=== PATIENT | female | born 1965 | race African-American/Black ===

== ENCOUNTER 2017-08-30 20:12 | Inpatient (IN) | payer MEDICARE, MEDICAID ==
[2017-08-30 20:55] LABS: #Basophils 0.1 thou/uL (0.0-0.2); #Eosinphils 0.2 thou/uL (0.0-0.7); #Lymphocytes 1.9 thou/uL (1.20-3.40); #Monocytes 0.3 thou/uL (0.11-0.59); #Neutrophils 5.5 thou/uL (1.40-6.50); %Basophils 0.8 % (0.0-1.0); %Eosinophils 2.2 % (0.0-10.0); %Lymphocytes 24.3 % (21.0-51.0); %Monocytes 4.1 % (0.0-10.0); Mean Platelet Volume 7.9 fL (7.4-10.4); Red Blood Cell (RBC) Count 3.48 mill/uL (4.20-5.40)
[2017-08-30 21:14] LABS: ALT (SGPT) 9 U/L (8-55); AST (SGOT) 12 U/L (5-34); Alkaline Phosphatase 109 U/L (40-150); Anion Gap 13 mmol/L (10-20); BUN (Urea Nitrogen) 15 mg/dL (9.8-20.1); Bilirubin, Total 0.4 mg/dL (0.2-1.2); CK (CPK) 90 U/L (29-168); Calc. Creatinine Clearance 0 mL/min (70-130); Calcium 8.7 mg/dL (7.8-10.44); Carbon Dioxide 25 mmol/L (22-29); Chloride 105 mmol/L (98-107); Estimated GFR-MDRD 43; Globulin 4.2 g/dL (2.4-3.5); Protein, Total 7.5 g/dL (6.0-8.3)
[2017-08-30 21:18] LABS: Troponin I 0.021 ng/mL (< 0.028)
--- NOTE | 2017-08-30 21:25 | RAD ---
EXAM: ONE VIEW CHEST 08/30/17 COMPARISON: 07/15/16, 12/03/16. HISTORY: Dyspnea. FINDINGS: Portable upright chest demonstrates normal cardiac silhouette. Pulmonary vessels and hilum are alivia l. There are patchy interstitial opacities in the lung bases. No pneumothorax or osseous abnormaliti es. IMPRESSION: Patchy interstitial opacities in the lung bases, worrisome for infiltrate. Continued surveillance is recommended. POS: [facility]
[2017-08-30] MEDS ORDERED: Azithromycin 500 MG VIAL ONE (21:32)
[2017-08-30] MEDS ORDERED: cefTRIAXone\\ROCEPHIN 2 GM VIAL ONE (21:32)
[2017-08-30] MEDS ORDERED: Sodium Chloride 0.9% 100 ML ONE (21:32)
[2017-08-30] MEDS ORDERED: Ondansetron HCl/PF 4 MG/2 ML Vial ONE (22:26)
[2017-08-30] MEDS ORDERED: Lorazepam 2 MG/ML VIAL ONE (22:30)
--- NOTE | 2017-08-30 22:57 | PDOC.EVN ---
Event Note - Event Note Event Note: [id number] H&P Dictated 1. Pneumonia 2. Dyspnea 3. HTN 4. H/O DM type 2 5. dvt &Gi prophylaxis plan: see orders
[2017-08-30] MEDS ORDERED: Nitroglycerin 2% Ointment 1 INCH/1 GM Packet ONE (22:58)
[2017-08-30] MEDS ORDERED: Furosemide 40 MG/4 ML VIAL ONE (22:58)
[2017-08-30] MEDS ORDERED: Acetaminophen 325 MG TAB PO PRN (22:59)
[2017-08-30] MEDS ORDERED: Dextrose 50% Abboject 50 ML SYRINGE SLOW IVP PRN (22:59)
[2017-08-30] MEDS ORDERED: Dextrose 5% in Water 1,000 ML IV PRN (22:59)
[2017-08-30] MEDS ORDERED: HumaLOG 300 UNITS/3 ML VIAL SC PRN (22:59)
[2017-08-30] MEDS ORDERED: Famotidine 20 MG TAB PO PRN (23:00)
[2017-08-30 23:17] LABS: Oxyhemoglobin 89.8 % (94.0-97.0); Sodium 140 mmol/L (135-148)
[2017-08-30 23:20] LABS: Modified Allen's Test POSITIVE; PIP 12 cmH2O; Vent YES
[2017-08-30 23:21] LABS: Mode BIPAP S/T
[2017-08-31] MEDS ORDERED: Enoxaparin Sodium 60 MG/0.6 ML SYRINGE ONE (00:07)
[2017-08-31 01:48] LABS: Troponin I 0.023 ng/mL (< 0.028)
[2017-08-31 01:49] VITALS: BMI 25.2
[2017-08-31] MEDS: methylPREDNISolone Sod Succ/PF 125 MG/2 ML VIAL IVP SCH ×2 (02:32→05:33)
[2017-08-31] MEDS: cefTRIAXone\\ROCEPHIN 1 GM in Sodium Chloride 0.9% 100 ML IVPB SCH ×2 (02:32→23:00)
[2017-08-31] MEDS: Sodium Chloride 0.9% 1,000 ML IV SCH ×2 (02:33→12:40)
[2017-08-31 03:59] LABS: Troponin I 0.029 ng/mL (< 0.028)
[2017-08-31] MEDS: HumaLOG 300 UNITS/3 ML VIAL SC PRN ×2 (05:34→18:36)
--- NOTE | 2017-08-31 07:05 | HP ---
CHIEF COMPLAINT: Dyspnea. HISTORY OF PRESENT ILLNESS: Patient is a 52 years old female with past medical history of hypertension, hyperlipidemia, coronary artery disease, diabetes mellitus type 2, anxiety, depression, now came to the hospital complaining of dyspnea. Dyspnea started 2 weeks. Dyspnea occurs even at rest also, complains of cough with some sputum production, sputum white in color. Denies any fever. Denies any chills. Dyspnea got worse today, so she came to the ER. Complaints of dyspnea at rest also. Patient upon ER arrival, patient was hypoxic with in mid 80s. The patient was placed on oxygen. Patient denies any chest pain, denies any palpations, complains of generalized weakness. Denies any fever, denies any chills. PAST MEDICAL HISTORY: As per HPI. PAST SURGICAL HISTORY: Coronary artery stent placement, had 7 stents in the heart. SOCIAL HISTORY: Positive for smoking, denies alcohol, denies any drugs. FAMILY HISTORY: Denies any heart problems. MEDICATIONS: Reviewed. REVIEW OF SYSTEMS: Constitutional: Denies any fever, denies any chills. Positive for fatigue. Eyes: Denies any vision problems. Ears: Denies any hearing loss. Neck: Denies any neck pain. Cardiovascular system: Denies any chest pain. Denies any palpitations. Respiratory: Positive for dyspnea. Positive for cough, positive for sputum production. Gastrointestinal: Denies nausea, vomiting. Musculoskeletal: Denies any joint deformities. Integumentary: Denies any rash. Psychiatric: Mood is appropriate at this time. Cranial nerve system: Denies syncope, denies lightheadedness. Psychiatric: Denies anxiety. All other review of systems are reviewed and are negative. PHYSICAL EXAMINATION: CONSTITUTIONAL/VITAL SIGNS: At the time of H and P performed, blood pressure is 130/70, afebrile, pulse ox 97% on room air. GENERAL: The patient appears comfortable. HEENT: Pupils equal, round, and reactive. Anterior nares patent. Nose normal. Ears normal. Teeth intact. Tongue is moist. NECK: Supple, no JVD. CARDIOVASCULAR: S1, S2 present. Regular rate and rhythm. No murmurs, no rubs , no gallops. RESPIRATORY SYSTEM: No wheezing, no rhonchi. Breath sounds bilaterally. GASTROINTESTINAL: Abdomen is soft, nontender, no guarding, no organomegaly, no masses felt. NEUROLOGIC: Cranial nerve system is intact. Follows command. Strength intact , sensory intact. MUSCULOSKELETAL: No edema. INTEGUMENTARY: No rashes seen. PSYCHIATRIC: Mood is appropriate at this time. LABORATORY DATA: At the time of H and P performed, white count 8, hemoglobin 9.2, platelet count is 265. D-dimer 1.42. BMP showed sodium 139, potassium 4, chloride 105, CO2 of 25, BUN 15, creatinine 1.53. Troponin 0.021. AST 12, ALT 9, albumin 3.3. Chest x-ray: Patchy interstitial persisted in the lung bases, worrisome for the infiltrate. ASSESSMENT AND PLAN: The patient is a 52 years old female: 1. Pneumonia. Plan is to start patient on IV Rocephin and Zithromax. We will monitor the patient closely. Plan to start patient on breathing treatments also and IV Solu-Medrol. 2. Dyspnea secondary to pneumonia, but need to rule out pulmonary embolism also with elevated D-dimer. CT chest was ordered in the ER. We will wait for the report. Continue Lovenox for deep vein thrombosis prophylaxis for now. We will check cardiac enzymes and 2D echo also. We will place patient on telemetry. 3. Hypertension. Continue home blood pressure medications. 4. Diabetes mellitus type 2. Monitor blood sugars. We will do insulin sliding scale. 5. History of coronary artery disease. Continue home medications. The case was discussed in detail with the patient. Patient is FULL CODE. MTDD
--- NOTE | 2017-08-31 08:02 | PDOC.PN ---
- Subjective Encounter Start Date: 08/31/17 Encounter Start Time: 08:01 Ms. Felton says she is breathing much better today. She denies having any chest pain. She says she has been having difficulty breathing mainly at night for the past few weeks. she says it has been progressive, and usually only when she lays down. - Objective MAR Reviewed: Yes Vital Signs & Weight: Vital Signs (12 hours) Temp Pulse Resp BP Pulse Ox 08/31/17 07:43 87 26 H 99 08/31/17 07:41 87 28 H 99 08/31/17 04:34 89 178/93 H 08/31/17 04:00 97.6 F 08/31/17 03:16 81 170/93 H 08/31/17 02:23 83 22 H 100 08/31/17 02:00 97.0 F L 08/31/17 01:10 97.0 F L 87 35 H 100 Weight Admit Weight 147 lb 4.301 oz Weight 147 lb 4.301 oz Most Recent Monitor Data Heart Rate from ECG 94 NIBP 163/87 NIBP BP-Mean 106 Respiration from ECG 32 SpO2 100 I&O: 08/30/17 08/31/17 09/01/17 06:59 06:59 06:59 Intake Total 339 Output Total 1 Balance 338 Result Diagrams: 08/30/17 20:38 08/30/17 20:38 Additional Labs: Accuchecks 08/31/17 08/31/17 05:32 01:24 POC Glucose 274 H 337 H Phys Exam - Physical Examination HEENT: PERRLA Respiratory: no wheezing + rales at both bases Cardiovascular: RRR + S3, + 2/6 systolic murmur Gastrointestinal: soft, non-tender, positive bowel sounds Musculoskeletal: edema present 1+ pitting edema Dx/Plan (1) Acute on chronic combined systolic and diastolic CHF (congestive heart failure) Code(s): I50.43 - ACUTE ON CHRONIC COMBINED SYSTOLIC AND DIASTOLIC HRT FAIL Status: Acute (2) CAD (coronary artery disease) Code(s): I25.10 - ATHSCL HEART DISEASE OF [place] CORONARY ARTERY W/O ANG PCTRS Status: Chronic (3) Diabetes mellitus type 2 Code(s): E11.9 - TYPE 2 DIABETES MELLITUS WITHOUT COMPLICATIONS Status: Chronic (4) Hypertension Code(s): I10 - ESSENTIAL (PRIMARY) HYPERTENSION Status: Chronic - Plan * Acute respiratory failure- She is being treated for Pneumonia, but her symptoms seem more consist with CHF exacerbation * She had an Echo about a year ago, with an EF of 35-40%. Will add Lasix IV, and place a Pacheco Catheter * Continue IV antibiotic for now, but suspect these can be discontinued soon, if she has rapid improvement with diureses * Await Critical Care Consult * DM- continue SSI- start scheduled insulin once she is tolerating p.o. * HTN- blood pressure is borderline elevated- will monitor
[2017-08-31] MEDS ORDERED: FLU VACC QS2017-18 36 mo. & older 0.5 ML SYRINGE IM ONE (09:00)
[2017-08-31] MEDS ORDERED: Non-Formulary Item 1 EACH (Insulin Glargine,Hum.Rec.Anlog [Lantus Solostar] 24 UNIT) SC SCH (09:00)
[2017-08-31 09:22] LABS: Troponin I 0.012 ng/mL (< 0.028)
--- NOTE | 2017-08-31 10:48 | CON ---
DATE OF CONSULTATION: 08/31/2017 CONSULTING PHYSICIAN: Dr. Silva from the [facility]. REASON FOR CONSULTATION: Acute respiratory failure. HISTORY OF THE PRESENT ILLNESS: The patient is a pleasant 52-year-old -[place] female who c kamran to the hospital last night with shortness of breath which has been progressing over the 3 weeks prior to admission. She states that she has severe difficulty when lying down flat. She apparently has had congestive heart failure in the past. She is visually impaired. She says she has been inocente ing her medication at home, to the best of her knowledge. She was placed on BiPAP. She has improve d to the point where she was able to come off the BiPAP this morning. PAST MEDICAL HISTORY: 1. Coronary artery disease. 2. Diabetes mellitus. 3. Hypertension. 4. Hyperlipidemia. 5. Myocardial infarction. PAST SURGICAL HISTORY: and cholecystectomy. MEDICATIONS PRIOR TO ADMISSION: Atropine eyedrops, Lipitor 40 mg daily, aspirin 81 mg daily, alpraz olam 1 mg daily as needed, Flexeril 10 mg nightly, Plavix 75 mg daily, carvedilol 25 mg b.i.d., furo semide 40 mg every 2 days, Pepcid 20 mg daily as needed, clonidine 0.1 mg t.i.d., Zestril 40 mg b.i. d., glargine insulin 24 units b.i.d., trazodone 100 mg at bedtime, tramadol 50 mg every 12 hours as needed. SOCIAL HISTORY: She smokes a pack every 3-4 days, smoked more heavily in the past. Does not use al cohol, does not use illicit drugs. ALLERGIES: None. REVIEW OF SYSTEMS: Positive for PND, orthopnea, and cough. PHYSICAL EXAMINATION: VITAL SIGNS: Temperature 97.6, pulse 94, blood pressure 163/87. GENERAL: She is awake and alert and in no acute distress. HEENT: Pupils react. Sclerae are anicteric. Oropharynx dry. NECK: No JVD. LUNGS: Inspiratory crackles at both bases. CARDIAC: S1 and S2 regular with 2/6 systolic murmur. ABDOMEN: Soft, nontender. EXTREMITIES: No clubbing, cyanosis. She has trace edema. LABORATORY DATA AND X-RAY FINDINGS: White blood cell count 8, hematocrit 29, and platelet count 265 . D-dimer 1.42, pH 7.30, pCO2 of 46, pO2 78 on BiPAP last night. Sodium 139, potassium 4, chloride 105, CO2 25, BUN 15, creatinine 1.5, glucose 303. BNP 240. Chest x-ray shows bilateral lower lobe interstitial infiltrates. ASSESSMENT: 1. I agree with Dr. Suazo that this is more likely congestive heart failure than pneumonia. 2. Acute respiratory failure requiring mechanical ventilation. 3. Coronary artery disease. 4. Diabetes mellitus. 5. History of congestive heart failure with ejection fraction of 35%-40%. 6. Hypertension. PLAN: 1. Agree with diuresis. 2. Would consolidate or even discontinue antibiotics starting tomorrow if cultures are negative. 3. Discontinue IV fluids. 4. Decrease steroid dose, actually stop steroids as there is no indication for them that I can see at this time. 5. Insulin management per [facility]. 6. I will notify Dr. Canada of the patient's admission as he has seen her before.
[2017-08-31] MEDS: Aspirin 81 mg Enteric Coated Tablet PO SCH (11:49)
[2017-08-31] MEDS: cloNIDine HCl 0.1 MG TAB PO SCH ×3 (11:49→21:48)
[2017-08-31] MEDS: Carvedilol 25 MG TAB PO SCH ×2 (11:49→21:48)
[2017-08-31] MEDS: Furosemide 40 MG/4 ML VIAL SLOW IVP SCH (11:50)
[2017-08-31] MEDS: Clopidogrel Bisulfate 75 MG TAB PO SCH (11:50)
[2017-08-31] MEDS: Insulin Detemir 100 UNITS/ML 24 UNITS in Pre-Filled Syringe 1 EACH SC SCH ×2 (11:52→22:32)
[2017-08-31] MEDS: BRIMONIDINE R EYE SCH ×2 (12:00→21:51)
[2017-08-31] MEDS: PREDNISOLONE 1% EA EYE SCH ×2 (12:01→21:53)
[2017-08-31] MEDS: TIMOLOL 0.5% EA EYE SCH ×2 (12:02→21:53)
[2017-08-31] MEDS: LATANOPROST 0.005% EA EYE SCH (12:02)
[2017-08-31] MEDS ORDERED: Cyclobenzaprine 10 MG TAB PO PRN (14:09)
[2017-08-31] MEDS: ALPRAZolam 1 MG TAB PO PRN (15:09)
[2017-08-31] MEDS: Cyclobenzaprine 10 MG TAB PO PRN (15:09)
[2017-08-31] MEDS: Atorvastatin Calcium 40 MG TAB PO SCH (21:48)
[2017-08-31] MEDS: traZODone HCl 50 MG TAB PO SCH (21:49)
[2017-08-31] MEDS: Lisinopril 20 MG TAB PO SCH (21:49)
[2017-09-01 05:26] LABS: Anion Gap 12 mmol/L (10-20); BUN (Urea Nitrogen) 24 mg/dL (9.8-20.1); Calc. Creatinine Clearance 48 mL/min (70-130); Calcium 8.4 mg/dL (7.8-10.44); Carbon Dioxide 25 mmol/L (22-29); Chloride 106 mmol/L (98-107); Estimated GFR-MDRD 46
[2017-09-01] MEDS: Aspirin 81 mg Enteric Coated Tablet PO SCH (08:16)
[2017-09-01] MEDS: Carvedilol 25 MG TAB PO SCH ×2 (08:16→20:36)
[2017-09-01] MEDS: cloNIDine HCl 0.1 MG TAB PO SCH ×3 (08:17→20:37)
[2017-09-01] MEDS: Furosemide 40 MG/4 ML VIAL SLOW IVP SCH (08:17)
[2017-09-01] MEDS: Clopidogrel Bisulfate 75 MG TAB PO SCH (08:17)
[2017-09-01] MEDS: TIMOLOL 0.5% EA EYE SCH ×2 (08:18→20:39)
[2017-09-01] MEDS: PREDNISOLONE 1% EA EYE SCH ×2 (08:18→20:39)
[2017-09-01] MEDS: BRIMONIDINE R EYE SCH ×2 (08:18→20:39)
[2017-09-01] MEDS: LATANOPROST 0.005% EA EYE SCH (08:18)
[2017-09-01] MEDS: ALPRAZolam 1 MG TAB PO PRN (08:19)
[2017-09-01] MEDS: Insulin Detemir 100 UNITS/ML 24 UNITS in Pre-Filled Syringe 1 EACH SC SCH ×2 (08:51→20:37)
--- NOTE | 2017-09-01 09:42 | PDOC.PN ---
- Subjective Encounter Start Date: 09/01/17 Encounter Start Time: 09:41 Ms. almeida says she feels much better today. she was able to sleep through the night without difficulty. She denies any chest pain. - Objective MAR Reviewed: Yes Vital Signs & Weight: Vital Signs (12 hours) Temp Pulse Resp BP Pulse Ox 09/01/17 08:17 152/73 H 09/01/17 08:00 98.5 F 09/01/17 07:45 90 20 99 09/01/17 04:00 98.0 F 09/01/17 02:52 95 31 H 98 08/31/17 22:42 96 23 H 100 08/31/17 21:49 141/63 H 08/31/17 21:48 141/63 H Weight Admit Weight 147 lb 4.301 oz Weight 147 lb 11.355 oz Most Recent Monitor Data Heart Rate from ECG 82 NIBP 127/62 NIBP BP-Mean 75 Respiration from ECG 18 SpO2 99 I&O: 08/31/17 09/01/17 09/02/17 06:59 06:59 06:59 Intake Total 339 1154 300 Output Total 1 2430 Balance 338 -1276 300 Result Diagrams: 08/30/17 20:38 09/01/17 04:03 Additional Labs: Accuchecks 09/01/17 08/31/17 08/31/17 06:30 22:03 18:29 POC Glucose 168 H 237 H 304 H 08/31/17 11:47 POC Glucose 220 H Phys Exam - Physical Examination HEENT: PERRLA Respiratory: no wheezing + rales at the bases but diminished Cardiovascular: RRR 2/6 systolic murmur to the axilla Gastrointestinal: soft, non-tender, positive bowel sounds Musculoskeletal: no edema Dx/Plan (1) Acute on chronic combined systolic and diastolic CHF (congestive heart failure) Code(s): I50.43 - ACUTE ON CHRONIC COMBINED SYSTOLIC AND DIASTOLIC HRT FAIL Status: Acute (2) CAD (coronary artery disease) Code(s): I25.10 - ATHSCL HEART DISEASE OF [place] CORONARY ARTERY W/O ANG PCTRS Status: Chronic (3) Diabetes mellitus type 2 Code(s): E11.9 - TYPE 2 DIABETES MELLITUS WITHOUT COMPLICATIONS Status: Chronic (4) Hypertension Code(s): I10 - ESSENTIAL (PRIMARY) HYPERTENSION Status: Chronic - Plan * Acute on chronic diastolic heart failure- much improved after diureses * Echo results were notes. Her EF is much improved from her prior admission, but the MR is now severe- will consult Dr. Baker to help evaluate * DM- stable, her home medications have been re-started * HTN- blood pressure is stable * CAD- stable * Can transfer to Telemetry.
[2017-09-01] MEDS ORDERED: HYDROcodone/Acetaminophen 5/325 mg Tablet PO PRN (09:50)
[2017-09-01] MEDS: Lisinopril 20 MG TAB PO SCH ×2 (10:06→20:36)
--- NOTE | 2017-09-01 12:51 | PQF ---
DATE: 09-02-17 ATTN: DR. HOSSEIN CASTILLO Please exercise your independent, professional judgment in responding to the clarification form. Clinical indicators are provided on the bottom of this form for your review Please check appropriate box(s): [ ] Aspiration Pneumonia [ ] Empirically treating Gram Negative Pneumonia [ ] Empirically treating Anaerobic Pneumonia [ ] Pneumonia secondary to (specify organism / underlying disease) [ ] Simple Pneumonia (community acquired - nosocomial) [ ] Pneumonia of unknown etiology [ X ] Other diagnosis _Pneumonia- ruled out- finding due to CHF exacerbation ( diastolic dysfunction) [ ] Unable to determine In addition, please specify: Present on Admission (POA): [ ] Yes [ ] No [ ] Unable to determine For continuity of documentation, please document condition throughout progress notes and discharge summary. Thank You. CLINICAL INDICATORS - SIGNS / SYMPTOMS / LABS ER DIAGNOSIS: HYPOXIA, PNEUMONIA CXR 08-30-17: PATCH INTERSTITIAL OPACITIES IN THE LUNG BASES, WORRISOME FOR INFILTRATE. ER DOCUMENTATION: CEFTRIAXONE, AZITHROMYCIN, (09-01-17) LEVAQUIN H&P: PNEUMONIA PN DR. CASTILLO 08-31-17: SHE IS BEING TREATED FOR PNEUMONIA, BUT HER SYMPTOMS SEEM MORE CONSISTENT WITH CHF. CONTINUE IV ANTIBIOTICS FOR NOW, BUT SUSPECT THESE CAN BE D/C SOON, IF SHE HAS RAPID IMPROVEMENT WITH DIURESES RISK FACTORS: ER DOCUMENTATION: HX OF CHF, SMOKER TREATMENTS: * ER DOCUMENTATION: CEFTRIAXONE, AZITHROMYCIN, (09-01-17) LEVAQUIN * PN DR. CASTILLO 08-31-17: CONTINUE IV ANTIBIOTICS FOR NOW, BUT SUSPECT THESE CAN BE D/C SOON, IF SHE HAS RAPID IMPROVEMENT WITH DIURESES * PULMONARY CONSULT (This form is maintained as a part of the permanent medical record) 2015 [employer]. All Rights Reserved [email or web address] Office: [phone] WANDA
[2017-09-01] MEDS: HumaLOG 300 UNITS/3 ML VIAL SC PRN ×2 (13:02→17:29)
--- NOTE | 2017-09-01 13:03 | PQF ---
DATE: 09-02-17 ATTN: DR. HOSSEIN CASTILLO Please exercise your independent, professional judgment in responding to the clarification form. Clinical indicators are provided on the bottom of this form for your review Please check appropriate box(s): [ ] Acute Renal Failure (ARF) / Acute Kidney Injury (NITIN) (Please specify associated condition, if applicable) [ ] Other Etiology or underlying conditions related to the diagnosis of ARF/ NITIN: [ ] Acute on Chronic Renal Failure please specify Stage of CKD (see below) [ X ] CKD without ARF/NITIN please specify Stage of CKD___ CKD stage 3 [ ] Other diagnosis [ ] Unable to determine In addition, please specify: Present on Admission (POA): [ ] Yes [ ] No [ ] Unable to determine National Kidney Foundation Guidelines for CKD Staging Stage I Kidney damage with normal or increased GFR GFR > 90 Stage II Kidney damage with mildly decreased GFR GFR 60-89 Stage III Kidney damage with moderately decreased GFR GFR 30-59 Stage IV Kidney damage with severely decreased GFR GFR 16-29 Stage V Kidney failure GFR<15 ESRD End Stage Renal Disease On dialysis For continuity of documentation, please document condition throughout progress notes and discharge summary. Thank You. CLINICAL INDICATORS - SIGNS / SYMPTOMS / LABS GFR: 08-30-17: 43 09-01-17: 46 CREATININE: 08-30-17: 1.53 09-01-17: 1.45 BUN: 08-30-17: 15 09-01-17: 24 RISK FACTORS: (08-31-17) LASIX IVP DAILY TREATMENTS: (08-30-17) IVF, ( ER) IVF 500ML (This form is maintained as a part of the permanent medical record) 2014 [employer] All Rights Reserved [email or web address] Office: [phone] TONSIL HOSPITALLuzma
--- NOTE | 2017-09-01 17:18 | PRG ---
DATE OF SERVICE 09/01/2017 SERVICE: Pulmonary Medicine. INTERVAL HISTORY: The patient is doing great from a respiratory standpoint. She denies any shortne ss of breath, fevers, chills, nausea, vomiting or overnight events. Otherwise, she is returning to her usual state of health and is breathing comfortably. PHYSICAL EXAMINATION: VITAL SIGNS: Afebrile, pulse 82, blood pressure 143/67, respirations 16, saturation 98% on 1 liter nasal cannula. HEENT: Normocephalic, atraumatic. Sclerae are white, conjunctivae pink. Oral and nasal mucosa is moist without lesions. LUNGS: Decent air entry. There is no significant prolongation of the expiratory phase. Minimal cr ackles are present dependently. HEART: Normal rate, regular. ABDOMEN: Soft, nontender, nondistended. Bowel sounds positive. MUSCULOSKELETAL: No cyanosis or clubbing. There is trace pitting in the bilateral lower extremitie s. NEUROLOGIC: Grossly nonfocal. LABORATORY DATA: WBC 8.0, hemoglobin 9.2, platelets 265,000. D-dimer 1.42. Creatinine 1.45. Basi c metabolic profile is otherwise unremarkable. Influenza A and B is negative. ASSESSMENT: 1. Acute hypoxic respiratory failure, improving. 2. Acute valvular heart failure secondary to severe mitral regurgitation, improving. 3. Hypertensive emergency. PLAN: We will continue to diurese the patient to euvolemia. We will target a blood pressure less t rodriguez systolic of 160. At this point, she has no further requirement for Pulmonary Critical Care opin ion. As such, we will sign off. Please call with additional questions or concerns moving forward. Given the patient's rapid improvement, my suspicion is that this was a fluid related. I agree with discontinuation of the antibiotics.
[2017-09-01] MEDS: traZODone HCl 50 MG TAB PO SCH (20:35)
[2017-09-01] MEDS: Atorvastatin Calcium 40 MG TAB PO SCH (20:36)
[2017-09-02] MEDS: ALPRAZolam 1 MG TAB PO PRN (03:40)
[2017-09-02] MEDS ORDERED: Furosemide 40 MG/4 ML VIAL ONE (03:56)
[2017-09-02] MEDS ORDERED: Furosemide 20 MG/2 ML VIAL SLOW IVP SCH (04:00)
[2017-09-02 06:18] LABS: #Eosinphils 0.1 thou/uL (0.0-0.7); #Lymphocytes 1.5 thou/uL (1.20-3.40); #Monocytes 0.8 thou/uL (0.11-0.59); #Neutrophils 11.6 thou/uL (1.40-6.50); %Basophils 0.2 % (0.0-1.0); %Eosinophils 0.7 % (0.0-10.0); %Lymphocytes 10.8 % (21.0-51.0); %Monocytes 5.9 % (0.0-10.0); Hematocrit 31.8 % (36.0-47.0); Mean Platelet Volume 7.7 fL (7.4-10.4)
[2017-09-02 06:40] LABS: ALT (SGPT) 13 U/L (8-55); AST (SGOT) 17 U/L (5-34); Alkaline Phosphatase 94 U/L (40-150); Anion Gap 15 mmol/L (10-20); BUN (Urea Nitrogen) 22 mg/dL (9.8-20.1); Bilirubin, Total 0.5 mg/dL (0.2-1.2); Calc. Creatinine Clearance 52 mL/min (70-130); Calcium 8.7 mg/dL (7.8-10.44); Carbon Dioxide 25 mmol/L (22-29); Chloride 105 mmol/L (98-107); Estimated GFR-MDRD 52; Protein, Total 7.1 g/dL (6.0-8.3)
[2017-09-02] MEDS: Furosemide 40 MG/4 ML VIAL SLOW IVP SCH (08:28)
[2017-09-02] MEDS: Carvedilol 25 MG TAB PO SCH ×2 (08:28→20:45)
[2017-09-02] MEDS: Insulin Detemir 100 UNITS/ML 24 UNITS in Pre-Filled Syringe 1 EACH SC SCH ×2 (08:28→20:45)
[2017-09-02] MEDS: Clopidogrel Bisulfate 75 MG TAB PO SCH (08:28)
[2017-09-02] MEDS: Aspirin 81 mg Enteric Coated Tablet PO SCH (08:28)
[2017-09-02] MEDS: cloNIDine HCl 0.1 MG TAB PO SCH (08:28)
[2017-09-02] MEDS: Lisinopril 20 MG TAB PO SCH ×2 (08:29→20:46)
[2017-09-02] MEDS: BRIMONIDINE R EYE SCH ×2 (08:30→20:47)
[2017-09-02] MEDS: LATANOPROST 0.005% EA EYE SCH (08:31)
[2017-09-02] MEDS: TIMOLOL 0.5% EA EYE SCH ×2 (08:31→20:47)
[2017-09-02] MEDS: PREDNISOLONE 1% EA EYE SCH ×2 (08:31→20:47)
--- NOTE | 2017-09-02 09:31 | RAD ---
CHEST ONE VIEW: History: Dyspnea. Follow up. Comparison: 08-30-17 FINDINGS: Cardiac silhouette is magnified by projection. Pulmonary vasculature is upper limits of normal. Patc hy bilateral perihilar and bibasilar infiltrates are more pronounced than on the previous exam. Medi astinum remains midline allowing for slight rightward rotation of the patient. 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 IMPRESSION: Slight interval increase in pulmonary vascular congestion. POS: [facility]
--- NOTE | 2017-09-02 09:37 | PDOC.PN ---
- Subjective Encounter Start Date: 09/02/17 Encounter Start Time: 09:32 Ms. Felton had a rough night last night. She had another episode where got extremely short of breath, and it was noted that her blood pressure was very high. - Objective MAR Reviewed: Yes Vital Signs & Weight: Vital Signs (12 hours) Temp Pulse Resp BP Pulse Ox 09/02/17 08:17 98.8 F 93 20 170/79 H 99 09/02/17 03:29 98.8 F 110 H 30 H 221/118 H 84 L 09/02/17 03:02 92 L 09/02/17 02:59 93 26 H 92 L 09/01/17 23:03 98.2 F 82 24 H 158/75 H 94 L Weight Admit Weight 147 lb 4.301 oz Weight 143 lb 6.4 oz Most Recent Monitor Data Heart Rate from ECG 87 NIBP 144/62 NIBP BP-Mean 83 Respiration from ECG 20 SpO2 95 I&O: 09/01/17 09/02/17 09/03/17 06:59 06:59 06:59 Intake Total 1154 1060 Output Total 2430 1475 Balance -1276 -415 Result Diagrams: 09/02/17 06:02 09/02/17 06:02 Additional Labs: Accuchecks 09/02/17 09/02/17 09/02/17 06:49 06:03 05:37 POC Glucose 113 H 63 L 69 L 09/01/17 09/01/17 09/01/17 20:27 16:59 12:44 POC Glucose 182 H 240 H 178 H Phys Exam - Physical Examination HEENT: PERRLA + rales at the left base, no wheezing or rhonchi Cardiovascular: RRR, no significant murmur, no rub Gastrointestinal: soft, non-tender, positive bowel sounds Musculoskeletal: no edema Dx/Plan (1) Acute on chronic combined systolic and diastolic CHF (congestive heart failure) Code(s): I50.43 - ACUTE ON CHRONIC COMBINED SYSTOLIC AND DIASTOLIC HRT FAIL Status: Acute (2) CAD (coronary artery disease) Code(s): I25.10 - ATHSCL HEART DISEASE OF [place] CORONARY ARTERY W/O ANG PCTRS Status: Chronic (3) Diabetes mellitus type 2 Code(s): E11.9 - TYPE 2 DIABETES MELLITUS WITHOUT COMPLICATIONS Status: Chronic (4) Hypertension Code(s): I10 - ESSENTIAL (PRIMARY) HYPERTENSION Status: Chronic - Plan * Acute on chronic diastolic heart failure- continue to Diurese * She had a spike in her blood pressure. She tells me she had been on Clonidine at 0.2mg three times a day at home- will increase the dose * Again will consult Cardiology for further recommendations * DM- she had one hypoglycemic episode last night- ? poor oral intake?- will monitor * Hopefully home soon.
--- NOTE | 2017-09-02 12:39 | CON ---
DATE OF CONSULTATION: 09/02/2017 HISTORY OF PRESENT ILLNESS: This is a 52-year-old woman who presented with increasing dyspnea. The patient has a long history of coronary artery disease. She had a myocardial infarction in 1998. S he underwent PTCA and stent placement. She was found to have 100% occlusion right coronary artery. The patient subsequently has undergone PTCA and stent placement into the left anterior descending a nd the first obtuse marginal branch. The patient has been subsequently on medical therapy. She has a history of an ischemic cardiomyopathy and difficult to control hypertension. Most recently, the patient underwent a Cardiolite stress test which revealed her to have left ventricular ejection frac tion 43% with evidence of scar of the lateral wall and emma-infarct ischemia. The patient has been on medical therapy when she presented with the acute onset of dyspnea and respiratory failure. The patient also reported having a lower midsternal discomfort. This occurred at night and was relieved by food. The patient denied any other changes to any other chest discomfort. The patient states s he has been compliant with her medications and low sodium diet. Unfortunately the patient continues to smoke. PAST MEDICAL HISTORY: 1. Coronary artery disease. 2. Diabetes mellitus. 3. Hypertension. 4. GE reflux. 5. Anemia. 6. Neuropathy. 7. Retinopathy. PAST SURGICAL HISTORY: She has had eye surgery, cholecystectomy, . SOCIAL HISTORY: The patient continues to abuse tobacco. MEDICATIONS ON ADMISSION: Aspirin 81 daily, Lipitor 40 at bedtime, Coreg 25 b.i.d., Lasix 40 mg anette ry other day, clonidine 0.1 t.i.d., lisinopril 40 b.i.d., trazodone 100 at bedtime and insulin. ALLERGIES: No known drug allergies. FAMILY HISTORY: Strong family history of coronary artery disease. REVIEW OF SYSTEMS: No history of easy bruising or bleeding, bright red blood per rectum, hematuria. Ten-point system otherwise is unremarkable. PHYSICAL EXAMINATION: GENERAL: Middle-aged woman in no acute distress. VITAL SIGNS: Blood pressure 170/79. NECK: No jugular venous distention. LUNGS: Lungs have crackles in both bases. HEART: Regular rate and rhythm, normal S1, S2, no murmurs. ABDOMEN: Nondistended. EXTREMITIES: Showed trace edema. SKIN: Warm and dry. NEUROLOGIC: Nonfocal. VASCULAR: Radial pulses are 2+. LABORATORY RESULTS: Sodium 141, potassium 3.6, chloride 105, bicarbonate 25, BUN 22, creatinine 1.3 , glucose is 54. Her white blood cell count is 14.0, hemoglobin 9.9, hematocrit 31.8, platelets 246 . Her EKG revealed her to have normal sinus rhythm with left axis deviation and voltage criteria for L VH. Echocardiogram revealed normal left ventricular ejection fraction 60-65%, severe mitral regurgi tation. IMPRESSION: 1. Respiratory failure secondary to congestive heart failure. 2. Congestive heart failure, diastolic, probably second diastolic dysfunction. 3. Malignant hypertension. 4. Coronary artery disease, status post percutaneous transluminal coronary angioplasty and stent pl acement. 5. History of myocardial infarction. 6. Diabetes mellitus. 7. Dyslipidemia. 8. Severe mitral regurgitation. 9. Renal insufficiency. This patient presents with poorly controlled hypertension and congestive heart failure. She had a r ecent stress study that did not reveal significant ischemia. Her echocardiogram reveals normal left systolic function. From a cardiac standpoint, it would be recommended that the patient's blood pre ssure has been markedly elevated. She recently had her clonidine dose increased. We will add Imdur . We will follow this patient with you through her hospitalization.
[2017-09-02] MEDS: HumaLOG 300 UNITS/3 ML VIAL SC PRN (17:09)
[2017-09-02] MEDS: Atorvastatin Calcium 40 MG TAB PO SCH (20:44)
[2017-09-02] MEDS: traZODone HCl 50 MG TAB PO SCH (20:48)
[2017-09-03] MEDS: Carvedilol 25 MG TAB PO SCH ×2 (08:57→19:59)
[2017-09-03] MEDS: Clopidogrel Bisulfate 75 MG TAB PO SCH (08:57)
[2017-09-03] MEDS: Furosemide 40 MG/4 ML VIAL SLOW IVP SCH (08:57)
[2017-09-03] MEDS: Aspirin 81 mg Enteric Coated Tablet PO SCH (08:57)
[2017-09-03] MEDS: BRIMONIDINE R EYE SCH ×2 (08:58→20:11)
[2017-09-03] MEDS: Lisinopril 20 MG TAB PO SCH ×2 (08:58→19:59)
[2017-09-03] MEDS: PREDNISOLONE 1% EA EYE SCH ×2 (08:58→20:11)
[2017-09-03] MEDS: LATANOPROST 0.005% EA EYE SCH (08:58)
[2017-09-03] MEDS: TIMOLOL 0.5% EA EYE SCH ×2 (08:58→20:10)
[2017-09-03] MEDS: Insulin Detemir 100 UNITS/ML 24 UNITS in Pre-Filled Syringe 1 EACH SC SCH ×2 (09:00→20:49)
[2017-09-03] MEDS: HumaLOG 300 UNITS/3 ML VIAL SC PRN ×2 (09:00→17:55)
[2017-09-03] MEDS: ALPRAZolam 1 MG TAB PO PRN (09:09)
--- NOTE | 2017-09-03 11:56 | PDOC.CTH ---
<Kim Henning - Last Filed: 09/03/17 11:49> Cardiology Progress Note - Subjective The pt was seen and evaluated. No overnight events. No cardiac complaints. She states she can breath better today without any chest discomfort/pressure. - Objective Vital Signs Temp Pulse Resp BP Pulse Ox 09/03/17 07:47 97.2 F L 91 20 178/81 H 93 L 09/03/17 04:00 98.3 F 78 20 146/71 H 92 L 09/03/17 00:42 97 09/03/17 00:00 98.2 F 85 20 142/66 H 90 L Admit Weight 147 lb 4.301 oz Weight 142 lb 9.6 oz 09/02/17 09/03/17 09/04/17 06:59 06:59 06:59 Intake Total 1060 1080 Output Total 1475 1850 Balance -415 -770 - Physical Examination General/Neuro: alert & oriented x3 Neck: no JVD present Lungs: CTA, other: (diminished at bases) Heart: RRR Abdomen: soft, other: Extremities: other: (No edeme) - Telemetry Telemetry Rhythm: SR 80s - Labs Result Diagrams: 09/02/17 06:02 09/02/17 06:02 Troponin/CKMB CK-MB (CK-2) 2.0 ng/mL (0-6.6) 08/30/17 20:39 Troponin I 0.012 ng/mL (< 0.028) 08/31/17 08:50 - Assessment/Plan 1. Acute on chronic combined HF - EF was 60-65% with Severe MR in 08/2017, which was 35-40% with mod MR in 2015. Stable with diuretic, ISAAC inhibitor,and BBlocker 2. HTN - Restart Imdur 30mg daily; cont. monitor 3. CAD with Hx of PTCI and stent placement - stable with current medication; cont. monitor on tele 4. DM type 2 - on ACHS BS with Insulin SS 5. hyperlipidemia - on Statin medication 6. GERD - stable with Pepcid 7. CKD - stable 8. Sever MR - cont. monitor MAR reviewed Review of Systems - Review of Systems Constitutional: reports: no symptoms reported EENTM: reports: no symptoms reported Respiratory: reports: no symptoms reported Cardiac (ROS): reports: no symptoms reported ABD/GI: reports: no symptoms reported : reports: no symptoms reported Musculoskeletal: reports: no symptoms reported Skin: reports: no symptoms reported <Karolyn Baker - Last Filed: 09/03/17 22:19> Cardiology Progress Note - Objective Vital Signs Temp Pulse Pulse Pulse Resp BP BP 09/03/17 19:35 98.5 F 85 18 09/03/17 19:30 98.5 F 85 18 09/03/17 15:49 96.7 F L 82 18 09/03/17 14:50 86 83 127/60 130/61 09/03/17 12:22 98.1 F 76 18 BP Pulse Ox Pulse Ox Pulse Ox 09/03/17 19:35 140/65 95 09/03/17 19:30 95 09/03/17 15:49 152/70 H 92 L 09/03/17 14:50 97 93 L 09/03/17 12:22 159/74 H 96 Admit Weight 147 lb 4.301 oz Weight 142 lb 9.6 oz 09/02/17 09/03/17 09/04/17 06:59 06:59 06:59 Intake Total 1060 1080 980 Output Total 1475 1850 1100 Balance -415 -770 -120 - Labs Result Diagrams: 09/02/17 06:02 09/02/17 06:02 Troponin/CKMB CK-MB (CK-2) 2.0 ng/mL (0-6.6) 08/30/17 20:39 Troponin I 0.012 ng/mL (< 0.028) 08/31/17 08:50 - Assessment/Plan The pt. was seen and evaluated by me. I discussed her case with the PACKAGING SUPERVISOR. I agree with the A/P by the PACKAGING SUPERVISOR. Chest is relatively clear. RRR. No edema.
--- NOTE | 2017-09-03 12:53 | PDOC.PN ---
- Subjective Encounter Start Date: 09/03/17 Encounter Start Time: 10:45 Pt seen and examined earlier on rounds, chart reviewed in its entirety. This is my first visit with this patient. Denies CP or SOB, did get winded when getting up to the [facility]. No CP, no cough or hemoptysis, no n/V/D/C. 10 point ROS performed and neg for all systems except as above - Objective Resuscitation Status: Full MAR Reviewed: Yes Vital Signs & Weight: Vital Signs (12 hours) Temp Pulse Resp BP Pulse Ox 09/03/17 12:22 98.1 F 76 18 159/74 H 96 09/03/17 08:00 97.2 F L 91 20 93 L 09/03/17 07:47 97.2 F L 91 20 178/81 H 93 L 09/03/17 04:00 98.3 F 78 20 146/71 H 92 L Weight Admit Weight 147 lb 4.301 oz Weight 142 lb 9.6 oz Most Recent Monitor Data Heart Rate from ECG 87 NIBP 144/62 NIBP BP-Mean 83 Respiration from ECG 20 SpO2 95 I&O: 09/02/17 09/03/17 09/04/17 06:59 06:59 06:59 Intake Total 1060 1080 Output Total 1475 1850 Balance -415 -770 Result Diagrams: 09/02/17 06:02 09/02/17 06:02 Additional Labs: Accuchecks 09/03/17 09/02/17 09/02/17 06:12 20:40 16:36 POC Glucose 269 H 277 H 215 H Radiology Reviewed by me: Yes EKG Reviewed by me: Yes Phys Exam - Physical Examination Constitutional: NAD HEENT: PERRLA, moist MMs, sclera anicteric, oral pharynx no lesions Neck: no nodes, no JVD, supple, full ROM Respiratory: no wheezing, no rales, no rhonchi, clear to auscultation bilateral Cardiovascular: RRR, no significant murmur, no rub Gastrointestinal: soft, non-tender, no distention, positive bowel sounds Musculoskeletal: no edema, pulses present Neurological: non-focal, normal sensation, moves all 4 limbs Lymphatic: no nodes Psychiatric: normal affect, A&O x 3 Skin: no rash, normal turgor, cap refill <2 seconds Dx/Plan (1) Acute on chronic combined systolic and diastolic CHF (congestive heart failure) Code(s): I50.43 - ACUTE ON CHRONIC COMBINED SYSTOLIC AND DIASTOLIC HRT FAIL Status: Acute Comment: echo reviewed, cardiology following. Wants to monitor overnight. Possible discharge tomorrow. responding well to diuresis, will continue (2) CAD (coronary artery disease) Code(s): I25.10 - ATHSCL HEART DISEASE OF [place] CORONARY ARTERY W/O ANG PCTRS Status: Chronic Qualifiers: Coronary Disease-Associated Artery/Lesion type: [place] artery [place] vs. transplanted heart: [place] heart Associated angina: without angina Qualified Code(s): I25.10 - Atherosclerotic heart disease of [place] coronary artery without angina pectoris (3) CKD (chronic kidney disease), stage III Status: Chronic Comment: stable (4) Chronic anemia Code(s): D64.9 - ANEMIA, UNSPECIFIED Status: Chronic Comment: due to CKD (5) Diabetes mellitus type 2 Code(s): E11.9 - TYPE 2 DIABETES MELLITUS WITHOUT COMPLICATIONS Status: Chronic (6) Hypertension Code(s): I10 - ESSENTIAL (PRIMARY) HYPERTENSION Status: Chronic Qualifiers: Hypertension type: essential hypertension Qualified Code(s): I10 - Essential (primary) hypertension (7) Mitral valve regurgitation Code(s): I34.0 - NONRHEUMATIC MITRAL (VALVE) INSUFFICIENCY Status: Chronic Comment: CAD - Plan cont current plan of care, PT/OT, social welfare research worker, respiratory therapy, out of bed/ambulate, DVT proph w/lovenox * .
[2017-09-03] MEDS: traZODone HCl 50 MG TAB PO SCH (19:59)
[2017-09-03] MEDS: Atorvastatin Calcium 40 MG TAB PO SCH (19:59)
[2017-09-03] MEDS: Cyclobenzaprine 10 MG TAB PO PRN (20:49)
[2017-09-04 05:31] LABS: #Basophils 0.1 thou/uL (0.0-0.2); #Eosinphils 0.2 thou/uL (0.0-0.7); #Lymphocytes 2.3 thou/uL (1.20-3.40); #Monocytes 0.7 thou/uL (0.11-0.59); #Neutrophils 4.9 thou/uL (1.40-6.50); %Basophils 0.8 % (0.0-1.0); %Eosinophils 2.9 % (0.0-10.0); %Lymphocytes 28.3 % (21.0-51.0); %Monocytes 7.9 % (0.0-10.0); Hematocrit 26.8 % (36.0-47.0); Red Blood Cell (RBC) Count 3.24 mill/uL (4.20-5.40); White Blood Cell (WBC) Count 8.2 thou/uL (4.8-10.8)
[2017-09-04 05:51] LABS: Anion Gap 10 mmol/L (10-20); BUN (Urea Nitrogen) 21 mg/dL (9.8-20.1); Calc. Creatinine Clearance 55 mL/min (70-130); Calcium 8.2 mg/dL (7.8-10.44); Carbon Dioxide 26 mmol/L (22-29); Chloride 105 mmol/L (98-107); Estimated GFR-MDRD 56
[2017-09-04] MEDS: Clopidogrel Bisulfate 75 MG TAB PO SCH (09:25)
[2017-09-04] MEDS: Aspirin 81 mg Enteric Coated Tablet PO SCH (09:25)
[2017-09-04] MEDS: Carvedilol 25 MG TAB PO SCH ×2 (09:25→21:04)
[2017-09-04] MEDS: Lisinopril 20 MG TAB PO SCH ×2 (09:26→21:03)
[2017-09-04] MEDS: Furosemide 40 MG/4 ML VIAL SLOW IVP SCH (09:26)
[2017-09-04] MEDS: Insulin Detemir 100 UNITS/ML 24 UNITS in Pre-Filled Syringe 1 EACH SC SCH ×2 (09:27→21:22)
[2017-09-04] MEDS: ALPRAZolam 1 MG TAB PO PRN (09:35)
[2017-09-04] MEDS: TIMOLOL 0.5% EA EYE SCH ×2 (09:37→21:04)
[2017-09-04] MEDS: PREDNISOLONE 1% EA EYE SCH ×2 (09:38→21:04)
[2017-09-04] MEDS: LATANOPROST 0.005% EA EYE SCH (09:39)
[2017-09-04] MEDS: BRIMONIDINE R EYE SCH ×2 (09:39→21:04)
--- NOTE | 2017-09-04 13:01 | PDOC.CTH ---
Cardiology Progress Note - Subjective The pt was seen and examined. No overnight events. No cardiac complaints. She has walked at the floor without SOB or other cardiac complaints. She expressed her concern of her rent - Objective Vital Signs Temp Pulse Pulse Pulse Resp BP BP 09/04/17 11:41 98.6 F 76 16 09/04/17 10:24 95 93 151/86 H 09/04/17 09:26 166/81 H 09/04/17 07:50 98.4 F 84 16 09/04/17 04:00 98.4 F 78 18 BP BP Pulse Ox Pulse Ox Pulse Ox 09/04/17 11:41 131/68 95 09/04/17 10:24 157/70 H 97 95 09/04/17 09:26 09/04/17 07:50 166/81 H 96 09/04/17 04:00 162/79 H 95 Admit Weight 147 lb 4.301 oz Weight 139 lb 9 oz 09/03/17 09/04/17 09/05/17 06:59 06:59 06:59 Intake Total 1080 1030 Output Total 1850 1600 Balance -770 -570 - Physical Examination General/Neuro: alert & oriented x3 Neck: no JVD present Lungs: CTA Heart: RRR Abdomen: soft Extremities: other: (No edmea) - Telemetry Telemetry Rhythm: SR 70s - Labs Result Diagrams: 09/04/17 04:55 09/04/17 04:55 Troponin/CKMB CK-MB (CK-2) 2.0 ng/mL (0-6.6) 08/30/17 20:39 Troponin I 0.012 ng/mL (< 0.028) 08/31/17 08:50 - Assessment/Plan 1. Acute on chronic combined HF - EF was 60-65% with Severe MR in 08/2017, which was 35-40% with mod MR in 2016. Stable with diuretic, ISAAC inhibitor,and BBlocker 2. HTN - stable with current medication; cont. monitor 3. CAD with Hx of PTCI and stent placement - stable with current medication; cont. monitor on tele 4. DM type 2 - on ACHS BS with Insulin SS 5. hyperlipidemia - on Statin medication 6. GERD - stable with Pepcid 7. CKD - stable 8. Sever MR - cont. monitor MAR reviewed Review of Systems - Review of Systems Constitutional: reports: no symptoms reported EENTM: reports: no symptoms reported Respiratory: reports: no symptoms reported Cardiac (ROS): reports: no symptoms reported ABD/GI: reports: no symptoms reported : reports: no symptoms reported Musculoskeletal: reports: no symptoms reported Skin: reports: no symptoms reported
--- NOTE | 2017-09-04 15:16 | PDOC.PN ---
- Subjective Encounter Start Date: 09/04/17 Encounter Start Time: 08:00 Subjective: pt is feeling better - Objective Vital Signs & Weight: Vital Signs (12 hours) Temp Pulse Pulse Pulse Resp BP BP 09/04/17 11:41 98.6 F 76 16 09/04/17 10:24 95 93 151/86 H 09/04/17 09:26 166/81 H 09/04/17 07:50 98.4 F 84 16 09/04/17 04:00 98.4 F 78 18 BP BP Pulse Ox Pulse Ox Pulse Ox 09/04/17 11:41 131/68 95 09/04/17 10:24 157/70 H 97 95 09/04/17 09:26 09/04/17 07:50 166/81 H 96 09/04/17 04:00 162/79 H 95 Weight Admit Weight 147 lb 4.301 oz Weight 139 lb 9 oz Most Recent Monitor Data Heart Rate from ECG 87 NIBP 144/62 NIBP BP-Mean 83 Respiration from ECG 20 SpO2 95 I&O: 09/03/17 09/04/17 09/05/17 06:59 06:59 06:59 Intake Total 1080 1030 Output Total 1850 1600 Balance -770 -570 Result Diagrams: 09/04/17 04:55 09/04/17 04:55 Additional Labs: Accuchecks 09/04/17 09/04/17 09/03/17 11:25 05:35 20:37 POC Glucose 123 H 138 H 312 H 09/03/17 09/03/17 17:13 12:07 POC Glucose 340 H 148 H Phys Exam - Physical Examination b.l crackles Cardiovascular: RRR, no significant murmur Gastrointestinal: soft, non-tender, no distention Musculoskeletal: edema present 1+ Neurological: non-focal Lymphatic: no nodes Skin: no rash Dx/Plan (1) Acute on chronic combined systolic and diastolic CHF (congestive heart failure) Code(s): I50.43 - ACUTE ON CHRONIC COMBINED SYSTOLIC AND DIASTOLIC HRT FAIL Status: Acute Comment: echo reviewed, cardiology following. Wants to monitor overnight. Possible discharge tomorrow. responding well to diuresis, will continue (2) Anxiety and depression Code(s): F41.9 - ANXIETY DISORDER, UNSPECIFIED; F32.9 - MAJOR DEPRESSIVE DISORDER, SINGLE EPISODE, UNSPECIFIED Status: Chronic (3) CAD (coronary artery disease) Code(s): I25.10 - ATHSCL HEART DISEASE OF [place] CORONARY ARTERY W/O ANG PCTRS Status: Chronic Qualifiers: Coronary Disease-Associated Artery/Lesion type: [place] artery [place] vs. transplanted heart: [place] heart Associated angina: without angina Qualified Code(s): I25.10 - Atherosclerotic heart disease of [place] coronary artery without angina pectoris Plan: stable , will continue current care. (4) CKD (chronic kidney disease), stage III Status: Chronic Comment: stable (5) Cardiomyopathy Code(s): I42.9 - CARDIOMYOPATHY, UNSPECIFIED Status: Chronic Comment: DILATED, ISCHEMIV (6) Chronic anemia Code(s): D64.9 - ANEMIA, UNSPECIFIED Status: Chronic Plan: will monitor Comment: due to CKD (7) Chronic kidney disease stage 2 Code(s): N18.2 - CHRONIC KIDNEY DISEASE, STAGE 2 (MILD) Status: Chronic Plan: we will monitor (8) Diabetes mellitus type 2 Code(s): E11.9 - TYPE 2 DIABETES MELLITUS WITHOUT COMPLICATIONS Status: Chronic Plan: we will cont with present medication (9) Elevated d-dimer Code(s): R79.89 - OTHER SPECIFIED ABNORMAL FINDINGS OF BLOOD CHEMISTRY Status : Acute Plan: we will check V/q scan - Plan * . - Discharge Day Minutes spent coordinating discharge of patient: 25
--- NOTE | 2017-09-04 18:40 | NM ---
NUCLEAR MEDICINE VENTILATION PERFUSION EXAM: 09/04/17 CLINICAL HISTORY: Dyspnea, chest pain, elevated D-dimer. RADIOPHARMACEUTICAL: 6.7 millicuries Xenon inhaled, 6.6 millicuries technetium 99m MAA IV. FINDINGS: Evaluation with ventilation imaging reveals homogeneous distribution of radiotracer without evidence of significant retention. On the perfusion imaging portion of the exam, there are no significant mo derate or large perfusion defects. IMPRESSION: Normal VQ scan. POS: YOUSIF
--- NOTE | 2017-09-04 18:42 | RAD ---
Infiltrate at the left base and left pleural fluid partially obscure the left hemidiaphragm. Mediast inum remains midline. No evidence of pneumothorax. IMPRESSION: Left basilar infiltrate and left pleural fluid. Clinical correlation regarding other signs and sympt oms of left basilar pneumonitis is required. Please consider close radiographic followup. POS: KARMEN
[2017-09-04] MEDS: traZODone HCl 50 MG TAB PO SCH (21:03)
[2017-09-04] MEDS: Atorvastatin Calcium 40 MG TAB PO SCH (21:04)
[2017-09-04] MEDS: Cyclobenzaprine 10 MG TAB PO PRN (21:20)
[2017-09-05] MEDS: Lisinopril 20 MG TAB PO SCH (08:18)
[2017-09-05] MEDS: Clopidogrel Bisulfate 75 MG TAB PO SCH (08:19)
[2017-09-05] MEDS: Furosemide 40 MG/4 ML VIAL SLOW IVP SCH (08:19)
[2017-09-05] MEDS: Aspirin 81 mg Enteric Coated Tablet PO SCH (08:19)
[2017-09-05] MEDS: Carvedilol 25 MG TAB PO SCH (08:19)
[2017-09-05] MEDS: Insulin Detemir 100 UNITS/ML 24 UNITS in Pre-Filled Syringe 1 EACH SC SCH (08:20)
[2017-09-05] MEDS: PREDNISOLONE 1% EA EYE SCH (08:21)
[2017-09-05] MEDS: TIMOLOL 0.5% EA EYE SCH (08:21)
[2017-09-05] MEDS: BRIMONIDINE R EYE SCH (08:21)
[2017-09-05] MEDS: LATANOPROST 0.005% EA EYE SCH (08:22)
[2017-09-05] MEDS: ALPRAZolam 1 MG TAB PO PRN (08:26)
--- NOTE | 2017-09-05 09:00 | PDOC.CTH ---
<Kim Henning - Last Filed: 09/05/17 08:57> Cardiology Progress Note - Subjective The pt was seen and examined. No overnight events. No cardiac complaints. - Objective Vital Signs Temp Pulse Resp BP BP Pulse Ox 09/05/17 08:19 137/66 09/05/17 08:18 137/66 09/05/17 07:22 98.6 F 73 22 H 137/66 95 09/05/17 04:00 98.1 F 76 16 159/79 H 98 09/05/17 03:19 96 Admit Weight 147 lb 4.301 oz Weight 140 lb 7 oz 09/04/17 09/05/17 09/06/17 06:59 06:59 06:59 Intake Total 1030 1250 Output Total 1600 1570 Balance -570 -320 - Physical Examination General/Neuro: alert & oriented x3 Neck: no JVD present Lungs: CTA Heart: RRR Abdomen: soft (No edema) - Telemetry Telemetry Rhythm: SR 70s - Labs Result Diagrams: 09/04/17 04:55 09/04/17 04:55 Troponin/CKMB CK-MB (CK-2) 2.0 ng/mL (0-6.6) 08/30/17 20:39 Troponin I 0.012 ng/mL (< 0.028) 08/31/17 08:50 - Assessment/Plan 1. Acute on chronic combined HF - EF was 60-65% with Severe MR in 08/2017, which was 35-40% with mod MR in 2015. Stable with diuretic, ISAAC inhibitor,and BBlocker; Change Lasix from IV to PO 2. HTN - stable with current medication; cont. monitor 3. CAD with Hx of PTCI and stent placement - stable with current medication; cont. monitor on tele 4. DM type 2 - on ACHS BS with Insulin SS 5. hyperlipidemia - on Statin medication 6. GERD - stable with Pepcid 7. CKD - stable 8. Sever MR - cont. monitor 9. Elevated Ddimer - VQ scan yesterday was negative MAR reviewed From Cardiac standpoint, the pt is stable to d/c home; The pt will f/u with Dr Baker' office within 1 month Thank you very much for cardiology consult request Review of Systems - Review of Systems Constitutional: reports: no symptoms reported EENTM: reports: no symptoms reported Respiratory: reports: no symptoms reported Cardiac (ROS): reports: no symptoms reported ABD/GI: reports: no symptoms reported : reports: no symptoms reported Musculoskeletal: reports: no symptoms reported Skin: reports: no symptoms reported <Karolyn Baker - Last Filed: 09/05/17 10:23> Cardiology Progress Note - Objective Vital Signs Temp Pulse Resp BP BP Pulse Ox 09/05/17 08:19 137/66 09/05/17 08:18 137/66 09/05/17 08:00 98.6 F 73 22 H 95 09/05/17 07:22 98.6 F 73 22 H 137/66 95 09/05/17 04:00 98.1 F 76 16 159/79 H 98 09/05/17 03:19 96 Admit Weight 147 lb 4.301 oz Weight 140 lb 7 oz 09/04/17 09/05/17 09/06/17 06:59 06:59 06:59 Intake Total 1030 1250 Output Total 1600 1570 Balance -570 -320 - Labs Result Diagrams: 09/04/17 04:55 09/04/17 04:55 Troponin/CKMB CK-MB (CK-2) 2.0 ng/mL (0-6.6) 08/30/17 20:39 Troponin I 0.012 ng/mL (< 0.028) 08/31/17 08:50 - Assessment/Plan Pt. was seen and eval by me. I agree with the A/P by the OBSTETRICAL TECH. From a cardiac standpoint she is doing well and is ready for d/c.
[2017-09-05] MEDS: Cyclobenzaprine 10 MG TAB PO PRN (12:52)
[2017-09-05 15:45] VITALS: BP 162/70
[2017-09-05 15:48] VITALS: TEMP 97.9
--- NOTE | 2017-09-05 18:44 | PDOC.EVN ---
Event Note - Event Note Event Note: d/c summary dictated # [id number]
--- NOTE | 2017-09-05 19:57 | DIS ---
DATE OF ADMISSION: 08/30/2017 DATE OF DISCHARGE: 09/05/2017 DISCHARGE DIAGNOSES: 1. Acute on chronic combined systolic and diastolic congestive heart failure. 2. Left ventricular ejection fraction of 60-65%. 3. Coronary artery disease. 4. Chronic kidney disease stage 3. 5. Anemia of chronic disease. 6. Type 2 diabetes mellitus. 7. Elevated D-dimer, the patient had a low probability VQ scan. 8. Pneumonia. 9. Visually impaired. 10. Severe mitral regurgitation. 11. Respiratory failure on admission. CONSULTATIONS: 1. Cardiology. 2. Pulmonary. MEDICATIONS: Reviewed. Please refer to discharge MAR. HOSPITAL COURSE: The patient is a 52-year-old female with past medical history significant for hype rtension, hyperlipidemia, CAD, type 2 diabetes mellitus, anxiety and congestive heart failure. The patient presented to emergency room with shortness of breath. The patient had acute respiratory armando lure and was placed on BiPAP and initially admitted to CCU. The patient was seen by Pulmonary/[facility] Service. The patient was started on diuretics. Her clinical status improved. She was inocente en off BiPAP and transferred to medical floor with telemetry. The patient was also seen by Cardiolo gy Service and continued with diuretic recommendation. The patient had a prolonged hospital stay. She improved slowly. The patient had elevated D-dimer for which a V/Q scan was done. This was nega tive for any PE. The patient had elevated blood pressure during hospitalization for which her blood pressure medications were adjusted. The patient gradually improved. The patient had chest x-ray o n 09/04/2017 which showed left lower lobe infiltrate; however, the patient did not have any fever an d white count was stable. The patient was placed on p.o. Levaquin. The patient's symptoms resolved . The patient was cleared by Cardiology Service. No further intervention required during hospitali zation. She was discharged to home in stable condition on 09/05/2017. She has been advised to foll ow up with the PCP within 1 week and with Cardiology Service as advised.
[2017-09-06] MEDS ORDERED: Furosemide 40 MG TAB PO SCH (07:30)
--- NOTE | 2017-09-06 13:18 | EKG ---
Test Reason : Blood Pressure : / mmHG Vent. Rate : 105 BPM Atrial Rate : 105 BPM P-R Int : 144 ms QRS Dur : 116 ms QT Int : 354 ms P-R-T Axes : 076 -32 079 degrees QTc Int : 467 ms Sinus tachycardia Left axis deviation Left ventricular hypertrophy with QRS widening Abnormal ECG V2 notched QRS Confirmed by KRISTIN ROBLES D.O. ([id number]), greeting card editor GRETA GILL ([id number]) on 09/06/2017 1:18:28 PM Referred By: Confirmed By:KRISTIN ROBLES D.O.
== END 2017-09-05 17:37 | disposition home health service (06) | DRG 291 ==
LOC: ERS 20:12 → CCU 23:08 → 2NO 09-01 14:33
PROVIDERS: ADMIT Internal Medicine; ATTEND Internal Medicine
PROC: 5A09557 Assistance with Respiratory Ventilation, Greater than 96 Consecutive Hours, Continuous Positive Airway Pressure (ICD-10-PCS; principal; 2017-08-30)
DX: I13.0 Hypertensive heart and chronic kidney disease with heart failure and stage 1 through stage 4 chronic kidney disease, or unspecified chronic kidney disease (principal); J96.01 Acute respiratory failure with hypoxia; E11.22 Type 2 diabetes mellitus with diabetic chronic kidney disease; I42.9 Cardiomyopathy, unspecified; E11.9 Type 2 diabetes mellitus without complications; D63.8 Anemia in other chronic diseases classified elsewhere; I50.43 Acute on chronic combined systolic (congestive) and diastolic (congestive) heart failure; I16.1 Hypertensive emergency; F32.9 Major depressive disorder, single episode, unspecified; N18.3 Chronic kidney disease, stage 3 (moderate); I25.10 Atherosclerotic heart disease of native coronary artery without angina pectoris; K21.9 Gastro-esophageal reflux disease without esophagitis; I34.0 Nonrheumatic mitral (valve) insufficiency; E78.5 Hyperlipidemia, unspecified; H54.7 Unspecified visual loss; I25.2 Old myocardial infarction; F41.9 Anxiety disorder, unspecified; F17.210 Nicotine dependence, cigarettes, uncomplicated; Z95.5 Presence of coronary angioplasty implant and graft; Z82.49 Family history of ischemic heart disease and other diseases of the circulatory system
CPT/HCPCS: 36415; 36416; 71010; 71020; 78582; 80048; 80053; 82550; 82553; 82805; 83880; 84484; 85025; 85379; 90471; 90682; 93005; 93306; 93798; 94640; 94660; 94760; 96365; 96366; 96367; 96372; 96375; A4216; A9540; A9558; G0008; J0360; J0456; J0696; J1650; J1815; J1940; J1956; J2060; J2405; J2930; J7050; J7620; Q2036

== ENCOUNTER 2017-11-06 07:26 | Day surgery (SDC) | payer MEDICARE, OTHER ==
[2017-11-05 12:56] VITALS: BMI 22.6
[~2017-11-06 07:26] MED LIST: Cyclopentolate 1% Opth Drop 2 ML BOT FS SCH; EPINEPHrine 0.3 MG in Ophthalmic Irrigation Solution 500 ML FS SCH; Phenylephrine HCl 2.5% Ophth Soln 5 ML BOT FS SCH
[2017-11-06] MEDS ORDERED: Cyclopentolate 1% Opth Drop 2 ML BOT ONE (08:30)
[2017-11-06] MEDS ORDERED: Phenylephrine HCl 2.5% Ophth Soln 5 ML BOT ONE (08:30)
[2017-11-06] MEDS ORDERED: Fentanyl 100 MCG/2 ML VIAL ONE ×2 (11:18→12:23)
[2017-11-06] MEDS ORDERED: Midazolam HCl 2 mg/2 ml Vial ONE (11:18)
[2017-11-06] MEDS ORDERED: Lidocaine 2% PF 5 ML VIAL ONE (11:19)
[2017-11-06] MEDS ORDERED: Ondansetron HCl/PF 4 MG/2 ML Vial ONE ×2 (11:19→17:38)
[2017-11-06] MEDS ORDERED: Diprivan 20 ML ONE (11:19)
[2017-11-06 11:44] LABS: Anion Gap 11 mmol/L (10-20); BUN (Urea Nitrogen) 20 mg/dL (9.8-20.1); Calc. Creatinine Clearance 46 mL/min (70-130); Carbon Dioxide 24 mmol/L (22-29); Chloride 108 mmol/L (98-107); Estimated GFR-MDRD 49
--- NOTE | 2017-11-06 15:25 | OP ---
DATE OF SURGERY: 11/06/2017 PREOPERATIVE DIAGNOSIS: Aphakia, dislocated crystalline lens, left eye. POSTOPERATIVE DIAGNOSIS: Aphakia, dislocated crystalline lens, left eye. PROCEDURES PERFORMED: Pars plana vitrectomy, pars plana lensectomy, secondary to IOL placement, left eye. SURGEON: José Carter M.D. ANESTHESIA: General endotracheal. COMPLICATIONS: None. PROCEDURE IN DETAIL: The patient was identified in the preoperative holding area. Appropriate infor med consent for the planned surgical procedure on the left eye had been obtained. The patient was tr ansported to the operative suite where appropriate cardiopulmonary monitoring was established. Gener al endotracheal anesthesia was obtained. Local anesthesia was obtained using retrobulbar block. Tro cars were placed supratemporally, inferotemporally, and supranasally. Infusion line was placed infer otemporally. Light pipe and vitreous cutter were inserted into the eye. Core of vitrectomy was perf ormed. The lens was noted on the posterior pole, so the lens was removed using the vitreous cu tter, but the central part was too hard. Superior nasal 20-gauge sclerotomy was placed and a fragmat ome was inserted into the eye. This was used to emulsify the remainder parts of the lens and a 20-ga uge sclerotomies supratemporally and sutured closed with 7-0 Vicryl suture. Conjunctiva was closed w ith 6-0 plain gut suture. Superior nasal 3.2 mm incision was created and a Tecnis [id number] diopter intraocular lens was inserted into the eye and haptics were externalized at the 2 o'clock and 8 o'desirae ck positions and flanged using intraocular cautery. Superior 10-0 nylon suture was placed in the sup erior corneal incision. Residual anterior chamber without material was removed and the sclerotomies were sutured closed with 6-0 plain gut suture. Retrobulbar Kenalog and subconjunctival Ancef were pl aced. Atropine and antibiotic ointment were placed, and the eye was patched and shielded. The patie nt was taken to the postoperative recovery unit in good condition having suffered no immediate periop erative complications. DISCHARGE INSTRUCTIONS: The patient was instructed to keep patch and shield on, avoid lifting and be nding, and follow up in the morning with Dr. Carter.
[2017-11-06] MEDS ORDERED: Lidocaine 1% PF 5 ML VIAL ONE (17:38)
[2017-11-06] MEDS ORDERED: Propofol 200 MG/20 ML VIAL ONE (17:38)
[2017-11-06] MEDS ORDERED: Succinylcholine Chloride 20 MG/ML 10 ml SYRINGE FS ONE (17:38)
== END 2017-11-06 15:18 | disposition home or self-care (01) ==
LOC: SDC 07:26
PROVIDERS: ATTEND Ophthalmology Retina Specialist
PROC: 08943ZZ Drainage of Right Vitreous, Percutaneous Approach (ICD-10-PCS; principal; 2017-11-06)
DX: H27.02 Aphakia, left eye (principal); H59.022 Cataract (lens) fragments in eye following cataract surgery, left eye; H43.312 Vitreous membranes and strands, left eye; Z90.49 Acquired absence of other specified parts of digestive tract; Z96.1 Presence of intraocular lens; Z98.890 Other specified postprocedural states
CPT/HCPCS: 66985; 67041; 80048; 82962; C1780; 36415; 36416; J0171; J2001; J2250; J2405; J2704; J3010

== ENCOUNTER 2017-12-26 08:56 | Outpatient (CLI) | payer MEDICARE, OTHER ==
--- NOTE | 2017-12-26 10:38 | PRG ---
DATE OF SERVICE: 12/26/2017 REASON FOR VISIT: Wound to the right lateral hind foot. HISTORY OF PRESENT ILLNESS: This is a 52-year-old female, who presents today for concern over an ulc eration on the right lateral hind foot, has been present for a little bit over a month, has been gett ing every other day dressing changes and lotion on the skin. Says that the swelling in the area has gone down. She did have a secondary wound, proximal to this one, which has healed before our visit. She denies any pain associated with the wound. She is uncertain of what caused it or started. Gil es any trauma to the area. She is a diabetic for greater than 5 years with poor control of her blood sugars. Past medical history, past surgical history, medications, allergies, family history, and social histo ry were documented in the paper chart at [facility] and can be consulted there. REVIEW OF SYSTEMS: Constitutional: Denies nausea, vomiting, fevers, or chills. Neurological: Rela pedro some numbness to the feet. Integumentary: Relates wound to the right foot and leg. PHYSICAL EXAMINATION: VITAL SIGNS: Temperature 98.9, pulse 86, respirations 15, blood pressure 125/60, blood sugar was 80. CARDIOVASCULAR: Dorsalis pedis pulses palpable. Posterior tibial was nonpalpable. There was immedi ate capillary refill to the distal toes of the right leg. There is mild nonpitting edema to the righ t lower extremity. No varicosities present. NEUROLOGICAL EXAM: Light touch and protective threshold is diminished to the right foot on cursory e xam. DERMATOLOGICAL EXAM: Ulceration on the right lateral hind foot, just distal to the lateral malleolus , measuring 1 cm x 1.4 cm x 0.3 cm of depth. It has 80% granulation tissue and 20% slough. There is no periwound erythema, edema, or warmth. Wound does not probe or retract to deeper tissues, tendon, or bone. There is no drainage. No malodor. ASSESSMENT: 1. 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 2. Diabetes with peripheral neuropathy. PLAN: 1. Full-thickness debridement of the wound of the subcutaneous tissue layer down to a bleeding granu lar wound base, removing all nonviable tissue and biofilm from the wound base with dermal curette. P atient tolerated the procedure well. 2. We are going to start with collagen dressing changes on a daily basis. We will order these suppl ies through her home health company if they do the dressing changes 3 times a week and her lead technician will do it on the alternating days. 3. She will follow up with me in 1 week for routine debridements and alteration of the treatment niurka n if deemed necessary.
[2017-12-26] MEDS ORDERED: Sodium Chloride 0.9% 15 ML NEB ONE (15:43)
== END 2017-12-26 08:57 | disposition home or self-care (01) ==
LOC: WCC 08:56
PROVIDERS: ATTEND Podiatrist Foot & Ankle Surgery
DX: E11.621 Type 2 diabetes mellitus with foot ulcer (principal); L97.419 Non-pressure chronic ulcer of right heel and midfoot with unspecified severity; E11.42 Type 2 diabetes mellitus with diabetic polyneuropathy
CPT/HCPCS: A4218

== ENCOUNTER 2018-01-02 10:03 | Outpatient (CLI) | payer MEDICARE ==
--- NOTE | 2018-01-02 11:25 | PRG ---
DATE OF SERVICE: 01/02/2018 SUBJECTIVE: This is a 52-year-old female returns for right lateral hind foot wound. She has been do ing well over the last week, has been getting daily dressing changes with Promogran, gauze and Kerlix . Denies any nausea, vomiting, fevers or chills. PHYSICAL EXAMINATION: On initial examination of the wound, the wound is piled up with Promogran arou nd the borders and the wound base once removed the wound measures 1 cm x 0.5 cm x 0.2 cm of depth, 10 0% granular wound base. No periwound erythema, edema or warmth. 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 PLAN: 1. Full thickness debridement of the wound, removing all nonviable tissue, biofilm and residual brittney agen dressing from the wound down to a bleeding granular wound base. 2. Wound has decreased in size over the last week so we will continue with Promogran dressing change s, reeducate her on how to apply it, I think they are putting too much and over at the edges not keep ing the Promogran in contact with the wound surface. 3. They will continue with the daily dressing changes and follow up with me in 1 week.
[2018-01-05] MEDS ORDERED: Sodium Chloride 0.9% 15 ML NEB ONE (16:53)
== END 2018-01-02 10:04 | disposition home or self-care (01) ==
LOC: WCC 10:03
PROVIDERS: ATTEND Podiatrist Foot & Ankle Surgery
DX: S91.301D Unspecified open wound, right foot, subsequent encounter (principal)
CPT/HCPCS: 11042

== ENCOUNTER 2018-01-16 09:14 | Outpatient (CLI) | payer MEDICARE ==
--- NOTE | 2018-01-16 11:24 | PRG ---
DATE OF SERVICE: 01/16/2018 SUBJECTIVE: This is a 52-year-old female who returns today for followup right lateral hind foot ulce rations, doing well since last visit, has been doing daily Promogran dressing changes. Denies any co ncerns at this time. No nausea, vomiting, fevers, or chills. OBJECTIVE: Ulceration to the right lateral hind foot measures 0.5 cm x 0.3 cm x 0.3 cm, 100% granula r wound base. No periwound erythema, edema, or warmth. ASSESSMENT: 1. 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 2. Diabetes with peripheral neuropathy. PLAN: 1. Full thickness debridement of the subcutaneous tissue layer down to a bleeding granular wound bas e, removing all biofilm and nonviable tissue from the wound base. The patient tolerated the procedur e well. 2. Going to continue with daily Promogran, gauze, and Kerlix dressing changes. She will follow up w viry greene in 2 weeks.
== END 2018-01-16 09:15 | disposition home or self-care (01) ==
LOC: WCC 09:14
PROVIDERS: ATTEND Podiatrist Foot & Ankle Surgery
DX: E11.621 Type 2 diabetes mellitus with foot ulcer (principal); E11.42 Type 2 diabetes mellitus with diabetic polyneuropathy; L97.419 Non-pressure chronic ulcer of right heel and midfoot with unspecified severity
CPT/HCPCS: 11042

== ENCOUNTER 2018-01-30 09:41 | Outpatient (CLI) | payer MEDICARE ==
--- NOTE | 2018-01-30 11:55 | PRG ---
DATE OF SERVICE: 01/30/2018 SUBJECTIVE: A 52-year-old female returns today for right lateral hindfoot ulceration, has been doing Promogran dressing changes. Has had no problem with dressing changes other than requesting that she do the dressing changes every other day. She says it appears that the program takes about 2 days fo r it to dissolve into her wound. Denies nausea, vomiting, fevers or chills. PHYSICAL EXAMINATION: Ulcer to the right lateral hindfoot measuring 0.2 x 0.3 x 0.1 cm, 95% granulat ion tissue, 5% slough. No periwound erythema, edema or warmth. ASSESSMENT: 1. 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 2. Diabetes with peripheral neuropathy. PLAN: 1. Full thickness debridement of the wound down to subcutaneous tissue layer removing all nonviable tissue and biofilm from the wound base. 2. We are going to continue with Promogran dressing changes. She may switch to 3 times a week dress ing changes and follow up with me in 1 week. If this wound stalls out, then we may have to increase frequency of the dressing changes again.
[2018-01-30] MEDS ORDERED: Sodium Chloride 0.9% 15 ML NEB ONE (14:32)
== END 2018-01-30 09:42 | disposition home or self-care (01) ==
LOC: WCC 09:41
PROVIDERS: ATTEND Podiatrist Foot & Ankle Surgery
DX: E11.621 Type 2 diabetes mellitus with foot ulcer (principal); E11.42 Type 2 diabetes mellitus with diabetic polyneuropathy; L97.519 Non-pressure chronic ulcer of other part of right foot with unspecified severity
CPT/HCPCS: A4218

== ENCOUNTER 2018-02-06 10:08 | Outpatient (CLI) | payer MEDICARE ==
--- NOTE | 2018-02-06 11:51 | PRG ---
DATE OF SERVICE: 02/06/2018 SUBJECTIVE: This is a 52-year-old female who returns today for followup on wound right lateral hindf oot. The patient has been doing well since last week. Continues with Promogran dressing changes as she has only been doing it 3 times a week. Denies nausea, vomiting, fevers or chills. PHYSICAL EXAMINATION: Ulceration to the right lateral hindfoot. Post-debridement measurements are 0 .4 cm x 0.8 cm x 0.1 cm depth, 100% granulation tissue. Does not probe to deeper tissues or bone. N o periwound erythema, edema or warmth. 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 PLAN: 1. Full thickness debridement of the subcutaneous tissue layer with dermal curet removing all nonvia ble tissue and biofilm. This was undermined tissue down to a bleeding granular wound base. 2. Going to continue with Promogran dressing changes and urged the necessity to have this done on a daily basis. We will send these orders to her home health company, but if they are unwilling to do i t daily then her family can help with the dressing changes so that we can get this applied every day. 3. I will have the patient follow up with me in 1 week.
== END 2018-02-06 10:09 | disposition home or self-care (01) ==
LOC: WCC 10:08
PROVIDERS: ATTEND Podiatrist Foot & Ankle Surgery
DX: L97.519 Non-pressure chronic ulcer of other part of right foot with unspecified severity (principal)

== ENCOUNTER 2018-02-13 10:08 | Outpatient (CLI) | payer MEDICARE ==
--- NOTE | 2018-02-13 12:08 | PRG ---
DATE OF SERVICE: 02/13/2018 SUBJECTIVE: This is a 52-year-old female, who returns today for right lateral hindfoot wound, has do ne well over the last week. Continues with Promogran dressing changes. Denies nausea, vomiting, fev ers, or chills. PHYSICAL EXAMINATION: Ulceration, right lateral hindfoot measuring 0.5 x 0.9 cm x 0.3 cm, 100% granu lation tissue within the wound base. No periwound erythema or warmth. There is some hypertrophic sk in growth that is pink in coloration surrounding the wound. ASSESSMENT: 1. Non-pressure chronic ulceration of the right lateral hindfoot stalled improvement. 2. Diabetes with peripheral neuropathy. PLAN: 1. Full thickness debridement of the subcutaneous tissue layer removing all nonviable tissue from th e wound base and biofilm down to a bleeding granular wound base with dermal curette. 2. Because of the odd appearance of the wound and the fact that it has not responded the way that I would expect. I am going to have her into my office for a biopsy of this lesion just to rule out any sort of malignancy. She will follow up with me next week for this.
[2018-02-13] MEDS ORDERED: Sodium Chloride 0.9% 15 ML NEB ONE (19:48)
== END 2018-02-13 10:09 | disposition home or self-care (01) ==
LOC: WCC 10:08
PROVIDERS: ATTEND Podiatrist Foot & Ankle Surgery
DX: E11.621 Type 2 diabetes mellitus with foot ulcer (principal); E11.622 Type 2 diabetes mellitus with other skin ulcer; L97.419 Non-pressure chronic ulcer of right heel and midfoot with unspecified severity; E11.42 Type 2 diabetes mellitus with diabetic polyneuropathy
CPT/HCPCS: A4218

== ENCOUNTER 2018-02-20 10:38 | Outpatient (CLI) | payer MEDICARE ==
--- NOTE | 2018-02-20 11:32 | PRG ---
DATE OF SERVICE: 02/20/2018 SUBJECTIVE: This is a 52-year-old female who returns today for followup right lateral foot wound. S he had a biopsy earlier in the week. No results have been received. She has been having dressing ch fazal with Aquacel AG and an island dressing. Denies any nausea, vomiting, fevers or chills. PHYSICAL EXAMINATION: Ulceration, right lateral hindfoot measuring 0.5 cm x 0.4 cm x 0.4 cm of depth . There is some slough within the wound base, but wound was 100% granular post-debridement. No emma wound erythema, edema or warmth. ASSESSMENT: Non-pressure chronic ulceration right lateral hindfoot. PLAN: 1. Full thickness debridement of the subcutaneous tissue layer removing all nonviable tissue, biofil m down to a bleeding granular wound base. 2. Going to continue with Aquacel AG dressing changes every other day. 3. Follow up with me in 2 weeks or I will contact the patient with biopsy results if we receive them .
== END 2018-02-20 10:39 | disposition home or self-care (01) ==
LOC: WCC 10:38
PROVIDERS: ATTEND Podiatrist Foot & Ankle Surgery
DX: L97.519 Non-pressure chronic ulcer of other part of right foot with unspecified severity (principal)
CPT/HCPCS: 36416

== ENCOUNTER 2018-03-06 10:04 | Outpatient (CLI) | payer MEDICARE ==
--- NOTE | 2018-03-06 11:24 | PRG ---
DATE OF SERVICE: 03/06/2018 SUBJECTIVE: This is a 52-year-old female who returns today for followup of right lateral hindfoot wo und, doing well since last visit. Has been doing dressing changes with Aquacel AG and adhesive dress ing. The adhesive has been irritating the skin a little bit. Denies nausea, vomiting, fevers or chi lls. PHYSICAL EXAMINATION: Ulceration of the right lateral hindfoot measuring 0.6 cm x 0.5 cm x 0.4 cm of depth, 80% granulation tissue, 20% slough. No periwound erythema, edema or warmth. The biopsy resu lts have come back with no malignancy, just showing a normal wound tissue and scar tissue from the french rder of the wound. 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 PLAN: 1. Full thickness debridement of subcutaneous tissue layer removing all nonviable tissue and biofilm from the wound base down to bleeding granular wound base. 2. Promogran to the wound base, secondary dressing of Aquacel AG, then gauze and Coban wrap to avoid the adhesive on the skin, this to be performed daily. She will follow up with me in 1 week unless s he has problems before that time.
[2018-03-09] MEDS ORDERED: Sodium Chloride 0.9% 15 ML NEB ONE (18:52)
== END 2018-03-06 10:05 | disposition home or self-care (01) ==
LOC: WCC 10:04
PROVIDERS: ATTEND Podiatrist Foot & Ankle Surgery
DX: L97.519 Non-pressure chronic ulcer of other part of right foot with unspecified severity (principal)
CPT/HCPCS: 11042

== ENCOUNTER 2018-03-13 11:08 | Outpatient (CLI) | payer MEDICARE ==
--- NOTE | 2018-03-13 11:17 | PRG ---
DATE OF SERVICE: 03/13/2018 SUBJECTIVE: This is a 52-year-old female who returns for a lateral right hind foot wound. She has b een doing well since last visit, has been doing dressing changes as we ordered with Promogran and Aqu acel AG. She has had no problems since last time. Denies nausea, vomiting, fevers or chills. PHYSICAL EXAMINATION: The wound site evaluated, some slight undermining post-debridement measurement is measured 0.5 cm x 0.4 cm x 0.4 cm of depth, 100% granulation tissue. No drainage, no periwound e rythema, edema or warmth. No tenderness to the wound does not probe to bone or deeper tendons or fas oralia. ASSESSMENT: 1. 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 2. Diabetes with peripheral neuropathy. PLAN: 1. Full thickness debridement of subcutaneous tissue layer removing all nonviable tissue and biofilm from the wound base down to bleeding granular wound base. The patient tolerated the procedure well. 2. We are going to continue with daily Promogran to wound base and Aquacel AG, gauze and Coban cover ing. She will follow up with me in 1 week.
[2018-03-13] MEDS ORDERED: Sodium Chloride 0.9% 15 ML NEB ONE (14:46)
== END 2018-03-13 11:09 | disposition home or self-care (01) ==
LOC: WCC 11:08
PROVIDERS: ATTEND Podiatrist Foot & Ankle Surgery
DX: E11.621 Type 2 diabetes mellitus with foot ulcer (principal); L97.519 Non-pressure chronic ulcer of other part of right foot with unspecified severity; E11.42 Type 2 diabetes mellitus with diabetic polyneuropathy
CPT/HCPCS: 11042; A4218

== ENCOUNTER 2018-04-03 10:11 | Outpatient (CLI) | payer MEDICARE ==
--- NOTE | 2018-04-03 12:11 | PRG ---
DATE OF SERVICE: 04/03/2018 SUBJECTIVE: This is a 52-year-old female who returns today for followup of lateral right hind foot w ound. She states she is doing well, has stopped draining. Wound is healed over and she has stopped dressing it. She has left it open to the air. Denies nausea, vomiting, fevers or chills. PHYSICAL EXAMINATION: Evaluation of the previous ulceration site shows that the wound has healed ove r. There is some scar tissue in the area, but no open wound or drainage. 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 PLAN: 1. Have her start using the Mederma or vitamin E with cocoa butter, some sort of scar reducing cream with cross fiber massage. 2. She is going to follow up at my main office for her routine foot care or sooner should she have a ny concerns before then.
== END 2018-04-03 10:12 | disposition home or self-care (01) ==
LOC: WCC 10:11
PROVIDERS: ATTEND Podiatrist Foot & Ankle Surgery
DX: L97.519 Non-pressure chronic ulcer of other part of right foot with unspecified severity (principal)
CPT/HCPCS: 97602

== ENCOUNTER 2018-06-17 15:29 | Inpatient (IN) | payer MEDICARE ==
[2018-06-17 16:58] LABS: #Eosinphils 0.1 thou/uL (0.0-0.7); #Lymphocytes 1.7 thou/uL (1.20-3.40); #Monocytes 0.4 thou/uL (0.11-0.59); #Neutrophils 5.1 thou/uL (1.40-6.50); %Basophils 0.5 % (0.0-1.0); %Eosinophils 1.8 % (0.0-10.0); %Lymphocytes 22.9 % (21.0-51.0); %Monocytes 5.8 % (0.0-10.0); Hemoglobin 10.5 g/dL (12.0-16.0); Mean Corpuscular HGB CONC 33.6 g/dL (32.0-36.0); Mean Corpuscular Volume 83.5 fL (78.0-98.0); Mean Platelet Volume 9.1 fL (7.4-10.4); Platelet Count 170 thou/uL (130-400); RBC Distribution Width 16.3 % (11.5-14.5); Red Blood Cell (RBC) Count 3.74 mill/uL (4.20-5.40); White Blood Cell (WBC) Count 7.4 thou/uL (4.8-10.8)
[2018-06-17 17:19] LABS: ALT (SGPT) 10 U/L (8-55); AST (SGOT) 12 U/L (5-34); Albumin 3.5 g/dL (3.5-5.0); Alkaline Phosphatase 150 U/L (40-150); Anion Gap 17 mmol/L (10-20); BUN (Urea Nitrogen) 50 mg/dL (9.8-20.1); Bilirubin, Total 0.2 mg/dL (0.2-1.2); Calc. Creatinine Clearance 0 mL/min (70-130); Calcium 8.9 mg/dL (7.8-10.44); Carbon Dioxide 28 mmol/L (22-29); Chloride 92 mmol/L (98-107); Estimated GFR-MDRD 16; Phosphorus 3.9 mg/dL (2.3-4.7); Potassium 4.6 mmol/L (3.5-5.1); Protein, Total 7.5 g/dL (6.0-8.3); Sodium 132 mmol/L (136-145)
[2018-06-17 17:23] LABS: Glucose 605 mg/dL (70-105)
[2018-06-17 17:24] LABS: CKMB 4.3 ng/mL (0-6.6); Troponin I 0.037 ng/mL (< 0.028)
--- NOTE | 2018-06-17 17:25 | RAD ---
AP VIEW CHEST 06/17/18 HISTORY: Chest pain. AP view chest is obtained on 06/17/18. Comparison made to previous exam from 09/02/17. AP view chest demonstrates mild cardiomegaly. Mild pulmonary vascular congestion is seen. No evidence of effusions, pneumonia or pneumothorax is seen. IMPRESSION: Unremarkable AP view chest. POS: [facility]
[2018-06-17] MEDS ORDERED: Insulin Regular 300 UNITS/3 ML VIAL ONE (18:20)
[2018-06-17 19:05] LABS: Bilirubin Negative (Negative); Blood, Urine Negative (Negative); Clarity CLEAR (Clear); Glucose, Urine (Dipstick) 500 mg/dL (Negative); Leukocyte Negative (Negative); Nitrite Negative (Negative); Protein, Urine (Dipstick) Negative (Neg-Trace); Specific Gravity, Urine 1.011 (1.002-1.036)
[2018-06-17 19:49] LABS: Base Excess-Venous 1.4 mmol/L (0 (+/- 2.5)); Bicarbonate (HCO3v) 26.6 mmol/L (1.0-85.0); CO2 Tension (PvCO2) 43.7 mmHg (41.0-51.0); Calcium, Ionized 0.98 mmol/L (1.12-1.32); Hemoglobin - Calc 10.4 g/dL (12.0-18.0); O2 Tension (PvO2) 47.7 mmHg (35.0-45.0); Potassium 3.6 mmol/L (3.4-4.7); pH (Venous) 7.393 (7.35-7.45); vO2 Saturation-calc 82.7 % (94-98)
[2018-06-17 20:15] LABS: Troponin I 0.053 ng/mL (< 0.028)
[2018-06-17 22:00] VITALS: BMI 24.0
[2018-06-17] MEDS ORDERED: Ondansetron HCl/PF 4 MG/2 ML Vial IVP PRN (22:22)
[2018-06-17] MEDS ORDERED: Ondansetron ODT 4 MG TAB SL PRN (22:22)
[2018-06-17 23:25] LABS: Troponin I 0.048 ng/mL (< 0.028)
[2018-06-18] MEDS ORDERED: Cyclobenzaprine 10 MG TAB PO PRN (04:45)
[2018-06-18] MEDS ORDERED: Acetaminophen 325 MG TAB PO PRN (04:46)
[2018-06-18] MEDS ORDERED: Dextrose 5% in Water 1,000 ML IV PRN (04:46)
[2018-06-18] MEDS ORDERED: Dextrose 50% Abboject 50 ML SYRINGE SLOW IVP PRN (04:46)
[2018-06-18] MEDS: Sodium Chloride 0.9% 1,000 ML IV SCH ×4 (06:02→15:36)
[2018-06-18] MEDS: traMADol HCl 50 MG TAB PO SCH ×3 (06:03→21:24)
[2018-06-18] MEDS ORDERED: Chloraseptic Spray 180 ml Bottle PO PRN (06:57)
[2018-06-18] MEDS ORDERED: Artificial Tears 18 DROP/0.9 ML EA EYE PRN (06:57)
[2018-06-18] MEDS ORDERED: Loperamide HCl 2 MG CAP PO PRN (06:57)
[2018-06-18] MEDS ORDERED: HYDROcodone/Acetaminophen 5/325 mg Tablet PO PRN (06:57)
[2018-06-18] MEDS ORDERED: hydrALAZINE 20 MG/ML VIAL SLOW IVP PRN (06:57)
[2018-06-18] MEDS ORDERED: Milk Of Magnesia 30 ML UDCUP PO PRN (06:57)
[2018-06-18] MEDS ORDERED: Bisacodyl 10 MG SUPP PR PRN (06:57)
[2018-06-18] MEDS ORDERED: Senokot 8.6 MG TAB PO PRN (06:57)
[2018-06-18] MEDS ORDERED: Sodium Chloride 0.65% Nasal 44 ML BOT EA NARE PRN (06:57)
[2018-06-18] MEDS ORDERED: Diabetic Tussin 200 MG/10 ML UDCUP PO PRN (06:57)
[2018-06-18] MEDS ORDERED: Labetalol HCl 100 MG/20 ML VIAL SLOW IVP PRN (06:57)
[2018-06-18] MEDS ORDERED: Loratadine 10 MG TAB PO PRN (06:57)
[2018-06-18] MEDS ORDERED: Mag-Al 1200 mg/1200 mg/30 ML UDCUP PO PRN (06:57)
[2018-06-18] MEDS ORDERED: Eucerin (Mineral Oil/Petrolatum,White) 30 gm Jar TOP PRN (06:57)
[2018-06-18] MEDS ORDERED: Non-Formulary Item 1 EACH (Levemir Flexpen [Levemir Flexpen] 20 UNITS) SC SCH (09:00)
[2018-06-18] MEDS ORDERED: CARVEDILOL 20 MG PO SCH (09:00)
[2018-06-18] MEDS ORDERED: Carvedilol 25 MG TAB PO SCH (09:00)
[2018-06-18] MEDS ORDERED: Heparin 5,000 UNITS/ML VIAL SC SCH (09:00)
[2018-06-18] MEDS: HumaLOG 300 UNITS/3 ML VIAL SC PRN ×2 (09:37→14:35)
[2018-06-18] MEDS: Insulin Glargine 20 UNITS in Pre-Filled Syringe 1 EACH SC SCH ×2 (09:38→21:15)
[2018-06-18] MEDS: Atorvastatin Calcium 40 MG TAB PO SCH (09:39)
[2018-06-18] MEDS: Aspirin 81 mg Enteric Coated Tablet PO SCH (09:39)
[2018-06-18] MEDS: ALPRAZolam 0.25 MG TAB PO SCH ×2 (09:39→21:16)
[2018-06-18] MEDS: Clopidogrel Bisulfate 75 MG TAB PO SCH (09:39)
[2018-06-18] MEDS: Famotidine 20 MG TAB PO SCH (09:39)
[2018-06-18] MEDS: cloNIDine 0.2 MG TAB PO SCH ×3 (09:39→21:16)
[2018-06-18] MEDS: Pregabalin 50 MG CAP PO SCH ×2 (09:39→21:17)
[2018-06-18] MEDS: Escitalopram Oxalate 10 mg Tablet PO SCH (09:40)
[2018-06-18] MEDS: Heparin 5,000 UNITS/ML VIAL SC SCH ×2 (09:40→21:16)
[2018-06-18] MEDS: Carvedilol 25 MG TAB PO SCH ×2 (09:40→15:50)
[2018-06-18] MEDS: Timolol 0.25% Ophth Soln 5 ml Bottle EA EYE SCH ×2 (10:15→21:15)
--- NOTE | 2018-06-18 11:42 | PDOC.PN ---
- Subjective Encounter Start Date: 06/18/18 Encounter Start Time: 08:00 -: old records requested/rev pt reports that when she was on humalog and lantus he blood sugar was ok, her HBA1c reduced bu recently that was changed to levemir and novolog, per pt seems not working she denies chest pain or fever, no dyspnea, no UTI symptoms - Objective Resuscitation Status: Resuscitation Status FULL:Full Resuscitation MAR Reviewed: Yes Vital Signs & Weight: Vital Signs (12 hours) Temp Pulse Resp BP BP BP Pulse Ox 06/18/18 11:09 97.9 F 71 14 159/73 H 100 06/18/18 09:39 182/82 H 06/18/18 09:25 97.3 F L 96 16 182/82 H 95 06/18/18 05:01 98.2 F 83 18 153/75 H 94 L Weight Weight 140 lb I&O: 06/17/18 06/18/18 06/19/18 06:59 06:59 06:59 Intake Total 600 Output Total 500 Balance 100 Result Diagrams: 06/17/18 16:49 06/17/18 16:49 Additional Labs: Accuchecks 06/18/18 06/17/18 06/17/18 05:46 22:22 19:12 POC Glucose 270 H 214 H 323 H Radiology Reviewed by me: Yes (chest xray normal) EKG Reviewed by me: Yes (nsr) Phys Exam - Physical Examination Constitutional: NAD HEENT: PERRLA, moist MMs, sclera anicteric right eye with patch, crusted eyelid Neck: no nodes, no JVD, supple, full ROM Respiratory: no wheezing, no rales, no rhonchi Cardiovascular: RRR, no significant murmur, no rub Gastrointestinal: soft, non-tender, no distention, positive bowel sounds Musculoskeletal: no edema, pulses present Neurological: non-focal, normal sensation Lymphatic: no nodes Psychiatric: normal affect, A&O x 3 Skin: no rash, normal turgor Dx/Plan (1) Acute worsening of stage 3 chronic kidney disease Code(s): N18.3 - CHRONIC KIDNEY DISEASE, STAGE 3 (MODERATE) Status: Acute (2) Elevated troponin Code(s): R74.8 - ABNORMAL LEVELS OF OTHER SERUM ENZYMES Status: Acute (3) Hyperglycemia due to type 2 diabetes mellitus Code(s): E11.65 - TYPE 2 DIABETES MELLITUS WITH HYPERGLYCEMIA Status: Acute (4) Anemia, normocytic normochromic Code(s): D64.9 - ANEMIA, UNSPECIFIED Status: Chronic (5) Anxiety and depression Code(s): F41.9 - ANXIETY DISORDER, UNSPECIFIED; F32.9 - MAJOR DEPRESSIVE DISORDER, SINGLE EPISODE, UNSPECIFIED Status: Chronic (6) CAD (coronary artery disease) Code(s): I25.10 - ATHSCL HEART DISEASE OF [place] CORONARY ARTERY W/O ANG PCTRS Status: Chronic Qualifiers: Coronary Disease-Associated Artery/Lesion type: [place] artery [place] vs. transplanted heart: [place] heart Associated angina: without angina Qualified Code(s): I25.10 - Atherosclerotic heart disease of [place] coronary artery without angina pectoris (7) Diabetic gastroparesis Code(s): E11.43 - TYPE 2 DIABETES W DIABETIC AUTONOMIC (POLY)NEUROPATHY; K31.84 - GASTROPARESIS Status: Chronic (8) Diabetic nephropathy Status: Chronic (9) Diabetic neuropathy Code(s): E11.40 - TYPE 2 DIABETES MELLITUS WITH DIABETIC NEUROPATHY, UNSP Status: Chronic (10) Diabetic retinopathy Code(s): E11.319 - TYPE 2 DIABETES W UNSP DIABETIC RTNOP W/O MACULAR EDEMA Status: Chronic (11) Dyslipidemia Code(s): E78.5 - HYPERLIPIDEMIA, UNSPECIFIED Status: Chronic (12) Glaucoma Code(s): H40.9 - UNSPECIFIED GLAUCOMA Status: Chronic (13) Hypertension Code(s): I10 - ESSENTIAL (PRIMARY) HYPERTENSION Status: Chronic Qualifiers: Hypertension type: essential hypertension Qualified Code(s): I10 - Essential (primary) hypertension (14) Severe mitral regurgitation by prior echocardiogram Code(s): I34.0 - NONRHEUMATIC MITRAL (VALVE) INSUFFICIENCY Status: Chronic - Plan cont current plan of care * today will continue humalog as per sliding scale * continue IVF for elevated creatinine * monitor renal function * avoid nephrotoxin * will repeat labs tomorrow * home medication reconciled * medication reviewed as below * symptomatic treatment Review of Systems - Review of Systems Eyes: negative: Pain, Vision Change, Conjunctivae Inflammation, Eyelid Inflammation, Redness, Other ENT: negative: Ear Pain, Ear Discharge, Nose Pain, Nose Discharge, Nose Congestion, Mouth Pain, Mouth Swelling, Throat Pain, Throat Swelling, Other Respiratory: negative: Cough, Dry, Shortness of Breath, Hemoptysis, SOB with Excertion, Pleuritic Pain, Sputum, Wheezing Cardiovascular: negative: chest pain, palpitations, orthopnea, paroxysmal nocturnal dyspnea, edema, light headedness, other Gastrointestinal: negative: Nausea, Vomiting, Abdominal Pain, Diarrhea, Constipation, Melena, Hematochezia, Other Genitourinary: negative: Dysuria, Frequency, Incontinence, Hematuria, Retention , Other Musculoskeletal: negative: Neck Pain, Shoulder Pain, Arm Pain, Back Pain, Hand Pain, Leg Pain, Foot Pain, Other Skin: negative: Rash, Lesions, [place], Bruising, Other - Medications/Allergies Allergies/Adverse Reactions: Allergies Allergy/AdvReac Type Severity Reaction Status Date / Time No Known Drug Allergies Allergy Verified 08/31/17 04:49 Medications: Current Medications Acetaminophen (Tylenol) 650 mg PO Q4H PRN PRN Reason: Headache/Fever or Pain Hydrocodone Bitart/Acetaminophen ([place] 5/325) 1 tab PO Q4H PRN PRN Reason: Moderate Pain (4-6) Al Hydroxide/Mg Hydroxide (Maalox) 15 ml PO Q4H PRN PRN Reason: Heartburn or Indigestion Alprazolam (Xanax) 0.25 mg PO BID [facility] Last Admin: 06/18/18 09:39 Dose: 0.25 mg Artificial Tears (Tears Naturale) 0 drop EA EYE PRN PRN PRN Reason: Dry Eyes Aspirin (Ecotrin) 81 mg PO DAILY [facility] Last Admin: 06/18/18 09:39 Dose: 81 mg Atorvastatin Calcium (Lipitor) 40 mg PO DAILY [facility] Last Admin: 06/18/18 09:39 Dose: 40 mg Bisacodyl (Dulcolax) 10 mg NC DAILYPRN PRN PRN Reason: Constipation Carvedilol (Coreg) 25 mg PO BID-[facility] Last Admin: 06/18/18 09:40 Dose: 25 mg Clonidine (Catapres) 0.2 mg PO TID [facility] Last Admin: 06/18/18 09:39 Dose: 0.2 mg Clopidogrel Bisulfate (Plavix) 75 mg PO DAILY [facility] Last Admin: 06/18/18 09:39 Dose: 75 mg Cyclobenzaprine HCl (Flexeril) 10 mg PO HS PRN PRN Reason: muscle cramps Dextrose/Water (Dextrose 50%) 25 gm SLOW IVP PRN PRN PRN Reason: Hypoglycemia Escitalopram Oxalate (Lexapro) 10 mg PO DAILY [facility] Last Admin: 06/18/18 09:40 Dose: 10 mg Famotidine (Pepcid) 20 mg PO DAILY [facility] Last Admin: 06/18/18 09:39 Dose: 20 mg Glucagon (Glucagon) 1 mg IM PRN PRN PRN Reason: Hypoglycemia Guaifenesin (Robitussin Sf) 200 mg PO Q4H PRN PRN Reason: Cough Heparin Sodium (Porcine) (Heparin) 5,000 units SC BID [facility] Last Admin: 06/18/18 09:40 Dose: 5,000 units Hydralazine HCl (Apresoline) 10 mg SLOW IVP Q4H PRN PRN Reason: Systolic BP > 180 Dextrose/Water (D5w) 1,000 mls @ 0 mls/hr IV .Q0M PRN; As Directed PRN Reason: Hypoglycemia Sodium Chloride (Normal Saline 0.9%) 1,000 mls @ 100 mls/hr IV .Q10H [facility] Last Admin: 06/18/18 09:40 Dose: Not Given Insulin Glargine 20 units/ (Miscellaneous Medication) 0.2 mls @ 0 mls/hr SC BID [facility] Last Admin: 06/18/18 09:38 Dose: 0.2 mls Insulin Human Lispro (Humalog) 0 units SC .MODERATE SLIDING SC PRN PRN Reason: Moderate Correctional Scale Last Admin: 06/18/18 09:37 Dose: 6 unit Labetalol HCl (Normodyne) 20 mg SLOW IVP Q4H PRN PRN Reason: Systolic BP > 180 Loperamide HCl (Imodium) 2 mg PO PRN PRN PRN Reason: Diarrhea/Loose Stools Loratadine (Claritin) 10 mg PO DAILYPRN PRN PRN Reason: Sinus Symptoms Magnesium Hydroxide (Milk Of Magnesium) 30 ml PO DAILYPRN PRN PRN Reason: Constipation Mineral Oil/White Petrolatum (Eucerin Cream) 0 gm TOP BIDPRN PRN PRN Reason: Dry Skin Ondansetron HCl (Zofran) 4 mg IVP Q6H PRN PRN Reason: Nausea/Vomiting Stop: 06/21/18 06:00 Ondansetron HCl (Zofran Odt) 4 mg SL Q6H PRN PRN Reason: Nausea/Vomiting Stop: 06/23/18 06:00 Phenol (Chloraseptic [place] 180 Ml Bot) 0 ml PO PRN PRN PRN Reason: Sore Throat Pregabalin (Lyrica) 50 mg PO BID [facility] Last Admin: 06/18/18 09:39 Dose: Not Given Senna (Senokot) 2 tab PO HSPRN PRN PRN Reason: Constipation Sodium Chloride ([place] Nasal [place] 0.65%) 0 ml EA NARE QIDPRN PRN PRN Reason: Nasal Congestion Sodium Chloride (Flush - Normal Saline) 10 ml IVF Q12HR [facility] Last Admin: 06/18/18 09:37 Dose: Not Given Sodium Chloride (Flush - Normal Saline) 10 ml IVF PRN PRN PRN Reason: Saline Flush Timolol Maleate (Timoptic 0.25% Oph Soln) 1 drop EA EYE BID [facility] Last Admin: 06/18/18 10:15 Dose: 1 applic Tramadol HCl (Ultram) 50 mg PO Q8HR [facility] Last Admin: 06/18/18 06:03 Dose: Not Given Trazodone HCl (Desyrel) 100 mg PO HS [facility]
--- NOTE | 2018-06-18 12:07 | HP ---
CODE STATUS: FULL CODE. PRIMARY CARE PHYSICIAN: Dr. Aruna Grubbs. CHIEF COMPLAINT: Elevated blood sugar. HISTORY OF PRESENT ILLNESS: This is a 52-year-old female patient with past medical history of diabet es. The patient came to the hospital after having blood sugars has been in the 600 and she has been unable to get it down for the past few days; only occasionally been at 300, she went to her PCP and a fter workup was done, she was requested to come to the ER. Symptoms were mild, she reported that her primary care doctor has been changing her medications recently, she also has reported during the int erview that she has no full control on her sugars, especially when she drinks coffee during the day. The patient denies any fever or chills. REVIEW OF SYSTEMS: Constitutional: No fever or chills, generalized weakness. Respiratory: No coug h or sputum production. Endocrine: The patient has increased thirst. Cardiovascular: No chest sharif n, palpitations, shortness of breath. Gastrointestinal: No nausea, no vomiting, diarrhea or abdomin al pain. Central Nervous System: No dizziness, headache, or feeling lightheaded. Genitourinary: N o burning on urination. Extremities: No leg swelling. All other systems were reviewed and were neg ative except for the findings mentioned above. PAST MEDICAL HISTORY: Positive for diabetes type 2, coronary artery disease, CHF, hypertension. PAST SURGICAL HISTORY: Cholecystectomy, x2, cardiac stent x7 more recent one in 2013, bila teral eye surgery with right eye partial blindness. PSYCHIATRIC HISTORY: Depression and anxiety. SOCIAL HISTORY: No alcohol, no drugs. Patient smokes cigarettes. FAMILY HISTORY: Mother with kidney disease. Father with diabetes and CABG. ALLERGIES: No known drug allergies. REPORTED MEDICATIONS: Clonidine, Plavix, alprazolam, Lipitor, trazodone, Humalog, lisinopril, tramad ol, Coreg, Lasix, aspirin, Flexeril, Lantus, Lyrica, metolazone, and citalopram. PHYSICAL EXAMINATION: VITAL SIGNS: On presentation, blood pressure 94/61 with heart rate 88, respiratory rate was 18, temp erature 98.8, pain 6/10, oxygen saturation 96% on room air. GENERAL APPEARANCE: Patient is alert, oriented, in no any acute distress. HEENT: Eyes: Normal conjunctivae. Moist oral mucosa. Anicteric. NECK: No JVD. RESPIRATORY: Bilateral air entry. No rales, no wheezing. Symmetric expansion. CARDIOVASCULAR: Normal rate, regular rhythm. No murmurs, no gallop, no edema. ABDOMEN: Soft, normal bowel sounds. MUSCULOSKELETAL: Baseline range of motion and strength. No tenderness. SKIN: Warm, no pallor, no rash, no redness. NEUROLOGIC: Baseline sensorium. No evidence of any new focal weakness. Baseline speech. Cranial n erves seem to be intact. PSYCHIATRIC: The patient is in good mood. No anxiety, oriented, optimal judgment. LABORATORY DATA: Reviewed. White count 7.4, hemoglobin 10.5, MCV 83, platelet count 170,000. Blood gas ABG was done, pH 7.39. Chemistry was done. The patient had potassium 4.6, sodium 132, chloride 92, anion gap 17, carbon dioxide 28, BUN 50, creatinine 3.71, previous creatinine that we have on re cord was 1.38, GFR 16. Plasma glucose was 605, calcium 8.9. Troponin was mildly elevated 0.053 and second one 0.048. UA was done which was negative, only showing glucosuria. Beta hydroxybutyrate was negative. IMAGING: Chest x-ray was reviewed. The patient has no acute finding on the x-ray. EKG was reviewed . The patient had normal sinus rhythm with a rate of 81 with left deviation, left ventricular hypert rophy with QRS widening, QT corrected 494. ASSESSMENT AND PLAN: 1. The patient was placed in the hospital for uncontrolled diabetes, blood sugar on presentation was over 500, patient during interview was expressed that she has no control in the amount of sugar that she is eating, there has been also change in medication dosing recently. Her primary care doctor rich s been following this problem closely. The patient has been educated regarding diabetes control. 2. History of coronary artery disease, this is chronic, reconcile home medications. Adjust treatmen t as needed. 3. History of congestive heart failure as per report in past medical history, reconcile home meds, t his is chronic, stable. 4. Uncontrolled high blood pressure, patient presented with systolic blood pressure of 155, reconcil ed home medications. Adjust treatment as needed. 5. Acute kidney injury. Patient presented with creatinine 3.71, the previous value was 1.5, this is likely secondary to prerenal kidney failure, due to dehydration from diuresis from hyperglycemia. W e will hydrate, monitor kidney function, will adjust treatment as needed. 6. Hyperosmolar hyponatremia, corrected sodium is normal at 137. We will treat the uncontrolled velia betes. 7. Borderline troponin, may be NSTEMI type 2, even underlying kidney failure, monitor, if concernrin g may consult Cardiology for any further recommendations. 8. Deep venous thrombosis prophylaxis.
[2018-06-18] MEDS ORDERED: Sodium Chloride 0.9% 1,000 ML IV SCH (17:30)
--- NOTE | 2018-06-18 17:30 | CON ---
DATE OF CONSULTATION: 06/18/2018 NEPHROLOGY CONSULTATION REASON FOR CONSULTATION: Elevated creatinine. HISTORY OF PRESENT ILLNESS: This is a very pleasant 52-year-old female followed by me in the CKD Cli russ and was sent to the clinic for elevated blood sugars. The patient denied nausea, vomiting or markie st pain. The patient's baseline creatinine was 1.2-1.3, which increased to 3.7 today. It has gradua lly increased and her ISAAC inhibitor was stopped. The patient denies headache, numbness, tingling or weakness. Denies any nausea, vomiting, or chest pain. PAST MEDICAL HISTORY: Significant for diabetes mellitus, hypertension, congestive heart failure, his tory of , coronary artery disease, stent, bilateral eye surgery with partial blindness, hist ory of acute kidney injury. SOCIAL HISTORY: No alcohol or drug use. FAMILY HISTORY: Negative for ESRD. HOME MEDICATIONS: List reviewed. ALLERGIES: Reviewed. REVIEW OF SYSTEMS: A 15-point review of systems was performed and was negative except for positives noted above. GENERAL: Weakness- HEAD: Headache- NECK: No swelling or lumps. NOSE: No epistaxis or discharge. EYES: No diplopia or pain. RESPIRATORY: Dyspnea- CARDIOVASCULAR: Chest pain- GASTROINTESTINAL: Nausea- /[employer] CHAIR: Hematuria- MUSCULOSKELETAL: No joint pain. NEUROPSYCHIATIC SYSTEMS: No suicidal ideation. No ideation. SKIN: Denies any rash or ulcer. CONSTITUTIONAL: No fever or chills. PHYSICAL EXAMINATION: GENERAL: Patient is awake, alert. VITAL SIGNS: Afebrile, pulse 75, breathing 16, blood pressure 159/73. GENERAL APPEARANCE AND MENTAL STATUS: Fair. HEAD/NECK: Normocephalic. Atraumatic. EYES: EOMI. No deformity. EARS: Clear. No ulcers. NOSE: Intact. No lesions. MOUTH: Clear. No discharge. THROAT: Clear. No exudate. LUNGS: Clear. No crackles. CARDIAC: S1, S2. No rub. ABDOMEN: Benign. BS+. GENITALIA/RECTUM: P[place] absent. BACK/EXTREMITIES: Edema 0+ Ulcer- NEUROLOGICAL: Alert and motor intact. SKIN: Rash- Bruise- LYMPHATICS: Edema- Ulcer- LABORATORY DATA: Show sodium 137, creatinine is 3.7. ASSESSMENT AND RECOMMENDATIONS: 1. Acute kidney injury with chronic kidney disease, most likely decreased effective arterial blood v olume. Agree with stopping ISAAC. We will follow renal function closely. 2. Anemia, stable. 3. Medications based on GFR are appropriate. No indication for dialysis.
[2018-06-18] MEDS: traZODone HCl 50 MG TAB PO SCH (21:17)
[2018-06-19] MEDS: traMADol HCl 50 MG TAB PO SCH ×3 (05:05→21:59)
[2018-06-19 06:33] LABS: Anion Gap 13 mmol/L (10-20); BUN (Urea Nitrogen) 28 mg/dL (9.8-20.1); Calc. Creatinine Clearance 36 mL/min (70-130); Calcium 9.2 mg/dL (7.8-10.44); Carbon Dioxide 27 mmol/L (22-29); Chloride 107 mmol/L (98-107); Estimated GFR-MDRD 35; Glucose 89 mg/dL (70-105); Potassium 3.5 mmol/L (3.5-5.1); Sodium 143 mmol/L (136-145)
[2018-06-19 06:49] LABS: #Basophils 0.1 thou/uL (0.0-0.2); #Eosinphils 0.2 thou/uL (0.0-0.7); #Lymphocytes 2.2 thou/uL (1.20-3.40); #Monocytes 0.6 thou/uL (0.11-0.59); #Neutrophils 4.2 thou/uL (1.40-6.50); %Basophils 0.9 % (0.0-1.0); %Eosinophils 3.2 % (0.0-10.0); %Lymphocytes 30.1 % (21.0-51.0); %Monocytes 7.8 % (0.0-10.0); Hemoglobin 10.6 g/dL (12.0-16.0); MDiff Complete? YES; Mean Corpuscular Volume 84.3 fL (78.0-98.0); Mean Platelet Volume 9.2 fL (7.4-10.4); Ovalocytes SLIGHT = 2-5 cells (100X) (0-1/hpf); Platelet Count 178 thou/uL (130-400); RBC Distribution Width 16.4 % (11.5-14.5); Red Blood Cell (RBC) Count 3.92 mill/uL (4.20-5.40); White Blood Cell (WBC) Count 7.3 thou/uL (4.8-10.8)
[2018-06-19] MEDS: Carvedilol 25 MG TAB PO SCH ×2 (08:57→17:41)
[2018-06-19] MEDS: cloNIDine 0.2 MG TAB PO SCH ×3 (08:58→21:58)
[2018-06-19] MEDS: Clopidogrel Bisulfate 75 MG TAB PO SCH (08:58)
[2018-06-19] MEDS: Escitalopram Oxalate 10 mg Tablet PO SCH (08:58)
[2018-06-19] MEDS: Famotidine 20 MG TAB PO SCH (08:58)
[2018-06-19] MEDS: Atorvastatin Calcium 40 MG TAB PO SCH (08:58)
[2018-06-19] MEDS: Aspirin 81 mg Enteric Coated Tablet PO SCH (08:59)
[2018-06-19] MEDS: ALPRAZolam 0.25 MG TAB PO SCH ×2 (08:59→21:58)
[2018-06-19] MEDS: Timolol 0.25% Ophth Soln 5 ml Bottle EA EYE SCH ×2 (08:59→21:58)
[2018-06-19] MEDS: Heparin 5,000 UNITS/ML VIAL SC SCH ×2 (09:02→21:55)
[2018-06-19] MEDS: Pregabalin 50 MG CAP PO SCH ×2 (09:04→21:56)
[2018-06-19] MEDS: Insulin Glargine 20 UNITS in Pre-Filled Syringe 1 EACH SC SCH ×2 (10:01→21:56)
--- NOTE | 2018-06-19 10:37 | PRG ---
DATE OF SERVICE: 06/19/2018 SUBJECTIVE: A 52-year-old female being seen for acute kidney injury. The patient denies any nausea, vomiting, or chest pain. PHYSICAL EXAMINATION: GENERAL: Patient is awake, alert. VITAL SIGNS: Afebrile, pulse 75, breathing at 16, blood pressure 135/61. OBJECTIVE: See above. Awake, alert, in no acute distress. GENERAL APPEARANCE AND MENTAL STATUS: Fair. HEAD/NECK: Normocephalic. Atraumatic. EYES: EOMI. No deformity. EARS: Clear. No ulcers. NOSE: Intact. No lesions. MOUTH: Clear. No discharge. THROAT: Clear. No exudate. LUNGS: Clear. No crackles. CARDIAC: S1, S2. No rub. ABDOMEN: Benign. BS+. GENITALIA/RECTUM: Pacheco absent. BACK/EXTREMITIES: Edema 0+ Ulcer- NEUROLOGICAL: Alert and motor intact. SKIN: Rash- Bruise- LYMPHATICS: Edema- Ulcer- LABORATORY DATA: Show hemoglobin 10.6, potassium 3.5, creatinine 1.8. ASSESSMENT AND RECOMMENDATIONS: 1. Acute kidney injury, improved. 2. Hypertension, stable. 3. Anemia, stable. No indication for dialysis. Creatinine is pretty much approaching baseline.
[2018-06-19] MEDS: HumaLOG 300 UNITS/3 ML VIAL SC PRN ×2 (10:59→17:41)
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
--- NOTE | 2018-06-19 13:17 | PQF ---
CLINICAL DOCUMENTATION IMPROVEMENT CLARIFICATION FORM: ICD-10 Updated PLEASE DO AN ADDENDUM TO THE PROGRESS NOTE WITH ANY DOCUMENTATION UPDATES OR ADDITIONS AND CARRY THROUGH TO DC SUMMARY. THANK YOU. DATE: 06/19/18 ATTN: DR. GEIGER Please exercise your independent, professional judgment in responding to the clarification form. Clinical indicators are provided on the bottom of this form for your review Please check appropriate box(s): AMI TYPE: [ ] NSTEMI [ ] NSTEMI TYPE 2 [x ] DEMAND ISCHEMIA [ ] Other diagnosis [ ] Unable to determine In addition, please specify: Present on Admission (POA): [ x] Yes [ ] No [ ] Unable to determine CLINICAL INDICATORS - SIGNS / SYMPTOMS / LABS H&P: "BORDERLINE TROPONIN, MAY BE NSTEMI TYPE 2" PROGRESS NOTE 06/18: "ELEVATED TROPONIN" TROPONIN 0.053 / 0.048 RISKS: HYPERTENSION CAD TREATMENT: TELEMETRY MONITORING ASPIRIN (ER-PRESENT) (This form is maintained as a part of the permanent medical record) 2014 [employer]. All Rights Reserved [email or web address] Office: [phone] WANDA
--- NOTE | 2018-06-19 13:25 | PQF ---
CLINICAL DOCUMENTATION IMPROVEMENT CLARIFICATION FORM: ICD-10 Updated PLEASE DO AN ADDENDUM TO THE PROGRESS NOTE WITH ANY DOCUMENTATION UPDATES OR ADDITIONS AND CARRY THROUGH TO DC SUMMARY. THANK YOU. DATE: 06/19/18 ATTN: DR. GEIGER Please exercise your independent, professional judgment in responding to the clarification form. Clinical indicators are provided on the bottom of this form for your review Please check appropriate box(s): HEART FAILURE: A. TYPE: [ ] Systolic / HFrEF [ ] Diastolic / HFpEF [ ] Combined Systolic / Diastolic [ ] Other diagnosis [ x ] Unable to determine In addition, please specify: Present on Admission (POA): [ ] Yes [ x] No [ x ] Unable to determine x For continuity of documentation, please document condition throughout progress notes and discharge summary. Thank You. CLINICAL INDICATORS - SIGNS / SYMPTOMS / LABS PAST MEDICAL HISTORY: CHF RISKS: HYPERTENSION H/O CHF TREATMENT: COREG HYDRALAZINE CARDIAC MONITORING (This form is maintained as a part of the permanent medical record) 2014 [employer]. All Rights Reserved [email or web address] Office: [phone] WANDA
[2018-06-19] MEDS: traZODone HCl 50 MG TAB PO SCH (21:57)
[2018-06-20] MEDS: traMADol HCl 50 MG TAB PO SCH ×2 (07:22→13:47)
[2018-06-20] MEDS: Carvedilol 25 MG TAB PO SCH (07:45)
[2018-06-20] MEDS: Atorvastatin Calcium 40 MG TAB PO SCH (07:46)
[2018-06-20] MEDS: Aspirin 81 mg Enteric Coated Tablet PO SCH (07:46)
[2018-06-20] MEDS: ALPRAZolam 0.25 MG TAB PO SCH (07:46)
[2018-06-20] MEDS: Famotidine 20 MG TAB PO SCH (07:47)
[2018-06-20] MEDS: Clopidogrel Bisulfate 75 MG TAB PO SCH (07:47)
[2018-06-20] MEDS: cloNIDine 0.2 MG TAB PO SCH ×2 (07:47→15:28)
[2018-06-20] MEDS: Escitalopram Oxalate 10 mg Tablet PO SCH (07:47)
[2018-06-20] MEDS: Timolol 0.25% Ophth Soln 5 ml Bottle EA EYE SCH (07:48)
[2018-06-20] MEDS: Pregabalin 50 MG CAP PO SCH (07:48)
[2018-06-20] MEDS: Heparin 5,000 UNITS/ML VIAL SC SCH (07:50)
[2018-06-20] MEDS: HumaLOG 300 UNITS/3 ML VIAL SC PRN ×2 (07:50→10:46)
[2018-06-20 08:00] LABS: Anion Gap 14 mmol/L (10-20); BUN (Urea Nitrogen) 24 mg/dL (9.8-20.1); Calc. Creatinine Clearance 36 mL/min (70-130); Calcium 9.4 mg/dL (7.8-10.44); Carbon Dioxide 27 mmol/L (22-29); Chloride 105 mmol/L (98-107); Estimated GFR-MDRD 34; Glucose 139 mg/dL (70-105); Potassium 3.8 mmol/L (3.5-5.1); Sodium 142 mmol/L (136-145)
[2018-06-20] MEDS: Insulin Glargine 20 UNITS in Pre-Filled Syringe 1 EACH SC SCH (09:30)
--- NOTE | 2018-06-20 10:38 | DIS ---
DATE OF ADMISSION: 06/17/2018 DATE OF DISCHARGE: 06/20/2018 PRIMARY CARE PHYSICIAN: Aruna Grubbs M.D. DISCHARGE DISPOSITION: Home. PRIMARY DISCHARGE DIAGNOSES: Acute on chronic kidney failure, baseline chronic kidney disease stage 3, elevated troponin due to demand ischemia, hyperglycemia associated with diabetes type 2. SECONDARY DISCHARGE DIAGNOSES: Severe mitral regurgitation, hypertension, glaucoma, dyslipidemia, diabetic retinopathy, diabetic nephropathy, diabetic neuropathy, diabetic gastroparesis, coronary artery disease, anxiety and depression, normocytic normochromic anemia, chronic kidney disease stage 3, diabetes type 2. PRIMARY PROCEDURE/OPERATION: None. RADIOLOGICAL INVESTIGATION: Chest x-ray normal. SIGNIFICANT LABORATORY DATA: WBC 7.3, hemoglobin 10.6, platelet 178. Sodium 142, potassium 3.8, BUN 24, creatinine 1.87, calcium 9.4. Urinalysis normal. Serum ketones 0.09. DISCHARGE MEDICATIONS: Alprazolam 1 mg p.o. at bedtime, aspirin 81 mg p.o. daily, Lipitor 40 mg p.o. daily, brimonidine/dorzolamide ophthalmic drop each eye t.i.d., Coreg 25 mg p.o. b.i.d., clonidine 0.2 mg p.o. b.i.d., Plavix 75 mg p.o. daily, Flexeril 10 mg p.o. daily, Lexapro 10 mg p.o. daily, Lasix 40 mg p.o. daily, Lantus insulin 25 units subcu b.i.d., Humalog insulin 10 units subcu t.i.d. as per sliding scale, Imdur 30 mg p.o. daily, amlodipine 10 mg p.o. daily, Zaroxolyn 2.5 mg as directed, prednisone acetate ophthalmic drop each eye q.i.d., Lyrica 50 mg p.o. t.i.d., timolol ophthalmic drop b.i.d., tramadol 50 mg t.i.d. p.r.n., trazodone 100 mg p.o. at bedtime. CONTRAINDICATIONS: None. CODE STATUS: FULL CODE. INPATIENT LITERARY AGENT: Dr. Houser was following while in hospital. TEST RESULTS PENDING ON DISCHARGE: None. ALLERGIES: No known drug allergy. DISCHARGE PLAN: Post hospital, patient is discharged home with home health. Patient will follow up with primary care physician in 1 week. Primary care physician requested to give paperwork for patient to get Lantus and Humalog insulin. HOSPITAL COURSE: A 52-year-old female who was admitted by Dr. Orlando. The patient was having difficulty controlling her blood sugar. The patient reports that recently because of her insurance reasons, she was changed to Levemir and NovoLog, which was not working per patient. Her blood sugar was remaining high. Previously when she was on Lantus and Humalog, her blood sugar did not have any problem. At this time, she also had acute on chronic kidney failure because of osmotic diuresis. Her creatinine was elevated to 3.71. On discharge after hydration, her creatinine improved to 1.87, which is baseline. Dr. Houser was consulted for renal failure and he recommended to discontinue lisinopril therapy and because of her high blood pressure, we started amlodipine instead of lisinopril. Rest of medication was continued as per previous. While in hospital, when we started Lantus and Humalog insulin, she had better diabetes control. Unfortunately, this patient cannot have Lantus and Humalog because of insurance reasons, but this medicine is working very well for her. The patient will need some paperwork from primary care physician' s office to get Lantus and Humalog insulin, which will be done when the patient will see them on Friday. Meanwhile, the patient is instructed to continue her previous insulin. The patient's renal function improved to baseline and diabetes is also well controlled. The patient is seen and examined at bedside today. All review of system reviewed with her and negative. PHYSICAL EXAMINATION: VITAL SIGNS: Currently, temperature 98.4, pulse 70, respiratory rate 16, saturation 99% on room air, blood pressure 178/85, weight 143 pounds. GENERAL: The patient is currently alert, awake, no obvious acute distress. HEAD: Normocephalic, atraumatic. EYES: Pupils round, reactive to light. Extraocular muscle intact. ENT: Oropharynx within normal limits. LUNGS: Clear to auscultation without any rhonchi or rales. CARDIAC: S1, S2 regular. Systolic murmur noted at apex. No gallop, no rub. ABDOMEN: Soft and benign. EXTREMITIES: No edema. NEUROLOGIC: Nonfocal examination. The patient is stable for discharge today. All new medication prescription sent to her pharmacy. Total time spent on discharge day 31 minutes WANDA
--- NOTE | 2018-06-20 14:24 | PRG ---
DATE OF SERVICE: 06/20/2018 SUBJECTIVE: This is a 52-year-old female being seen for acute kidney injury. The patient denies any nausea, vomiting, or chest pain. PHYSICAL EXAMINATION: GENERAL: Patient is awake, alert. VITAL SIGNS: Afebrile, pulse 70, breathing at 16, blood pressure 170/81. GENERAL APPEARANCE AND MENTAL STATUS: Fair. HEAD/NECK: Normocephalic. Atraumatic. EYES: EOMI. No deformity. EARS: Clear. No ulcers. NOSE: Intact. No lesions. MOUTH: Clear. No discharge. THROAT: Clear. No exudate. LUNGS: Clear. No crackles. CARDIAC: S1, S2. No rub. ABDOMEN: Benign. BS+. GENITALIA/RECTUM: Pacheco absent. BACK/EXTREMITIES: Edema 0+ Ulcer- NEUROLOGICAL: Alert and motor intact. SKIN: Rash- Bruise- LYMPHATICS: Edema- Ulcer- LABORATORY DATA: Creatinine 1.8, potassium 3.6. ASSESSMENT AND RECOMMENDATIONS: 1. Acute kidney with chronic kidney disease, improved. 2. Hyperkalemia, stable. 3. Anemia, stable. 4. Medications based on glomerular filtration rate are appropriate. 5. Hypertension. I would recommend increasing the Coreg to 37.5 q.12h. I would avoid IASAC inhibitor and use Lasix on a n as needed basis if there is a 3-pound weight gain.
[2018-06-20 15:25] VITALS: TEMP 97.7
[2018-06-20 15:26] VITALS: BP 112/67
== END 2018-06-20 16:41 | disposition home health service (06) | DRG 638 ==
LOC: ERS 15:29 → 2NO 17:53
PROVIDERS: ADMIT Internal Medicine; ATTEND Internal Medicine
DX: E11.65 Type 2 diabetes mellitus with hyperglycemia (principal); N17.9 Acute kidney failure, unspecified; E87.1 Hypo-osmolality and hyponatremia; I13.0 Hypertensive heart and chronic kidney disease with heart failure and stage 1 through stage 4 chronic kidney disease, or unspecified chronic kidney disease; I24.8 Other forms of acute ischemic heart disease; I25.10 Atherosclerotic heart disease of native coronary artery without angina pectoris; E86.0 Dehydration; E11.22 Type 2 diabetes mellitus with diabetic chronic kidney disease; N18.3 Chronic kidney disease, stage 3 (moderate); E11.43 Type 2 diabetes mellitus with diabetic autonomic (poly)neuropathy; D63.1 Anemia in chronic kidney disease; K31.84 Gastroparesis; E11.319 Type 2 diabetes mellitus with unspecified diabetic retinopathy without macular edema; I50.9 Heart failure, unspecified; H40.9 Unspecified glaucoma; I34.0 Nonrheumatic mitral (valve) insufficiency; F41.8 Other specified anxiety disorders; Z95.5 Presence of coronary angioplasty implant and graft; Z79.82 Long term (current) use of aspirin; Z79.4 Long term (current) use of insulin
CPT/HCPCS: 36415; 36416; 51701; 71045; 80048; 80053; 81003; 82010; 82330; 82553; 82803; 83735; 83880; 84100; 84484; 85025; 93005; 96361; 96374; 99406; A4216; J0360; J1644; J1815

== ENCOUNTER 2020-05-14 22:26 | Inpatient (IN) | payer MEDICARE, OTHER ==
[2020-05-14] MEDS ORDERED: Cefepime 2 GM VIAL ONE (22:53)
[2020-05-14] MEDS ORDERED: Acetaminophen 500 MG TAB ONE (22:53)
[2020-05-14] MEDS ORDERED: Ondansetron PF 4 MG/2 ML Vial ONE (23:08)
[2020-05-14 23:12] LABS: #Basophils 0.1 thou/uL (0.0-0.2); #Eosinphils 0.1 thou/uL (0.0-0.7); #Lymphocytes 1.8 thou/uL (1.20-3.40); #Monocytes 0.6 thou/uL (0.11-0.59); #Neutrophils 7.9 thou/uL (1.40-6.50); %Basophils 0.5 % (0.0-1.0); %Eosinophils 1.4 % (0.0-10.0); %Monocytes 5.8 % (0.0-10.0); %Neutrophils 75.3 % (42.0-75.0); Mean Corpuscular HGB CONC 32.8 g/dL (32.0-36.0); Mean Corpuscular Hemoglobin 28.9 pg (27.0-31.0); Mean Corpuscular Volume 88.2 fL (78.0-98.0); Mean Platelet Volume 8.8 fL (7.4-10.4); Platelet Count 242 thou/uL (130-400); RBC Distribution Width 15.4 % (11.5-14.5); Red Blood Cell (RBC) Count 4.15 mill/uL (4.20-5.40); White Blood Cell (WBC) Count 10.4 thou/uL (4.8-10.8)
[2020-05-14] MEDS ORDERED: Vancomycin 1 GM/200 ML BAG ONE (23:14)
[2020-05-14] MEDS ORDERED: Promethazine HCl 25 MG/ML VIAL ONE (23:26)
[2020-05-14 23:30] LABS: ALT (SGPT) 13 U/L (8-55); AST (SGOT) 20 U/L (5-34); Albumin 4.2 g/dL (3.5-5.0); Alkaline Phosphatase 100 U/L (40-110); Anion Gap 14 mmol/L (10-20); BUN (Urea Nitrogen) 22 mg/dL (9.8-20.1); Bilirubin, Total 0.5 mg/dL (0.2-1.2); Calc. Creatinine Clearance 0 mL/min (70-130); Carbon Dioxide 24 mmol/L (22-29); Chloride 104 mmol/L (98-107); Estimated GFR-MDRD 30; Globulin 4.3 g/dL (2.4-3.5); Glucose 160 mg/dL (70-105); Potassium 4.1 mmol/L (3.5-5.1); Protein, Total 8.5 g/dL (6.0-8.3); Sodium 138 mmol/L (136-145)
--- NOTE | 2020-05-14 23:44 | RAD ---
RADIOGRAPH CHEST 1 VIEW: DATE: 05/14/2020 TIME: 10:54 PM HISTORY: 54-year-old female with dyspnea, productive cough, and hypoxemia COMPARISON: 06/17/2018 FINDINGS: New finding of a symmetrical diffusely hazy interstitial densities throughout most of the left lung, with relative sparing of the left apex, and greatest at the left lung base. The right lung remains relatively clear. No pneumothorax. Lateral costophrenic angles are sharp. IMPRESSION: Predominantly interstitial infiltrates in left lung. This is nonspecific, but one possibility is COVI D-19 viral pneumonia. Clinical correlation recommended.
[2020-05-15] MEDS ORDERED: HYDROcodone/Acetaminophen 5/325 mg Tablet PO PRN ×2 (01:37)
[2020-05-15] MEDS ORDERED: Ondansetron PF 4 MG/2 ML Vial IVP PRN (01:37)
[2020-05-15] MEDS ORDERED: Acetaminophen 650 MG Suppository PR PRN (01:37)
[2020-05-15] MEDS ORDERED: Ondansetron ODT 4 MG TAB PO PRN (01:37)
[2020-05-15] MEDS ORDERED: Guaifenesin DM 100-10/5 ML UDCUP PO PRN (01:37)
--- NOTE | 2020-05-15 01:56 | PDOC.HHP ---
Hospitalist HPI - History of Present Illness sob History of Present Illness: Case of an 54y/o female with pmhx of DM cad and chf who comes to hospital due to sob. patient refers she was on her usual state of health until 2 weeks ago when she started with a non productive cough chills and body aches. she states she was doing relatively well until today when she started with severe dyspnea for which she decided to come to hospital due to sob. at arrival patient was found to be on respiratory failure and sepsis, arrived with tachycardia in the 113s [id number] febrile and 80s in 02 sat, patient was given 02 supplementation and hospitalist was called for further evaluation and management. 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 - Exam General Appearance: NAD, ill appearing Eye: PERRL, anicteric sclera ENT: normocephalic atraumatic, no oropharyngeal lesions Neck: supple, symmetric, no JVD Heart: RRR, no murmur, no gallops Respiratory: CTAB, rhonchi, tachypneic Gastrointestinal: soft, non-tender, non-distended, normal bowel sounds Extremities: no cyanosis, no clubbing Skin: normal turgor, no lesions, no rashes Neurological: cranial nerve grossly intact, normal sensation to touch Musculoskeletal: normal tone, normal strength, no muscle wasting Hospitalist Results - Labs Result Diagrams: 05/14/20 22:36 05/14/20 22:36 Lab results: WBC 10.4 thou/uL (4.8-10.8) 05/14/20 22:36 Hgb 12.0 g/dL (12.0-16.0) 05/14/20 22:36 Hct 36.6 % (36.0-47.0) 05/14/20 22:36 MCV 88.2 fL (78.0-98.0) 05/14/20 22:36 Plt Count 242 thou/uL (130-400) 05/14/20 22:36 Neutrophils % 75.3 % (42.0-75.0) H 05/14/20 22:36 Sodium 138 mmol/L (136-145) 05/14/20 22:36 Potassium 4.1 mmol/L (3.5-5.1) 05/14/20 22:36 Chloride 104 mmol/L (98-107) 05/14/20 22:36 Carbon Dioxide 24 mmol/L (22-29) 05/14/20 22:36 BUN 22 mg/dL (9.8-20.1) H 05/14/20 22:36 Creatinine 2.09 mg/dL (0.6-1.1) H 05/14/20 22:36 Glucose 160 mg/dL (70-105) H 05/14/20 22:36 Lactic Acid 1.8 mmol/L (0.5-2.2) 05/14/20 22:36 Calcium 9.0 mg/dL (7.8-10.44) 05/14/20 22:36 Total Bilirubin 0.5 mg/dL (0.2-1.2) 05/14/20 22:36 AST 20 U/L (5-34) 05/14/20 22:36 ALT 13 U/L (8-55) 05/14/20 22:36 Alkaline Phosphatase 100 U/L (40-110) 05/14/20 22:36 Troponin I 0.027 ng/mL (< 0.028) 05/14/20 22:36 B-Natriuretic Peptide 121.0 pg/mL (0-100) H 05/14/20 22:36 Serum Total Protein 8.5 g/dL (6.0-8.3) H 05/14/20 22:36 Albumin 4.2 g/dL (3.5-5.0) 05/14/20 22:36 Hospitalist H&P A/P - Problem (1) Respiratory failure with hypoxia Code(s): J96.91 - RESPIRATORY FAILURE, UNSPECIFIED WITH HYPOXIA Status: Acute (2) COVID-19 Code(s): U07.1 - COVID-19 Status: Acute (3) Diabetes Code(s): E11.9 - TYPE 2 DIABETES MELLITUS WITHOUT COMPLICATIONS Status: Acute (4) Acute worsening of stage 3 chronic kidney disease Code(s): N18.3 - CHRONIC KIDNEY DISEASE, STAGE 3 (MODERATE) Status: Acute (5) CAD (coronary artery disease) Code(s): I25.10 - ATHSCL HEART DISEASE OF [place] CORONARY ARTERY W/O ANG PCTRS Status: Chronic Qualifiers: Coronary Disease-Associated Artery/Lesion type: [place] artery [place] vs. transplanted heart: [place] heart Associated angina: without angina Qualified Code(s): I25.10 - Atherosclerotic heart disease of [place] coronary artery without angina pectoris (6) Dyslipidemia Code(s): E78.5 - HYPERLIPIDEMIA, UNSPECIFIED Status: Chronic (7) Hypertension Code(s): I10 - ESSENTIAL (PRIMARY) HYPERTENSION Status: Chronic Qualifiers: Hypertension type: essential hypertension Qualified Code(s): I10 - Essential (primary) hypertension (8) Sepsis Code(s): A41.9 - SEPSIS, UNSPECIFIED ORGANISM Status: Acute - Plan Plan: - 02 supplementation wean as tolerated - abx with vanc and cefe - covid 19 suspected teste sent from ED - f/u blood cultures - continue home meds for chronic conditions - gentle hydration in the setting of chf -admit to [facility]
[2020-05-15 03:10] VITALS: BMI 26.1
[2020-05-15] MEDS: Sodium Chloride 0.9% 1,000 ML IV SCH (03:33)
--- NOTE | 2020-05-15 08:59 | CON ---
DATE OF CONSULTATION: CONSULTING PHYSICIAN: Hospitalist Group. REASON FOR CONSULTATION: Pulmonary infiltrates. HISTORY OF PRESENT ILLNESS: This is a 54-year-old, who presented to the hospital with a 1-day history of increasing shortness of breath, chills, and body aches. She endorses that she has not left her house in the last 3 months. She lives at home with her 2 sons. We have also not left the house in the last 3 months. She knows of no exposure to coronavirus, but is currently isolated to rule out. She has been seen in the past here in regard to pulmonary edema from congestive heart failure and has known systolic heart failure with EF of 35% to 40%. She has a productive cough, subjective fever, and chills. PAST MEDICAL HISTORY: 1. Systolic heart failure. 2. Coronary artery disease. 3. Hypertension. 4. Diabetes mellitus. PAST SURGICAL HISTORY: and cholecystectomy. FAMILY MEDICAL HISTORY: Remarkable for coronary artery disease, diabetes mellitus. SOCIAL HISTORY: Has smoked a pack every 3 to 4 days. Does not consume alcohol. Does not use illicit drugs. ALLERGIES: NONE. CURRENT MEDICATIONS: 1. Glargine insulin 25 units subcu b.i.d. 2. Latanoprost eyedrops 0.005% 7.5 mL nightly each eye. 3. Humalog sliding scale insulin t.i.d. 4. Aspirin 81 mg daily. 5. Tramadol 50 mg t.i.d. 6. Trazodone 100 mg at bedtime. 7. Lyrica 50 mg daily. 8. Metolazone 2.5 mg daily. 9. Imdur ER 30 mg daily. 10. Lasix 40 mg daily. 11. Timolol 1 drop each eye b.i.d. 12. Iron sulfate 325 mg daily. 13. Flexeril 10 mg b.i.d. 14. Plavix 75 mg daily. 15. Carvedilol 25 mg b.i.d. 16. Atorvastatin 40 mg daily. 17. Amlodipine 10 mg daily. 18. Citalopram 20 mg daily. 19. Alprazolam 1 mg nightly as needed. REVIEW OF SYSTEMS: Twelve-point review of systems is otherwise negative. PHYSICAL EXAMINATION: VITAL SIGNS: Temperature 97.8, pulse 77, blood pressure 146/69, O2 saturation 98%, respiratory rate 25. GENERAL: The patient is awake and alert, in no acute distress, but does have visible rigors. HEENT: Pupils are reactive. Sclerae anicteric. Oropharynx clear. NECK: No adenopathy or JVD. LUNGS: She has left lower lobe crackles on inspiration. Right side is fairly clear. No wheezing. CARDIOVASCULAR: S1 and S2. Regular without murmur. ABDOMEN: Soft and nontender to palpation. EXTREMITIES: No clubbing, cyanosis, or edema. NEUROLOGIC: Nonfocal. LABORATORY DATA: White blood cell count 10.4, hematocrit 36.6, and platelet count 242. Sodium 130, potassium 4.1, chloride 104, CO2 of 24, BUN 22, creatinine 2.1, glucose 160. BNP 121, albumin 4.2. IMAGING STUDIES: Chest x-ray shows left-sided infiltrate. ASSESSMENT: Pneumonia versus heart failure. Laboratory testing at this time favors left lower lobe pneumonia. Given the current epidemic COVID-19, it makes sense to go ahead and rule her out for that. RECOMMENDATION: 1. Rule out COVID-19 virus. 2. Empiric coverage for community-acquired pneumonia. 3. Very judicious use of fluids. 4. Consider echocardiogram and further heart workup if COVID test comes back negative. Also, consider transfer to floor later today, if COVID test comes negative. She is not in need of IMCU care at this time. 5. Supplemental oxygen as needed. Job ID: [id number]
[2020-05-15] MEDS ORDERED: Cefepime 2 GM in Sodium Chloride 0.9% 100 ML IVPB SCH (09:00)
[2020-05-15] MEDS ORDERED: ALPRAZolam 1 MG TAB PO PRN (10:43)
[2020-05-15] MEDS: Enoxaparin Sodium 30 MG/0.3 ML SYRINGE SC SCH (10:43)
[2020-05-15] MEDS ORDERED: Cyclobenzaprine 10 MG TAB PO PRN (10:43)
[2020-05-15] MEDS ORDERED: traMADol HCl 50 MG TAB PO PRN (10:43)
[2020-05-15] MEDS ORDERED: hydrALAZINE 20 MG/ML VIAL SLOW IVP PRN (10:48)
[2020-05-15] MEDS ORDERED: Dextrose 50% Abboject 50 ML SYRINGE IVP PRN (10:53)
[2020-05-15] MEDS ORDERED: Dextrose 5% in Water 1,000 ML IV PRN (10:53)
[2020-05-15] MEDS: ALPRAZolam 1 MG TAB PO PRN (11:06)
[2020-05-15] MEDS ORDERED: ANTIBIOTICS IVPB PRN (13:31)
[2020-05-15 14:56] LABS: SARS-CoV-2 MS2 Positive; SARS-CoV-2 N Gene Negative; SARS-CoV-2 S Gene Negative; SARS-CoV-2 orf1ab Negative
[2020-05-15] MEDS ORDERED: Non-Formulary Item 1 EACH (Insulin Glargine,Hum.Rec.Anlog [Lantus Solostar] 25 UNIT) SQ SCH (21:00)
[2020-05-15] MEDS ORDERED: Vancomycin 1 GM in Premix Bag 1 BAG IVPB SCH (22:00)
[2020-05-15 22:45] LABS: Vancomycin, Random 9.7 ug/mL (See Comment)
[2020-05-15] MEDS: Carvedilol 25 MG TAB PO SCH (23:22)
[2020-05-15] MEDS: traZODone HCl 50 MG TAB PO SCH (23:23)
[2020-05-15] MEDS: Pregabalin 50 MG CAP PO SCH (23:23)
[2020-05-15] MEDS: Latanoprost 0.005% Ophth Soln 2.5 ml Bottle EA EYE SCH (23:24)
[2020-05-15] MEDS: Timolol 0.25% Ophth Soln 5 ml Bottle EA EYE SCH (23:24)
[2020-05-15] MEDS: Acetaminophen 325 MG TAB PO PRN (23:29)
[2020-05-15] MEDS: Atorvastatin Calcium 40 MG TAB PO SCH (23:49)
[2020-05-15] MEDS: Insulin Glargine 25 UNITS in Pre-Filled Syringe 1 EACH SC SCH (23:49)
[2020-05-16] MEDS ORDERED: Vancomycin HCl 750 MG in Sodium Chloride 0.9% 250 ML 250 ML IVPB SCH ×2 (00:15→23:59)
[2020-05-16] MEDS: Sodium Chloride 0.9% 1,000 ML IV SCH ×2 (02:02→17:47)
[2020-05-16] MEDS: Acetaminophen 325 MG TAB PO PRN ×3 (06:01→19:35)
--- NOTE | 2020-05-16 08:21 | PRG ---
DATE OF SERVICE: 05/16/2020 SUBJECTIVE: The patient is doing reasonably well. She did rule out for the coronavirus. She has moved over to the step-down unit. She says she is still somewhat short of breath. OBJECTIVE: VITAL SIGNS: Her temperature is 98.6, as high as 102.6 yesterday; pulse 90; blood pressure 130/61. 24-hour intake 600, output 1575. HEENT: Unremarkable. NECK: No adenopathy or JVD. LUNGS: Few crackles heard anteriorly bilaterally. CARDIOVASCULAR: S1 and S2. Regular. ABDOMEN: Soft. EXTREMITIES: No edema. LABORATORY DATA: No new labs were recorded for today. ASSESSMENT: 1. Febrile illness, most likely consistent with community-acquired pneumonia, [id number]. 2. Acute hypoxic respiratory failure. PLAN: 1. The patient needs to have atypical coverage added. I will go ahead and add azithromycin. Continue the cefepime and vancomycin, but consolidate once culture results are known. 2. Wean oxygen. Job ID: [id number]
[2020-05-16] MEDS: Cefepime 2 GM in Sodium Chloride 0.9% 100 ML IVPB SCH (09:02)
[2020-05-16] MEDS: Azithromycin 500 MG in Sodium Chloride 0.9% 250 ML 250 ML IVPB SCH (09:02)
[2020-05-16] MEDS: Carvedilol 25 MG TAB PO SCH ×2 (09:04→20:39)
[2020-05-16] MEDS: Clopidogrel Bisulfate 75 MG TAB PO SCH (09:04)
[2020-05-16] MEDS: Amlodipine 10 MG TAB PO SCH (09:04)
[2020-05-16] MEDS: Ferrous Sulfate 325 MG TAB PO SCH (09:04)
[2020-05-16] MEDS: Citalopram 20 MG TAB PO SCH (09:05)
[2020-05-16] MEDS: Aspirin 81 mg Enteric Coated Tablet PO SCH (09:05)
[2020-05-16] MEDS: Enoxaparin Sodium 30 MG/0.3 ML SYRINGE SC SCH (09:05)
[2020-05-16] MEDS: Timolol 0.25% Ophth Soln 5 ml Bottle EA EYE SCH ×2 (09:07→20:42)
[2020-05-16] MEDS: Insulin Glargine 25 UNITS in Pre-Filled Syringe 1 EACH SC SCH ×3 (09:08→20:42)
--- NOTE | 2020-05-16 09:44 | PDOC.HOSPP ---
- Subjective Encounter Date: 05/16/20 Encounter Time: 17:00 Subjective: Patient with overall improvement in how she feels but still requiring high flow O2. - Objective Vital Signs & Weight: Vital Signs (12 hours) Temp Pulse Ox 05/16/20 08:50 97 05/16/20 08:00 100 05/16/20 07:23 98.6 F 05/16/20 03:46 100.6 F H 05/16/20 01:04 100 05/16/20 00:32 100.9 F H 05/15/20 23:41 102.6 F H Weight Weight 152 lb 1.903 oz Most Recent Monitor Data Heart Rate from ECG 83 NIBP 142/72 NIBP BP-Mean 95 Respiration from ECG 27 SpO2 100 I&O: 05/15/20 05/16/20 05/17/20 06:59 06:59 06:59 Intake Total 0 600 Output Total 500 1575 Balance -500 -223 Result Diagrams: 05/16/20 09:30 05/16/20 09:30 Additional Labs: Accuchecks 05/16/20 05/16/20 05/15/20 05:50 02:19 22:50 POC Glucose 114 H 121 H 150 H 05/15/20 16:17 POC Glucose 109 Hospitalist ROS - Review of Systems Constitutional: reports: fever. denies: chills Respiratory: reports: cough, shortness of breath Cardiovascular: denies: chest pain, palpitations Gastrointestinal: denies: nausea, vomiting, abdominal pain - Medication Medications: Active Medications Generic Name Dose Route Start Last Admin Trade Name Freq PRN Reason Stop Dose Admin Acetaminophen 650 mg 05/15/20 01:37 05/16/20 06:01 Tylenol PO 650 mg Q4H PRN Administration Headache/Fever/Mild Pain (1-3) Alprazolam 1 mg 05/15/20 10:47 05/15/20 11:06 Xanax PO 1 mg BIDPRN PRN Administration Anxiety Amlodipine Besylate 10 mg 05/16/20 09:00 05/16/20 09:04 Norvasc PO 10 mg DAILY RONALD Administration Aspirin 81 mg 05/16/20 09:00 05/16/20 09:05 Ecotrin PO 81 mg DAILY RONALD Administration Atorvastatin Calcium 40 mg 05/15/20 21:00 06/15/20 23:49 Lipitor PO Not Given HS RONALD Carvedilol 25 mg 05/15/20 21:00 05/16/20 09:04 Coreg PO 25 mg BID RONALD Administration Citalopram Hydrobromide 20 mg 05/16/20 09:00 05/16/20 09:05 Celexa PO 20 mg DAILY RONALD Administration Clopidogrel Bisulfate 75 mg 05/16/20 09:00 05/16/20 09:04 Plavix PO 75 mg DAILY RONALD Administration Enoxaparin Sodium 30 mg 05/15/20 09:00 05/16/20 09:05 Lovenox SC 30 mg 0900 RONALD Administration Ferrous Sulfate 325 mg 05/16/20 08:00 05/16/20 09:04 Feosol PO 325 mg QAM-WM RONALD Administration Guaifenesin/Dextromethorphan 15 ml 05/15/20 01:37 05/15/20 10:43 Robitussin Dm PO 15 ml Q4H PRN Administration Cough Sodium Chloride 1,000 mls @ 50 mls/hr 05/15/20 01:45 05/16/20 02:02 Normal Saline 0.9% IV 1,000 mls .Q20H RONALD Administration Insulin Glargine 25 units/ 0.25 mls @ 0 mls/hr 05/15/20 21:00 05/16/20 09:20 Miscellaneous Medication SC Not Given BID RONALD Cefepime HCl 2 gm/ Sodium 100 mls @ 200 mls/hr 05/16/20 09:00 05/16/20 09:02 Chloride IVPB 100 mls 0900 RONALD Administration Azithromycin 500 mg/ Sodium 250 mls @ 250 mls/hr 05/16/20 09:00 05/16/20 09: 02 Chloride IVPB 250 mls 0900 RONALD Administration Isosorbide Mononitrate 30 mg 05/16/20 09:00 05/16/20 09:04 Imdur Er PO 30 mg DAILY RONALD Administration Latanoprost 1 drop 05/15/20 21:00 05/15/20 23:24 Xalatan 0.005% Ophth Soln EA EYE 1 drop HS RONALD Administration Pregabalin 50 mg 05/15/20 21:00 05/15/20 23:23 Lyrica PO 50 mg QPM RONALD Administration Sodium Chloride 10 ml 05/15/20 09:00 05/16/20 09:05 Flush - Normal Saline IVF 10 ml Q12HR RONALD Administration Timolol Maleate 1 drop 05/15/20 21:00 05/16/20 09:07 Timoptic 0.25% Ophth Soln EA EYE 1 drop BID RONALD Administration Trazodone HCl 100 mg 05/15/20 21:00 05/15/20 23:23 Desyrel PO 100 mg HS RONALD Administration - Exam General Appearance: NAD, awake alert ENT: moist mucosa Heart: RRR, no murmur, no gallops, no rubs Respiratory - other findings: some crackles and ronchi, decent air movement, no increase WOB at rest Gastrointestinal: soft, non-tender, non-distended, normal bowel sounds Psychiatric: normal affect, normal behavior, A&O x 3 Hosp A/P (1) Respiratory failure with hypoxia Code(s): J96.91 - RESPIRATORY FAILURE, UNSPECIFIED WITH HYPOXIA Status: Acute (2) Sepsis Code(s): A41.9 - SEPSIS, UNSPECIFIED ORGANISM Status: Acute (3) Pneumonia Code(s): J18.9 - PNEUMONIA, UNSPECIFIED ORGANISM Status: Acute Qualifiers: Laterality: left (4) Acute worsening of stage 3 chronic kidney disease Code(s): N18.3 - CHRONIC KIDNEY DISEASE, STAGE 3 (MODERATE) Status: Acute (5) Diabetes mellitus with insulin therapy Code(s): E11.9 - TYPE 2 DIABETES MELLITUS WITHOUT COMPLICATIONS; Z79.4 - JAIL (CURRENT) USE OF INSULIN Status: Chronic (6) CAD (coronary artery disease) Code(s): I25.10 - ATHSCL HEART DISEASE OF [place] CORONARY ARTERY W/O ANG PCTRS Status: Chronic Qualifiers: Coronary Disease-Associated Artery/Lesion type: [place] artery [place] vs. transplanted heart: [place] heart Associated angina: without angina Qualified Code(s): I25.10 - Atherosclerotic heart disease of [place] coronary artery without angina pectoris (7) Dyslipidemia Code(s): E78.5 - HYPERLIPIDEMIA, UNSPECIFIED Status: Chronic (8) Hypertension Code(s): I10 - ESSENTIAL (PRIMARY) HYPERTENSION Status: Chronic Qualifiers: Hypertension type: essential hypertension Qualified Code(s): I10 - Essential (primary) hypertension (9) Diabetic gastroparesis Code(s): E11.43 - TYPE 2 DIABETES W DIABETIC AUTONOMIC (POLY)NEUROPATHY; K31.84 - GASTROPARESIS Status: Chronic (10) Diabetic nephropathy Status: Chronic (11) Diabetic neuropathy Code(s): E11.40 - TYPE 2 DIABETES MELLITUS WITH DIABETIC NEUROPATHY, UNSP Status: Chronic (12) Diabetic retinopathy Code(s): E11.319 - TYPE 2 DIABETES W UNSP DIABETIC RTNOP W/O MACULAR EDEMA Status: Chronic (13) Severe mitral regurgitation by prior echocardiogram Code(s): I34.0 - NONRHEUMATIC MITRAL (VALVE) INSUFFICIENCY Status: Chronic - Plan Covid-19 test negative. Transferred to [facility] On Cefepime and Vancomycin since 05/15/2020, Azithromycin since 05/16/2020 Home insulin, blood sugars controlled Weaning O2 as tolerated. DVT proph: Lovenox GI proph: Pepcid BID
[2020-05-16 09:52] LABS: #Basophils 0.1 thou/uL (0.0-0.2); #Eosinphils 0.2 thou/uL (0.0-0.7); #Lymphocytes 1.4 thou/uL (1.20-3.40); #Monocytes 0.7 thou/uL (0.11-0.59); #Neutrophils 9.7 thou/uL (1.40-6.50); %Basophils 0.6 % (0.0-1.0); %Eosinophils 1.4 % (0.0-10.0); %Lymphocytes 11.5 % (21.0-51.0); %Monocytes 5.6 % (0.0-10.0); %Neutrophils 80.9 % (42.0-75.0); Hemoglobin 9.6 g/dL (12.0-16.0); Mean Corpuscular HGB CONC 31.9 g/dL (32.0-36.0); Mean Corpuscular Hemoglobin 28.3 pg (27.0-31.0); Mean Corpuscular Volume 88.6 fL (78.0-98.0); Mean Platelet Volume 8.5 fL (7.4-10.4); Platelet Count 164 thou/uL (130-400); RBC Distribution Width 14.7 % (11.5-14.5); Red Blood Cell (RBC) Count 3.38 mill/uL (4.20-5.40)
[2020-05-16 10:15] LABS: Anion Gap 11 mmol/L (10-20); BUN (Urea Nitrogen) 21 mg/dL (9.8-20.1); Calc. Creatinine Clearance 38 mL/min (70-130); Calcium 7.9 mg/dL (7.8-10.44); Carbon Dioxide 21 mmol/L (22-29); Chloride 110 mmol/L (98-107); Estimated GFR-MDRD 34; Glucose 97 mg/dL (70-105); Potassium 3.6 mmol/L (3.5-5.1); Sodium 138 mmol/L (136-145)
[2020-05-16] MEDS: ALPRAZolam 1 MG TAB PO PRN (12:00)
[2020-05-16] MEDS ORDERED: Furosemide 40 MG/4 ML VIAL ONE (12:34)
[2020-05-16] MEDS: Pregabalin 50 MG CAP PO SCH (20:38)
[2020-05-16] MEDS: traZODone HCl 50 MG TAB PO SCH (20:38)
[2020-05-16] MEDS: Atorvastatin Calcium 40 MG TAB PO SCH (20:39)
[2020-05-16] MEDS: Latanoprost 0.005% Ophth Soln 2.5 ml Bottle EA EYE SCH (20:43)
[2020-05-16] MEDS ORDERED: Famotidine 20 MG TAB PO SCH (21:00)
[2020-05-16 23:38] LABS: Vancomycin, Random 14.2 ug/mL (See Comment)
[2020-05-17] MEDS ORDERED: Vancomycin 1 GM in Premix Bag 1 BAG IVPB SCH (01:00)
[2020-05-17] MEDS: Acetaminophen 325 MG TAB PO PRN ×2 (01:21→11:29)
--- NOTE | 2020-05-17 09:11 | PRG ---
DATE OF SERVICE: 05/17/2020 SUBJECTIVE: The patient is in good spirits. She remains on high-flow oxygen. OBJECTIVE: VITAL SIGNS: Her T-max 101.8 yesterday, 98.8 this morning. Pulse 86, blood pressure 133/69. HEENT: Unremarkable. NECK: No adenopathy or JVD. LUNGS: Surprisingly clear. CARDIAC: S1 and S2. Regular. ABDOMEN: Soft. EXTREMITIES: No edema. LABORATORY DATA: No chemistry or CBC today. ASSESSMENT: 1. Bilateral pneumonia, COVID negative. 2. Acute hypoxic respiratory failure, still requiring high-flow O2. PLAN: We will go ahead and add some steroids. I will recheck her labs tomorrow. She will continue the azithromycin and cefepime. I think we could stop the vancomycin if this does not appear to be Staph pneumonia. Job ID: [id number]
[2020-05-17] MEDS: Cefepime 2 GM in Sodium Chloride 0.9% 100 ML IVPB SCH (09:23)
[2020-05-17] MEDS: Azithromycin 500 MG in Sodium Chloride 0.9% 250 ML 250 ML IVPB SCH (09:23)
[2020-05-17] MEDS: Enoxaparin Sodium 30 MG/0.3 ML SYRINGE SC SCH (09:23)
[2020-05-17] MEDS: Citalopram 20 MG TAB PO SCH (09:24)
[2020-05-17] MEDS: methylPREDNISolone Sod Succ 40 MG VIAL IVP SCH ×3 (09:24→21:01)
[2020-05-17] MEDS: Aspirin 81 mg Enteric Coated Tablet PO SCH (09:24)
[2020-05-17] MEDS: Ferrous Sulfate 325 MG TAB PO SCH (09:24)
[2020-05-17] MEDS: Amlodipine 10 MG TAB PO SCH (09:24)
[2020-05-17] MEDS: Clopidogrel Bisulfate 75 MG TAB PO SCH (09:25)
[2020-05-17] MEDS: Carvedilol 25 MG TAB PO SCH ×2 (09:25→21:00)
[2020-05-17] MEDS: Timolol 0.25% Ophth Soln 5 ml Bottle EA EYE SCH ×2 (09:25→21:00)
[2020-05-17] MEDS: Insulin Glargine 25 UNITS in Pre-Filled Syringe 1 EACH SC SCH ×2 (09:25→21:36)
[2020-05-17] MEDS: ALPRAZolam 1 MG TAB PO PRN (09:39)
--- NOTE | 2020-05-17 13:10 | PDOC.HOSPP ---
- Subjective Encounter Date: 05/17/20 Encounter Time: 11:30 Subjective: Patient seen and examined. pt is hypoxic and tachypneic - Objective Vital Signs & Weight: Vital Signs (12 hours) Temp Pulse Ox 05/17/20 11:30 102.9 F H 05/17/20 08:00 90 L 05/17/20 07:55 90 L 05/17/20 07:20 98.8 F 05/17/20 06:00 99.3 F 05/17/20 03:36 98.4 F 05/17/20 01:10 100.5 F H Weight Weight 154 lb 1.6 oz Most Recent Monitor Data Heart Rate from ECG 97 NIBP 120/67 NIBP BP-Mean 84 Respiration from ECG 47 SpO2 88 I&O: 05/16/20 05/17/20 05/18/20 06:59 06:59 06:59 Intake Total 600 1725 Output Total 1575 750 Balance -975 975 Result Diagrams: 05/16/20 09:30 05/16/20 09:30 Additional Labs: Accuchecks 05/17/20 05/17/20 05/16/20 11:24 05:54 20:21 POC Glucose 219 H 126 H 130 H 05/16/20 17:05 POC Glucose 153 H Radiology Reviewed by me: Yes EKG Reviewed by me: Yes Hospitalist ROS - Review of Systems Constitutional: reports: weakness, malaise. denies: fever, chills, sweats, other Respiratory: reports: cough, shortness of breath, SOB with excertion. denies: dry, hemoptysis, pleuritic pain, sputum, wheezing, other Cardiovascular: denies: chest pain, palpitations, orthopnea, paroxysmal noc. dyspnea, edema, light headedness, other Gastrointestinal: denies: nausea, vomiting, abdominal pain, diarrhea, constipation, melena, hematochezia, other Genitourinary: denies: dysuria, frequency, incontinence, hematuria, retention, other Musculoskeletal: denies: neck pain, shoulder pain, arm pain, back pain, hand pain, leg pain, foot pain, other Skin: denies: rash, lesions, cici, bruising, other - Medication Medications: Active Medications Generic Name Dose Route Start Last Admin Trade Name Freq PRN Reason Stop Dose Admin Acetaminophen 650 mg 05/15/20 01:37 05/17/20 11:29 Tylenol PO 650 mg Q4H PRN Administration Headache/Fever/Mild Pain (1-3) Alprazolam 1 mg 05/15/20 10:47 05/17/20 09:39 Xanax PO 1 mg BIDPRN PRN Administration Anxiety Amlodipine Besylate 10 mg 05/16/20 09:00 05/17/20 09:24 Norvasc PO 10 mg DAILY RONALD Administration Aspirin 81 mg 05/16/20 09:00 05/17/20 09:24 Ecotrin PO 81 mg DAILY RONALD Administration Atorvastatin Calcium 40 mg 05/15/20 21:00 05/16/20 20:39 Lipitor PO 40 mg HS RONALD Administration Carvedilol 25 mg 05/15/20 21:00 05/17/20 09:25 Coreg PO 25 mg BID RONALD Administration Citalopram Hydrobromide 20 mg 05/16/20 09:00 05/17/20 09:24 Celexa PO 20 mg DAILY RONALD Administration Clopidogrel Bisulfate 75 mg 05/16/20 09:00 05/17/20 09:25 Plavix PO 75 mg DAILY RONALD Administration Enoxaparin Sodium 30 mg 05/15/20 09:00 05/17/20 09:23 Lovenox SC 30 mg 0900 RONALD Administration Famotidine 20 mg 05/16/20 21:00 05/16/20 20:37 Pepcid PO 20 mg 2100 RONALD Administration Ferrous Sulfate 325 mg 05/16/20 08:00 05/17/20 09:24 Feosol PO 325 mg QAM-WM RONALD Administration Guaifenesin/Dextromethorphan 15 ml 05/15/20 01:37 05/15/20 10:43 Robitussin Dm PO 15 ml Q4H PRN Administration Cough Sodium Chloride 1,000 mls @ 50 mls/hr 05/15/20 01:45 05/16/20 17:47 Normal Saline 0.9% IV Not Given .Q20H RONALD Insulin Glargine 25 units/ 0.25 mls @ 0 mls/hr 05/15/20 21:00 05/17/20 09:25 Miscellaneous Medication SC Not Given BID RONALD Cefepime HCl 2 gm/ Sodium 100 mls @ 200 mls/hr 05/16/20 09:00 05/17/20 09:23 Chloride IVPB 100 mls 0900 RONLAD Administration Azithromycin 500 mg/ Sodium 250 mls @ 250 mls/hr 05/16/20 09:00 05/17/20 09: 23 Chloride IVPB 250 mls 0900 RONALD Administration Isosorbide Mononitrate 30 mg 05/16/20 09:00 05/17/20 09:24 Imdur Er PO 30 mg DAILY RONALD Administration Latanoprost 1 drop 05/15/20 21:00 05/16/20 20:43 Xalatan 0.005% Ophth Soln EA EYE 1 drop HS RONALD Administration Methylprednisolone Sodium Succinate 20 mg 05/17/20 09:00 05/17/20 09:24 Solu-Medrol IVP 20 mg 0300,0900,1500,2100 RONALD Administration Pregabalin 50 mg 05/15/20 21:00 05/16/20 20:38 Lyrica PO 50 mg QPM RONALD Administration Sodium Chloride 10 ml 05/15/20 09:00 05/17/20 09:26 Flush - Normal Saline IVF 10 ml Q12HR RONALD Administration Sodium Chloride 10 ml 05/15/20 01:59 05/17/20 01:08 Flush - Normal Saline IVF 10 ml PRN PRN Administration Saline Flush Timolol Maleate 1 drop 05/15/20 21:00 05/17/20 09:25 Timoptic 0.25% Ophth Soln EA EYE 1 drop BID RONALD Administration Trazodone HCl 100 mg 05/15/20 21:00 05/16/20 20:38 Desyrel PO 100 mg HS RONALD Administration - Exam General Appearance: NAD, ill appearing Eye: PERRL, anicteric sclera ENT: normocephalic atraumatic, no oropharyngeal lesions Neck: supple, symmetric, no JVD, no thyromegaly Heart: RRR, no murmur, no gallops Respiratory: rales, tachypneic Gastrointestinal: soft, non-tender, non-distended Extremities: no cyanosis, no clubbing Skin: normal turgor Neurological: no focal deficits Musculoskeletal: normal tone, normal strength Psychiatric: normal affect, normal behavior Hosp A/P (1) Pneumonia Code(s): J18.9 - PNEUMONIA, UNSPECIFIED ORGANISM Status: Acute Qualifiers: Laterality: bilateral Lung location: unspecified part of lung (2) Respiratory failure with hypoxia Code(s): J96.91 - RESPIRATORY FAILURE, UNSPECIFIED WITH HYPOXIA Status: Acute Qualifiers: Chronicity: acute Qualified Code(s): J96.01 - Acute respiratory failure with hypoxia (3) Acute worsening of stage 3 chronic kidney disease Code(s): N18.3 - CHRONIC KIDNEY DISEASE, STAGE 3 (MODERATE) Status: Acute (4) Anemia, normocytic normochromic Code(s): D64.9 - ANEMIA, UNSPECIFIED Status: Chronic (5) Anxiety and depression Code(s): F41.9 - ANXIETY DISORDER, UNSPECIFIED; F32.9 - MAJOR DEPRESSIVE DISORDER, SINGLE EPISODE, UNSPECIFIED Status: Chronic (6) CAD (coronary artery disease) Code(s): I25.10 - ATHSCL HEART DISEASE OF [place] CORONARY ARTERY W/O ANG PCTRS Status: Chronic Qualifiers: Coronary Disease-Associated Artery/Lesion type: [place] artery [place] vs. transplanted heart: [place] heart Associated angina: without angina Qualified Code(s): I25.10 - Atherosclerotic heart disease of [place] coronary artery without angina pectoris (7) Diabetic gastroparesis Code(s): E11.43 - TYPE 2 DIABETES W DIABETIC AUTONOMIC (POLY)NEUROPATHY; K31.84 - GASTROPARESIS Status: Chronic (8) Diabetic nephropathy Status: Chronic (9) Diabetic neuropathy Code(s): E11.40 - TYPE 2 DIABETES MELLITUS WITH DIABETIC NEUROPATHY, UNSP Status: Chronic (10) Diabetic retinopathy Code(s): E11.319 - TYPE 2 DIABETES W UNSP DIABETIC RTNOP W/O MACULAR EDEMA Status: Chronic (11) Dyslipidemia Code(s): E78.5 - HYPERLIPIDEMIA, UNSPECIFIED Status: Chronic (12) Glaucoma Code(s): H40.9 - UNSPECIFIED GLAUCOMA Status: Chronic (13) Hypertension Code(s): I10 - ESSENTIAL (PRIMARY) HYPERTENSION Status: Chronic Qualifiers: Hypertension type: essential hypertension Qualified Code(s): I10 - Essential (primary) hypertension - Plan old records reviewed/req, continue antibiotics, respiratory therapy pt is on high flow oxygen continue vancomycin, cefepime, azithromycin medication reviewed symptomatic treatment will monitor closely in imcu pulmonary following continue iv solumedrol dc ivf repeat lab
[2020-05-17] MEDS ORDERED: Diabetic Tussin 200 MG/10 ML UDCUP PO PRN (14:15)
[2020-05-17] MEDS ORDERED: Loperamide HCl 2 MG CAP PO PRN (14:15)
[2020-05-17] MEDS ORDERED: Senokot S 8.6-50 MG TAB PO PRN (14:15)
[2020-05-17] MEDS ORDERED: Sodium Chloride 0.65% Nasal 44 ML BOT EA NARE PRN (14:15)
[2020-05-17] MEDS ORDERED: Artificial Tears 18 DROP/0.9 ML EA EYE PRN (14:15)
[2020-05-17] MEDS ORDERED: Cepastat Lozenges 1 LOZ PO PRN (14:15)
[2020-05-17] MEDS ORDERED: Loratadine 10 MG TAB PO PRN (14:15)
[2020-05-17] MEDS ORDERED: Bisacodyl 10 MG SUPP PR PRN (14:15)
[2020-05-17] MEDS ORDERED: Furosemide 40 MG/4 ML VIAL SLOW IVP SCH (14:30)
[2020-05-17] MEDS: traZODone HCl 50 MG TAB PO SCH (20:59)
[2020-05-17] MEDS: Latanoprost 0.005% Ophth Soln 2.5 ml Bottle EA EYE SCH (21:00)
[2020-05-17] MEDS: Pregabalin 50 MG CAP PO SCH (21:00)
[2020-05-17] MEDS: Atorvastatin Calcium 40 MG TAB PO SCH (21:00)
[2020-05-18 04:17] LABS: #Basophils 0.2 thou/uL (0.0-0.2); #Lymphocytes 0.2 thou/uL (1.20-3.40); #Monocytes 0.3 thou/uL (0.11-0.59); #Neutrophils 11.1 thou/uL (1.40-6.50); %Basophils 1.8 % (0.0-1.0); %Lymphocytes 1.9 % (21.0-51.0); %Monocytes 2.3 % (0.0-10.0); Hemoglobin 8.1 g/dL (12.0-16.0); Mean Corpuscular HGB CONC 31.3 g/dL (32.0-36.0); Mean Corpuscular Hemoglobin 27.7 pg (27.0-31.0); Mean Corpuscular Volume 88.4 fL (78.0-98.0); Mean Platelet Volume 8.9 fL (7.4-10.4); Platelet Count 169 thou/uL (130-400); RBC Distribution Width 14.9 % (11.5-14.5); Red Blood Cell (RBC) Count 2.93 mill/uL (4.20-5.40); White Blood Cell (WBC) Count 11.8 thou/uL (4.8-10.8)
[2020-05-18 04:39] LABS: Anion Gap 14 mmol/L (10-20); BUN (Urea Nitrogen) 38 mg/dL (9.8-20.1); Calc. Creatinine Clearance 29 mL/min (70-130); Calcium 8.4 mg/dL (7.8-10.44); Carbon Dioxide 19 mmol/L (22-29); Chloride 108 mmol/L (98-107); Estimated GFR-MDRD 25; Glucose 224 mg/dL (70-105); Potassium 4.3 mmol/L (3.5-5.1); Sodium 137 mmol/L (136-145)
[2020-05-18] MEDS: methylPREDNISolone Sod Succ 40 MG VIAL IVP SCH ×4 (05:23→20:36)
[2020-05-18] MEDS: Amlodipine 10 MG TAB PO SCH (09:09)
[2020-05-18] MEDS: Cefepime 2 GM in Sodium Chloride 0.9% 100 ML IVPB SCH (09:09)
[2020-05-18] MEDS: Clopidogrel Bisulfate 75 MG TAB PO SCH (09:09)
[2020-05-18] MEDS: Enoxaparin Sodium 30 MG/0.3 ML SYRINGE SC SCH (09:09)
[2020-05-18] MEDS: Azithromycin 500 MG in Sodium Chloride 0.9% 250 ML 250 ML IVPB SCH (09:09)
[2020-05-18] MEDS: Aspirin 81 mg Enteric Coated Tablet PO SCH (09:09)
[2020-05-18] MEDS: Citalopram 20 MG TAB PO SCH (09:10)
[2020-05-18] MEDS: Timolol 0.25% Ophth Soln 5 ml Bottle EA EYE SCH ×2 (09:10→20:39)
[2020-05-18] MEDS: Ferrous Sulfate 325 MG TAB PO SCH (09:10)
[2020-05-18] MEDS: Carvedilol 25 MG TAB PO SCH ×2 (09:10→20:39)
[2020-05-18] MEDS: Insulin Glargine 25 UNITS in Pre-Filled Syringe 1 EACH SC SCH ×2 (09:11→20:35)
--- NOTE | 2020-05-18 09:55 | PRG ---
DATE OF SERVICE: 05/18/2020 SUBJECTIVE: The patient is actually feeling much better today compared to yesterday. She says she is starting to have a cough. OBJECTIVE: VITAL SIGNS: Her temperature is 97.7 with a T-max of 102.9 midday yesterday, pulse 80, blood pressure 134/76. A 24-hour intake 1180, output 1400. HEENT: Unremarkable. NECK: No adenopathy or JVD. LUNGS: Clear anteriorly. CARDIAC: S1, S2. Regular. ABDOMEN: Soft. EXTREMITIES: No edema. LABORATORY DATA: Sodium 137, potassium 4.3, chloride 108, CO2 of 19, BUN 38, creatinine 2.4, glucose 224. White blood cell count 11.9, hematocrit 25.9, and platelet count 169. ASSESSMENT: 1. Febrile illness with pneumonia, initially COVID negative. 2. Acute hypoxic respiratory failure. PLAN: She is doing better after the steroids. She has continued with azithromycin and cefepime. We did send a second COVID-19 test just to make sure. I will have her x-ray repeated tomorrow. Otherwise, we will continue present treatment. Job ID: [id number]
--- NOTE | 2020-05-18 10:48 | PDOC.HOSPP ---
- Subjective Encounter Date: 05/18/20 Encounter Time: 10:05 Subjective: Patient seen and examined. No new complaints. No overnight events, pt is still on high flow oxygen - Objective Vital Signs & Weight: Vital Signs (12 hours) Temp 05/18/20 00:00 97.7 F Weight Weight 154 lb 1.6 oz Most Recent Monitor Data Heart Rate from ECG 80 NIBP 134/76 NIBP BP-Mean 95 Respiration from ECG 31 SpO2 96 I&O: 05/17/20 05/18/20 05/19/20 06:59 06:59 06:59 Intake Total 1725 1180 Output Total 750 1400 Balance 975 -220 Result Diagrams: 05/18/20 04:09 05/18/20 04:09 Additional Labs: Accuchecks 05/17/20 05/17/20 21:16 11:24 POC Glucose 206 H 219 H EKG Reviewed by me: Yes Hospitalist ROS - Review of Systems Constitutional: reports: weakness. denies: fever, chills, sweats, malaise, other ENT: denies: ear pain, ear discharge, nose pain, nose discharge, nose congestion , mouth pain, mouth swelling, throat pain, throat swelling, other Respiratory: reports: shortness of breath, SOB with excertion. denies: cough, dry, hemoptysis, pleuritic pain, sputum, wheezing, other Cardiovascular: denies: chest pain, palpitations, orthopnea, paroxysmal noc. dyspnea, edema, light headedness, other Gastrointestinal: denies: nausea, vomiting, abdominal pain, diarrhea, constipation, melena, hematochezia, other Genitourinary: denies: dysuria, frequency, incontinence, hematuria, retention, other Musculoskeletal: denies: neck pain, shoulder pain, arm pain, back pain, hand pain, leg pain, foot pain, other Skin: denies: rash, lesions, cici, bruising, other - Medication Medications: Active Medications Generic Name Dose Route Start Last Admin Trade Name Freq PRN Reason Stop Dose Admin Acetaminophen 650 mg 05/15/20 01:37 05/17/20 11:29 Tylenol PO 650 mg Q4H PRN Administration Headache/Fever/Mild Pain (1-3) Alprazolam 1 mg 05/15/20 10:47 05/17/20 09:39 Xanax PO 1 mg BIDPRN PRN Administration Anxiety Amlodipine Besylate 10 mg 05/16/20 09:00 05/18/20 09:09 Norvasc PO 10 mg DAILY RONALD Administration Aspirin 81 mg 05/16/20 09:00 05/18/20 09:09 Ecotrin PO 81 mg DAILY RONALD Administration Atorvastatin Calcium 40 mg 05/15/20 21:00 05/17/20 21:00 Lipitor PO 40 mg HS RONALD Administration Carvedilol 25 mg 05/15/20 21:00 05/18/20 09:10 Coreg PO 25 mg BID RONALD Administration Citalopram Hydrobromide 20 mg 05/16/20 09:00 05/18/20 09:10 Celexa PO 20 mg DAILY RONALD Administration Clopidogrel Bisulfate 75 mg 05/16/20 09:00 05/18/20 09:09 Plavix PO 75 mg DAILY RONALD Administration Enoxaparin Sodium 30 mg 05/15/20 09:00 05/18/20 09:09 Lovenox SC 30 mg 0900 [facility] Administration Ferrous Sulfate 325 mg 05/16/20 08:00 05/18/20 09:10 Feosol PO 325 mg QAM-WM RONALD Administration Guaifenesin/Dextromethorphan 15 ml 05/15/20 01:37 05/15/20 10:43 Robitussin Dm PO 15 ml Q4H PRN Administration Cough Insulin Glargine 25 units/ 0.25 mls @ 0 mls/hr 05/15/20 21:00 05/18/20 09:11 Miscellaneous Medication SC Not Given BID [facility] Cefepime HCl 2 gm/ Sodium 100 mls @ 200 mls/hr 05/16/20 09:00 05/18/20 09:09 Chloride IVPB 100 mls 0900 RONALD Administration Azithromycin 500 mg/ Sodium 250 mls @ 250 mls/hr 05/16/20 09:00 05/18/20 09: 09 Chloride IVPB 250 mls 0900 RONALD Administration Isosorbide Mononitrate 30 mg 05/16/20 09:00 05/18/20 09:09 Imdur Er PO 30 mg DAILY RONALD Administration Latanoprost 1 drop 05/15/20 21:00 05/17/20 21:00 Xalatan 0.005% Oph Soln EA EYE 1 drop HS RONALD Administration Methylprednisolone Sodium Succinate 20 mg 05/17/20 09:00 05/18/20 09:09 Solu-Medrol IVP 20 mg 0300,0900,1500,2100 RONALD Administration Pantoprazole Sodium 40 mg 05/17/20 21:00 05/17/20 21:00 Protonix PO 40 mg 2100 RONALD Administration Pregabalin 50 mg 05/15/20 21:00 05/17/20 21:00 Lyrica PO 50 mg QPM RONALD Administration Sodium Chloride 10 ml 05/15/20 09:00 05/18/20 09:11 Flush - Normal Saline IVF 10 ml Q12HR RONALD Administration Sodium Chloride 10 ml 05/15/20 01:59 05/17/20 01:08 Flush - Normal Saline IVF 10 ml PRN PRN Administration Saline Flush Timolol Maleate 1 drop 05/15/20 21:00 05/18/20 09:10 Timoptic 0.25% Ophth Soln EA EYE 1 drop BID RONALD Administration Trazodone HCl 100 mg 05/15/20 21:00 05/17/20 20:59 Desyrel PO 100 mg HS RONALD Administration - Exam General Appearance: NAD, awake alert Eye: PERRL, anicteric sclera ENT: normocephalic atraumatic, no oropharyngeal lesions Neck: supple, symmetric, no JVD Heart: RRR, no murmur, no gallops Respiratory - other findings: coarse sound bilateral Gastrointestinal: soft, non-tender, non-distended Extremities: no cyanosis, no clubbing Skin: normal turgor, no lesions Neurological: no focal deficits Musculoskeletal: normal tone, normal strength Psychiatric: normal affect, normal behavior Hosp A/P (1) Pneumonia Code(s): J18.9 - PNEUMONIA, UNSPECIFIED ORGANISM Status: Acute Qualifiers: Laterality: bilateral Lung location: unspecified part of lung (2) Respiratory failure with hypoxia Code(s): J96.91 - RESPIRATORY FAILURE, UNSPECIFIED WITH HYPOXIA Status: Acute Qualifiers: Chronicity: acute Qualified Code(s): J96.01 - Acute respiratory failure with hypoxia (3) Acute worsening of stage 3 chronic kidney disease Code(s): N18.3 - CHRONIC KIDNEY DISEASE, STAGE 3 (MODERATE) Status: Acute (4) Anemia, normocytic normochromic Code(s): D64.9 - ANEMIA, UNSPECIFIED Status: Chronic (5) Anxiety and depression Code(s): F41.9 - ANXIETY DISORDER, UNSPECIFIED; F32.9 - MAJOR DEPRESSIVE DISORDER, SINGLE EPISODE, UNSPECIFIED Status: Chronic (6) CAD (coronary artery disease) Code(s): I25.10 - ATHSCL HEART DISEASE OF [place] CORONARY ARTERY W/O ANG PCTRS Status: Chronic Qualifiers: Coronary Disease-Associated Artery/Lesion type: [place] artery [place] vs. transplanted heart: [place] heart Associated angina: without angina Qualified Code(s): I25.10 - Atherosclerotic heart disease of [place] coronary artery without angina pectoris (7) Diabetic gastroparesis Code(s): E11.43 - TYPE 2 DIABETES W DIABETIC AUTONOMIC (POLY)NEUROPATHY; K31.84 - GASTROPARESIS Status: Chronic (8) Diabetic nephropathy Status: Chronic (9) Diabetic neuropathy Code(s): E11.40 - TYPE 2 DIABETES MELLITUS WITH DIABETIC NEUROPATHY, UNSP Status: Chronic (10) Diabetic retinopathy Code(s): E11.319 - TYPE 2 DIABETES W UNSP DIABETIC RTNOP W/O MACULAR EDEMA Status: Chronic (11) Dyslipidemia Code(s): E78.5 - HYPERLIPIDEMIA, UNSPECIFIED Status: Chronic (12) Glaucoma Code(s): H40.9 - UNSPECIFIED GLAUCOMA Status: Chronic (13) Hypertension Code(s): I10 - ESSENTIAL (PRIMARY) HYPERTENSION Status: Chronic Qualifiers: Hypertension type: essential hypertension Qualified Code(s): I10 - Essential (primary) hypertension - Plan old records reviewed/req, continue antibiotics, respiratory therapy pt is on high flow oxygen continue vancomycin, cefepime, azithromycin medication reviewed symptomatic treatment will monitor closely in imcu pulmonary following continue iv solumedrol dc ivf repeat lab 05/18/20 continue empiric antibiotic, cefepime, azithromycin, vancomycin repeat covid-19 test pending echo pending continue high flow oxygen for now and wean off as tolerated
[2020-05-18 11:57] LABS: SARS-CoV-2 MS2 Positive; SARS-CoV-2 N Gene Negative; SARS-CoV-2 S Gene Negative; SARS-CoV-2 orf1ab Negative
[2020-05-18] MEDS: HumaLOG 300 UNITS/3 ML VIAL SC PRN ×2 (16:40→20:40)
[2020-05-18] MEDS: Atorvastatin Calcium 40 MG TAB PO SCH (20:37)
[2020-05-18] MEDS: traZODone HCl 50 MG TAB PO SCH (20:38)
[2020-05-18] MEDS: Pregabalin 50 MG CAP PO SCH (20:38)
[2020-05-18] MEDS: Latanoprost 0.005% Ophth Soln 2.5 ml Bottle EA EYE SCH (20:39)
[2020-05-19] MEDS: methylPREDNISolone Sod Succ 40 MG VIAL IVP SCH ×4 (03:17→20:33)
[2020-05-19] MEDS: HumaLOG 300 UNITS/3 ML VIAL SC PRN ×4 (06:12→20:34)
[2020-05-19] MEDS ORDERED: Dextrose 5% in Water 1,000 ML IV PRN (07:31)
--- NOTE | 2020-05-19 07:47 | RAD ---
XR Chest 1 View Portable History: Pneumonia Comparison: Radiograph May 14, 2020 Findings: Multifocal airspace opacities throughout the lungs have slightly worsened. [id number] e effusions. No pneumothorax. Cardiac silhouette is mildly enlarged. No acute osseous abnormality. Impression: Mild worsened lung aeration.
[2020-05-19] MEDS ORDERED: Furosemide 40 MG/4 ML VIAL SLOW IVP SCH (09:15)
[2020-05-19] MEDS: Carvedilol 25 MG TAB PO SCH ×2 (09:29→20:32)
[2020-05-19] MEDS: Ferrous Sulfate 325 MG TAB PO SCH (09:29)
[2020-05-19] MEDS: Aspirin 81 mg Enteric Coated Tablet PO SCH (09:29)
[2020-05-19] MEDS: Citalopram 20 MG TAB PO SCH (09:29)
[2020-05-19] MEDS: ALPRAZolam 1 MG TAB PO PRN (09:29)
[2020-05-19] MEDS: Clopidogrel Bisulfate 75 MG TAB PO SCH (09:29)
[2020-05-19] MEDS: Amlodipine 10 MG TAB PO SCH (09:29)
[2020-05-19] MEDS: Azithromycin 500 MG in Sodium Chloride 0.9% 250 ML 250 ML IVPB SCH (09:30)
[2020-05-19] MEDS: Cefepime 2 GM in Sodium Chloride 0.9% 100 ML IVPB SCH (09:30)
[2020-05-19] MEDS: Enoxaparin Sodium 30 MG/0.3 ML SYRINGE SC SCH (09:31)
[2020-05-19] MEDS: Timolol 0.25% Ophth Soln 5 ml Bottle EA EYE SCH ×2 (09:33→20:37)
--- NOTE | 2020-05-19 09:37 | PRG ---
DATE OF SERVICE: 05/19/2020 SUBJECTIVE: Ms. Gomez remains in good spirits. Her second COVID test also came back negative. She says she is breathing a little better, but continues to have a persistent high O2 requirement. Echocardiogram demonstrated diastolic dysfunction grade 2/3 with moderate mitral regurgitation. OBJECTIVE: VITAL SIGNS: Temperature 98.0, pulse 88, blood pressure 148/80, O2 saturation is running in the high 90s on 3 L a minute high-flow nasal cannula, FiO2 of 67%. HEENT: Unremarkable. NECK: No adenopathy or JVD. LUNGS: She has some inspiratory crackles bilaterally. CARDIAC: S1 and S2. Regular. ABDOMEN: Soft. EXTREMITIES: No edema. LABORATORY DATA: White blood cell count 11.8, hematocrit 25.9, and platelet count 169. No chemistry was done today. ASSESSMENT: 1. Bilateral pneumonia. 2. COVID-19 - x2. 3. Diastolic heart failure with pulmonary edema. PLAN: I am going to go ahead and give her another dose of diuretics. We will continue with the steroids and antibiotics and try to wean her O2. Overall, her condition seems to be slowly improving. Job ID: [id number]
[2020-05-19] MEDS: Insulin Glargine 30 UNITS in Pre-Filled Syringe 1 EACH SC SCH ×2 (09:41→20:32)
--- NOTE | 2020-05-19 11:26 | PDOC.HOSPP ---
- Subjective Encounter Date: 05/19/20 Encounter Time: 08:15 Subjective: Patient seen and examined. No new complaints. No overnight events, still on high flow o2 - Objective Vital Signs & Weight: Vital Signs (12 hours) Temp Pulse Pulse BP BP Pulse Ox Pulse Ox 05/19/20 10:21 83 80 150/64 H 151/81 H 100 05/19/20 08:38 95 05/19/20 07:00 98.0 F 05/19/20 03:39 98.0 F 05/18/20 23:29 97.1 F L Pulse Ox 05/19/20 10:21 95 05/19/20 08:38 05/19/20 07:00 05/19/20 03:39 05/18/20 23:29 Weight Weight 154 lb 1.6 oz Most Recent Monitor Data Heart Rate from ECG 73 NIBP 152/83 NIBP BP-Mean 106 Respiration from ECG 32 SpO2 93 I&O: 05/18/20 05/19/20 05/20/20 06:59 06:59 06:59 Intake Total 1180 1471 Output Total 1400 1225 Balance -220 246 Result Diagrams: 05/18/20 04:09 05/18/20 04:09 Additional Labs: Accuchecks 05/19/20 05/18/20 05/18/20 06:10 20:39 16:40 POC Glucose 346 H 414 H 450 H EKG Reviewed by me: Yes Hospitalist ROS - Review of Systems ENT: denies: ear pain, ear discharge, nose pain, nose discharge, nose congestion , mouth pain, mouth swelling, throat pain, throat swelling, other Respiratory: reports: shortness of breath, SOB with excertion. denies: cough, dry, hemoptysis, pleuritic pain, sputum, wheezing, other Cardiovascular: denies: chest pain, palpitations, orthopnea, paroxysmal noc. dyspnea, edema, light headedness, other Gastrointestinal: denies: nausea, vomiting, abdominal pain, diarrhea, constipation, melena, hematochezia, other Genitourinary: denies: dysuria, frequency, incontinence, hematuria, retention, other Musculoskeletal: denies: neck pain, shoulder pain, arm pain, back pain, hand pain, leg pain, foot pain, other - Medication Medications: Active Medications Generic Name Dose Route Start Last Admin Trade Name Freq PRN Reason Stop Dose Admin Acetaminophen 650 mg 05/15/20 01:37 05/17/20 11:29 Tylenol PO 650 mg Q4H PRN Administration Headache/Fever/Mild Pain (1-3) Alprazolam 1 mg 05/15/20 10:47 05/19/20 09:29 Xanax PO 1 mg BIDPRN PRN Administration Anxiety Amlodipine Besylate 10 mg 05/16/20 09:00 05/19/20 09:29 Norvasc PO 10 mg DAILY RONALD Administration Aspirin 81 mg 05/16/20 09:00 05/19/20 09:29 Ecotrin PO 81 mg DAILY RONALD Administration Atorvastatin Calcium 40 mg 05/15/20 21:00 05/18/20 20:37 Lipitor PO 40 mg HS RONALD Administration Carvedilol 25 mg 05/15/20 21:00 05/19/20 09:29 Coreg PO 25 mg BID RONALD Administration Citalopram Hydrobromide 20 mg 05/16/20 09:00 05/19/20 09:29 Celexa PO 20 mg DAILY RONALD Administration Clopidogrel Bisulfate 75 mg 05/16/20 09:00 05/19/20 09:29 Plavix PO 75 mg DAILY RONALD Administration Enoxaparin Sodium 30 mg 05/15/20 09:00 05/19/20 09:31 Lovenox SC 30 mg 899 RONALD Administration Ferrous Sulfate 325 mg 05/16/20 08:00 05/19/20 09:29 Feosol PO 325 mg QAM-WM RONALD Administration Furosemide 40 mg 05/19/20 09:15 05/19/20 09:33 Lasix SLOW IVP 05/19/20 14:00 40 mg NOW RONALD Administration Guaifenesin/Dextromethorphan 15 ml 05/15/20 01:37 05/15/20 10:43 Robitussin Dm PO 15 ml Q4H PRN Administration Cough Cefepime HCl 2 gm/ Sodium 100 mls @ 200 mls/hr 05/16/20 09:00 05/19/20 09:30 Chloride IVPB 100 mls 0900 RONALD Administration Azithromycin 500 mg/ Sodium 250 mls @ 250 mls/hr 05/16/20 09:00 05/19/20 09: 30 Chloride IVPB 250 mls 0900 RONALD Administration Insulin Glargine 30 units/ 0.3 mls @ 0 mls/hr 05/19/20 09:00 05/19/20 09:41 Miscellaneous Medication SC 0.3 mls QAM RONALD Administration Isosorbide Mononitrate 30 mg 05/16/20 09:00 05/19/20 09:29 Imdur Er PO 30 mg DAILY RONALD Administration Latanoprost 1 drop 05/15/20 21:00 05/18/20 20:39 Xalatan 0.005% Ophth Soln EA EYE 1 drop HS RONALD Administration Methylprednisolone Sodium Succinate 20 mg 05/17/20 09:00 05/19/20 09:32 Solu-Medrol IVP 20 mg 0300,0900,1500,2100 RONALD Administration Pantoprazole Sodium 40 mg 05/17/20 21:00 05/18/20 20:37 Protonix PO 40 mg 2100 RONALD Administration Pregabalin 50 mg 05/15/20 21:00 05/18/20 20:38 Lyrica PO 50 mg QPM RONALD Administration Sodium Chloride 10 ml 05/15/20 09:00 05/19/20 09:33 Flush - Normal Saline IVF 10 ml Q12HR RONALD Administration Sodium Chloride 10 ml 05/15/20 01:59 05/17/20 01:08 Flush - Normal Saline IVF 10 ml PRN PRN Administration Saline Flush Timolol Maleate 1 drop 05/15/20 21:00 05/19/20 09:33 Timoptic 0.25% Ophth Soln EA EYE 1 drop BID RONALD Administration Trazodone HCl 100 mg 05/15/20 21:00 05/18/20 20:38 Desyrel PO 100 mg HS RONALD Administration - Exam General Appearance: NAD, awake alert Eye: PERRL, anicteric sclera ENT: normocephalic atraumatic, no oropharyngeal lesions Neck: supple, symmetric, no JVD Heart: RRR, no murmur, no gallops Respiratory - other findings: coarse sound Gastrointestinal: soft, non-tender, non-distended Extremities: no cyanosis, no clubbing Skin: normal turgor, no lesions Neurological: no focal deficits Musculoskeletal: normal tone, normal strength Psychiatric: normal affect, normal behavior Hosp A/P (1) Pneumonia Code(s): J18.9 - PNEUMONIA, UNSPECIFIED ORGANISM Status: Acute Qualifiers: Laterality: bilateral Lung location: unspecified part of lung (2) Respiratory failure with hypoxia Code(s): J96.91 - RESPIRATORY FAILURE, UNSPECIFIED WITH HYPOXIA Status: Acute Qualifiers: Chronicity: acute Qualified Code(s): J96.01 - Acute respiratory failure with hypoxia (3) Acute worsening of stage 3 chronic kidney disease Code(s): N18.3 - CHRONIC KIDNEY DISEASE, STAGE 3 (MODERATE) Status: Acute (4) Anemia, normocytic normochromic Code(s): D64.9 - ANEMIA, UNSPECIFIED Status: Chronic (5) Anxiety and depression Code(s): F41.9 - ANXIETY DISORDER, UNSPECIFIED; F32.9 - MAJOR DEPRESSIVE DISORDER, SINGLE EPISODE, UNSPECIFIED Status: Chronic (6) CAD (coronary artery disease) Code(s): I25.10 - ATHSCL HEART DISEASE OF [place] CORONARY ARTERY W/O ANG PCTRS Status: Chronic Qualifiers: Coronary Disease-Associated Artery/Lesion type: [place] artery [place] vs. transplanted heart: [place] heart Associated angina: without angina Qualified Code(s): I25.10 - Atherosclerotic heart disease of [place] coronary artery without angina pectoris (7) Diabetic gastroparesis Code(s): E11.43 - TYPE 2 DIABETES W DIABETIC AUTONOMIC (POLY)NEUROPATHY; K31.84 - GASTROPARESIS Status: Chronic (8) Diabetic nephropathy Status: Chronic (9) Diabetic neuropathy Code(s): E11.40 - TYPE 2 DIABETES MELLITUS WITH DIABETIC NEUROPATHY, UNSP Status: Chronic (10) Diabetic retinopathy Code(s): E11.319 - TYPE 2 DIABETES W UNSP DIABETIC RTNOP W/O MACULAR EDEMA Status: Chronic (11) Dyslipidemia Code(s): E78.5 - HYPERLIPIDEMIA, UNSPECIFIED Status: Chronic (12) Glaucoma Code(s): H40.9 - UNSPECIFIED GLAUCOMA Status: Chronic (13) Hypertension Code(s): I10 - ESSENTIAL (PRIMARY) HYPERTENSION Status: Chronic Qualifiers: Hypertension type: essential hypertension Qualified Code(s): I10 - Essential (primary) hypertension - Plan old records reviewed/req, continue antibiotics, respiratory therapy pt is on high flow oxygen continue vancomycin, cefepime, azithromycin medication reviewed symptomatic treatment will monitor closely in [facility] pulmonary following continue iv solumedrol dc ivf repeat lab 05/18/20 continue empiric antibiotic, cefepime, azithromycin, vancomycin repeat covid-19 test pending echo pending continue high flow oxygen for now and wean off as tolerated 05/19/20 continue high flow oxygen continue antibiotics continue solumedrol increase lantus aggressive sliding scale
[2020-05-19] MEDS: Atorvastatin Calcium 40 MG TAB PO SCH (20:31)
[2020-05-19] MEDS: Pregabalin 50 MG CAP PO SCH (20:31)
[2020-05-19] MEDS: traZODone HCl 50 MG TAB PO SCH (20:32)
[2020-05-19] MEDS: Latanoprost 0.005% Ophth Soln 2.5 ml Bottle EA EYE SCH (20:36)
[2020-05-20] MEDS: methylPREDNISolone Sod Succ 40 MG VIAL IVP SCH ×3 (03:53→20:26)
[2020-05-20 03:58] LABS: #Basophils 0.1 thou/uL (0.0-0.2); #Lymphocytes 0.8 thou/uL (1.20-3.40); #Monocytes 0.4 thou/uL (0.11-0.59); #Neutrophils 8.8 thou/uL (1.40-6.50); %Basophils 0.8 % (0.0-1.0); %Eosinophils 0.1 % (0.0-10.0); %Lymphocytes 7.6 % (21.0-51.0); %Monocytes 4.3 % (0.0-10.0); %Neutrophils 87.3 % (42.0-75.0); Hemoglobin 8.7 g/dL (12.0-16.0); Mean Corpuscular HGB CONC 32.6 g/dL (32.0-36.0); Mean Corpuscular Hemoglobin 28.3 pg (27.0-31.0); Mean Corpuscular Volume 86.8 fL (78.0-98.0); Mean Platelet Volume 9.3 fL (7.4-10.4); Platelet Count 200 thou/uL (130-400); RBC Distribution Width 14.9 % (11.5-14.5); Red Blood Cell (RBC) Count 3.07 mill/uL (4.20-5.40)
[2020-05-20 04:21] LABS: Anion Gap 15 mmol/L (10-20); BUN (Urea Nitrogen) 54 mg/dL (9.8-20.1); Calc. Creatinine Clearance 25 mL/min (70-130); Calcium 8.7 mg/dL (7.8-10.44); Carbon Dioxide 20 mmol/L (22-29); Chloride 107 mmol/L (98-107); Estimated GFR-MDRD 21; Glucose 222 mg/dL (70-105); Potassium 3.9 mmol/L (3.5-5.1); Sodium 138 mmol/L (136-145)
[2020-05-20] MEDS: HumaLOG 300 UNITS/3 ML VIAL SC PRN ×3 (06:29→20:26)
[2020-05-20] MEDS: Enoxaparin Sodium 30 MG/0.3 ML SYRINGE SC SCH (10:14)
[2020-05-20] MEDS: Cefepime 2 GM in Sodium Chloride 0.9% 100 ML IVPB SCH (10:16)
[2020-05-20] MEDS: Insulin Glargine 30 UNITS in Pre-Filled Syringe 1 EACH SC SCH ×2 (10:17→20:26)
[2020-05-20] MEDS: Ferrous Sulfate 325 MG TAB PO SCH (10:18)
[2020-05-20] MEDS: ALPRAZolam 1 MG TAB PO PRN (10:18)
[2020-05-20] MEDS: Carvedilol 25 MG TAB PO SCH ×2 (10:18→20:29)
[2020-05-20] MEDS: Aspirin 81 mg Enteric Coated Tablet PO SCH (10:18)
[2020-05-20] MEDS: Clopidogrel Bisulfate 75 MG TAB PO SCH (10:18)
[2020-05-20] MEDS: Citalopram 20 MG TAB PO SCH (10:19)
[2020-05-20] MEDS: Azithromycin 500 MG in Sodium Chloride 0.9% 250 ML 250 ML IVPB SCH (10:19)
[2020-05-20] MEDS: Amlodipine 10 MG TAB PO SCH (10:19)
[2020-05-20] MEDS: Timolol 0.25% Ophth Soln 5 ml Bottle EA EYE SCH ×2 (10:20→20:30)
--- NOTE | 2020-05-20 10:25 | PDOC.HOSPP ---
- Subjective Encounter Date: 05/20/20 Encounter Time: 10:00 Subjective: Patient seen and examined. No new complaints. No overnight events - Objective Vital Signs & Weight: Vital Signs (12 hours) Temp 05/20/20 07:45 97.8 F 05/20/20 03:57 97.4 F L 05/19/20 23:57 97.2 F L Weight Weight 154 lb 1.6 oz Most Recent Monitor Data Heart Rate from ECG 78 NIBP 157/86 NIBP BP-Mean 109 Respiration from ECG 26 SpO2 90 I&O: 05/19/20 05/20/20 05/21/20 06:59 06:59 06:59 Intake Total 1471 1390 Output Total 1225 1360 Balance 246 30 Result Diagrams: 05/20/20 03:26 05/20/20 03:26 Additional Labs: Accuchecks 05/20/20 05/20/20 05/19/20 09:03 05:34 20:16 POC Glucose 215 H 226 H 268 H 05/19/20 05/19/20 16:47 10:56 POC Glucose 158 H 314 H EKG Reviewed by me: Yes Hospitalist ROS - Review of Systems ENT: denies: ear pain, ear discharge, nose pain, nose discharge, nose congestion , mouth pain, mouth swelling, throat pain, throat swelling, other Respiratory: denies: cough, dry, shortness of breath, hemoptysis, SOB with excertion, pleuritic pain, sputum, wheezing, other Cardiovascular: denies: chest pain, palpitations, orthopnea, paroxysmal noc. dyspnea, edema, light headedness, other Gastrointestinal: denies: nausea, vomiting, abdominal pain, diarrhea, constipation, melena, hematochezia, other Genitourinary: denies: dysuria, frequency, incontinence, hematuria, retention, other Musculoskeletal: denies: neck pain, shoulder pain, arm pain, back pain, hand pain, leg pain, foot pain, other - Medication Medications: Active Medications Generic Name Dose Route Start Last Admin Trade Name Freq PRN Reason Stop Dose Admin Acetaminophen 650 mg 05/15/20 01:37 05/17/20 11:29 Tylenol PO 650 mg Q4H PRN Administration Headache/Fever/Mild Pain (1-3) Alprazolam 1 mg 05/15/20 10:47 05/19/20 09:29 Xanax PO 1 mg BIDPRN PRN Administration Anxiety Amlodipine Besylate 10 mg 05/16/20 09:00 05/19/20 09:29 Norvasc PO 10 mg DAILY RONALD Administration Aspirin 81 mg 05/16/20 09:00 05/19/20 09:29 Ecotrin PO 81 mg DAILY RONALD Administration Atorvastatin Calcium 40 mg 05/15/20 21:00 05/19/20 20:31 Lipitor PO 40 mg HS RONALD Administration Carvedilol 25 mg 05/15/20 21:00 05/19/20 20:32 Coreg PO 25 mg BID RONALD Administration Citalopram Hydrobromide 20 mg 05/16/20 09:00 05/19/20 09:29 Celexa PO 20 mg DAILY RONALD Administration Clopidogrel Bisulfate 75 mg 05/16/20 09:00 05/19/20 09:29 Plavix PO 75 mg DAILY RONALD Administration Enoxaparin Sodium 30 mg 05/15/20 09:00 05/19/20 09:31 Lovenox SC 30 mg 0900 RONALD Administration Ferrous Sulfate 325 mg 05/16/20 08:00 05/19/20 09:29 Feosol PO 325 mg QAM-WM RONALD Administration Guaifenesin/Dextromethorphan 15 ml 05/15/20 01:37 05/15/20 10:43 Robitussin Dm PO 15 ml Q4H PRN Administration Cough Cefepime HCl 2 gm/ Sodium 100 mls @ 200 mls/hr 05/16/20 09:00 05/19/20 09:30 Chloride IVPB 100 mls 0900 RONALD Administration Azithromycin 500 mg/ Sodium 250 mls @ 250 mls/hr 05/16/20 09:00 05/19/20 09: 30 Chloride IVPB 250 mls 0900 RONALD Administration Insulin Glargine 30 units/ 0.3 mls @ 0 mls/hr 05/19/20 21:00 05/19/20 20:32 Miscellaneous Medication SC 0.3 mls HS RONALD Administration Insulin Glargine 30 units/ 0.3 mls @ 0 mls/hr 05/19/20 09:00 05/19/20 09:41 Miscellaneous Medication SC 0.3 mls QAM RONALD Administration Insulin Human Lispro 0 units 05/19/20 07:31 05/20/20 06:29 Humalog SC 6 unit .AGGRESSIVE SLIDING PRN Administration Aggressive [employer] Scale Insulin Human Lispro 0 units 05/19/20 07:31 05/19/20 20:34 Humalog SC 3 unit .BEDTIME SLIDING SC PRN Administration Bedtime Correctional Scale Isosorbide Mononitrate 30 mg 05/16/20 09:00 05/19/20 09:29 Imdur Er PO 30 mg DAILY RONALD Administration Latanoprost 1 drop 05/15/20 21:00 05/19/20 20:36 Xalatan 0.005% Ophth Soln EA EYE 1 drop HS RONALD Administration Methylprednisolone Sodium Succinate 20 mg 05/17/20 09:00 05/20/20 03:53 Solu-Medrol IVP 20 mg 0300,0900,1500,2100 RONALD Administration Pantoprazole Sodium 40 mg 05/17/20 21:00 05/19/20 20:31 Protonix PO 40 mg 2100 RONALD Administration Pregabalin 50 mg 05/15/20 21:00 05/19/20 20:31 Lyrica PO 50 mg QPM RONALD Administration Sodium Chloride 10 ml 05/15/20 09:00 05/19/20 20:37 Flush - Normal Saline IVF 10 ml Q12HR RONALD Administration Sodium Chloride 10 ml 05/15/20 01:59 05/17/20 01:08 Flush - Normal Saline IVF 10 ml PRN PRN Administration Saline Flush Timolol Maleate 1 drop 05/15/20 21:00 05/19/20 20:37 Timoptic 0.25% Ophth Soln EA EYE 1 drop BID RONALD Administration Trazodone HCl 100 mg 05/15/20 21:00 05/19/20 20:32 Desyrel PO 100 mg HS RONALD Administration - Exam General Appearance: NAD, awake alert Eye: PERRL, anicteric sclera ENT: normocephalic atraumatic, no oropharyngeal lesions Neck: supple, symmetric, no JVD Heart: RRR, no murmur, no gallops Respiratory: rales, tachypneic Gastrointestinal: soft, non-tender, non-distended, normal bowel sounds Extremities: no cyanosis, no clubbing Skin: normal turgor, no lesions Neurological: no focal deficits Musculoskeletal: normal tone, normal strength Psychiatric: normal affect, normal behavior Hosp A/P (1) Pneumonia Code(s): J18.9 - PNEUMONIA, UNSPECIFIED ORGANISM Status: Acute Qualifiers: Laterality: bilateral Lung location: unspecified part of lung (2) Respiratory failure with hypoxia Code(s): J96.91 - RESPIRATORY FAILURE, UNSPECIFIED WITH HYPOXIA Status: Acute Qualifiers: Chronicity: acute Qualified Code(s): J96.01 - Acute respiratory failure with hypoxia (3) Acute worsening of stage 3 chronic kidney disease Code(s): N18.3 - CHRONIC KIDNEY DISEASE, STAGE 3 (MODERATE) Status: Acute (4) Anemia, normocytic normochromic Code(s): D64.9 - ANEMIA, UNSPECIFIED Status: Chronic (5) Anxiety and depression Code(s): F41.9 - ANXIETY DISORDER, UNSPECIFIED; F32.9 - MAJOR DEPRESSIVE DISORDER, SINGLE EPISODE, UNSPECIFIED Status: Chronic (6) CAD (coronary artery disease) Code(s): I25.10 - ATHSCL HEART DISEASE OF [place] CORONARY ARTERY W/O ANG PCTRS Status: Chronic Qualifiers: Coronary Disease-Associated Artery/Lesion type: [place] artery [place] vs. transplanted heart: [place] heart Associated angina: without angina Qualified Code(s): I25.10 - Atherosclerotic heart disease of [place] coronary artery without angina pectoris (7) Diabetic gastroparesis Code(s): E11.43 - TYPE 2 DIABETES W DIABETIC AUTONOMIC (POLY)NEUROPATHY; K31.84 - GASTROPARESIS Status: Chronic (8) Diabetic nephropathy Status: Chronic (9) Diabetic neuropathy Code(s): E11.40 - TYPE 2 DIABETES MELLITUS WITH DIABETIC NEUROPATHY, UNSP Status: Chronic (10) Diabetic retinopathy Code(s): E11.319 - TYPE 2 DIABETES W UNSP DIABETIC RTNOP W/O MACULAR EDEMA Status: Chronic (11) Dyslipidemia Code(s): E78.5 - HYPERLIPIDEMIA, UNSPECIFIED Status: Chronic (12) Glaucoma Code(s): H40.9 - UNSPECIFIED GLAUCOMA Status: Chronic (13) Hypertension Code(s): I10 - ESSENTIAL (PRIMARY) HYPERTENSION Status: Chronic Qualifiers: Hypertension type: essential hypertension Qualified Code(s): I10 - Essential (primary) hypertension - Plan old records reviewed/req, continue antibiotics, respiratory therapy pt is on high flow oxygen continue vancomycin, cefepime, azithromycin medication reviewed symptomatic treatment will monitor closely in [facility] pulmonary following continue iv solumedrol dc ivf repeat lab 05/18/20 continue empiric antibiotic, cefepime, azithromycin, vancomycin repeat covid-19 test pending echo pending continue high flow oxygen for now and wean off as tolerated 05/19/20 continue high flow oxygen continue antibiotics continue solumedrol increase lantus aggressive sliding scale 05/20/20 continue current treatment plan still needs high flow oxygen will monitor in im[facility] medication reviewed
[2020-05-20] MEDS ORDERED: Bacteriostatic Water 30 ML VIAL FS PRN (12:52)
--- NOTE | 2020-05-20 13:30 | PRG ---
DATE OF SERVICE: 05/20/2020 SUBJECTIVE: She says she is feeling much better. We have been able to go down to about 30 L a minute on her high-flow oxygen. OBJECTIVE: VITAL SIGNS: Temperature 97.0, pulse 74, O2 saturation 96%, and blood pressure 157/86. HEENT: Unremarkable. NECK: No adenopathy or JVD. LUNGS: Inspiratory crackles bilaterally. CARDIAC: S1, S2. Regular. ABDOMEN: Soft, EXTREMITIES: No edema. LABORATORY DATA: White blood cell count 10, hematocrit 26.6, and platelet count 200. Sodium 138, potassium 3.9, chloride 107, CO2 of 20, BUN 54, creatinine 2.8, and glucose 222. ASSESSMENT: 1. Atypical pneumonia, not COVID. 2. Diastolic heart failure with pulmonary edema. PLAN: 1. She needs to be up in a chair more often. 2. Continue to wean the oxygen, hopefully cycle to down to nasal cannula. 3. Continue the antibiotics. 4. We will withhold diuretics today given the bump in her BUN and creatinine. 5. Taper steroid dose. Job ID: [id number]
--- NOTE | 2020-05-20 14:39 | EKG ---
Test Reason : Blood Pressure : / mmHG Vent. Rate : 114 BPM Atrial Rate : 114 BPM P-R Int : 144 ms QRS Dur : 112 ms QT Int : 352 ms P-R-T Axes : 059 -34 064 degrees QTc Int : 485 ms Sinus tachycardia Left axis deviation Possible Anterior infarct , age undetermined Abnormal ECG Confirmed by GUCCI WEINER ([id number]), editor in chief newspaper GRETA GILL ([id number]) on 05/20/2020 2:38:52 PM Referred By: Confirmed By:GUCCI WEINER
[2020-05-20] MEDS: Acetaminophen 325 MG TAB PO PRN (17:43)
[2020-05-20] MEDS: Pregabalin 50 MG CAP PO SCH (20:28)
[2020-05-20] MEDS: Atorvastatin Calcium 40 MG TAB PO SCH (20:29)
[2020-05-20] MEDS: traZODone HCl 50 MG TAB PO SCH (20:29)
[2020-05-20] MEDS: Latanoprost 0.005% Ophth Soln 2.5 ml Bottle EA EYE SCH (20:30)
[2020-05-21] MEDS: HumaLOG 300 UNITS/3 ML VIAL SC PRN (06:21)
[2020-05-21] MEDS: Enoxaparin Sodium 30 MG/0.3 ML SYRINGE SC SCH (10:06)
[2020-05-21] MEDS: methylPREDNISolone Sod Succ 40 MG VIAL IVP SCH (10:06)
[2020-05-21] MEDS: Azithromycin 500 MG in Sodium Chloride 0.9% 250 ML 250 ML IVPB SCH (10:07)
[2020-05-21] MEDS: Cefepime 2 GM in Sodium Chloride 0.9% 100 ML IVPB SCH (10:08)
[2020-05-21] MEDS: Insulin Glargine 30 UNITS in Pre-Filled Syringe 1 EACH SC SCH ×3 (10:09→21:32)
[2020-05-21] MEDS: ALPRAZolam 1 MG TAB PO PRN ×2 (10:09→21:15)
[2020-05-21] MEDS: Ferrous Sulfate 325 MG TAB PO SCH (10:10)
[2020-05-21] MEDS: Amlodipine 10 MG TAB PO SCH (10:10)
[2020-05-21] MEDS: Citalopram 20 MG TAB PO SCH (10:10)
[2020-05-21] MEDS: Aspirin 81 mg Enteric Coated Tablet PO SCH (10:10)
[2020-05-21] MEDS: Clopidogrel Bisulfate 75 MG TAB PO SCH (10:12)
[2020-05-21] MEDS: Carvedilol 25 MG TAB PO SCH ×2 (10:12→21:14)
[2020-05-21] MEDS: Timolol 0.25% Ophth Soln 5 ml Bottle EA EYE SCH ×2 (10:13→21:33)
--- NOTE | 2020-05-21 13:03 | PDOC.HOSPP ---
- Subjective Encounter Date: 05/21/20 Encounter Time: 13:01 Subjective: The patient reports feeling much better. Her SOB has improved, doesn't feel her chest is as rattly. She is happy that she is down to nasal cannula Patient states before coming to the hospital her legs would swell up everytime she'd sit up, but now it is much better. She states she drinks only 3 cups of water a day, was told in the past to only drink 40 ounces of water She states that she has been urinating a ton - Objective Vital Signs & Weight: Vital Signs (12 hours) Temp Pulse Pulse BP BP Pulse Ox Pulse Ox 05/21/20 11:11 97.5 F L 05/21/20 09:10 73 72 161/78 H 159/83 H 100 05/21/20 08:40 100 05/21/20 07:05 98.0 F 05/21/20 03:41 97.8 F Pulse Ox 05/21/20 11:11 05/21/20 09:10 100 05/21/20 08:40 05/21/20 07:05 05/21/20 03:41 Weight Weight 154 lb 1.6 oz Most Recent Monitor Data Heart Rate from ECG 73 NIBP 135/76 NIBP BP-Mean 95 Respiration from ECG 28 SpO2 97 I&O: 05/20/20 05/21/20 05/22/20 06:59 06:59 06:59 Intake Total 1390 1840 Output Total 1360 550 100 Balance 30 1290 -100 Result Diagrams: 05/20/20 03:26 05/20/20 03:26 Additional Labs: Accuchecks 05/21/20 05/21/20 05/20/20 10:48 05:34 19:28 POC Glucose 120 H 153 H 309 H 05/20/20 16:51 POC Glucose 312 H Hospitalist ROS - Review of Systems Constitutional: denies: fever, chills - Medication Medications: Active Medications Generic Name Dose Route Start Last Admin Trade Name Freq PRN Reason Stop Dose Admin Acetaminophen 650 mg 05/15/20 01:37 05/20/20 17:43 Tylenol PO 650 mg Q4H PRN Administration Headache/Fever/Mild Pain (1-3) Alprazolam 1 mg 05/15/20 10:47 05/21/20 10:09 Xanax PO 1 mg BIDPRN PRN Administration Anxiety Amlodipine Besylate 10 mg 05/16/20 09:00 05/21/20 10:10 Norvasc PO 10 mg DAILY RONALD Administration Aspirin 81 mg 05/16/20 09:00 05/21/20 10:10 Ecotrin PO 81 mg DAILY RONALD Administration Atorvastatin Calcium 40 mg 05/15/20 21:00 05/20/20 20:29 Lipitor PO 40 mg HS RONALD Administration Carvedilol 25 mg 05/15/20 21:00 05/21/20 10:12 Coreg PO 25 mg BID RONALD Administration Citalopram Hydrobromide 20 mg 05/16/20 09:00 05/21/20 10:10 Celexa PO 20 mg DAILY RONALD Administration Clopidogrel Bisulfate 75 mg 05/16/20 09:00 05/21/20 10:12 Plavix PO 75 mg DAILY RONALD Administration Enoxaparin Sodium 30 mg 05/15/20 09:00 05/21/20 10:06 Lovenox SC 30 mg 0900 RONALD Administration Ferrous Sulfate 325 mg 05/16/20 08:00 05/21/20 10:10 Feosol PO 325 mg QAM-WM RONALD Administration Guaifenesin/Dextromethorphan 15 ml 05/15/20 01:37 05/15/20 10:43 Robitussin Dm PO 15 ml Q4H PRN Administration Cough Cefepime HCl 2 gm/ Sodium 100 mls @ 200 mls/hr 05/16/20 09:00 05/21/20 10:08 Chloride IVPB 100 mls 0900 RONALD Administration Azithromycin 500 mg/ Sodium 250 mls @ 250 mls/hr 05/16/20 09:00 05/21/20 10: 07 Chloride IVPB 250 mls 0900 RONALD Administration Insulin Glargine 30 units/ 0.3 mls @ 0 mls/hr 05/19/20 21:00 05/20/20 20:26 Miscellaneous Medication SC 0.3 mls HS RONALD Administration Insulin Glargine 30 units/ 0.3 mls @ 0 mls/hr 05/19/20 09:00 05/21/20 11:00 Miscellaneous Medication SC Not Given QAM RONALD Insulin Human Lispro 0 units 05/19/20 07:31 05/21/20 06:21 Humalog SC 3 unit .AGGRESSIVE SLIDING PRN Administration Aggressive Correctional Scale Insulin Human Lispro 0 units 05/19/20 07:31 05/20/20 20:26 Humalog SC 4 unit .BEDTIME SLIDING SC PRN Administration Bedtime Correctional Scale Isosorbide Mononitrate 30 mg 05/16/20 09:00 05/21/20 10:12 Imdur Er PO 30 mg DAILY RONALD Administration Latanoprost 1 drop 05/15/20 21:00 05/20/20 20:30 Xalatan 0.005% Ophth Soln EA EYE 1 drop HS RONALD Administration Methylprednisolone Sodium Succinate 20 mg 05/20/20 21:00 05/21/20 10:06 Solu-Medrol IVP 20 mg BID RONALD Administration Pantoprazole Sodium 40 mg 05/17/20 21:00 05/20/20 20:29 Protonix PO 40 mg 2100 RONALD Administration Pregabalin 50 mg 05/15/20 21:00 05/20/20 20:28 Lyrica PO 50 mg QPM RONALD Administration Sodium Chloride 10 ml 05/15/20 09:00 05/21/20 10:12 Flush - Normal Saline IVF 10 ml Q12HR RONALD Administration Sodium Chloride 10 ml 05/15/20 01:59 05/17/20 01:08 Flush - Normal Saline IVF 10 ml PRN PRN Administration Saline Flush Sterile Water 1 ml 05/20/20 12:52 05/20/20 20:27 Bacteriostatic Water FS 1 ml PRN PRN Administration RECONSTITUTION Timolol Maleate 1 drop 05/15/20 21:00 05/21/20 10:13 Timoptic 0.25% Ophth Soln EA EYE 1 drop BID RONALD Administration Trazodone HCl 100 mg 05/15/20 21:00 05/20/20 20:29 Desyrel PO 100 mg HS RONALD Administration - Exam General Appearance: NAD, awake alert General - other findings: 3l nasal cannula Eye: PERRL, anicteric sclera Eye - other findings: 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 ENT: normocephalic atraumatic, no oropharyngeal lesions Neck: no JVD Heart: RRR, no murmur, no gallops, no rubs Respiratory: CTAB, no wheezes, no rales, no ronchi Gastrointestinal: soft, non-tender, non-distended, no palpable masses Extremities: no cyanosis, no clubbing, no edema Skin: normal turgor, no lesions, no rashes Neurological: cranial nerve grossly intact, normal sensation to touch, no focal deficits, no new deficit Hosp A/P - Plan Chest X ray: infiltrate left lung ECHO: inferolateral akinesis, moderate MR, EF 55-60%, diastolic dysfunction, aortic valve sclerosis, mild TR This is 54 year old female presenting with respiratory failure from pneumonia Acute hypoxic respiratory failure secondary to pneumonia - improving, down to 3L nasal cannula. COVID negative x 2 - on IV steroid 20 mg bid - continue cefepime, azithromycin NITIN - check UA, renal ultrasound. Creatinine up to 2.8, will repeat labs today - she did receive IV lasix on 05/19. She may need IV fluids, does not have edema on exam Anemia - Hb 8.7, stable Chronic diastolic heart failure - stable TYPE II Diabetes - insulin increased to 30 units BID, blood sugars 300 Dispo: transfer to [facility] DVT prophylaxis: Code status: full code
[2020-05-21 13:56] LABS: Hemoglobin 8.8 g/dL (12.0-16.0); Mean Corpuscular HGB CONC 32.4 g/dL (32.0-36.0); Mean Corpuscular Hemoglobin 28.5 pg (27.0-31.0); Mean Corpuscular Volume 87.9 fL (78.0-98.0); Mean Platelet Volume 8.9 fL (7.4-10.4); Platelet Count 244 thou/uL (130-400); RBC Distribution Width 15.2 % (11.5-14.5); Red Blood Cell (RBC) Count 3.08 mill/uL (4.20-5.40); White Blood Cell (WBC) Count 10.7 thou/uL (4.8-10.8)
[2020-05-21 14:12] LABS: Anion Gap 13 mmol/L (10-20); BUN (Urea Nitrogen) 52 mg/dL (9.8-20.1); Calc. Creatinine Clearance 29 mL/min (70-130); Calcium 8.1 mg/dL (7.8-10.44); Carbon Dioxide 20 mmol/L (22-29); Chloride 110 mmol/L (98-107); Estimated GFR-MDRD 24; Glucose 177 mg/dL (70-105); Potassium 3.9 mmol/L (3.5-5.1); Sodium 139 mmol/L (136-145)
--- NOTE | 2020-05-21 14:27 | PRG ---
DATE OF SERVICE: 05/21/2020 SUBJECTIVE: The patient is doing very well. Has no complaints. She has been weaned down to 2 L nasal cannula. OBJECTIVE: VITAL SIGNS: Temperature 97.5, pulse 73, blood pressure 135/76, O2 saturation 97%. HEENT: Unremarkable. NECK: No adenopathy or JVD. CHEST: Clear without wheezing. CARDIAC: S1 and S2. Regular. ABDOMEN: Soft. EXTREMITIES: No edema. LABORATORY DATA: No new labs were obtained today. ASSESSMENT: 1. Status post hypoxic respiratory failure, now improving. 2. Diastolic heart failure. 3. Atypical pneumonia. PLAN: 1. Transfer to the regular floor. 2. Can go home tomorrow if she is off oxygen. Job ID: [id number]
--- NOTE | 2020-05-21 15:20 | ULT ---
US Renal Bilateral STANDARD: 05/21/2020 12:47 PM CLINICAL HISTORY: Elevated creatinine. STUDY: Renal ultrasound COMPARISON: None. FINDINGS: This exam is limited secondary to the patient's body habitus. Right kidney: Echogenicity: Normal. Masses/cysts: None. Hydronephrosis: None. Calcifications: None. Length: 10.0 cm Left kidney: Echogenicity: Normal. Masses/cysts: None. Hydronephrosis: None. Calcifications: None. Length: 9.3 cm Limited visualization of the urinary bladder is unremarkable. IMPRESSION: Unremarkable renal ultrasound
[2020-05-21] MEDS: traZODone HCl 50 MG TAB PO SCH (21:14)
[2020-05-21] MEDS: Atorvastatin Calcium 40 MG TAB PO SCH (21:14)
[2020-05-21] MEDS: Pregabalin 50 MG CAP PO SCH (21:16)
[2020-05-21] MEDS: Heparin 5,000 UNITS/ML VIAL SC SCH (21:32)
[2020-05-21] MEDS: Latanoprost 0.005% Ophth Soln 2.5 ml Bottle EA EYE SCH (21:33)
[2020-05-22] MEDS: Carvedilol 25 MG TAB PO SCH ×2 (08:46→21:38)
[2020-05-22] MEDS: Aspirin 81 mg Enteric Coated Tablet PO SCH (08:46)
[2020-05-22] MEDS: Amlodipine 10 MG TAB PO SCH (08:47)
[2020-05-22] MEDS: Clopidogrel Bisulfate 75 MG TAB PO SCH (08:49)
[2020-05-22] MEDS: Citalopram 20 MG TAB PO SCH (08:50)
[2020-05-22] MEDS: Cefepime 2 GM in Sodium Chloride 0.9% 100 ML IVPB SCH (08:50)
[2020-05-22] MEDS: predniSONE 20 MG TAB PO SCH (08:51)
[2020-05-22] MEDS: Ferrous Sulfate 325 MG TAB PO SCH (08:52)
[2020-05-22] MEDS: Timolol 0.25% Ophth Soln 5 ml Bottle EA EYE SCH ×2 (08:54→21:39)
[2020-05-22] MEDS: ALPRAZolam 1 MG TAB PO PRN ×2 (08:58→21:36)
[2020-05-22] MEDS: Heparin 5,000 UNITS/ML VIAL SC SCH ×2 (09:00→21:35)
[2020-05-22] MEDS: Insulin Glargine 30 UNITS in Pre-Filled Syringe 1 EACH SC SCH (09:00)
[2020-05-22] MEDS: Azithromycin 500 MG in Sodium Chloride 0.9% 250 ML 250 ML IVPB SCH (09:44)
[2020-05-22 11:14] LABS: Hemoglobin 8.6 g/dL (12.0-16.0); Mean Corpuscular HGB CONC 32.5 g/dL (32.0-36.0); Mean Corpuscular Hemoglobin 28.5 pg (27.0-31.0); Mean Corpuscular Volume 87.9 fL (78.0-98.0); Mean Platelet Volume 8.6 fL (7.4-10.4); Platelet Count 277 thou/uL (130-400); RBC Distribution Width 15.3 % (11.5-14.5); White Blood Cell (WBC) Count 11.2 thou/uL (4.8-10.8)
[2020-05-22 11:22] LABS: Anion Gap 11 mmol/L (10-20); BUN (Urea Nitrogen) 50 mg/dL (9.8-20.1); Calc. Creatinine Clearance 30 mL/min (70-130); Calcium 7.8 mg/dL (7.8-10.44); Carbon Dioxide 21 mmol/L (22-29); Chloride 111 mmol/L (98-107); Estimated GFR-MDRD 26; Potassium 3.7 mmol/L (3.5-5.1); Sodium 139 mmol/L (136-145)
[2020-05-22 11:51] LABS: Glucose 49 mg/dL (70-105)
--- NOTE | 2020-05-22 12:53 | PRG ---
DATE OF SERVICE: 05/22/2020 SUBJECTIVE: The patient is feeling better. She is still requiring 3 L of oxygen, saturations are about 92%. OBJECTIVE: VITAL SIGNS: Otherwise, stable. LUNGS: Demonstrates no crackles. CARDIAC: Regular. ABDOMEN: Soft. EXTREMITIES: No edema. ASSESSMENT: Improving pneumonia. PLAN: She is probably stable enough to go home, but will need home oxygen for a week or two. No further recommendations at this time. She needs to complete 10 days of antibiotics total between inpatient and outpatient. Job ID: [id number]
[2020-05-22 17:05] LABS: RBC/HPF 0-3 HPF (0-3)
[2020-05-22 17:06] LABS: Bacteria/HPF 1+ HPF (None Seen)
--- NOTE | 2020-05-22 20:18 | PDOC.HOSPP ---
- Subjective Encounter Date: 05/22/20 Encounter Time: 11:30 Subjective: The patient states she is feeling much better. She desaturated to 88% on 3L earlier today. Patient noted to have improved cough, no chest pain, no SOB She did not walk far with PT per patient The patient's blood sugar was low this morning. She states she skipped breakfast today because she had no appetite - Objective Vital Signs & Weight: Vital Signs (12 hours) Temp Pulse Resp BP Pulse Ox Pulse Ox Pulse Ox 05/22/20 19:21 97.8 F 69 18 150/79 H 97 05/22/20 15:20 97.5 F L 72 18 134/70 98 05/22/20 11:20 97.8 F 73 18 133/78 92 L 05/22/20 11:16 88 L 93 L 05/22/20 08:47 71 05/22/20 08:43 93 L Pulse Ox 05/22/20 19:21 05/22/20 15:20 05/22/20 11:20 05/22/20 11:16 90 L 05/22/20 08:47 05/22/20 08:43 Weight Weight 154 lb 1.6 oz Most Recent Monitor Data Heart Rate from ECG 72 NIBP 130/61 NIBP BP-Mean 84 Respiration from ECG 21 SpO2 98 I&O: 05/21/20 05/22/20 05/23/20 06:59 06:59 06:59 Intake Total 1840 1240 1040 Output Total 550 100 550 Balance 1290 1140 490 Result Diagrams: 05/22/20 10:47 05/22/20 10:47 Additional Labs: Accuchecks 05/22/20 05/22/20 05/22/20 16:04 12:09 11:21 POC Glucose 275 H 81 60 L 05/22/20 05/22/20 03:57 00:08 POC Glucose 128 H 229 H Hospitalist ROS - Review of Systems Constitutional: denies: fever, chills - Medication Medications: Active Medications Generic Name Dose Route Start Last Admin Trade Name Freq PRN Reason Stop Dose Admin Acetaminophen 650 mg 05/15/20 01:37 05/20/20 17:43 Tylenol PO 650 mg Q4H PRN Administration Headache/Fever/Mild Pain (1-3) Alprazolam 1 mg 05/15/20 10:47 05/22/20 08:58 Xanax PO 1 mg BIDPRN PRN Administration Anxiety Amlodipine Besylate 10 mg 05/16/20 09:00 05/22/20 08:47 Norvasc PO 10 mg DAILY RONALD Administration Aspirin 81 mg 05/16/20 09:00 05/22/20 08:46 Ecotrin PO 81 mg DAILY RONALD Administration Atorvastatin Calcium 40 mg 05/15/20 21:00 05/21/20 21:14 Lipitor PO 40 mg HS RONALD Administration Carvedilol 25 mg 05/15/20 21:00 05/22/20 08:46 Coreg PO 25 mg BID RONALD Administration Citalopram Hydrobromide 20 mg 05/16/20 09:00 05/22/20 08:50 Celexa PO 20 mg DAILY RONALD Administration Clopidogrel Bisulfate 75 mg 05/16/20 09:00 05/22/20 08:49 Plavix PO 75 mg DAILY RONALD Administration Ferrous Sulfate 325 mg 05/16/20 08:00 05/22/20 08:52 Feosol PO 325 mg QAM-WM RONALD Administration Guaifenesin/Dextromethorphan 15 ml 05/15/20 01:37 05/15/20 10:43 Robitussin Dm PO 15 ml Q4H PRN Administration Cough Heparin Sodium (Porcine) 5,000 units 05/21/20 21:00 05/22/20 09:00 Heparin SC 5,000 units BID RONALD Administration Cefepime HCl 2 gm/ Sodium 100 mls @ 200 mls/hr 05/16/20 09:00 05/22/20 08:50 Chloride IVPB 100 mls 0900 RONALD Administration Azithromycin 500 mg/ Sodium 250 mls @ 250 mls/hr 05/16/20 09:00 05/22/20 09: 44 Chloride IVPB 250 mls 0900 RONALD Administration Insulin Glargine 30 units/ 0.3 mls @ 0 mls/hr 05/19/20 21:00 05/21/20 21:32 Miscellaneous Medication SC 0.3 mls HS RONALD Administration Insulin Glargine 30 units/ 0.3 mls @ 0 mls/hr 05/19/20 09:00 05/22/20 09:00 Miscellaneous Medication SC 0.3 mls QAM RONALD Administration Insulin Human Lispro 0 units 05/19/20 07:31 05/21/20 06:21 Humalog SC 3 unit .AGGRESSIVE SLIDING PRN Administration Aggressive Correctional Scale Insulin Human Lispro 0 units 05/19/20 07:31 05/20/20 20:26 Humalog SC 4 unit .BEDTIME SLIDING SC PRN Administration Bedtime Correctional Scale Isosorbide Mononitrate 30 mg 05/16/20 09:00 05/22/20 08:49 Imdur Er PO 30 mg DAILY RONALD Administration Latanoprost 1 drop 05/15/20 21:00 05/21/20 21:33 Xalatan 0.005% Ophth Soln EA EYE 1 drop HS RONALD Administration Pantoprazole Sodium 40 mg 05/17/20 21:00 05/21/20 21:14 Protonix PO 40 mg 2100 RONALD Administration Prednisone 40 mg 05/22/20 08:00 05/22/20 08:51 Prednisone PO 40 mg QAM-WM RONALD Administration Pregabalin 50 mg 05/15/20 21:00 05/21/20 21:16 Lyrica PO 50 mg QPM RONALD Administration Sodium Chloride 10 ml 05/15/20 09:00 05/22/20 08:53 Flush - Normal Saline IVF 10 ml Q12HR RONALD Administration Sodium Chloride 10 ml 05/15/20 01:59 05/17/20 01:08 Flush - Normal Saline IVF 10 ml PRN PRN Administration Saline Flush Sterile Water 1 ml 05/20/20 12:52 05/20/20 20:27 Bacteriostatic Water FS 1 ml PRN PRN Administration RECONSTITUTION Timolol Maleate 1 drop 05/15/20 21:00 05/22/20 08:54 Timoptic 0.25% Ophth Soln EA EYE 1 drop BID RONALD Administration Trazodone HCl 100 mg 05/15/20 21:00 05/21/20 21:14 Desyrel PO 100 mg HS RONALD Administration - Exam General Appearance: NAD, awake alert Eye: PERRL, anicteric sclera ENT: normocephalic atraumatic, no oropharyngeal lesions Neck: no JVD Heart: RRR, no murmur, no gallops, no rubs Respiratory - other findings: mild crackles on left side Gastrointestinal: soft, non-tender, non-distended Extremities: no cyanosis, no clubbing, no edema Hosp A/P - Plan Chest X ray: infiltrate left lung ECHO: inferolateral akinesis, moderate MR, EF 55-60%, diastolic dysfunction, aortic valve sclerosis, mild TR This is 54 year old female presenting with respiratory failure from pneumonia Acute hypoxic respiratory failure secondary to pneumonia - improving, down to 3L nasal cannula. COVID negative x 2 -on oral steroids now - continue cefepime, azithromycin - will repeat chest X ray to evaluate for improvement NITIN - UA, renal ultrasound. Creatinine down to 2.33 - she did receive IV lasix on 05/19. Anemia - Hb 8.7, stable Chronic diastolic heart failure - stable TYPE II Diabetes -decrease lantus to 10 units qhs and qam Dispo: continue to wean off oxygen and pending improvement in creatinine DVT prophylaxis: Code status: full code
[2020-05-22] MEDS ORDERED: Insulin Glargine 10 UNITS in Pre-Filled Syringe 1 EACH SC SCH (21:00)
[2020-05-22] MEDS: Pregabalin 50 MG CAP PO SCH (21:37)
[2020-05-22] MEDS: traZODone HCl 50 MG TAB PO SCH (21:37)
[2020-05-22] MEDS: Atorvastatin Calcium 40 MG TAB PO SCH (21:37)
[2020-05-22] MEDS: HumaLOG 300 UNITS/3 ML VIAL SC PRN (21:39)
[2020-05-22] MEDS: Latanoprost 0.005% Ophth Soln 2.5 ml Bottle EA EYE SCH (21:39)
[2020-05-23] MEDS: HumaLOG 300 UNITS/3 ML VIAL SC PRN (05:30)
[2020-05-23 07:10] VITALS: BP 152/80; TEMP 98
--- NOTE | 2020-05-23 07:54 | RAD ---
PORTABLE CHEST: History: Follow up pleural effusion. Comparison: 05-19-2020 FINDINGS: Heart size is enlarged. Pulmonary vessels appear engorged and patchy parenchymal lung changes are sim ilar to the prior examination. No overall change since the prior study. IMPRESSION: Stable patchy opacities in both lung alvarenga. POS: [facility]
[2020-05-23] MEDS: Ferrous Sulfate 325 MG TAB PO SCH (08:32)
[2020-05-23] MEDS: Carvedilol 25 MG TAB PO SCH (08:32)
[2020-05-23] MEDS: predniSONE 20 MG TAB PO SCH (08:32)
[2020-05-23] MEDS: Aspirin 81 mg Enteric Coated Tablet PO SCH (08:32)
[2020-05-23] MEDS: Clopidogrel Bisulfate 75 MG TAB PO SCH (08:32)
[2020-05-23] MEDS: Amlodipine 10 MG TAB PO SCH (08:32)
[2020-05-23] MEDS: Citalopram 20 MG TAB PO SCH (08:32)
[2020-05-23] MEDS: Heparin 5,000 UNITS/ML VIAL SC SCH (08:34)
[2020-05-23] MEDS: Azithromycin 500 MG in Sodium Chloride 0.9% 250 ML 250 ML IVPB SCH (08:35)
[2020-05-23] MEDS: Timolol 0.25% Ophth Soln 5 ml Bottle EA EYE SCH (08:38)
[2020-05-23] MEDS: ALPRAZolam 1 MG TAB PO PRN (08:43)
[2020-05-23] MEDS ORDERED: Furosemide 40 MG/4 ML VIAL SLOW IVP SCH (08:45)
[2020-05-23] MEDS: Cefepime 2 GM in Sodium Chloride 0.9% 100 ML IVPB SCH (08:46)
[2020-05-23 09:59] LABS: Anion Gap 10 mmol/L (10-20); BUN (Urea Nitrogen) 52 mg/dL (9.8-20.1); Calc. Creatinine Clearance 30 mL/min (70-130); Calcium 8.1 mg/dL (7.8-10.44); Carbon Dioxide 23 mmol/L (22-29); Chloride 110 mmol/L (98-107); Estimated GFR-MDRD 26; Glucose 100 mg/dL (70-105); Potassium 3.7 mmol/L (3.5-5.1); Sodium 139 mmol/L (136-145)
--- NOTE | 2020-05-24 06:28 | DIS ---
DATE OF ADMISSION: 05/15/2020 DATE OF DISCHARGE: 05/23/2020 DISCHARGE DIAGNOSES: 1. Acute hypoxic respiratory failure secondary to pneumonia. 2. Acute kidney injury. 3. Anemia. 4. Chronic diastolic heart failure. 5. Type 2 diabetes. 6. Pulmonary edema. CONSULTATIONS: Dr. Elijah Bravo with Pulmonary/Critical Care. BRIEF HISTORY OF PRESENT ILLNESS: This is a 54-year-old female with a past medical history of CKD, who presented to the emergency room due to shortness of breath, nonproductive cough, chills, and body aches. She was noted to be tachycardic in the 113s with O2 saturation in the 80s. She was started on broad-spectrum antibiotics and admitted for further workup. HOSPITAL COURSE: Acute hypoxic respiratory failure secondary to pneumonia and pulmonary edema: Chest Xray showed interstitial infiltrates in the left lung. COVID testing x2 was negative. Her blood cultures were negative. The patient was treated with cefepime and azithromycin for 8 days. She was also treated with oral and IV steroids. The patient denies any significant cough or shortness of breath. She was requiring oxygen, but has weaned off oxygen on the day of discharge. The patient did report some orthopnea on the day of discharge. She was given 1 dose of 40 mg IV Lasix with significant improvement. Her Lasix will be increased to 40 mg twice daily on discharge. She should get a repeat chest x-ray in 6 weeks. Acute kidney injury: The patient's creatinine had increased to 2.81. Her creatinine gradually improved to 2.37 on its own. She did receive IV Lasix on 05/23 for pulmonary edema. She should get a repeat BMP in a week. UA and renal ultrasound were unremarkable. unremarkable. The patient will follow up with her project economist as an outpatient. Chronic diastolic heart failure: The patient underwent an echocardiogram on : Her EF was 55% to 60%. She had moderate MR and mild TR. DISCHARGE PHYSICAL EXAMINATION: VITAL SIGNS: Temperature 98.0, pulse 86, respiratory rate 18, O2 saturation 94% on room air, and blood pressure 152/80. GENERAL: The patient is alert, awake, and oriented x3. CVS: Regular rate and rhythm with no murmurs, rubs, or gallops. LUNGS: Clear to auscultation bilaterally. ABDOMEN: Positive bowel sounds, soft, nontender, nondistended. EXTREMITIES: No edema. LABORATORY DATA: CBC on 05/22: White count 11.2, hemoglobin 8.6, hematocrit 26.4, and platelet count 277. BMP on 05/23: Unremarkable except for creatinine of 2.37. LFTs on 05/14: Were normal. LDH: 573. Ferritin: 1538.32. UA on 05/22: Shows 4 to 6 white blood cells, 7 to 10 squamous epithelial cells , 1+ bacteria, granular casts. COVID serology on 05/15 and 05/17: Negative x2. Blood cultures on 05/14: Negative. IMAGING: Echo on 05/18: EF 55% to 60%, inferior and inferolateral thinning and akinesis. Moderate MR. Mild AR. Mild TR. Chest x-ray 05/14: Interstitial infiltrates in the left lung. Chest x-ray 05/19: Mild worsening lung aeration. Renal ultrasound 05/21: Unremarkable renal ultrasound. Chest x-ray 05/22: Stable patchy opacities in both lung alvarenga. DISCHARGE CONDITION: Stable. ACTIVITY: As tolerated. DIET: Heart-healthy diet. DISCHARGE INSTRUCTIONS: The patient should follow up with PCP in a week and project economist in a week and have repeat BMP in a week. She should have a repeat chest x-ray in 6 weeks. She should decrease her insulin to 14 units twice daily due to low blood sugars while in the hospital. Increase her Lasix to 40 mg twice daily. Job ID: [id number] MTDD
[2020-05-24] MEDS ORDERED: Insulin Glargine 10 UNITS in Pre-Filled Syringe 1 EACH SC SCH (09:00)
== END 2020-05-23 17:21 | disposition home health service (06) | DRG 871 ==
LOC: ERS 22:26 → CCU 05-15 02:45 → IMCU/EMU 05-15 21:14 → T4-B 05-21 16:59
PROVIDERS: ADMIT Internal Medicine; ATTEND Internal Medicine
DX: A41.9 Sepsis, unspecified organism (principal); J18.9 Pneumonia, unspecified organism; J96.01 Acute respiratory failure with hypoxia; I50.32 Chronic diastolic (congestive) heart failure; N17.9 Acute kidney failure, unspecified; J81.1 Chronic pulmonary edema; I13.0 Hypertensive heart and chronic kidney disease with heart failure and stage 1 through stage 4 chronic kidney disease, or unspecified chronic kidney disease; E11.22 Type 2 diabetes mellitus with diabetic chronic kidney disease; D63.1 Anemia in chronic kidney disease; Z20.828 Contact with and (suspected) exposure to other viral communicable diseases; N18.3 Chronic kidney disease, stage 3 (moderate); F41.9 Anxiety disorder, unspecified; F32.9 Major depressive disorder, single episode, unspecified; I25.10 Atherosclerotic heart disease of native coronary artery without angina pectoris; E11.43 Type 2 diabetes mellitus with diabetic autonomic (poly)neuropathy; K31.84 Gastroparesis; E78.5 Hyperlipidemia, unspecified; H40.9 Unspecified glaucoma; F17.210 Nicotine dependence, cigarettes, uncomplicated; I34.0 Nonrheumatic mitral (valve) insufficiency; E11.40 Type 2 diabetes mellitus with diabetic neuropathy, unspecified; Z79.01 Long term (current) use of anticoagulants; Z79.899 Other long term (current) drug therapy; Z90.49 Acquired absence of other specified parts of digestive tract; Z79.4 Long term (current) use of insulin; Z79.82 Long term (current) use of aspirin
CPT/HCPCS: 36415; 36416; 71045; 76770; 80048; 80053; 80202; 81015; 82728; 83605; 83615; 83880; 84484; 85025; 85027; 86140; 87040; 87635; 93005; 93306; 96361; 96365; 96367; 96375; 99292; J0456; J0692; J1644; J1650; J1815; J1940; J2405; J2550; J2920; J3370; J3490; J7050; J7512; U0003

== ENCOUNTER 2020-05-27 13:54 | Inpatient (IN) | payer MEDICARE, OTHER ==
[2020-05-27] MEDS ORDERED: Succinylcholine Chloride 20 MG/ML 10 ml SYRINGE FS ONE ×2 (13:59→16:28)
[2020-05-27] MEDS ORDERED: Lidocaine 2% MPF 10 ML AMP (For Epidural Use) ONE ×2 (14:02→14:03)
[2020-05-27] MEDS ORDERED: Lidocaine 2% PF 5 ML VIAL ONE ×2 (14:02→14:03)
[2020-05-27] MEDS ORDERED: Nitroglycerin 50 MG/250 ML BOT 250 ML ONE (14:05)
[2020-05-27] MEDS ORDERED: Ondansetron PF 4 MG/2 ML Vial ONE ×3 (14:09→15:53)
--- NOTE | 2020-05-27 14:49 | RAD ---
PORTABLE CHEST: 05/27/20 HISTORY: Shortness of breath. COMPARISON: 05/22/20. There are rather diffuse bilateral hazy infiltrates. There is more confluent infiltrate and consolida tion of the left lung base obscuring the left hemidiaphragm. IMPRESSION: Bilateral infiltrates with more confluent consolidation in the left lung base. POS: [facility]
[2020-05-27] MEDS ORDERED: Vancomycin 1 GM/200 ML BAG ONE (14:51)
[2020-05-27] MEDS ORDERED: Cefepime 2 GM VIAL ONE (14:51)
[2020-05-27 14:57] LABS: #Basophils 0.1 thou/uL (0.0-0.2); #Eosinphils 0.5 thou/uL (0.0-0.7); #Monocytes 0.7 thou/uL (0.11-0.59); #Neutrophils 11.5 thou/uL (1.40-6.50); %Basophils 0.4 % (0.0-1.0); %Lymphocytes 18.9 % (21.0-51.0); %Monocytes 4.7 % (0.0-10.0); Hemoglobin 8.9 g/dL (12.0-16.0); Mean Corpuscular HGB CONC 32.2 g/dL (32.0-36.0); Mean Corpuscular Hemoglobin 28.9 pg (27.0-31.0); Mean Corpuscular Volume 89.9 fL (78.0-98.0); Mean Platelet Volume 8.8 fL (7.4-10.4); Platelet Count 370 thou/uL (130-400); RBC Distribution Width 17.1 % (11.5-14.5); Red Blood Cell (RBC) Count 3.08 mill/uL (4.20-5.40); White Blood Cell (WBC) Count 15.8 thou/uL (4.8-10.8)
[2020-05-27 15:07] LABS: ALT (SGPT) 23 U/L (8-55); AST (SGOT) 19 U/L (5-34); Albumin 3.2 g/dL (3.5-5.0); Alkaline Phosphatase 69 U/L (40-110); Anion Gap 16 mmol/L (10-20); BUN (Urea Nitrogen) 46 mg/dL (9.8-20.1); Bilirubin, Total 0.5 mg/dL (0.2-1.2); Calc. Creatinine Clearance 0 mL/min (70-130); Carbon Dioxide 22 mmol/L (22-29); Chloride 105 mmol/L (98-107); Estimated GFR-MDRD 22; Globulin 3.8 g/dL (2.4-3.5); Glucose 375 mg/dL (70-105); Potassium 4.2 mmol/L (3.5-5.1); Sodium 139 mmol/L (136-145)
[2020-05-27 15:53] LABS: Bilirubin Negative (Negative); Blood, Urine 1+ (Negative); Clarity Turbid (Clear); Glucose, Urine (Dipstick) 30 mg/dL (Negative); Ketone, Urine Negative (Negative); Leukocyte Negative Leu/uL (Negative); Nitrite Negative (Negative); Protein, Urine (Dipstick) 70 mg/dL (Neg-Trace); RBC/HPF None Seen HPF (0-3); Specific Gravity, Urine 1.016 (1.002-1.036); Squamous Epithelial 0-3 HPF (0-3); Urobilinogen Normal mg/dL (Less than 2); WBC/HPF 0-3 HPF (0-3); pH, Urine 5.5 (5.0-9.0)
[2020-05-27 16:00] LABS: Bacteria/HPF None Seen HPF (None Seen)
[2020-05-27] MEDS ORDERED: Midazolam HCl 5 mg/ml Vial ONE (16:32)
[2020-05-27] MEDS ORDERED: fentaNYL Citrate/PF 2,000 MCG in Sodium Chloride 0.9% 60 ML IV SCH (16:32)
[2020-05-27] MEDS ORDERED: Propofol 1,000 MG/100 ML VIAL IV ONE (16:58)
[2020-05-27] MEDS ORDERED: Fentanyl BOLUS 250 ML IVPB PRN (17:28)
[2020-05-27] MEDS ORDERED: Morphine 2 MG/ML SYRINGE SLOW IVP PRN (17:28)
[2020-05-27] MEDS ORDERED: Propofol BOLUS 1,000 MG/100 ML VIAL IV PRN (17:28)
[2020-05-27] MEDS ORDERED: DISCONTINUE PREVIOUS NARCOTIC PAIN MEDICATIONS AND BENZODIAZEPINES FS SCH (17:28)
--- NOTE | 2020-05-27 17:35 | RAD ---
PORTABLE CHEST: 05/27/20 HISTORY: Intubation. COMPARISON: 05/27/20. FINDINGS/IMPRESSION: ET tube has tip above adria. The chest is rotated distorting the chest. A central line has been plac ed which overlies the right atrium. Bilateral hazy ground glass infiltrates are again noted. POS: [facility]W
[2020-05-27] MEDS ORDERED: Ventilator Sedation Protocol 1 EACH FS SCH (17:44)
[2020-05-27] MEDS ORDERED: Ondansetron ODT 4 MG TAB PO PRN (17:44)
[2020-05-27] MEDS ORDERED: Electrolyte Replacement Protoc 1 EACH EACH IVPB ONE (17:44)
[2020-05-27] MEDS ORDERED: Acetaminophen 650 MG Suppository PR PRN (17:44)
[2020-05-27] MEDS ORDERED: Ondansetron PF 4 MG/2 ML Vial IVP PRN (17:44)
[2020-05-27] MEDS ORDERED: Bisacodyl 10 MG SUPP PR PRN (17:44)
[2020-05-27] MEDS ORDERED: HumaLOG 300 UNITS/3 ML VIAL SC PRN (18:01)
[2020-05-27] MEDS ORDERED: Dextrose 5% in Water 1,000 ML IV PRN (18:01)
[2020-05-27] MEDS ORDERED: Dextrose 50% Abboject 50 ML SYRINGE SLOW IVP PRN (18:01)
[2020-05-27] MEDS ORDERED: Electrolyte Replacement Protoc 1 EACH EACH FS PRN (18:01)
[2020-05-27] MEDS ORDERED: Furosemide 40 MG/4 ML VIAL SLOW IVP SCH (18:15)
[2020-05-27 18:33] LABS: Actual Bicarbonate (HCO3a) 21.1 mEq/L (22-28); Base Excess (BEa) -5.5 mEq/L (-2.0 to +3.0); CO2 Tension 46.9 mmHg (35.0-45.0); Calcium, Ionized (arterial) 1.03 mmol/L (1.12-1.30); Carboxyhemoglobin (COHb) 2.1 gm% (0.0-3.0); Hemoglobin (Hb) 8.3 g/dL (12.0-16.0); O2 Tension (PaO2), arterial 159.1 mmHg (80.0-100.0); Potassium - ABG Lab 4.28 mmol/L (3.70-5.30); pH, Arterial 7.27 (7.35-7.45)
[2020-05-27 18:35] LABS: Puncture Site LBA
[2020-05-27 18:36] LABS: ALV-art Gradient 495.275 (0-20)
--- NOTE | 2020-05-27 19:19 | HP ---
PRIMARY CARE PHYSICIAN: Bianka Forde MD CHIEF COMPLAINT: Shortness of breath. HISTORY OF PRESENT ILLNESS: This is a 54-year-old female with a history of coronary artery disease and significant CHF, who was recently in the hospital for acute respiratory failure with hypoxia, pneumonia versus CHF exacerbation. She was admitted on May 15 and then discharged four days ago, after she was gradually weaned off oxygen. The patient re-presented to the emergency room today in respiratory distress. She was initially found to be with an oxygen saturation in the low 80s by EMS. They brought her in. She was saturating down to the 70s on a non-rebreather. She was also hypertensive at the time. She was put on nitroglycerin and BiPAP with initial improvement in her vital signs. Her sats came up. She was having lot less work of breathing and lot less tachycardia and her blood pressure came down. However, then the patient did vomit, and she was unable to tolerate further use of the BiPAP mask and the ER doctor did try her on high-flow oxygen. However, her sats would not stay up on this, and she was continued to be in respiratory distress, so she had to be intubated. The patient is now on the ventilator, and they are increasing the sedation for her as she is still fighting with the ventilator some and not completely asleep. She also had a right internal jugular central line placed after the intubation. All history is taken from the emergency room physician and from speaking to the patient's sister, who did not really know much about what has been going on since the patient was discharged except that she suspected the patient had gone back to smoking after getting out of the hospital. REVIEW OF SYSTEMS: Unable to obtain secondary to the patient's mental status. PAST MEDICAL HISTORY: 1. Diastolic congestive heart failure with a recent ejection fraction of 55% to 60%. 2. Coronary artery disease. 3. Hypertension. 4. Diabetes mellitus type 2. 5. Recent pulmonary edema. 6. Chronic kidney disease. 7. Chronic anemia. PAST SURGICAL HISTORY: 1. Cholecystectomy. 2. x2. 3. Cardiac stent x7. 4. Bilateral eye surgery with right eye partial blindness. PAST PSYCHIATRIC HISTORY: Positive for depression and anxiety. SOCIAL HISTORY: The patient smokes cigarettes, uncertain how much. No alcohol or illicit drug use. She was a full code on presentation to the hospital. Her nearest relative is her sister, Scarlet Atkins, and she would be her medical decision maker. FAMILY HISTORY: Mother with kidney disease. Father with diabetes and a CABG. ALLERGIES: NO KNOWN DRUG ALLERGIES. CURRENT MEDICATIONS: 1. Plavix 75 mg daily. 2. Alprazolam 1 mg daily. 3. Aspirin 81 mg daily. 4. Amlodipine 10 mg daily. 5. Atorvastatin 40 mg daily. 6. Carvedilol 25 mg twice a day. 7. Dorzolamide/Timolol drops in eye daily. 8. Cyclobenzaprine 10 mg twice a day as needed. 9. Furosemide 40 mg daily. 10. Ferrous sulfate 325 mg daily. 11. Humalog sliding scale. 12. Isosorbide mononitrate 30 mg daily. 13. Latanoprost to eye daily. 14. Metolazone 2.5 mg as needed. 15. Pregabalin 50 mg daily. 16. Tramadol 50 mg every 8 hours as needed for pain. PHYSICAL EXAMINATION: VITAL SIGNS: Blood pressure 124/66, pulse 81, respirations 16 on the vent, temperature 99.1, and O2 saturation 100% on the ventilator. GENERAL: This is a well-developed, obese female, who is partially sedated on the vent. She is chewing on the tube little bit and moving around little bit. HEENT: Left pupil round and reactive to light. The right eye is scarred. Oropharynx with ET tube in place. NECK: Supple. She has a right IJ central venous line in place. No masses or distention. She has a midline trachea. HEART: Regular rate and rhythm. No murmurs, rubs, or gallops. LUNGS: She has coarse breath sounds bilaterally and lots of noises from her biting on the tube, difficult to get a good lung exam right now. ABDOMEN: Soft, nontender to palpation. Normoactive bowel sounds. No hepatosplenomegaly or other masses. EXTREMITIES: She has no clubbing, cyanosis, or edema. SKIN: No rashes or lesions noted. NEUROLOGIC: The patient appears to be moving all of her extremities equally. No focal neurologic findings. PSYCHIATRIC: The patient is sedated on the vent. LABORATORY DATA: CBC with a white blood cell count of 15,000 from 11.2 at her last hospitalization, hemoglobin 8.9, which is stable from her last hospitalization, hematocrit 27.7, and platelet count 370. Complete metabolic panel is notable for creatinine of 2.75, which is similar to during her last hospitalization. BUN is 46 and her albumin is 3.2. The rest of her CMP is normal. Lactic acid was negative. Troponin was indeterminate at 0.105 and CK-MB was normal at 2. Urinalysis was negative for any evidence of infection. Chest x-ray, I did review the chest x-ray done in the emergency room along with the radiologist's report, it does show persistent bilateral diffuse hazy infiltrates with some more confluent infiltrate and consolidation of the left lung base. ASSESSMENT: 1. Acute respiratory failure with hypoxia, now on the ventilator. This is possibly secondary to pulmonary edema versus pneumonia. She does have some bump in her white blood cell count. We will continue the vancomycin, cefepime, and Levaquin renally dosed that she was started in the emergency room. The patient is being admitted to the ICU. We will have Pulmonology to see her there. 2. Congestive heart failure with possible pulmonary edema from this. We will put patient on fluid restrictions, and we will try and diurese her some. We will consult Cardiology for assistance. 3. Hypertension. We will put the patient on as needed blood pressure medications. 4. Deep venous thrombosis prophylaxis, put the patient on SCDs and renally dosed Lovenox. 5. Gastrointestinal prophylaxis, put the patient on Pepcid twice a day. CODE STATUS: The patient is a full code. Her closest relative is her sister, Scarlet Atkins, who is her medical decision maker. Job ID: [id number]
[2020-05-27] MEDS: Lactated Ringer's 1,000 ML IV SCH ×2 (19:34→22:56)
[2020-05-27] MEDS: HumaLOG 300 UNITS/3 ML VIAL SC PRN ×2 (20:22→23:34)
[2020-05-27] MEDS: Famotidine/PF 20 mg/2ml Vial SLOW IVP SCH (20:22)
--- NOTE | 2020-05-27 21:51 | CON ---
DATE OF CONSULTATION: 05/27/2020 CHIEF COMPLAINT: Respiratory distress. HISTORY OF PRESENT ILLNESS: Ms. Gomez is a 54-year-old female who has multiple admissions to this facility, most recently ending just 4 days ago. At that time , she was admitted with respiratory distress and abnormal chest x-ray. She was treated with empiric antibiotics. COVID test was negative x2. The impression was that she had heart failure, although echocardiogram at that time demonstrated preserved ejection fraction, grade 2 diastolic dysfunction, and modest pulmonary hypertension approximately 40 mmHg. She has chronic renal insufficiency with a baseline creatinine of approximately 2.5. By the time she was discharged, she was feeling better and oxygen demands had been effectively weaned to p.r.n. at best. She was discharged home, but developed increasing distress. The EMS found her to have a saturation of 80 at the time of their arrival at her residence. This continued to be low despite increasing oxygen saturation. In the emergency room , she was hypertensive and was placed on BiPAP, although she was having some time accommodating to it. There was some increase in saturation and decreased work of breathing as well as decrease in her blood pressure, but she then had a vomiting episode. She was not controlled off BiPAP, and ultimately was intubated. She is receiving sedation and is now admitted to the hospital. Pulmonary Service is consulted to assist in medical management. The patient is unable to give a history due to intubated status. I have reviewed the available medical record, both from this admission and prior. SOCIAL HISTORY: The patient is a 54-year-old female. She does have a smoking history. ALLERGIES: SHE HAS NO KNOWN MEDICATION ALLERGIES. MEDICATIONS: Her home medicines include, 1. Plavix 75 mg daily. 2. Xanax 1 mg daily. 3. Aspirin 81 daily. 4. Amlodipine 10 daily. 5. Atorvastatin 40 daily. 6. Coreg 12.5 b.i.d. 7. Ophthalmic drops. 8. Flexeril 10 mg b.i.d. p.r.n. 9. Lasix 40 daily. 10. Iron daily. 11. Humalog sliding scale. 12. Ismo 30 daily. 13. Metolazone 2.5 mg p.r.n. 14. Pregabalin 50 mg daily. 15. Tramadol p.r.n. PAST MEDICAL HISTORY: Remarkable for diastolic heart failure with ejection fraction of 55% to 60%. She has known pulmonary hypertension, moderate at 40 mm Hg. The patient has a known prior coronary artery disease and reportedly has had 7 stents placed in the past. She has hypertension, diabetes, chronic renal insufficiency with baseline creatinine approximately 2.5 as well as chronic anemia. She has blindness in the right eye. FAMILY HISTORY: Unobtainable. REVIEW OF SYSTEMS: Unobtainable. PHYSICAL EXAMINATION: VITAL SIGNS: Blood pressure is currently 93/61, heart rate of 71, respiratory rate of 16, and saturation 97%. She is intubated and receiving ventilatory support with a rate of 16, tidal volume of 500, PEEP of 8, and FiO2 of 70%. GENERAL: She is a 54-year-old female, appears older than her stated age. HEENT: She has no adenopathy. She has external jugular venous distention. She has no icterus. LUNGS: Bilaterally well without wheezing. The ventilator is as noted above. HEART: Regular rate and rhythm with a systolic murmur. ABDOMEN: Soft. There is no organomegaly. EXTREMITIES: She has no edema. NEUROLOGIC: She is currently sedated, although the rate of propofol and fentanyl have both been reduced. She is not currently responsive to stimuli. LABORATORY DATA: Chest x-ray reviewed by me is markedly different in technique compared to the one several days ago. There appears to be an increase in consolidative process in the left upper lung relative to the prior film. White count on admission is 15,800, hemoglobin is 8.9, platelet count 370,000. Blood gas following intubation includes pH 7.27, CO2 of 47, PO2 of 159, and bicarbonate of 21. This was done at that time when the rate was 14 and tidal volume 500. Electrolytes include sodium 139, potassium 4.2, chloride 105, CO2 is 22, BUN 46, and creatinine 2.7, glucose is 375. Liver tests are normal. BNP is 465. Troponin is 0.1. Serum albumin is reduced to 3.2. Urinalysis fairly bland. IMPRESSION: 1. Respiratory distress, initially presenting with hypertension, anxiety, hypoxemia and tachycardia, responsive to BiPAP, but then worsened following a vomitus episode resulting in intubation and ventilatory support. Radiographically, she has increased consolidation in the left upper lung. She does not have a dramatic leukocytosis , although the possibility of continued pneumonia must be entertained. She has more diastolic function than systolic dysfunction, but does have a history of coronary artery disease. Troponin is trivially elevated. BNP is similarly mildly elevated, either which could be related to her diastolic dysfunction or even some overload related to pneumonia. From a radiographic perspective, she has not responded to recent broad course of antibiotics given for 8 days. We will again rule out COVID. She may need a bronchoscopy to exclude atypical infectious processes up to and including Pneumocystis as well as vascular processes or malignancy in light of her long smoking history (alveolar cell carcinoma). We can try to diurese her, but I think we are going to be limited by her renal insufficiency. She does not need dialysis at this point. Cardiology has been consulted, although that does not appear to be related to an acute myocardial infarction. 2. Renal insufficiency, at her near baseline. 3. Diabetes. 4. Long tobacco history. RECOMMENDATION: She is currently intubated, receiving ventilatory support. Hopefully, we can begin weaning soon of both sedation as well as the ventilator settings. Repeat COVID as planned, and if negative, she may be a candidate for bronchoscopy. Certainly, this readmission pattern does not appear to be as straightforward as it otherwise seems. She is not a candidate for CT angiogram due to her renal insufficiency and similarly would be high risk for repeat cardiac catheterization for the same reason. We would strongly encourage smoking cessation. Further intervention will be based on her clinical course. Thank you for this consultation. Job ID: [id number] WANDA
[2020-05-28] MEDS: Propofol 1,000 MG/100 ML VIAL IV PRN ×4 (02:05→16:54)
[2020-05-28] MEDS: Lactated Ringer's 1,000 ML IV SCH (02:05)
[2020-05-28] MEDS: Furosemide 40 MG/4 ML VIAL SLOW IVP SCH ×2 (05:02→13:25)
[2020-05-28 05:39] LABS: #Eosinphils 0.3 thou/uL (0.0-0.7); #Lymphocytes 1.4 thou/uL (1.20-3.40); #Monocytes 0.6 thou/uL (0.11-0.59); #Neutrophils 17.3 thou/uL (1.40-6.50); %Eosinophils 1.4 % (0.0-10.0); %Lymphocytes 7.2 % (21.0-51.0); %Monocytes 3.2 % (0.0-10.0); %Neutrophils 88.2 % (42.0-75.0); Hemoglobin 7.5 g/dL (12.0-16.0); Mean Corpuscular HGB CONC 33.1 g/dL (32.0-36.0); Mean Corpuscular Hemoglobin 29.6 pg (27.0-31.0); Mean Corpuscular Volume 89.4 fL (78.0-98.0); Mean Platelet Volume 8.3 fL (7.4-10.4); Platelet Count 246 thou/uL (130-400); RBC Distribution Width 16.8 % (11.5-14.5); Red Blood Cell (RBC) Count 2.55 mill/uL (4.20-5.40); White Blood Cell (WBC) Count 19.6 thou/uL (4.8-10.8)
[2020-05-28 06:02] LABS: Anion Gap 13 mmol/L (10-20); BUN (Urea Nitrogen) 44 mg/dL (9.8-20.1); Calc. Creatinine Clearance 29 mL/min (70-130); Calcium 7.3 mg/dL (7.8-10.44); Carbon Dioxide 23 mmol/L (22-29); Chloride 109 mmol/L (98-107); Estimated GFR-MDRD 24; Glucose 124 mg/dL (70-105); Potassium 3.5 mmol/L (3.5-5.1); Sodium 141 mmol/L (136-145)
[2020-05-28] MEDS ORDERED: Potassium Chloride 40 MEQ in Premix Bag 1 BAG IVPB SCH (06:15)
[2020-05-28 07:40] LABS: Actual Bicarbonate (HCO3a) 22.6 mEq/L (22-28); Base Excess (BEa) -1.4 mEq/L (-2.0 to +3.0); CO2 Tension 34.6 mmHg (35.0-45.0); Calcium, Ionized (arterial) 1.04 mmol/L (1.12-1.30); Carboxyhemoglobin (COHb) 0.3 gm% (0.0-3.0); Hemoglobin (Hb) 7.4 g/dL (12.0-16.0); Potassium - ABG Lab 4.13 mmol/L (3.70-5.30); pH, Arterial 7.43 (7.35-7.45)
[2020-05-28 07:50] LABS: O2 Tension (PaO2), arterial 15.5 mmHg (80.0-100.0)
[2020-05-28 07:51] LABS: Puncture Site LBA
--- NOTE | 2020-05-28 08:15 | PRG ---
DATE OF SERVICE: 05/28/2020 SUBJECTIVE: There has not been any significant progress over the night. She remains on sedation with propofol at 20. Her COVID task remains pending. PHYSICAL EXAMINATION: VITAL SIGNS: Blood pressure is 130/77, heart rate is 60, saturation is 99%, and respiratory rate is 16 (ventilator rate). She is sedated and only minimally responsive to pain. NECK: She has no JVD. LUNGS: Show bilateral crackles without wheezing. She is breathing at the ventilator rate. She is still on FiO2 of 80% with PEEP of 8. We will try to reduce that given current oxygen saturation. HEART: Regular rate and rhythm with systolic murmur. ABDOMEN: Soft. No organomegaly. She has no edema. There are no cords or tenderness. LABORATORY DATA: White count 19,600, hemoglobin 7.5, hematocrit 22.8, and platelet count 246,000. Chemistries include sodium 141, potassium 3.5, chloride 109, CO2 is 23, BUN 44, and creatinine 2.5, down from 2.7. ABG is pending. IMAGING STUDIES: There is no x-ray today. IMPRESSION: Respiratory failure with abnormal chest x-ray. She is recently admitted here for 8 days and only briefly home before she had recurrent respiratory distress and readmission. Radiographically, I think that there is increased consolidation, especially in the left upper lung and she is receiving broad-spectrum antibiotics including vancomycin and cefepime pending final cultures. Unfortunately, COVID test is still pending. At this point, she has been on fairly high FiO2 and pulse oximeter would seem to suggest we could wean her. I will try to reduce the rates from 16 to 14, the tidal volume from 500 to 450, and try to reduce the pulse oximetry, even if that requires going up on her PEEP from 8 to 10. We will have a morning chest x-ray. Peak pressures are not significantly high and I doubt that she has pneumothorax or mucous plugging in that setting. CRITICAL CARE TIME: 33 minutes. Job ID: [id number]
[2020-05-28] MEDS: Enoxaparin Sodium 30 MG/0.3 ML SYRINGE SC SCH (08:31)
--- NOTE | 2020-05-28 10:34 | EKG ---
Test Reason : Blood Pressure : / mmHG Vent. Rate : 091 BPM Atrial Rate : 091 BPM P-R Int : 138 ms QRS Dur : 118 ms QT Int : 398 ms P-R-T Axes : 054 -16 096 degrees QTc Int : 489 ms Normal sinus rhythm Cannot rule out Anterior infarct , age undetermined Abnormal ECG Confirmed by MILAGROS BRAXTON DO ([id number]), editor farm journal GRETA GILL ([id number]) on 05/28/2020 10:34:44 AM Referred By: Confirmed By:MILAGROS BRAXTON DO
[2020-05-28 10:37] LABS: Potassium 4.2 mmol/L (3.5-5.1)
[2020-05-28] MEDS: Lorazepam 2 MG/ML VIAL SLOW IVP PRN (11:25)
--- NOTE | 2020-05-28 11:50 | CON ---
DATE OF CONSULTATION: 05/28/2020 REASON FOR CONSULTATION: Elevated troponins. PRIMARY FAMILY ASSISTANT: Hailee Baker MD HISTORY OF PRESENT ILLNESS: Ms. Gomez is a 54-year-old female, who comes to the hospital for respiratory distress. She had been in the hospital recently, discharged about 4 days ago for similar findings. She was thought to be having diastolic heart failure. She had an echo that showed normal EF with grade 2 diastolic dysfunction. She had 2 negative COVID tests back then as well. She comes in for respiratory distress again. She was found to have sats in the 80s by EMS on arrival to her house and would not improve with supplemental oxygen to the point where she had to be placed on BiPAP and eventually intubated to improve oxygenation. Currently, she is sedated, intubated, unable to give any other history. She does have a significant history of coronary artery disease with stenting to the LAD several years back as well as stenting to the left circ. She has an occluded RCA, very small nondominant vessel. She has indeterminate troponin so far, so Cardiology has been consulted for this. PAST MEDICAL HISTORY: 1. Coronary artery disease, status post stenting to the LAD in 1998, this was a bare-metal stent. Left circumflex PCI in 2002. Last catheterization was in 2011 and it showed an occluded RCA, small nondominant, 90% distal LAD stenosis, which underwent stenting at that time. Has not had any re-evaluation since. 2. Pulmonary hypertension, which is moderate. 3. Hypertension. 4. Diabetes. 5. Chronic renal insufficiency with baseline creatinine 2.5. 6. Chronic anemia. 7. Blindness of the right eye. SOCIAL HISTORY: She used to smoke about a pack and a half a day for many years now. OUTPATIENT MEDICATIONS: 1. Plavix 75 mg a day. 2. Xanax. 3. Aspirin 81 a day. 4. Amlodipine 10 mg a day. 5. Atorvastatin 40 mg a day. 6. Coreg 12.5 b.i.d. 7. Ophthalmic drops. 8. Flexeril 10 mg b.i.d. 9. Lasix 40 mg a day. 10. Iron supplement. 11. Humalog sliding scale. 12. Imdur 30 mg a day. 13. Metolazone 2.5 mg p.r.n. 14. Pregabalin. 15. Tramadol p.r.n. ALLERGIES: NO KNOWN DRUG ALLERGIES. REVIEW OF SYSTEMS: Unobtainable as the patient is sedated and intubated. FAMILY HISTORY: Noncontributory. PAST SURGICAL HISTORY: 1. Heart catheterization, multiple stenting as above. 2. Cholecystectomy. 3. x2. 4. Bilateral eye surgery with right eye partial blindness. PHYSICAL EXAMINATION: VITAL SIGNS: Temperature 99.8 was the highest, currently 97.8; pulse 80; respiratory rate 16; saturating 97% on 50% FiO2; and blood pressure 131/74. GENERAL: Sedated, intubated. NECK: Supple. LUNGS: reduced breath sounds. CARDIOVASCULAR: S1, S2. ABDOMEN: Soft. EXTREMITIES: No edema. SKIN: Warm and dry. LABORATORY DATA: Laboratory work was reviewed. CBC with a white count of 19, hemoglobin of 7.5 down from 8.9, hematocrit of 22, platelet count of 246. ABG was unremarkable. Chemistries with a creatinine of 2.5, BUN 44, GFR was 24. Troponin was 0.110 on the first draw, needs to be trended still. Glucose is high in the 300s range down to 134 now, calcium was 7.3. UA with turbid urine, 70 proteins, 1+ blood, 2+ crystals, but no white cells or red cells. Blood cultures are negative to date. Drawn yesterday. Most recent echocardiogram done on the of this month just about 10 to 11 days ago showed an EF of 55% to 60%, 2/3 diastolic dysfunction, inferior and inferolateral thinning and akinesis suggestive of an old TX. RVSP was 40 mmHg at that time. ASSESSMENT/PLAN: 1. Elevated troponins, likely related to her acute issue. 2. Vwwya-ih-nzozfvo diastolic heart failure, likely some component of her respiratory distress is related to her diastolic dysfunction. 3. COVID-19 rule out. 4. Bilateral ground-glass infiltrates. 5. Most likely chronic obstructive pulmonary disease due to her tobacco use. 6. Ojjha-fg-kkqebqr respiratory insufficiency. 7. Acute kidney injury on chronic kidney disease. 8. Type-2 diabetes. PLAN: 1. Conservative therapy for now. 2. We would recommend to continue to trend troponins. 3. We will need diuresis as well. 4. Consider blood transfusions if her hemoglobin continues to drop. 5. The patient is severely ill and would not be unexpected. 6. Pending COVID-19 [address] 7[address] Dr. Baker of primary tufting machine operator will follow up in the morning. Job ID: [id number]
[2020-05-28] MEDS: fentaNYL Citrate/PF 2,000 MCG in Sodium Chloride 0.9% 60 ML IV SCH (13:24)
[2020-05-28] MEDS ORDERED: Vancomycin 1 GM in Premix Bag 1 BAG IVPB SCH ×2 (15:00→18:00)
[2020-05-28 15:05] LABS: SARS-CoV-2 MS2 Positive; SARS-CoV-2 N Gene Negative; SARS-CoV-2 S Gene Negative; SARS-CoV-2 orf1ab Negative
[2020-05-28] MEDS: Cefepime 1 GM in Sodium Chloride 0.9% 100 ML IVPB SCH (15:27)
[2020-05-28 16:05] LABS: Vancomycin, Random 13.2 ug/mL (See Comment)
[2020-05-28] MEDS: Famotidine/PF 20 mg/2ml Vial SLOW IVP SCH (20:03)
[2020-05-29] MEDS: Propofol 1,000 MG/100 ML VIAL IV PRN ×3 (01:41→16:37)
[2020-05-29] MEDS: Lorazepam 2 MG/ML VIAL SLOW IVP PRN ×4 (02:48→21:45)
[2020-05-29] MEDS: Furosemide 40 MG/4 ML VIAL SLOW IVP SCH ×2 (05:25→13:47)
[2020-05-29 07:27] LABS: Actual Bicarbonate (HCO3a) 22.6 mEq/L (22-28); Base Excess (BEa) -0.2 mEq/L (-2.0 to +3.0); CO2 Tension 28.9 mmHg (35.0-45.0); Calcium, Ionized (arterial) 0.99 mmol/L (1.12-1.30); Carboxyhemoglobin (COHb) 0.3 gm% (0.0-3.0); O2 Tension (PaO2), arterial 115.6 mmHg (80.0-100.0); Potassium - ABG Lab 3.65 mmol/L (3.70-5.30); pH, Arterial 7.51 (7.35-7.45)
[2020-05-29 07:29] LABS: ALV-art Gradient 276.075 (0-20); Puncture Site RR
[2020-05-29] MEDS: Enoxaparin Sodium 30 MG/0.3 ML SYRINGE SC SCH (07:49)
--- NOTE | 2020-05-29 08:30 | RAD ---
PORTABLE CHEST: Date: 05/29/2020 HISTORY: Follow-up pneumonia. COMPARISON: 05/27/2020. FINDINGS: Endotracheal, NG tubes, and right-sided central line are all unchanged in position. Diffuse interstit ial alveolar lung changes and increased density in the lung bases suggesting some element of effusion are all stable. IMPRESSION: Essentially stable exam. POS: TARA
[2020-05-29 09:44] LABS: #Eosinphils 0.3 thou/uL (0.0-0.7); #Lymphocytes 1.3 thou/uL (1.20-3.40); #Monocytes 0.8 thou/uL (0.11-0.59); #Neutrophils 10.9 thou/uL (1.40-6.50); %Basophils 0.3 % (0.0-1.0); %Eosinophils 2.6 % (0.0-10.0); %Lymphocytes 9.5 % (21.0-51.0); %Monocytes 6.2 % (0.0-10.0); %Neutrophils 81.5 % (42.0-75.0); Hemoglobin 7.3 g/dL (12.0-16.0); Mean Corpuscular HGB CONC 32.5 g/dL (32.0-36.0); Mean Corpuscular Hemoglobin 28.9 pg (27.0-31.0); Mean Corpuscular Volume 89.1 fL (78.0-98.0); Mean Platelet Volume 8.3 fL (7.4-10.4); Platelet Count 246 thou/uL (130-400); RBC Distribution Width 16.8 % (11.5-14.5); Red Blood Cell (RBC) Count 2.52 mill/uL (4.20-5.40); White Blood Cell (WBC) Count 13.4 thou/uL (4.8-10.8)
--- NOTE | 2020-05-29 09:53 | PRG ---
DATE OF SERVICE: 05/29/2020 SUBJECTIVE: Sarah Gomez remains intubated in the vent, sedated. X-ray still shows a large amount of bilateral pleural effusion. She is sedated when she barely opens her eyes. OBJECTIVE: VITAL SIGNS: Saturations are 100%, blood pressure 126/85, pulse 70, atrial fibrillation, I's and O's negative. CHEST: Decreased breath sounds. Bilateral rhonchi. CARDIAC: Normal S1 and S2. No gallops. ABDOMEN: No masses. LABORATORY DATA: PO2 of 115, pCO2 of 20, pH 7.51, PEEP of 7, 450, 60%. Blood culture, right arm, coagulase-negative Staph. IMPRESSION: Respiratory failure, congestive heart failure, bilateral pleural effusion, anemia, severe deconditioning, chronic renal failure. PLAN: She is not weanable at this stage. We will continue diuretics, nutrition, PT, supportive care. One-half hour of critical care time. Job ID: [id number]
--- NOTE | 2020-05-29 10:04 | PDOC.HOSPP ---
- Subjective Encounter Date: 05/29/20 Encounter Time: 10:00 Subjective: Patient remains sedated on the vent. No changes overnight. - Objective Vital Signs & Weight: Vital Signs (12 hours) Temp Pulse Resp BP 05/29/20 08:00 22 H 05/29/20 07:52 91 128/67 05/29/20 07:00 99.7 F H 05/29/20 06:00 20 05/29/20 04:00 98.7 F 18 05/29/20 02:00 17 05/29/20 00:00 98.8 F 17 Weight Weight 159 lb 9.835 oz Most Recent Monitor Data Heart Rate from ECG 70 NIBP 128/65 NIBP BP-Mean 86 Respiration from ECG 19 SpO2 100 I&O: 05/28/20 05/29/20 05/30/20 06:59 06:59 06:59 Intake Total 1542 868 Output Total 668 1925 380 Balance 877 -1057 -380 Result Diagrams: 05/29/20 09:29 05/29/20 09:29 Additional Labs: Accuchecks 05/28/20 05/28/20 05/28/20 21:51 17:00 14:00 POC Glucose 124 H 131 H 116 H Hospitalist ROS - Review of Systems ROS unobtainable: due to endotracheal tube - Medication Medications: Active Medications Generic Name Dose Route Start Last Admin Trade Name Freq PRN Reason Stop Dose Admin Enoxaparin Sodium 30 mg 05/28/20 09:00 05/29/20 07:49 Lovenox SC 30 mg 0900 RONALD Administration Famotidine 20 mg 05/27/20 21:00 05/28/20 20:03 Pepcid SLOW IVP 20 mg 2100 RONALD Administration Furosemide 40 mg 05/28/20 06:00 05/29/20 05:25 Lasix SLOW IVP 40 mg 0600,1400 RONALD Administration Fentanyl Citrate 2,000 mcg/ 100 mls @ 0 mls/hr 05/27/20 17:28 05/28/20 13:24 Sodium Chloride IV 06/26/20 17:28 100 mls INF RONALD Administration Protocol Per Protocol Cefepime HCl 1 gm/ Sodium 100 mls @ 200 mls/hr 05/28/20 16:00 05/28/20 15:27 Chloride IVPB 100 mls 1600 RONALD Administration Insulin Human Lispro 0 units 05/27/20 18:01 05/27/20 23:34 Humalog SC 2 unit .MILD SLIDING SCALE PRN Administration Mild Correctional Scale Lorazepam 2 mg 05/27/20 17:28 05/29/20 09:34 Ativan SLOW IVP 06/26/20 17:28 2 mg Q1H PRN Administration Breakthrough agitation Propofol 1,000 mg 05/27/20 17:28 05/29/20 08:14 Diprivan IV 06/26/20 17:28 1,000 mg INF PRN Administration TO ACHIEVE GOAL RASS Protocol - Exam General - other findings: sedated on vent ENT: moist mucosa Heart: RRR, no murmur, no gallops, no rubs Respiratory - other findings: coarse breath sounds bilaterally Gastrointestinal: soft, non-tender, non-distended, normal bowel sounds Extremities: no edema Psychiatric - other findings: sedated on the vent, flutters eyes to stimulation Hosp A/P (1) Acute on chronic respiratory failure with hypoxia Code(s): J96.21 - ACUTE AND CHRONIC RESPIRATORY FAILURE WITH HYPOXIA Status: Acute (2) Acute on chronic diastolic (congestive) heart failure Code(s): I50.33 - ACUTE ON CHRONIC DIASTOLIC (CONGESTIVE) HEART FAILURE Status : Acute (3) Pleural effusion Code(s): J90 - PLEURAL EFFUSION, NOT ELSEWHERE CLASSIFIED Status: Acute (4) Anemia, normocytic normochromic Code(s): D64.9 - ANEMIA, UNSPECIFIED Status: Chronic Plan: worsening (5) Acute worsening of stage 3 chronic kidney disease Code(s): N18.3 - CHRONIC KIDNEY DISEASE, STAGE 3 (MODERATE) Status: Acute (6) Diabetes mellitus with insulin therapy Code(s): E11.9 - TYPE 2 DIABETES MELLITUS WITHOUT COMPLICATIONS; 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
[2020-05-29 10:07] LABS: Anion Gap 14 mmol/L (10-20); BUN (Urea Nitrogen) 38 mg/dL (9.8-20.1); Calc. Creatinine Clearance 29 mL/min (70-130); Calcium 7.4 mg/dL (7.8-10.44); Carbon Dioxide 22 mmol/L (22-29); Chloride 108 mmol/L (98-107); Estimated GFR-MDRD 24; Glucose 83 mg/dL (70-105); Potassium 3.8 mmol/L (3.5-5.1); Sodium 140 mmol/L (136-145)
[2020-05-29] MEDS: fentaNYL Citrate/PF 2,000 MCG in Sodium Chloride 0.9% 60 ML IV SCH (11:00)
--- NOTE | 2020-05-29 15:35 | PQF ---
DATE: 05-29-20 ATTN: DR. MARY PEREZ Please exercise your independent, professional judgment in responding to the clarification form. Clinical indicators are provided on the bottom of this form for your review Please check appropriate box(s) to clarify if the following diagnosis has been ruled in or ruled out: PNEUMONIA [ X ] Ruled in diagnosis [ X ] Continue to treat [ ] Resolved [ ] Ruled out diagnosis [ ] Other diagnosis [ ] Unable to determine In addition, please specify: Present on Admission (POA): [ X ] Yes [ ] No [ ] Unable to determine For continuity of documentation, please document condition throughout progress notes and discharge summary. Thank You. CLINICAL INDICATORS - SIGNS / SYMPTOMS / LABS / RESULTS AND LOCATION IN MR: ER DX 05-27-20: HYPOXIC RESPIRATORY FAILURE, PNEUMONIA WBC: 05-27-20: 15.8, 05-28-20: 19.6 05-29-20: 13.4 TEMP: 05-27-20: 99.8, 05-29-20: 99.7 ER: 99.9 RR: ER: 26, 32, 28, 38, 36, SAT'S: ER: 78 NONREBREATHER, 72 NONREBREATHER, 93 ON BIPAP, 95 ON VENT RISK FACTORS / RESULTS AND LOCATION IN MR: H&P: 05-27-20: RECENTLY IN HOSPITAL FOR ACUTE RESPIRATORY FAILURE WITH HYPOXIA , PNEUMONIA VS CHF EXACERBATION, H&P: 05-27-20: ACUTE RESPIRATORY FAILURE WITH HYPOXIA, THIS IS POSSIBLY SECONDARY TO PULMONARY EDEMA VS PNEUMONIA. TREATMENTS / RESULTS AND LOCATION IN MR: ER NOTES 05-27-20: CEFEPIME IV, LEVOFLOXACIN IV, VANCOMYCIN IV (This form is maintained as a part of the permanent medical record) 2014 [employer]. All Rights Reserved [email or web address] [email or web address]
--- NOTE | 2020-05-29 16:18 | PDOC.CPN ---
- Subjective Date: 05/29/20 Time: 16:23 Interval history: The pt seen and examined. No overnight events. No vent with sedation - Objective Allergies/Adverse Reactions: Allergies Allergy/AdvReac Type Severity Reaction Status Date / Time No Known Drug Allergies Allergy Verified 05/15/20 03:15 Visit Medications: Current Medications Acetaminophen (Tylenol) 650 mg PO Q4H PRN PRN Reason: Headache/Fever/Mild Pain (1-3) Acetaminophen (Tylenol) 650 mg WA Q4H PRN PRN Reason: Headache/Fever/Mild Pain (1-3) Bisacodyl (Dulcolax) 10 mg [place] DAILYPRN PRN PRN Reason: Constipation Dextrose/Water (Dextrose 50%) 25 gm SLOW IVP PRN PRN PRN Reason: Hypoglycemia Enoxaparin Sodium (Lovenox) 30 mg SC 0900 [facility] Last Admin: 05/29/20 07:49 Dose: 30 mg Famotidine (Pepcid) 20 mg SLOW IVP 2100 [facility] Last Admin: 05/28/20 20:03 Dose: 20 mg Furosemide (Lasix) 40 mg SLOW IVP 0600,1400 [facility] Last Admin: 05/29/20 13:47 Dose: 40 mg Glucagon (Glucagon) 1 mg IM PRN PRN PRN Reason: Hypoglycemia Fentanyl Citrate 2,000 mcg/ (Sodium Chloride) 100 mls @ 0 mls/hr IV INF RONALD; Protocol Stop: 06/26/20 17:28 Last Admin: 05/29/20 11:00 Dose: 100 mls Fentanyl Citrate (Fentanyl Bolus) 250 mls @ 0 mls/hr IVPB PRN PRN PRN Reason: Breakthrough pain/agitation Stop: 06/26/20 17:28 Cefepime HCl 1 gm/ Sodium (Chloride) 100 mls @ 200 mls/hr IVPB 1600 [facility] Last Admin: 05/28/20 15:27 Dose: 100 mls Levofloxacin 750 mg/ Device 150 mls @ 100 mls/hr IVPB Q2D [facility] Last Admin: 05/29/20 15:10 Dose: 150 mls Vancomycin HCl 1 gm/ Device 200 mls @ 200 mls/hr IVPB .PENDING LEVEL [facility] Dextrose/Water (D5w) 1,000 mls @ 0 mls/hr IV .Q0M PRN PRN Reason: Hypoglycemia Insulin Human Lispro (Humalog) 0 units SC .MILD SLIDING SCALE PRN PRN Reason: Mild Correctional Scale Last Admin: 05/27/20 23:34 Dose: 2 unit Insulin Human Lispro (Humalog) 0 units SC .BEDTIME SLIDING SC PRN PRN Reason: Bedtime Correctional Scale Lorazepam (Ativan) 2 mg SLOW IVP Q1H PRN PRN Reason: Breakthrough agitation Stop: 06/26/20 17:28 Last Admin: 05/29/20 09:34 Dose: 2 mg Miscellaneous Medication (Electrolyte Replacement Protocol) 0 each FS PRN PRN PRN Reason: LABS Miscellaneous Medication (Pharmacy To Dose) 1 each IVPB .VANCOMYCIN PRN PRN Reason: Pharmacy to dose Morphine Sulfate (Morphine) 2 mg SLOW IVP Q1H PRN PRN Reason: BREAKTHROUGH PAIN/Agitation Stop: 06/26/20 17:28 Discontinue Previous Narcotic Pain Medications And Benzodiazepines 1 each FS .ONE RONALD Stop: 06/26/20 17:28 Ondansetron HCl (Zofran Odt) 4 mg PO Q6H PRN PRN Reason: Nausea/Vomiting Ondansetron HCl (Zofran) 4 mg IVP Q6H PRN PRN Reason: Nausea/Vomiting Propofol (Diprivan) 1,000 mg IV INF PRN; Protocol PRN Reason: TO ACHIEVE GOAL RASS Stop: 06/26/20 17:28 Last Admin: 05/29/20 08:14 Dose: 1,000 mg Propofol (Diprivan Bolus) 20 mg IV Q5MIN PRN PRN Reason: BREAKTHROUGH AGITATION Stop: 06/26/20 17:28 Sodium Chloride (Flush - Normal Saline) 10 ml IVF PRN PRN PRN Reason: Saline Flush Vital Signs & Weight: Vital Signs Temp Pulse Pulse Pulse Resp BP BP 05/29/20 14:57 72 139/71 05/29/20 14:00 14 05/29/20 12:00 99.4 F 21 H 05/29/20 11:47 72 74 142/77 H 05/29/20 11:29 72 131/66 05/29/20 10:00 25 H 05/29/20 08:00 22 H 05/29/20 07:52 91 128/67 05/29/20 07:00 99.7 F H 05/29/20 06:00 20 BP Pulse Ox Pulse Ox 05/29/20 14:57 05/29/20 14:00 05/29/20 12:00 05/29/20 11:47 140/71 100 100 05/29/20 11:29 05/29/20 10:00 05/29/20 08:00 05/29/20 07:52 05/29/20 07:00 05/29/20 06:00 Admit Weight 159 lb Weight 159 lb 9.835 oz - Physical Exam Cardiac: regular rhythm Lungs: decreased breath sounds Extremities: no edema - Labs Result Diagrams: 05/29/20 09:29 05/29/20 09:29 Troponin/CKMB CK-MB (CK-2) 2.0 ng/mL (0-6.6) 05/27/20 14:31 Troponin I 0.105 ng/mL (< 0.028) H 05/27/20 14:31 - Telemetry Sinus rhythms and dysrhythmias: sinus rhythm - Assessment/Plan Assessment/Plan: 1. type 2 NSTEMI - most likely demand ischemia from Acute issues 2. Acute on chronic Diastolic HF - stable with Lasix 40mg BID; Will start Coreg 3.125mg BID; Not on ISAAC/ARB due to hx of CKD 3. COPD exc - on Vent 4. Pleural effusion - on Lasix 40mg IV BID 5. CAD with hx of multiple stents - on Coreg and statin; not on ASA or Plavix due to anemia 6. HTN - stable 7. NITIN on CKD - unchanged 8. DM type 2 9. Anemia - unchanged MAR reviewed * Echo on 05/18/2020 with EF 55-60%, grade II dd, mild LAE, mod MR, mild AR and TR, and RVSP 40 mmHg Pt. seen and eval. by me. I agree with the A/P by the JOB ORDER CLERK. I have followed this pt. for eva years but she has not been seen in the office for several years.. At this time I would agree with the present medications. She has severe 3 vessel CAD but remarkably the EF is still good. Her diastolic dysfunction is a significant contributor of the CHF. I will continue to follow the pt. with you.
[2020-05-29] MEDS: Cefepime 1 GM in Sodium Chloride 0.9% 100 ML IVPB SCH (16:36)
[2020-05-29 18:31] LABS: Vancomycin, Random 23.4 ug/mL (See Comment)
[2020-05-29] MEDS: Famotidine/PF 20 mg/2ml Vial SLOW IVP SCH (20:00)
[2020-05-29] MEDS: Carvedilol 3.125 MG TAB PO SCH (20:00)
[2020-05-30] MEDS: Propofol 1,000 MG/100 ML VIAL IV PRN ×2 (01:19→07:46)
[2020-05-30 03:34] LABS: #Eosinphils 0.3 thou/uL (0.0-0.7); #Lymphocytes 1.1 thou/uL (1.20-3.40); #Monocytes 0.7 thou/uL (0.11-0.59); #Neutrophils 8.5 thou/uL (1.40-6.50); %Basophils 0.4 % (0.0-1.0); %Eosinophils 2.9 % (0.0-10.0); %Lymphocytes 10.5 % (21.0-51.0); %Monocytes 6.2 % (0.0-10.0); %Neutrophils 80.1 % (42.0-75.0); Hemoglobin 7.3 g/dL (12.0-16.0); Mean Corpuscular HGB CONC 33.2 g/dL (32.0-36.0); Mean Corpuscular Hemoglobin 29.6 pg (27.0-31.0); Mean Corpuscular Volume 89.2 fL (78.0-98.0); Mean Platelet Volume 8.6 fL (7.4-10.4); Platelet Count 217 thou/uL (130-400); RBC Distribution Width 16.7 % (11.5-14.5); Red Blood Cell (RBC) Count 2.47 mill/uL (4.20-5.40); White Blood Cell (WBC) Count 10.6 thou/uL (4.8-10.8)
[2020-05-30 03:44] LABS: Anion Gap 13 mmol/L (10-20); BUN (Urea Nitrogen) 35 mg/dL (9.8-20.1); Calc. Creatinine Clearance 31 mL/min (70-130); Calcium 7.2 mg/dL (7.8-10.44); Carbon Dioxide 24 mmol/L (22-29); Chloride 109 mmol/L (98-107); Estimated GFR-MDRD 26; Glucose 90 mg/dL (70-105); Potassium 3.2 mmol/L (3.5-5.1); Sodium 143 mmol/L (136-145)
[2020-05-30] MEDS: Furosemide 40 MG/4 ML VIAL SLOW IVP SCH ×2 (05:08→14:03)
[2020-05-30 07:18] LABS: Actual Bicarbonate (HCO3a) 22.1 mEq/L (22-28); Base Excess (BEa) -1.6 mEq/L (-2.0 to +3.0); CO2 Tension 32.6 mmHg (35.0-45.0); Calcium, Ionized (arterial) 1.03 mmol/L (1.12-1.30); Carboxyhemoglobin (COHb) 0.8 gm% (0.0-3.0); Hemoglobin (Hb) 6.7 g/dL (12.0-16.0); O2 Tension (PaO2), arterial 82.1 mmHg (80.0-100.0); Potassium - ABG Lab 3.26 mmol/L (3.70-5.30); pH, Arterial 7.45 (7.35-7.45)
[2020-05-30 07:19] LABS: Puncture Site RR
--- NOTE | 2020-05-30 07:51 | RAD ---
EXAM: Single view of the chest HISTORY: Ventilated patient with respiratory failure COMPARISON: 05/29/2020 FINDINGS: Single view of the chest shows an enlarged but stable cardiomediastinal silhouette. The li elias and tubes are unchanged in position. Worsening bilateral veil-like opacities likely represent moderate pleural effusions. Adjacent atelectasis may be present. The bones are unremarkable. IMPRESSION: Worsening bilateral pleural effusions.
[2020-05-30] MEDS: fentaNYL Citrate/PF 2,000 MCG in Sodium Chloride 0.9% 60 ML IV SCH (08:18)
--- NOTE | 2020-05-30 08:50 | PDOC.HOSPP ---
- Subjective Encounter Date: 05/30/20 Encounter Time: 11:00 non-verbal Subjective: Patient remains sedated on the vent. No events overnight. - Objective Vital Signs & Weight: Vital Signs (12 hours) Pulse Resp BP 05/30/20 07:32 85 96/70 05/30/20 06:00 21 H 05/30/20 04:00 22 H 05/30/20 03:24 80 124/66 05/30/20 02:00 22 H 05/30/20 01:15 70 05/30/20 00:00 20 05/29/20 22:40 72 115/66 05/29/20 22:00 21 H Weight Admit Weight 159 lb Weight 155 lb 6.814 oz Most Recent Monitor Data Heart Rate from ECG 88 NIBP 96/70 NIBP BP-Mean 78 Respiration from ECG 15 SpO2 100 I&O: 05/29/20 05/30/20 05/31/20 06:59 06:59 06:59 Intake Total 868 1268 Output Total 4820 9934 Balance -0690 -1172 Result Diagrams: 05/30/20 03:00 05/30/20 03:00 Hospitalist ROS - Review of Systems ROS unobtainable: due to endotracheal tube - Medication Medications: Active Medications Generic Name Dose Route Start Last Admin Trade Name Freq PRN Reason Stop Dose Admin Carvedilol 3.125 mg 05/29/20 21:00 05/29/20 20:00 Coreg PO 3.125 mg BID RONALD Administration Enoxaparin Sodium 30 mg 05/28/20 09:00 05/29/20 07:49 Lovenox SC 30 mg 0900 RONALD Administration Famotidine 20 mg 05/27/20 21:00 05/29/20 20:00 Pepcid SLOW IVP 20 mg 2100 RONALD Administration Furosemide 40 mg 05/28/20 06:00 05/30/20 05:08 Lasix SLOW IVP 40 mg 0600,1400 RONALD Administration Fentanyl Citrate 2,000 mcg/ 100 mls @ 0 mls/hr 05/27/20 17:28 05/30/20 08:18 Sodium Chloride IV 06/26/20 17:28 100 mls INF RONALD Administration Protocol Per Protocol Cefepime HCl 1 gm/ Sodium 100 mls @ 200 mls/hr 05/28/20 16:00 06/29/20 16:36 Chloride IVPB 100 mls 1600 RONALD Administration Levofloxacin 750 mg/ Device 150 mls @ 100 mls/hr 05/29/20 15:00 05/29/20 15: 10 IVPB 150 mls Q2D RONALD Administration Insulin Human Lispro 0 units 05/27/20 18:01 05/27/20 23:34 Humalog SC 2 unit .MILD SLIDING SCALE PRN Administration Mild Correctional Scale Lorazepam 2 mg 05/27/20 17:28 05/29/20 21:45 Ativan SLOW IVP 06/26/20 17:28 2 mg Q1H PRN Administration Breakthrough agitation Propofol 1,000 mg 05/27/20 17:28 05/30/20 07:46 Diprivan IV 06/26/20 17:28 1,000 mg INF PRN Administration TO ACHIEVE GOAL RASS Protocol - Exam General Appearance: NAD General - other findings: sedated on the vent ENT: moist mucosa Neck - other findings: right IJ CVL in place Heart: RRR, no murmur, no gallops, no rubs Respiratory: CTAB, no wheezes, no rales, no ronchi Gastrointestinal: soft, non-tender, non-distended, normal bowel sounds Psychiatric - other findings: sedated on the vent Hosp A/P (1) Acute on chronic respiratory failure with hypoxia Code(s): J96.21 - ACUTE AND CHRONIC RESPIRATORY FAILURE WITH HYPOXIA Status: Acute (2) Acute on chronic diastolic (congestive) heart failure Code(s): I50.33 - ACUTE ON CHRONIC DIASTOLIC (CONGESTIVE) HEART FAILURE Status : Acute (3) Pneumonia Code(s): J18.9 - PNEUMONIA, UNSPECIFIED ORGANISM Status: Acute Qualifiers: Laterality: bilateral Lung location: unspecified part of lung (4) Pleural effusion Code(s): J90 - PLEURAL EFFUSION, NOT ELSEWHERE CLASSIFIED Status: Acute (5) Anemia, normocytic normochromic Code(s): D64.9 - ANEMIA, UNSPECIFIED Status: Chronic (6) Acute worsening of stage 3 chronic kidney disease Code(s): N18.3 - CHRONIC KIDNEY DISEASE, STAGE 3 (MODERATE) Status: Acute (7) Diabetes mellitus with insulin therapy Code(s): E11.9 - TYPE 2 DIABETES MELLITUS WITHOUT COMPLICATIONS; Z79.4 - HAT BLOCK BENCH HAND (CURRENT) USE OF INSULIN Status: Chronic (8) Hypertension Code(s): I10 - ESSENTIAL (PRIMARY) HYPERTENSION Status: Chronic Qualifiers: Hypertension type: essential hypertension Qualified Code(s): I10 - Essential (primary) hypertension - Plan Patient remains sedated on the vent Diuresing as tolerated Cefepime, Levaquin, and Vancomycin since 05/27/2020 Cardiology giving a little blood to help cardiac function DVT proph: Lovenox renal dose GI proph: Pepcid BID
[2020-05-30] MEDS: Lorazepam 2 MG/ML VIAL SLOW IVP PRN ×2 (09:25→21:34)
[2020-05-30] MEDS: Enoxaparin Sodium 30 MG/0.3 ML SYRINGE SC SCH (09:40)
[2020-05-30] MEDS: Carvedilol 3.125 MG TAB PO SCH ×2 (09:41→21:34)
--- NOTE | 2020-05-30 11:42 | PDOC.CPN ---
- Subjective Date: 05/30/20 Time: 11:00 - Review of Systems ROS unobtainable: due to endotracheal tube - Objective Allergies/Adverse Reactions: Allergies Allergy/AdvReac Type Severity Reaction Status Date / Time No Known Drug Allergies Allergy Verified 05/15/20 03:15 Visit Medications: Current Medications Acetaminophen (Tylenol) 650 mg PO Q4H PRN PRN Reason: Headache/Fever/Mild Pain (1-3) Acetaminophen (Tylenol) 650 mg MD Q4H PRN PRN Reason: Headache/Fever/Mild Pain (1-3) Albuterol/Ipratropium (Duoneb) 3 ml NEB [id number] RONALD Bisacodyl (Dulcolax) 10 mg MD DAILYPRN PRN PRN Reason: Constipation Carvedilol (Coreg) 3.125 mg PO BID [facility] Last Admin: 05/30/20 09:41 Dose: 3.125 mg Dextrose/Water (Dextrose 50%) 25 gm SLOW IVP PRN PRN PRN Reason: Hypoglycemia Enoxaparin Sodium (Lovenox) 30 mg SC 0900 [facility] Last Admin: 05/30/20 09:40 Dose: 30 mg Famotidine (Pepcid) 20 mg SLOW IVP 2100 [facility] Last Admin: 05/29/20 20:00 Dose: 20 mg Furosemide (Lasix) 40 mg SLOW IVP 0600,1400 [facility] Last Admin: 05/30/20 05:08 Dose: 40 mg Glucagon (Glucagon) 1 mg IM PRN PRN PRN Reason: Hypoglycemia Fentanyl Citrate 2,000 mcg/ (Sodium Chloride) 100 mls @ 0 mls/hr IV INF RONALD; Protocol Stop: 06/26/20 17:28 Last Admin: 05/30/20 08:18 Dose: 100 mls Fentanyl Citrate (Fentanyl Bolus) 250 mls @ 0 mls/hr IVPB PRN PRN PRN Reason: Breakthrough pain/agitation Stop: 06/26/20 17:28 Vancomycin HCl 1 gm/ Device 200 mls @ 200 mls/hr IVPB .PENDING LEVEL [facility] Dextrose/Water (D5w) 1,000 mls @ 0 mls/hr IV .Q0M PRN PRN Reason: Hypoglycemia Piperacillin Sod/Tazobactam (Sod 2.25 gm/ Sodium Chloride) 100 mls @ 200 mls/ hr IVPB Q8HR [facility] Insulin Human Lispro (Humalog) 0 units SC .MILD SLIDING SCALE PRN PRN Reason: Mild Correctional Scale Last Admin: 05/27/20 23:34 Dose: 2 unit Insulin Human Lispro (Humalog) 0 units SC .BEDTIME SLIDING SC PRN PRN Reason: Bedtime Correctional Scale Lorazepam (Ativan) 2 mg SLOW IVP Q1H PRN PRN Reason: Breakthrough agitation Stop: 06/26/20 17:28 Last Admin: 05/30/20 09:25 Dose: 2 mg Miscellaneous Medication (Electrolyte Replacement Protocol) 0 each FS PRN PRN PRN Reason: LABS Miscellaneous Medication (Pharmacy To Dose) 1 each IVPB .VANCOMYCIN PRN PRN Reason: Pharmacy to dose Morphine Sulfate (Morphine) 2 mg SLOW IVP Q1H PRN PRN Reason: BREAKTHROUGH PAIN/Agitation Stop: 06/26/20 17:28 Discontinue Previous Narcotic Pain Medications And Benzodiazepines 1 each FS .ONE RONALD Stop: 06/26/20 17:28 Ondansetron HCl (Zofran Odt) 4 mg PO Q6H PRN PRN Reason: Nausea/Vomiting Ondansetron HCl (Zofran) 4 mg IVP Q6H PRN PRN Reason: Nausea/Vomiting Propofol (Diprivan) 1,000 mg IV INF PRN; Protocol PRN Reason: TO ACHIEVE GOAL RASS Stop: 06/26/20 17:28 Last Admin: 05/30/20 07:46 Dose: 1,000 mg Propofol (Diprivan Bolus) 20 mg IV Q5MIN PRN PRN Reason: BREAKTHROUGH AGITATION Stop: 06/26/20 17:28 Sodium Chloride (Flush - Normal Saline) 10 ml IVF PRN PRN PRN Reason: Saline Flush Vital Signs & Weight: Vital Signs Pulse Resp BP 05/30/20 10:48 78 128/66 05/30/20 10:34 79 128/66 05/30/20 10:00 23 H 05/30/20 08:00 23 H 05/30/20 07:32 85 96/70 05/30/20 06:00 21 H 05/30/20 04:00 22 H 05/30/20 03:24 80 124/66 05/30/20 02:00 22 H 05/30/20 01:15 70 05/30/20 00:00 20 Admit Weight 159 lb Weight 155 lb 6.814 oz - Quality Measures CV meds: Beta Mukesh: Yes, ISAAC/ARB: No (CKD), ASA: Yes - Physical Exam General: other (sedated on the vent) Neck: supple neck Cardiac: regular rate and rhythm, systolic murmur (apical c/w MR) Lungs: scattered rhonchi Abdomen: unremarkable Extremities: no edema - Labs Result Diagrams: 05/30/20 03:00 05/30/20 03:00 Troponin/CKMB CK-MB (CK-2) 2.0 ng/mL (0-6.6) 05/27/20 14:31 Troponin I 0.105 ng/mL (< 0.028) H 05/27/20 14:31 - EKG Interpretation EKG: sinus rhythm - Assessment/Plan Assessment/Plan: 1. type 2 NSTEMI - most likely demand ischemia from Acute issues 2. Acute on chronic Diastolic HF - stable with Lasix 40mg BID; Will start Coreg 3.125mg BID; Not on ISAAC/ARB due to hx of CKD 3. COPD/PNA - on Vent 4. Pleural effusion - on Lasix 40mg IV BID, good output. continue to follow. 5. CAD with hx of multiple stents - on Coreg and statin; not on ASA or Plavix due to anemia 6. HTN - stable 7. NITIN on CKD - unchanged 8. DM type 2 9. Anemia - unchanged. Hgb. still > 7.0. With her CHF and CAD should wpould like ;ly benefit from at least one unit of PRBC MAR reviewed * Echo on 05/18/2020 with EF 55-60%, grade II dd, mild LAE, mod MR, mild AR and TR, and RVSP 40 mmHg
[2020-05-30] MEDS: Piperacillin/Tazobactam 2.25 GM in Sodium Chloride 0.9% 100 ML IVPB SCH ×2 (14:04→21:35)
--- NOTE | 2020-05-30 16:43 | PRG ---
DATE OF SERVICE: 05/30/2020 SUBJECTIVE: This morning, she remains intubated on the vent, sedated. OBJECTIVE: VITAL SIGNS: Pulse 75, blood pressure 100/60, respiratory rate is 20, saturations are 100%. I's and O's have been consistently negative. CHEST: Bilateral rhonchi and crackles. CARDIAC: Normal S1, S2. No gallops. ABDOMEN: No masses. LABORATORY DATA: White count 10,000, H and H of 7 and 22, platelet count 217. PO2 of 82, pCO2 of 32, PH of 7.45, 40%. Creatinine is 2.38, BUN is 35. Blood cultures growing Enterococcus from the right arm, I am unclear whether this is a true pathogen. IMPRESSION: Enterococcus faecalis sepsis, sensitive to penicillin; respiratory failure; bilateral pleural effusion; congestive heart failure; acute renal failure; underlying chronic obstructive pulmonary disease. PLAN: She is not weanable. I have switched over to Zosyn, probably discontinue the vancomycin tomorrow. Neb treatment is initiated. Until the pleural effusion gets better, she is not weanable. If x-ray does not improve tomorrow may consider doing a CT of the chest. TIME SPENT: One-half hour of critical care time. Job ID: [id number]
[2020-05-30 16:48] LABS: Vancomycin, Random 17.4 ug/mL (See Comment)
[2020-05-30] MEDS ORDERED: Vancomycin HCl 500 MG in Sodium Chloride 0.9% 100 ML IVPB SCH (17:00)
[2020-05-30] MEDS: Famotidine/PF 20 mg/2ml Vial SLOW IVP SCH (21:34)
[2020-05-31] MEDS: Lorazepam 2 MG/ML VIAL SLOW IVP PRN (04:41)
[2020-05-31] MEDS: fentaNYL Citrate/PF 2,000 MCG in Sodium Chloride 0.9% 60 ML IV SCH (04:43)
[2020-05-31] MEDS: Propofol 1,000 MG/100 ML VIAL IV PRN ×3 (04:46→19:29)
[2020-05-31] MEDS: Piperacillin/Tazobactam 2.25 GM in Sodium Chloride 0.9% 100 ML IVPB SCH ×3 (05:00→21:06)
[2020-05-31] MEDS: Furosemide 40 MG/4 ML VIAL SLOW IVP SCH ×2 (05:00→14:34)
[2020-05-31 05:11] LABS: #Eosinphils 0.3 thou/uL (0.0-0.7); #Lymphocytes 1.1 thou/uL (1.20-3.40); #Monocytes 0.8 thou/uL (0.11-0.59); %Basophils 0.1 % (0.0-1.0); %Eosinophils 3.3 % (0.0-10.0); %Lymphocytes 12.3 % (21.0-51.0); %Monocytes 8.9 % (0.0-10.0); %Neutrophils 75.4 % (42.0-75.0); Hemoglobin 8.4 g/dL (12.0-16.0); Mean Corpuscular HGB CONC 33.2 g/dL (32.0-36.0); Mean Corpuscular Hemoglobin 29.4 pg (27.0-31.0); Mean Corpuscular Volume 88.5 fL (78.0-98.0); Mean Platelet Volume 8.3 fL (7.4-10.4); Platelet Count 185 thou/uL (130-400); RBC Distribution Width 15.7 % (11.5-14.5); Red Blood Cell (RBC) Count 2.85 mill/uL (4.20-5.40); White Blood Cell (WBC) Count 9.3 thou/uL (4.8-10.8)
[2020-05-31 05:29] LABS: Anion Gap 14 mmol/L (10-20); BUN (Urea Nitrogen) 34 mg/dL (9.8-20.1); Calc. Creatinine Clearance 29 mL/min (70-130); Carbon Dioxide 23 mmol/L (22-29); Chloride 111 mmol/L (98-107); Estimated GFR-MDRD 25; Glucose 97 mg/dL (70-105); Potassium 3.6 mmol/L (3.5-5.1); Sodium 144 mmol/L (136-145)
[2020-05-31 08:04] LABS: Actual Bicarbonate (HCO3a) 21.8 mEq/L (22-28); Analyzer IN Cardio ER; Base Excess (BEa) -1.9 mEq/L (-2.0 to +3.0); CO2 Tension 32.5 mmHg (35.0-45.0); Calcium, Ionized (arterial) 0.95 mmol/L (1.12-1.30); Carboxyhemoglobin (COHb) 0.1 gm% (0.0-3.0); Hemoglobin (Hb) 8.9 g/dL (12.0-16.0); O2 Tension (PaO2), arterial 79.9 mmHg (80.0-100.0); Potassium - ABG Lab 3.63 mmol/L (3.70-5.30); pH, Arterial 7.44 (7.35-7.45)
[2020-05-31 08:05] LABS: ALV-art Gradient 164.675 (0-20); Puncture Site L.R.
--- NOTE | 2020-05-31 08:51 | RAD ---
PORTABLE CHEST 1 VIEW: DATE: 05/31/2020. TIME: 3:32 AM. HISTORY: Respiratory failure. COMPARISON: 05/30/2020. FINDINGS/IMPRESSION: Line and tubes remain in place. The heart size is normal. Bilateral pleural effusions with adjacent atelectatic changes seen. No pneumothoraces are identified. POS: [facility]
[2020-05-31] MEDS: Enoxaparin Sodium 30 MG/0.3 ML SYRINGE SC SCH (08:55)
[2020-05-31] MEDS: Carvedilol 3.125 MG TAB PO SCH ×2 (08:55→21:06)
--- NOTE | 2020-05-31 09:05 | PRG ---
DATE OF SERVICE: 05/31/2020 SUBJECTIVE: Sarah Gomez is still on Diprivan this morning, remains encephalopathic. OBJECTIVE: VITAL SIGNS: Temperature 98, blood pressure 137/84, saturations 100%, respirations 20, blood pressure 137/84. I's and O's negative. CHEST: Decreased breath sounds. No wheezing. CARDIAC: Normal S1, S2. No gallops. ABDOMEN: Soft without any masses. NEUROLOGIC: The patient is encephalopathic. DIAGNOSTIC STUDIES: X-ray shows slight improvement in the bilateral pleural effusion. Respiratory failure, pleural effusion, CHF much improved encephalopathy, renal failure. LABORATORY DATA: Creatinine is 2. The BUN is 34. White count 9000, H and H 8 and 24. PO2 is 79, pCO2 30, pH 7.44, rate of 10, 40%. Cultures growing Enterococcus faecalis. Sensitive to Zosyn. IMPRESSION: Respiratory failure, bilateral pleural effusion, congestive heart failure. Continue to hold sedation. She has made some improvement in the x-ray. Continue diuretics. PT nutrition. I would discontinue the vancomycin. TIME SPENT: One-half hour of critical time. Job ID: [id number]
--- NOTE | 2020-05-31 12:57 | PDOC.CPN ---
- Subjective Date: 05/31/20 Time: 13:00 Interval history: The pt seen and examined. No overnight events. On Vent without sedation; however, due to encephalopathy, she does not follow any commands - Objective Allergies/Adverse Reactions: Allergies Allergy/AdvReac Type Severity Reaction Status Date / Time No Known Drug Allergies Allergy Verified 05/15/20 03:15 Visit Medications: Current Medications Acetaminophen (Tylenol) 650 mg PO Q4H PRN PRN Reason: Headache/Fever/Mild Pain (1-3) Acetaminophen (Tylenol) 650 mg NC Q4H PRN PRN Reason: Headache/Fever/Mild Pain (1-3) Albuterol/Ipratropium (Duoneb) 3 ml NEB [id number] REPLACED BY [facility] Last Admin: 05/31/20 12:15 Dose: 3 ml Bisacodyl (Dulcolax) 10 mg NC DAILYPRN PRN PRN Reason: Constipation Carvedilol (Coreg) 3.125 mg PO BID REPLACED BY [facility] Last Admin: 05/31/20 08:55 Dose: 3.125 mg Dextrose/Water (Dextrose 50%) 25 gm SLOW IVP PRN PRN PRN Reason: Hypoglycemia Enoxaparin Sodium (Lovenox) 30 mg SC 0900 [facility]PLACED BY [facility] Last Admin: 05/31/20 08:55 Dose: 30 mg Famotidine (Pepcid) 20 mg SLOW IVP 2100 REPLACED BY [facility] Last Admin: 05/30/20 21:34 Dose: 20 mg Furosemide (Lasix) 40 mg SLOW IVP 0600,1400 REPLACED BY [facility] Last Admin: 05/31/20 05:00 Dose: 40 mg Glucagon (Glucagon) 1 mg IM PRN PRN PRN Reason: Hypoglycemia Fentanyl Citrate 2,000 mcg/ (Sodium Chloride) 100 mls @ 0 mls/hr IV INF RONALD; Protocol Stop: 06/26/20 17:28 Last Admin: 05/31/20 04:43 Dose: 100 mls Fentanyl Citrate (Fentanyl Bolus) 250 mls @ 0 mls/hr IVPB PRN PRN PRN Reason: Breakthrough pain/agitation Stop: 06/26/20 17:28 Dextrose/Water (D5w) 1,000 mls @ 0 mls/hr IV .Q0M PRN PRN Reason: Hypoglycemia Piperacillin Sod/Tazobactam (Sod 2.25 gm/ Sodium Chloride) 100 mls @ 200 mls/ hr IVPB Q8HR [facility] Last Admin: 05/31/20 05:00 Dose: 100 mls Insulin Human Lispro (Humalog) 0 units SC .MILD SLIDING SCALE PRN PRN Reason: Mild Correctional Scale Last Admin: 05/27/20 23:34 Dose: 2 unit Insulin Human Lispro (Humalog) 0 units SC .BEDTIME SLIDING SC PRN PRN Reason: Bedtime Correctional Scale Lorazepam (Ativan) 2 mg SLOW IVP Q1H PRN PRN Reason: Breakthrough agitation Stop: 06/26/20 17:28 Last Admin: 05/31/20 04:41 Dose: 2 mg Miscellaneous Medication (Electrolyte Replacement Protocol) 0 each FS PRN PRN PRN Reason: LABS Morphine Sulfate (Morphine) 2 mg SLOW IVP Q1H PRN PRN Reason: BREAKTHROUGH PAIN/Agitation Stop: 06/26/20 17:28 Discontinue Previous Narcotic Pain Medications And Benzodiazepines 1 each FS .ONE RONALD Stop: 06/26/20 17:28 Ondansetron HCl (Zofran Odt) 4 mg PO Q6H PRN PRN Reason: Nausea/Vomiting Ondansetron HCl (Zofran) 4 mg IVP Q6H PRN PRN Reason: Nausea/Vomiting Propofol (Diprivan) 1,000 mg IV INF PRN; Protocol PRN Reason: TO ACHIEVE GOAL RASS Stop: 06/26/20 17:28 Last Admin: 05/31/20 12:35 Dose: 1,000 mg Propofol (Diprivan Bolus) 20 mg IV Q5MIN PRN PRN Reason: BREAKTHROUGH AGITATION Stop: 06/26/20 17:28 Sodium Chloride (Flush - Normal Saline) 10 ml IVF PRN PRN PRN Reason: Saline Flush Vital Signs & Weight: Vital Signs Temp Pulse Resp BP Pulse Ox 05/31/20 12:15 86 05/31/20 12:00 98.9 F 18 05/31/20 10:45 84 05/31/20 10:00 19 05/31/20 08:00 98.6 F 22 H 98 05/31/20 07:44 79 130/73 05/31/20 07:43 79 20 100 05/31/20 06:00 21 H 05/31/20 04:00 98.6 F 22 H Admit Weight 159 lb Weight 153 lb 3.54 oz - Quality Measures CV meds: Beta Mukesh: Yes, ISAAC/ARB: No (CKD), ASA: Yes - Physical Exam Cardiac: regular rate and rhythm, S1/S2 Lungs: decreased breath sounds Extremities: other: (generalized edema to upper extremities) - Labs Result Diagrams: 05/31/20 04:55 05/31/20 04:55 Troponin/CKMB CK-MB (CK-2) 2.0 ng/mL (0-6.6) 05/27/20 14:31 Troponin I 0.105 ng/mL (< 0.028) H 05/27/20 14:31 - Telemetry Sinus rhythms and dysrhythmias: sinus rhythm - Assessment/Plan Assessment/Plan: 1. Type 2 NSTEMI - most likely demand ischemia from Acute issues 2. Acute on chronic Diastolic HF - stable with Lasix 40mg BID and Coreg 3.125mg BID; Not on ISAAC/ARB due to hx of CKD 3. COPD/PNA - on Vent 4. Pleural effusion - on Lasix 40mg IV BID, good output. continue to follow. 5. CAD with hx of multiple stents - on Coreg and statin; on Lovenox 30mg qd 6. HTN - stable 7. NITIN on CKD - unchanged 8. DM type 2 9. Anemia with s/p 1 unit of PRBC on 05/30/2020 - Hgb today was 8.3 which was 7.3 yesterday; MAR reviewed * Echo on 05/18/2020 with EF 55-60%, grade II dd, mild LAE, mod MR, mild AR and TR, and RVSP 40 mmHg Pt. seen and eval. by me. I agree with the A/P by the STUDENT SERVICES ADVISOR. Chest : right sided rhonchi. RRR, no gross abnormalities noted.. no edema. Consider further cardiac eval. aftger she has recovered from the resp. failure. However, she is likely not a candidate for intervention due to her severe CAD. ana
[2020-05-31] MEDS: Famotidine/PF 20 mg/2ml Vial SLOW IVP SCH (21:06)
[2020-05-31] MEDS ORDERED: diphenhydrAMINE 25 MG CAP PO SCH (22:30)
[2020-06-01 04:22] LABS: #Eosinphils 0.4 thou/uL (0.0-0.7); #Lymphocytes 1.1 thou/uL (1.20-3.40); %Basophils 0.3 % (0.0-1.0); %Eosinophils 4.2 % (0.0-10.0); %Lymphocytes 11.1 % (21.0-51.0); %Monocytes 10.2 % (0.0-10.0); %Neutrophils 74.1 % (42.0-75.0); Hemoglobin 8.3 g/dL (12.0-16.0); Mean Corpuscular Hemoglobin 29.2 pg (27.0-31.0); Mean Corpuscular Volume 88.5 fL (78.0-98.0); Mean Platelet Volume 8.8 fL (7.4-10.4); Platelet Count 169 thou/uL (130-400); RBC Distribution Width 15.6 % (11.5-14.5); Red Blood Cell (RBC) Count 2.83 mill/uL (4.20-5.40); White Blood Cell (WBC) Count 9.4 thou/uL (4.8-10.8)
[2020-06-01 04:42] LABS: Anion Gap 14 mmol/L (10-20); BUN (Urea Nitrogen) 34 mg/dL (9.8-20.1); Calc. Creatinine Clearance 27 mL/min (70-130); Calcium 7.1 mg/dL (7.8-10.44); Carbon Dioxide 26 mmol/L (22-29); Chloride 109 mmol/L (98-107); Estimated GFR-MDRD 23; Glucose 113 mg/dL (70-105); Potassium 3.8 mmol/L (3.5-5.1); Sodium 145 mmol/L (136-145)
[2020-06-01] MEDS: Propofol 1,000 MG/100 ML VIAL IV PRN ×3 (04:49→23:31)
[2020-06-01] MEDS: Furosemide 40 MG/4 ML VIAL SLOW IVP SCH ×2 (05:05→13:52)
[2020-06-01] MEDS: Piperacillin/Tazobactam 2.25 GM in Sodium Chloride 0.9% 100 ML IVPB SCH ×3 (05:05→21:03)
[2020-06-01 07:15] LABS: Actual Bicarbonate (HCO3a) 24.1 mEq/L (22-28); Base Excess (BEa) -0.1 mEq/L (-2.0 to +3.0); CO2 Tension 37.4 mmHg (35.0-45.0); Calcium, Ionized (arterial) 0.97 mmol/L (1.12-1.30); Carboxyhemoglobin (COHb) 0.3 gm% (0.0-3.0); O2 Tension (PaO2), arterial 99.1 mmHg (80.0-100.0); Potassium - ABG Lab 3.77 mmol/L (3.70-5.30); pH, Arterial 7.43 (7.35-7.45)
[2020-06-01 07:16] LABS: Puncture Site L.R.
--- NOTE | 2020-06-01 08:02 | RAD ---
EXAM: CHEST ONE VIEW HISTORY: On ventilator. Follow-up evaluation. COMPARISON: 05/31/2020 FINDINGS: Endotracheal tube and nasogastric tube are stable in position. Right-sided vascular catheter is prese nt with tip overlying the mediastinum and difficult to further localize on this exam. This is stable in position compared to prior study. Bilateral pleural effusions are again seen larger in size on the right associated atelectasis. Superimposed pneumonia would be difficult to exclude. Cardiac silhouette is within normal limits for the portable technique of the study. Pulmonary vasculature is borderline increased. No other interval change. IMPRESSION: Overall stable chest given differences in technique and patient positioning.
[2020-06-01] MEDS: Carvedilol 3.125 MG TAB PO SCH ×2 (09:37→20:46)
[2020-06-01] MEDS: Enoxaparin Sodium 30 MG/0.3 ML SYRINGE SC SCH (09:37)
--- NOTE | 2020-06-01 09:40 | PRG ---
DATE OF SERVICE: 06/01/2020 SUBJECTIVE: Sarah Gomez remains intubated on the vent, sedated on Diprivan and fentanyl. OBJECTIVE: VITAL SIGNS: Blood pressure 118/65, pulse 72, saturations 99% on 40%, rate of 10, PEEP of 5. I's and O's have been negative. CHEST: Decreased breath sounds. Bilateral rhonchi. CARDIAC: Normal S1, S2. No gallops. ABDOMEN: Soft. EXTREMITIES: Trace edema. DATA: X-ray shows bilateral pleural effusion, right greater than left. PO2 is 99, pCO2 is 30 , rate of 10. White count 9000, H and H 8 and 25, platelet count is normal. Creatinine is 2.64. IMPRESSION: Respiratory failure, bilateral pleural effusion, congestive heart failure, renal failure. I am going to hold sedation today. I may consider weaning and extubation, may consider tapping the chest. We will follow, One half hour or critical time. Job ID: [id number]
--- NOTE | 2020-06-01 11:40 | PDOC.CPN ---
- Subjective Date: 06/01/20 Time: 08:30 Interval history: The pt seen and examined. No overnight events. On Vent with sedation at 0830 this AM. - Objective Allergies/Adverse Reactions: Allergies Allergy/AdvReac Type Severity Reaction Status Date / Time No Known Drug Allergies Allergy Verified 05/15/20 03:15 Visit Medications: Current Medications Acetaminophen (Tylenol) 650 mg PO Q4H PRN PRN Reason: Headache/Fever/Mild Pain (1-3) Acetaminophen (Tylenol) 650 mg [place] Q4H PRN PRN Reason: Headache/Fever/Mild Pain (1-3) Albuterol/Ipratropium (Duoneb) 3 ml NEB [id number] [facility] Last Admin: 06/01/20 07:03 Dose: 3 ml Bisacodyl (Dulcolax) 10 mg [place] DAILYPRN PRN PRN Reason: Constipation Carvedilol (Coreg) 3.125 mg PO BID [facility] Last Admin: 06/01/20 09:37 Dose: 3.125 mg Dextrose/Water (Dextrose 50%) 25 gm SLOW IVP PRN PRN PRN Reason: Hypoglycemia Enoxaparin Sodium (Lovenox) 30 mg SC 0900 [facility] Last Admin: 06/01/20 09:37 Dose: 30 mg Famotidine (Pepcid) 20 mg SLOW IVP 2100 [facility]ON[facility] Last Admin: 05/31/20 21:06 Dose: 20 mg Furosemide (Lasix) 40 mg SLOW IVP 0600,1400 [facility] Last Admin: 06/01/20 05:05 Dose: 40 mg Glucagon (Glucagon) 1 mg IM PRN PRN PRN Reason: Hypoglycemia Fentanyl Citrate 2,000 mcg/ (Sodium Chloride) 100 mls @ 0 mls/hr IV INF RONALD; Protocol Stop: 06/26/20 17:28 Last Admin: 05/31/20 04:43 Dose: 100 mls Fentanyl Citrate (Fentanyl Bolus) 250 mls @ 0 mls/hr IVPB PRN PRN PRN Reason: Breakthrough pain/agitation Stop: 06/26/20 17:28 Dextrose/Water (D5w) 1,000 mls @ 0 mls/hr IV .Q0M PRN PRN Reason: Hypoglycemia Piperacillin Sod/Tazobactam (Sod 2.25 gm/ Sodium Chloride) 100 mls @ 200 mls/ hr IVPB Q8HR [facility] Last Admin: 06/01/20 05:05 Dose: 100 mls Insulin Human Lispro (Humalog) 0 units SC .MILD SLIDING SCALE PRN PRN Reason: Mild Correctional Scale Last Admin: 05/27/20 23:34 Dose: 2 unit Insulin Human Lispro (Humalog) 0 units SC .BEDTIME SLIDING SC PRN PRN Reason: Bedtime Correctional Scale Lorazepam (Ativan) 2 mg SLOW IVP Q1H PRN PRN Reason: Breakthrough agitation Stop: 06/26/20 17:28 Last Admin: 05/31/20 04:41 Dose: 2 mg Morphine Sulfate (Morphine) 2 mg SLOW IVP Q1H PRN PRN Reason: BREAKTHROUGH PAIN/Agitation Stop: 06/26/20 17:28 Discontinue Previous Narcotic Pain Medications And Benzodiazepines 1 each FS .ONE [facility] Stop: 06/26/20 17:28 Ondansetron HCl (Zofran Odt) 4 mg PO Q6H PRN PRN Reason: Nausea/Vomiting Ondansetron HCl (Zofran) 4 mg IVP Q6H PRN PRN Reason: Nausea/Vomiting Propofol (Diprivan) 1,000 mg IV INF PRN; Protocol PRN Reason: TO ACHIEVE GOAL RASS Stop: 06/26/20 17:28 Last Admin: 06/01/20 04:49 Dose: 1,000 mg Propofol (Diprivan Bolus) 20 mg IV Q5MIN PRN PRN Reason: BREAKTHROUGH AGITATION Stop: 06/26/20 17:28 Sodium Chloride (Flush - Normal Saline) 10 ml IVF PRN PRN PRN Reason: Saline Flush Vital Signs & Weight: Vital Signs Temp Pulse Resp BP Pulse Ox 06/01/20 11:00 98.4 F 06/01/20 10:43 99 147/84 H 06/01/20 10:00 17 06/01/20 08:00 10 L 99 06/01/20 07:04 85 132/71 06/01/20 07:03 86 16 99 06/01/20 07:00 98.2 F 06/01/20 06:00 14 06/01/20 04:00 98.4 F 20 06/01/20 02:00 20 06/01/20 01:13 82 19 99 06/01/20 00:00 98.7 F 22 H Admit Weight 159 lb Weight 148 lb 9.465 oz - Quality Measures CV meds: Beta Mukesh: Yes, ISAAC/ARB: No (CKD), ASA: Yes - Physical Exam Cardiac: regular rhythm, S1/S2 Lungs: decreased breath sounds Extremities: no edema - Labs Result Diagrams: 06/01/20 03:45 06/01/20 03:45 Troponin/CKMB CK-MB (CK-2) 2.0 ng/mL (0-6.6) 05/27/20 14:31 Troponin I 0.105 ng/mL (< 0.028) H 05/27/20 14:31 - Telemetry Sinus rhythms and dysrhythmias: sinus rhythm - Assessment/Plan Assessment/Plan: 1. Type 2 NSTEMI - most likely demand ischemia from Acute issues; Consider further cardiac eval. aftger she has recovered from the resp. failure. However, she is likely not a candidate for intervention due to her severe CAD 2. Acute on chronic Diastolic HF - stable with Lasix 40mg BID and Coreg 3.125mg BID; Not on ISAAC/ARB due to hx of CKD 3. COPD/PNA - on Vent 4. Pleural effusion - on Lasix 40mg IV BID; may have thoracentesis by Dr Maurice. 5. CAD with hx of multiple stents - on Coreg and statin; on Lovenox 30mg qd 6. HTN - stable 7. NITIN on CKD - unchanged 8. DM type 2 9. Anemia with s/p 1 unit of PRBC on 05/30/2020 - Hgb unchanged MAR reviewed * Echo on 05/18/2020 with EF 55-60%, grade II dd, mild LAE, mod MR, mild AR and TR, and RVSP 40 mmHg Pt. seen and eval. by me. I agree with the A/P by the PEER SPECIALIST. CXR is not improved. Bilateral scattered rales,rhonchi. Still intubated,sedated.No edema. continue supportive care. AARON
[2020-06-01] MEDS: Famotidine/PF 20 mg/2ml Vial SLOW IVP SCH (20:46)
[2020-06-02 04:56] LABS: #Basophils 0.1 thou/uL (0.0-0.2); #Eosinphils 0.4 thou/uL (0.0-0.7); #Lymphocytes 1.3 thou/uL (1.20-3.40); #Monocytes 0.9 thou/uL (0.11-0.59); #Neutrophils 7.1 thou/uL (1.40-6.50); %Basophils 0.6 % (0.0-1.0); %Eosinophils 4.5 % (0.0-10.0); %Lymphocytes 13.5 % (21.0-51.0); %Monocytes 9.4 % (0.0-10.0); Hemoglobin 8.2 g/dL (12.0-16.0); Mean Corpuscular HGB CONC 33.1 g/dL (32.0-36.0); Mean Corpuscular Hemoglobin 29.4 pg (27.0-31.0); Mean Corpuscular Volume 88.8 fL (78.0-98.0); Mean Platelet Volume 8.7 fL (7.4-10.4); Platelet Count 148 thou/uL (130-400); RBC Distribution Width 15.7 % (11.5-14.5); White Blood Cell (WBC) Count 9.8 thou/uL (4.8-10.8)
[2020-06-02 05:13] LABS: Anion Gap 14 mmol/L (10-20); BUN (Urea Nitrogen) 35 mg/dL (9.8-20.1); Calc. Creatinine Clearance 25 mL/min (70-130); Calcium 7.3 mg/dL (7.8-10.44); Carbon Dioxide 27 mmol/L (22-29); Chloride 107 mmol/L (98-107); Estimated GFR-MDRD 22; Glucose 131 mg/dL (70-105); Potassium 3.7 mmol/L (3.5-5.1); Sodium 144 mmol/L (136-145)
[2020-06-02] MEDS: Furosemide 40 MG/4 ML VIAL SLOW IVP SCH ×2 (05:32→13:17)
[2020-06-02] MEDS: Piperacillin/Tazobactam 2.25 GM in Sodium Chloride 0.9% 100 ML IVPB SCH ×3 (05:32→21:26)
[2020-06-02] MEDS: Propofol 1,000 MG/100 ML VIAL IV PRN ×3 (06:03→20:16)
[2020-06-02 07:29] LABS: Actual Bicarbonate (HCO3a) 25.3 mEq/L (22-28); Base Excess (BEa) 0.2 mEq/L (-2.0 to +3.0); CO2 Tension 43.1 mmHg (35.0-45.0); Carboxyhemoglobin (COHb) 0.3 gm% (0.0-3.0); Hemoglobin (Hb) 8.4 g/dL (12.0-16.0); O2 Tension (PaO2), arterial 93.9 mmHg (80.0-100.0); Potassium - ABG Lab 3.66 mmol/L (3.70-5.30); pH, Arterial 7.39 (7.35-7.45)
[2020-06-02 07:53] LABS: ALV-art Gradient 137.425 (0-20); Puncture Site RRAD
[2020-06-02] MEDS: Enoxaparin Sodium 30 MG/0.3 ML SYRINGE SC SCH (08:14)
[2020-06-02] MEDS: Carvedilol 3.125 MG TAB PO SCH ×2 (08:14→20:32)
[2020-06-02] MEDS: HumaLOG 300 UNITS/3 ML VIAL SC PRN ×2 (09:30→15:52)
--- NOTE | 2020-06-02 11:56 | PRG ---
DATE OF SERVICE: 06/02/2020 SUBJECTIVE: Sarah Gomez is intubated on the vent and mildly sedated. She is pretty responsive when the sedation is withheld. OBJECTIVE: VITAL SIGNS: Temperature 98, pulse 97, blood pressure 144/77, saturations 100%, respiratory rate 18. I's and O's have been consistently negative. CHEST: Decreased breath sounds without any wheezing. CARDIAC: Normal S1, S2. No gallops. ABDOMEN: Soft. EXTREMITIES: Trace edema. LABORATORY DATA: White count is 9000, H and H 8 and 24, platelet count is normal, pO2 is 93, pCO2 is 43, pH of 7.39, rate of 4, 40% PEEP of 5, creatinine is 2.7. ASSESSMENT: Respiratory failure, congestive heart failure, bilateral pleural effusion. PLAN: She still remains encephalopathic. Hopefully, x-ray shows improvement of pleural effusion and she can probably wean and extubate at that time. She will continue PT, nutrition and empiric antibiotics. CRITICAL CARE TIME: One-half hour of critical time. Job ID: [id number]
--- NOTE | 2020-06-02 13:43 | PDOC.CPN ---
- Subjective Date: 06/02/20 Time: 08:30 Interval history: The pt seen and examined. No overnight events. No cardiac complaints. On vent , but no sedation at this moment - Objective Allergies/Adverse Reactions: Allergies Allergy/AdvReac Type Severity Reaction Status Date / Time No Known Drug Allergies Allergy Verified 05/15/20 03:15 Visit Medications: Current Medications Acetaminophen (Tylenol) 650 mg PO Q4H PRN PRN Reason: Headache/Fever/Mild Pain (1-3) Acetaminophen (Tylenol) 650 mg [place] Q4H PRN PRN Reason: Headache/Fever/Mild Pain (1-3) Albuterol/Ipratropium (Duoneb) 3 ml NEB [id number] [facility] Last Admin: 06/02/20 13:31 Dose: 3 ml Bisacodyl (Dulcolax) 10 mg [place] DAILYPRN PRN PRN Reason: Constipation Carvedilol (Coreg) 3.125 mg PO BID [facility] Last Admin: 06/02/20 08:14 Dose: 3.125 mg Dextrose/Water (Dextrose 50%) 25 gm SLOW IVP PRN PRN PRN Reason: Hypoglycemia Enoxaparin Sodium (Lovenox) 30 mg SC 0900 [facility] Last Admin: 06/02/20 08:14 Dose: 30 mg Famotidine (Pepcid) 20 mg SLOW IVP 2100 [facility] Last Admin: 06/01/20 20:46 Dose: 20 mg Furosemide (Lasix) 40 mg SLOW IVP 0600,1400 [facility] Last Admin: 06/02/20 13:17 Dose: 40 mg Glucagon (Glucagon) 1 mg IM PRN PRN PRN Reason: Hypoglycemia Fentanyl Citrate 2,000 mcg/ (Sodium Chloride) 100 mls @ 0 mls/hr IV INF RONALD; Protocol Stop: 06/26/20 17:28 Last Admin: 05/31/20 04:43 Dose: 100 mls Fentanyl Citrate (Fentanyl Bolus) 250 mls @ 0 mls/hr IVPB PRN PRN PRN Reason: Breakthrough pain/agitation Stop: 06/26/20 17:28 Dextrose/Water (D5w) 1,000 mls @ 0 mls/hr IV .Q0M PRN PRN Reason: Hypoglycemia Piperacillin Sod/Tazobactam (Sod 2.25 gm/ Sodium Chloride) 100 mls @ 200 mls/ hr IVPB Q8HR [facility] Last Admin: 06/02/20 13:17 Dose: 100 mls Insulin Human Lispro (Humalog) 0 units SC .MILD SLIDING SCALE PRN PRN Reason: Mild Correctional Scale Last Admin: 06/02/20 09:30 Dose: 2 unit Insulin Human Lispro (Humalog) 0 units SC .BEDTIME SLIDING SC PRN PRN Reason: Bedtime Correctional Scale Lorazepam (Ativan) 2 mg SLOW IVP Q1H PRN PRN Reason: Breakthrough agitation Stop: 06/26/20 17:28 Last Admin: 05/31/20 04:41 Dose: 2 mg Morphine Sulfate (Morphine) 2 mg SLOW IVP Q1H PRN PRN Reason: BREAKTHROUGH PAIN/Agitation Stop: 06/26/20 17:28 Discontinue Previous Narcotic Pain Medications And Benzodiazepines 1 each FS .ONE [facility] Stop: 06/26/20 17:28 Ondansetron HCl (Zofran Odt) 4 mg PO Q6H PRN PRN Reason: Nausea/Vomiting Ondansetron HCl (Zofran) 4 mg IVP Q6H PRN PRN Reason: Nausea/Vomiting Propofol (Diprivan) 1,000 mg IV INF PRN; Protocol PRN Reason: TO ACHIEVE GOAL RASS Stop: 06/26/20 17:28 Last Admin: 06/02/20 13:18 Dose: 1,000 mg Propofol (Diprivan Bolus) 20 mg IV Q5MIN PRN PRN Reason: BREAKTHROUGH AGITATION Stop: 06/26/20 17:28 Sodium Chloride (Flush - Normal Saline) 10 ml IVF PRN PRN PRN Reason: Saline Flush Vital Signs & Weight: Vital Signs Temp Pulse Pulse Pulse Resp BP BP 06/02/20 13:31 95 32 H 06/02/20 12:00 99.1 F 38 H 06/02/20 10:34 96 06/02/20 10:00 47 H 06/02/20 09:49 95 95 129/84 06/02/20 08:00 99.5 F 48 H 06/02/20 07:33 102 H 161/105 H 06/02/20 06:00 20 06/02/20 04:00 98.2 F 20 06/02/20 02:00 16 BP Pulse Ox Pulse Ox Pulse Ox 06/02/20 13:31 100 06/02/20 12:00 06/02/20 10:34 06/02/20 10:00 06/02/20 09:49 153/78 H 100 99 06/02/20 08:00 100 06/02/20 07:33 06/02/20 06:00 06/02/20 04:00 06/02/20 02:00 Admit Weight 159 lb Weight 148 lb 3.2 oz - Quality Measures CV meds: Beta Mukesh: Yes, ISAAC/ARB: No (CKD), ASA: Yes - Physical Exam General: other (intubated) Cardiac: regular rate and rhythm, S1/S2 Lungs: decreased breath sounds Neuro: cranial nerve 2-12 intact Extremities: no edema - Labs Result Diagrams: 06/02/20 04:05 06/02/20 04:05 Troponin/CKMB CK-MB (CK-2) 2.0 ng/mL (0-6.6) 05/27/20 14:31 Troponin I 0.105 ng/mL (< 0.028) H 05/27/20 14:31 - Telemetry Sinus rhythms and dysrhythmias: sinus rhythm - Assessment/Plan Assessment/Plan: 1. Type 2 NSTEMI - most likely demand ischemia from Acute issues; Consider further cardiac eval. after she has recovered from the resp. failure. However, she is likely not a candidate for intervention due to her severe CAD 2. Acute on chronic Systolic and Diastolic HF with EF 40-45% and grade I dd on 06/01/2020 - stable with Lasix 40mg BID and Coreg 3.125mg BID; Not on ISAAC/ARB due to hx of CKD 3. COPD/PNA - on Vent 4. Pleural effusion - improving with Lasix 40mg IV BID; 5. CAD with hx of multiple stents - on Coreg and statin; on Lovenox 30mg qd 6. HTN - stable 7. NITIN on CKD - unchanged 8. DM type 2 9. Anemia with s/p 1 unit of PRBC on 05/30/2020 - Hgb unchanged 10. Mod MR NEAL reviewed Pt. seen and eval. by me. I agree with the A/P by the AERIAL INSTALLER. Pt. is slowly progressing. arousable. Decreased BS RRR. no edema. Continue supportive care. ana
--- NOTE | 2020-06-02 19:57 | PDOC.HOSPP ---
- Subjective Encounter Date: 05/31/20 Encounter Time: 10:30 Subjective: pt intubated - Objective Vital Signs & Weight: Vital Signs (12 hours) Temp Pulse Pulse Pulse Resp BP BP 06/02/20 19:03 96 29 H 06/02/20 19:00 99.9 F H 06/02/20 18:00 24 H 06/02/20 16:00 99.0 F 31 H 06/02/20 14:36 102 H 06/02/20 14:00 30 H 06/02/20 13:31 95 32 H 06/02/20 12:00 99.1 F 38 H 06/02/20 10:34 96 06/02/20 10:00 47 H 06/02/20 09:49 95 95 129/84 153/78 H 06/02/20 08:00 99.5 F 48 H Pulse Ox Pulse Ox Pulse Ox 06/02/20 19:03 100 06/02/20 19:00 06/02/20 18:00 06/02/20 16:00 06/02/20 14:36 06/02/20 14:00 06/02/20 13:31 100 06/02/20 12:00 06/02/20 10:34 06/02/20 10:00 06/02/20 09:49 100 99 06/02/20 08:00 100 Weight Admit Weight 159 lb Weight 148 lb 3.2 oz Most Recent Monitor Data Heart Rate from ECG 93 NIBP 140/65 NIBP BP-Mean 90 Respiration from ECG 18 SpO2 100 I&O: 06/01/20 06/02/20 06/03/20 06:59 06:59 06:59 Intake Total 1435 1743 879 Output Total 0631 3071 [id number] [id number] [phone] Result Diagrams: 06/02/20 04:05 06/02/20 04:05 Additional Labs: Accuchecks 06/01/20 06/01/20 06/01/20 22:18 16:07 10:32 POC Glucose 130 H 131 H 121 H Hospitalist ROS - Review of Systems Other: pt intubated - Medication Medications: Active Medications Generic Name Dose Route Start Last Admin Trade Name Freq PRN Reason Stop Dose Admin Albuterol/Ipratropium 3 ml 05/30/20 13:00 06/02/20 19:03 Duoneb NEB 3 ml [id number] RONALD Administration Carvedilol 3.125 mg 05/29/20 21:00 06/02/20 08:14 Coreg PO 3.125 mg BID RONALD Administration Enoxaparin Sodium 30 mg 05/28/20 09:00 06/02/20 08:14 Lovenox SC 30 mg 0900 RONALD Administration Famotidine 20 mg 05/27/20 21:00 06/01/20 20:46 Pepcid SLOW IVP 20 mg 2100 RONALD Administration Furosemide 40 mg 05/28/20 06:00 06/02/20 13:17 Lasix SLOW IVP 40 mg 0600,1400 RONALD Administration Fentanyl Citrate 2,000 mcg/ 100 mls @ 0 mls/hr 05/27/20 17:28 05/31/20 04:43 Sodium Chloride IV 06/26/20 17:28 100 mls INF RONALD Administration Protocol Per Protocol Piperacillin Sod/Tazobactam 100 mls @ 200 mls/hr 05/30/20 14:00 06/02/20 13: 17 Sod 2.25 gm/ Sodium Chloride IVPB 100 mls Q8HR RONALD Administration Insulin Human Lispro 0 units 05/27/20 18:01 06/02/20 15:52 Humalog SC 2 unit .MILD SLIDING SCALE PRN Administration Mild Correctional Scale Lorazepam 2 mg 05/27/20 17:28 05/31/20 04:41 Ativan SLOW IVP 06/26/20 17:28 2 mg Q1H PRN Administration Breakthrough agitation Propofol 1,000 mg 05/27/20 17:28 06/02/20 13:18 Diprivan IV 06/26/20 17:28 1,000 mg INF PRN Administration TO ACHIEVE GOAL RASS Protocol - Exam Neck: negative: supple, symmetric, no JVD, no thyromegaly, no lymphadenopathy, no carotid bruit, JVD Heart: negative: RRR, no murmur, no gallops, no rubs, normal peripheral pulses, irregular, diminshed peripheral pulses, murmur present, II/IV, III/IV Respiratory: rales, rhonchi Gastrointestinal: negative: soft, non-tender, non-distended, normal bowel sounds , no palpable masses, no hepatomegaly, no splenomegaly, no bruit, no guarding, no rigidity, tender to palpation, distended, diminished bowl sounds, voluntary guarding Hosp A/P - Plan Hosp A/P (1) Acute on chronic respiratory failure with hypoxia Code(s): J96.21 - ACUTE AND CHRONIC RESPIRATORY FAILURE WITH HYPOXIA Status: Acute (2) Acute on chronic diastolic (congestive) heart failure Code(s): I50.33 - ACUTE ON CHRONIC DIASTOLIC (CONGESTIVE) HEART FAILURE Status : Acute (3) Pneumonia Code(s): J18.9 - PNEUMONIA, UNSPECIFIED ORGANISM Status: Acute Qualifiers: Laterality: bilateral Lung location: unspecified part of lung (4) Pleural effusion Code(s): J90 - PLEURAL EFFUSION, NOT ELSEWHERE CLASSIFIED Status: Acute (5) Anemia, normocytic normochromic Code(s): D64.9 - ANEMIA, UNSPECIFIED Status: Chronic (6) Acute worsening of stage 3 chronic kidney disease Code(s): N18.3 - CHRONIC KIDNEY DISEASE, STAGE 3 (MODERATE) Status: Acute (7) Diabetes mellitus with insulin therapy Code(s): E11.9 - TYPE 2 DIABETES MELLITUS WITHOUT COMPLICATIONS; Z79.4 - HALF-WAY (CURRENT) USE OF INSULIN Status: Chronic (8) Hypertension Code(s): I10 - ESSENTIAL (PRIMARY) HYPERTENSION Status: Chronic Qualifiers: Hypertension type: essential hypertension Qualified Code(s): I10 - Essential (primary) hypertension - Plan Patient remains sedated on the vent Diuresing as tolerated iv abx zosyn Cardiology giving a little blood to help cardiac function DVT proph: Lovenox renal dose GI proph: Pepcid BID
[2020-06-02] MEDS: Acetaminophen 325 MG TAB PO PRN (19:59)
--- NOTE | 2020-06-02 19:59 | PDOC.HOSPP ---
- Subjective Encounter Date: 06/01/20 Encounter Time: 12:30 Subjective: pt intubated, gets very anxious when sedation is reduced. - Objective Vital Signs & Weight: Vital Signs (12 hours) Temp Pulse Pulse Pulse Resp BP BP 06/02/20 19:03 96 29 H 06/02/20 19:00 99.9 F H 06/02/20 18:00 24 H 06/02/20 16:00 99.0 F 31 H 06/02/20 14:36 102 H 06/02/20 14:00 30 H 06/02/20 13:31 95 32 H 06/02/20 12:00 99.1 F 38 H 06/02/20 10:34 96 06/02/20 10:00 47 H 06/02/20 09:49 95 95 129/84 153/78 H 06/02/20 08:00 99.5 F 48 H Pulse Ox Pulse Ox Pulse Ox 06/02/20 19:03 100 06/02/20 19:00 06/02/20 18:00 06/02/20 16:00 06/02/20 14:36 06/02/20 14:00 06/02/20 13:31 100 06/02/20 12:00 06/02/20 10:34 06/02/20 10:00 06/02/20 09:49 100 99 06/02/20 08:00 100 Weight Admit Weight 159 lb Weight 148 lb 3.2 oz Most Recent Monitor Data Heart Rate from ECG 93 NIBP 140/65 NIBP BP-Mean 90 Respiration from ECG 18 SpO2 100 I&O: 06/01/20 06/02/20 06/03/20 06:59 06:59 06:59 Intake Total 1435 1743 879 Output Total 7025 5745 9265 Balance -1660 -777 -846 Result Diagrams: 06/02/20 04:05 06/02/20 04:05 Additional Labs: Accuchecks 06/01/20 06/01/20 06/01/20 22:18 16:07 10:32 POC Glucose 130 H 131 H 121 H Hospitalist ROS - Review of Systems Other: unable to obtain - Medication Medications: Active Medications Generic Name Dose Route Start Last Admin Trade Name Freq PRN Reason Stop Dose Admin Albuterol/Ipratropium 3 ml 05/30/20 13:00 06/02/20 19:03 Duoneb NEB 3 ml [id number] RONALD Administration Carvedilol 3.125 mg 05/29/20 21:00 06/02/20 08:14 Coreg PO 3.125 mg BID RONALD Administration Enoxaparin Sodium 30 mg 05/28/20 09:00 06/02/20 08:14 Lovenox SC 30 mg 0900 RONALD Administration Famotidine 20 mg 05/27/20 21:00 06/01/20 20:46 Pepcid SLOW IVP 20 mg 2100 RONALD Administration Furosemide 40 mg 05/28/20 06:00 06/02/20 13:17 Lasix SLOW IVP 40 mg 0600,1400 RONALD Administration Fentanyl Citrate 2,000 mcg/ 100 mls @ 0 mls/hr 05/27/20 17:28 05/31/20 04:43 Sodium Chloride IV 06/26/20 17:28 100 mls INF RONALD Administration Protocol Per Protocol Piperacillin Sod/Tazobactam 100 mls @ 200 mls/hr 05/30/20 14:00 06/02/20 13: 17 Sod 2.25 gm/ Sodium Chloride IVPB 100 mls Q8HR RONALD Administration Insulin Human Lispro 0 units 05/27/20 18:01 06/02/20 15:52 Humalog SC 2 unit .MILD SLIDING SCALE PRN Administration Mild Correctional Scale Lorazepam 2 mg 05/27/20 17:28 05/31/20 04:41 Ativan SLOW IVP 06/26/20 17:28 2 mg Q1H PRN Administration Breakthrough agitation Propofol 1,000 mg 05/27/20 17:28 06/02/20 13:18 Diprivan IV 06/26/20 17:28 1,000 mg INF PRN Administration TO ACHIEVE GOAL RASS Protocol - Exam Neck: negative: supple, symmetric, no JVD, no thyromegaly, no lymphadenopathy, no carotid bruit, JVD Heart: negative: RRR, no murmur, no gallops, no rubs, normal peripheral pulses, irregular, diminshed peripheral pulses, murmur present, II/IV, III/IV Respiratory: rales, rhonchi Gastrointestinal: negative: soft, non-tender, non-distended, normal bowel sounds , no palpable masses, no hepatomegaly, no splenomegaly, no bruit, no guarding, no rigidity, tender to palpation, distended, diminished bowl sounds, voluntary guarding Hosp A/P - Plan Hosp A/P (1) Acute on chronic respiratory failure with hypoxia Code(s): J96.21 - ACUTE AND CHRONIC RESPIRATORY FAILURE WITH HYPOXIA Status: Acute (2) Acute on chronic diastolic (congestive) heart failure Code(s): I50.33 - ACUTE ON CHRONIC DIASTOLIC (CONGESTIVE) HEART FAILURE Status : Acute (3) Pneumonia Code(s): J18.9 - PNEUMONIA, UNSPECIFIED ORGANISM Status: Acute Qualifiers: Laterality: bilateral Lung location: unspecified part of lung (4) Pleural effusion Code(s): J90 - PLEURAL EFFUSION, NOT ELSEWHERE CLASSIFIED Status: Acute (5) Anemia, normocytic normochromic Code(s): D64.9 - ANEMIA, UNSPECIFIED Status: Chronic (6) Acute worsening of stage 3 chronic kidney disease Code(s): N18.3 - CHRONIC KIDNEY DISEASE, STAGE 3 (MODERATE) Status: Acute (7) Diabetes mellitus with insulin therapy Code(s): E11.9 - TYPE 2 DIABETES MELLITUS WITHOUT COMPLICATIONS; Z79.4 - RET[employer] MERCHANDISER (CURRENT) USE OF INSULIN Status: Chronic (8) Hypertension Code(s): I10 - ESSENTIAL (PRIMARY) HYPERTENSION Status: Chronic Qualifiers: Hypertension type: essential hypertension Qualified Code(s): I10 - Essential (primary) hypertension - Plan Patient remains sedated on the vent Diuresing as tolerated iv abx zosyn Cardiology giving a little blood to help cardiac function DVT proph: Lovenox renal dose GI proph: Pepcid BID 7/2 pt gets anxious when her sedation is reduced. echo indicated inferior- lateral wall hypokinesis. per cardiology no intervention for now. HH stable. she continues to be diuresed.
[2020-06-02] MEDS ORDERED: Aspirin 81 mg Enteric Coated Tablet PO SCH (20:05)
--- NOTE | 2020-06-02 20:05 | PDOC.HOSPP ---
- Subjective Encounter Date: 06/02/20 Encounter Time: 14:00 Subjective: pt intubated - Objective Vital Signs & Weight: Vital Signs (12 hours) Temp Pulse Pulse Pulse Resp BP BP 06/02/20 19:03 96 29 H 06/02/20 19:00 100.4 F H 06/02/20 18:00 24 H 06/02/20 16:00 99.0 F 31 H 06/02/20 14:36 102 H 06/02/20 14:00 30 H 06/02/20 13:31 95 32 H 06/02/20 12:00 99.1 F 38 H 06/02/20 10:34 96 06/02/20 10:00 47 H 06/02/20 09:49 95 95 129/84 153/78 H Pulse Ox Pulse Ox Pulse Ox 06/02/20 19:03 100 06/02/20 19:00 06/02/20 18:00 06/02/20 16:00 06/02/20 14:36 06/02/20 14:00 06/02/20 13:31 100 06/02/20 12:00 06/02/20 10:34 06/02/20 10:00 06/02/20 09:49 100 99 Weight Admit Weight 159 lb Weight 148 lb 3.2 oz Most Recent Monitor Data Heart Rate from ECG 100 NIBP 149/73 NIBP BP-Mean 98 Respiration from ECG 20 SpO2 100 I&O: 06/01/20 06/02/20 06/03/20 06:59 06:59 06:59 Intake Total 1435 1743 879 Output Total 4351 0287 8080 [facility]1660 [phone] Result Diagrams: 06/02/20 04:05 06/02/20 04:05 Additional Labs: Accuchecks 06/01/20 06/01/20 06/01/20 22:18 16:07 10:32 POC Glucose 130 H 131 H 121 H Hospitalist ROS - Review of Systems Other: unable to obtain - Medication Medications: Active Medications Generic Name Dose Route Start Last Admin Trade Name Freq PRN Reason Stop Dose Admin Acetaminophen 650 mg 05/27/20 17:44 06/02/20 19:59 Tylenol PO 650 mg Q4H PRN Administration Headache/Fever/Mild Pain (1-3) Albuterol/Ipratropium 3 ml 05/30/20 13:00 06/02/20 19:03 Duoneb NEB 3 ml [id number] RONALD Administration Carvedilol 3.125 mg 05/29/20 21:00 06/02/20 08:14 Coreg PO 3.125 mg BID RONALD Administration Enoxaparin Sodium 30 mg 05/28/20 09:00 06/02/20 08:14 Lovenox SC 30 mg 0900 RONALD Administration Famotidine 20 mg 05/27/20 21:00 06/01/20 20:46 Pepcid SLOW IVP 20 mg 2100 RONALD Administration Fentanyl Citrate 2,000 mcg/ 100 mls @ 0 mls/hr 05/27/20 17:28 05/31/20 04:43 Sodium Chloride IV 06/26/20 17:28 100 mls INF RONALD Administration Protocol Per Protocol Piperacillin Sod/Tazobactam 100 mls @ 200 mls/hr 05/30/20 14:00 06/02/20 13: 17 Sod 2.25 gm/ Sodium Chloride IVPB 100 mls Q8HR RONALD Administration Insulin Human Lispro 0 units 05/27/20 18:01 06/02/20 15:52 Humalog SC 2 unit .MILD SLIDING SCALE PRN Administration Mild Correctional Scale Lorazepam 2 mg 05/27/20 17:28 05/31/20 04:41 Ativan SLOW IVP 06/26/20 17:28 2 mg Q1H PRN Administration Breakthrough agitation Propofol 1,000 mg 05/27/20 17:28 06/02/20 13:18 Diprivan IV 06/26/20 17:28 1,000 mg INF PRN Administration TO ACHIEVE GOAL RASS Protocol - Exam Eye - 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 Neck: negative: supple, symmetric, no JVD, no thyromegaly, no lymphadenopathy, no carotid bruit, JVD Heart: negative: RRR, no murmur, no gallops, no rubs, normal peripheral pulses, irregular, diminshed peripheral pulses, murmur present, II/IV, III/IV Respiratory: rales, rhonchi Gastrointestinal: negative: soft, non-tender, non-distended, normal bowel sounds , no palpable masses, no hepatomegaly, no splenomegaly, no bruit, no guarding, no rigidity, tender to palpation, distended, diminished bowl sounds, voluntary guarding Extremities: 1+ LE edema Hosp A/P - Plan Hosp A/P (1) Acute on chronic respiratory failure with hypoxia Code(s): J96.21 - ACUTE AND CHRONIC RESPIRATORY FAILURE WITH HYPOXIA Status: Acute (2) Acute on chronic diastolic (congestive) heart failure Code(s): I50.33 - ACUTE ON CHRONIC DIASTOLIC (CONGESTIVE) HEART FAILURE Status : Acute (3) Pneumonia Code(s): J18.9 - PNEUMONIA, UNSPECIFIED ORGANISM Status: Acute Qualifiers: Laterality: bilateral Lung location: unspecified part of lung (4) Pleural effusion Code(s): J90 - PLEURAL EFFUSION, NOT ELSEWHERE CLASSIFIED Status: Acute (5) Anemia, normocytic normochromic Code(s): D64.9 - ANEMIA, UNSPECIFIED Status: Chronic (6) Acute worsening of stage 3 chronic kidney disease Code(s): N18.3 - CHRONIC KIDNEY DISEASE, STAGE 3 (MODERATE) Status: Acute (7) Diabetes mellitus with insulin therapy Code(s): E11.9 - TYPE 2 DIABETES MELLITUS WITHOUT COMPLICATIONS; 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 echo indicated inferior- lateral wall hypokinesis. per cardiology no intervention for now. HH stable. she continues to be diuresed. / pt's creatinine worsening, will decrease lasix to daily. will get renal ultrasound. No nephrotoxin on. May need nephrology. pt on bb/asa/statin. Hold ISAAC. will change lovenox to heparin. Abx renal dosed. pt tolerating tube feedings.
[2020-06-02] MEDS ORDERED: Atorvastatin Calcium 40 MG TAB PO SCH (20:15)
[2020-06-02] MEDS: Famotidine/PF 20 mg/2ml Vial SLOW IVP SCH (20:32)
[2020-06-02] MEDS: Heparin 5,000 UNITS/ML VIAL SC SCH (20:33)
[2020-06-02] MEDS ORDERED: CARVEDILOL 25 MG PO SCH (21:00)
[2020-06-03] MEDS: Propofol 1,000 MG/100 ML VIAL IV PRN ×4 (00:54→17:04)
[2020-06-03 04:48] LABS: #Basophils 0.1 thou/uL (0.0-0.2); #Eosinphils 0.6 thou/uL (0.0-0.7); #Lymphocytes 0.9 thou/uL (1.20-3.40); #Neutrophils 11.7 thou/uL (1.40-6.50); %Basophils 0.4 % (0.0-1.0); %Eosinophils 4.2 % (0.0-10.0); %Lymphocytes 6.3 % (21.0-51.0); %Monocytes 6.7 % (0.0-10.0); %Neutrophils 82.4 % (42.0-75.0); Hemoglobin 7.9 g/dL (12.0-16.0); Mean Corpuscular HGB CONC 31.6 g/dL (32.0-36.0); Mean Corpuscular Hemoglobin 28.1 pg (27.0-31.0); Mean Corpuscular Volume 88.9 fL (78.0-98.0); Mean Platelet Volume 8.8 fL (7.4-10.4); Platelet Count 136 thou/uL (130-400); RBC Distribution Width 15.8 % (11.5-14.5); Red Blood Cell (RBC) Count 2.81 mill/uL (4.20-5.40); White Blood Cell (WBC) Count 14.2 thou/uL (4.8-10.8)
[2020-06-03 05:07] LABS: Anion Gap 13 mmol/L (10-20); BUN (Urea Nitrogen) 40 mg/dL (9.8-20.1); Calc. Creatinine Clearance 26 mL/min (70-130); Calcium 7.4 mg/dL (7.8-10.44); Carbon Dioxide 29 mmol/L (22-29); Chloride 104 mmol/L (98-107); Estimated GFR-MDRD 23; Glucose 175 mg/dL (70-105); Phosphorus 4.3 mg/dL (2.3-4.7); Potassium 3.5 mmol/L (3.5-5.1); Sodium 142 mmol/L (136-145)
[2020-06-03] MEDS: Latanoprost 0.005% Ophth Soln 2.5 ml Bottle R EYE SCH ×2 (06:04→21:26)
[2020-06-03] MEDS: Piperacillin/Tazobactam 2.25 GM in Sodium Chloride 0.9% 100 ML IVPB SCH ×3 (06:05→21:26)
[2020-06-03 07:08] LABS: Actual Bicarbonate (HCO3a) 26.4 mEq/L (22-28); Calcium, Ionized (arterial) 0.98 mmol/L (1.12-1.30); Hemoglobin (Hb) 8.3 g/dL (12.0-16.0); O2 Tension (PaO2), arterial 91.3 mmHg (80.0-100.0); Potassium - ABG Lab 3.51 mmol/L (3.70-5.30); pH, Arterial 7.44 (7.35-7.45)
[2020-06-03 07:25] LABS: Puncture Site RRAD
[2020-06-03] MEDS ORDERED: Ferrous Sulfate 325 MG TAB PO SCH (08:00)
[2020-06-03] MEDS: Amlodipine 10 MG TAB PO SCH (08:28)
[2020-06-03] MEDS: Atorvastatin Calcium 40 MG TAB PO SCH (08:28)
[2020-06-03] MEDS: Aspirin Chewable 81 MG TAB PO SCH (08:28)
[2020-06-03] MEDS: Heparin 5,000 UNITS/ML VIAL SC SCH ×2 (08:28→21:25)
[2020-06-03] MEDS: Carvedilol 3.125 MG TAB PO SCH ×2 (08:28→21:26)
[2020-06-03] MEDS: Furosemide 40 MG/4 ML VIAL SLOW IVP SCH (08:28)
--- NOTE | 2020-06-03 08:30 | RAD ---
PORTABLE CHEST: DATE: 06/03/2020. PROVIDED CLINICAL HISTORY: Respiratory insufficiency. FINDINGS: Comparison 06/01/2020. Presumed endotracheal tube overlies the midline of the neck, the tip of which p rojects superior to the level of the thoracic inlet. Interval improvement in right basilar lung aera tion. Additional significant interval change with respect to the prior examination is not apparent. IMPRESSION: Presumed endotracheal tube positioning as described. POS: HERNAN
--- NOTE | 2020-06-03 08:57 | ULT ---
RENAL ULTRASOUND: DATE: 06/03/2020. PROVIDED CLINICAL HISTORY: Acute kidney injury. FINDINGS: The urinary bladder is decompressed by a Pacheco catheter. The right kidney measures about 11.4 cm in length and demonstrates no evidence for hydronephrosis or mass. The left kidney measures about 10.7 cm in length and demonstrates no evidence for hydronephrosis or mass. IMPRESSION: No evidence for hydronephrosis. POS: HERNAN
[2020-06-03] MEDS ORDERED: Aspirin 81 mg Enteric Coated Tablet PO SCH (09:00)
[2020-06-03] MEDS: HumaLOG 300 UNITS/3 ML VIAL SC PRN (10:04)
[2020-06-03] MEDS: Lorazepam 2 MG/ML VIAL SLOW IVP PRN ×2 (12:57→22:26)
--- NOTE | 2020-06-03 17:25 | PDOC.HOSPP ---
- Subjective Encounter Date: 06/03/20 Encounter Time: 17:15 Subjective: f/u for CHF with resp failure on mech ventilation. Receiving Lasix but NITIN/CKD noted with renally adjusted meds. Tolerating low-volume TF's currently. - Objective Vital Signs & Weight: Vital Signs (12 hours) Temp Pulse Resp Pulse Ox 06/03/20 17:00 100.9 F H 06/03/20 16:00 24 H 06/03/20 15:00 87 06/03/20 14:00 98.9 F 36 H 06/03/20 13:24 90 13 96 06/03/20 12:00 38 H 06/03/20 11:00 99.5 F 06/03/20 10:03 85 06/03/20 10:00 28 H 06/03/20 08:28 99 06/03/20 08:00 100.9 F H 37 H 99 06/03/20 07:53 99 06/03/20 07:52 110 H 54 H 97 06/03/20 06:00 21 H Weight Admit Weight 159 lb Weight 147 lb 11.2 oz Most Recent Monitor Data Heart Rate from ECG 95 NIBP 151/76 NIBP BP-Mean 101 Respiration from ECG 10 SpO2 100 I&O: 06/02/20 06/03/20 06/04/20 06:59 06:59 06:59 Intake Total 1743 1776 1059 Output Total 2520 1005 735 Balance -625 -416 324 Result Diagrams: 06/03/20 04:09 06/03/20 04:09 Additional Labs: Accuchecks 06/02/20 06/02/20 06/02/20 22:26 15:55 09:31 POC Glucose 177 H 151 H 158 H Microbiology 05/27/20 14:43 Venous blood - Right Arm Blood Culture - Final NO GROWTH IN 5 DAYS 05/27/20 14:31 Venous blood - Right Arm Blood Culture - Final Enterococcus faecalis Coagulase Neg Staphylococcus Laboratory Tests 05/31/20 06/01/20 06/01/20 04:55 03:45 03:45 WBC 9.4 Hgb 8.3 L Creatinine 2.40 H 2.64 H Phosphorus Magnesium 06/02/20 06/02/20 06/03/20 04:05 04:05 04:09 WBC 9.8 Hgb 8.2 L Creatinine 2.75 H Phosphorus Magnesium 2.0 06/03/20 04:09 WBC Hgb Creatinine Phosphorus 4.3 Magnesium Radiology Reviewed by me: Yes (PCXR - interval improvement in RLL, ETT in place) EKG Reviewed by me: Yes (Tele - SR) Hospitalist ROS - Medication Medications: Active Medications Generic Name Dose Route Start Last Admin Trade Name Freq PRN Reason Stop Dose Admin Acetaminophen 650 mg 05/27/20 17:44 06/02/20 19:59 Tylenol PO 650 mg Q4H PRN Administration Headache/Fever/Mild Pain (1-3) Albuterol/Ipratropium 3 ml 05/30/20 13:00 06/03/20 13:24 Duoneb NEB 3 ml [id number] RONALD Administration Amlodipine Besylate 10 mg 06/03/20 09:00 06/03/20 08:28 Norvasc PO 10 mg DAILY RONALD Administration Aspirin 81 mg 06/03/20 09:00 06/03/20 08:28 Aspirin Chewable PO 81 mg DAILY RONALD Administration Atorvastatin Calcium 40 mg 06/03/20 09:00 06/03/20 08:28 Lipitor PO 40 mg DAILY RONALD Administration Carvedilol 3.125 mg 05/29/20 21:00 06/03/20 08:28 Coreg PO 3.125 mg BID RONALD Administration Famotidine 20 mg 05/27/20 21:00 06/02/20 20:32 Pepcid SLOW IVP 20 mg 2100 RONALD Administration Ferrous Sulfate 300 mg 06/03/20 08:00 06/03/20 08:28 Ferrous Sulfate PO 300 mg QAM-WM RONALD Administration Furosemide 40 mg 06/03/20 09:00 06/03/20 08:28 Lasix SLOW IVP 40 mg DAILY RONALD Administration Heparin Sodium (Porcine) 5,000 units 06/02/20 21:00 06/03/20 08:28 Heparin SC 5,000 units BID RONALD Administration Fentanyl Citrate 2,000 mcg/ 100 mls @ 0 mls/hr 05/27/20 17:28 05/31/20 04:43 Sodium Chloride IV 06/26/20 17:28 100 mls INF RONALD Administration Protocol Per Protocol Piperacillin Sod/Tazobactam 100 mls @ 200 mls/hr 05/30/20 14:00 06/03/20 13: 08 Sod 2.25 gm/ Sodium Chloride IVPB 100 mls Q8HR RONALD Administration Insulin Human Lispro 0 units 05/27/20 18:01 06/03/20 10:04 Humalog SC 3 unit .MILD SLIDING SCALE PRN Administration Mild Correctional Scale Latanoprost 1 drop 06/02/20 21:00 06/03/20 06:04 Xalatan 0.005% Ophth Soln R EYE Not Given HS RONALD Lorazepam 2 mg 05/27/20 17:28 06/03/20 12:57 Ativan SLOW IVP 06/26/20 17:28 2 mg Q1H PRN Administration Breakthrough agitation Propofol 1,000 mg 05/27/20 17:28 06/03/20 17:04 Diprivan IV 06/26/20 17:28 1,000 mg INF PRN Administration TO ACHIEVE GOAL RASS Protocol - Exam General - other findings: sedate on mech vent Eye: PERRL ENT: normocephalic atraumatic, no oropharyngeal lesions ENT - other findings: ETT in place Neck: supple, symmetric, no JVD, no thyromegaly, no lymphadenopathy Heart: RRR, no gallops, no rubs, normal peripheral pulses, murmur present, II/IV Heart - other findings: S1, S2 Respiratory - other findings: rales in bases, tachypneic/shallow resp on CPAP trial Gastrointestinal: soft, non-tender, non-distended, normal bowel sounds, no palpable masses Extremities: no cyanosis, no clubbing, 1+ LE edema Skin: normal turgor, no lesions Neurological - other findings: moves limbs with lowered sedation Psychiatric: somnolent, lethargic Hosp A/P (1) Acute on chronic respiratory failure with hypoxia Code(s): J96.21 - ACUTE AND CHRONIC RESPIRATORY FAILURE WITH HYPOXIA Status: Acute Plan: Continue SIMV and monitor clinical response, Serial ABG/PCXR (2) Pneumonia Code(s): J18.9 - PNEUMONIA, UNSPECIFIED ORGANISM Status: Acute Qualifiers: Laterality: bilateral Lung location: unspecified part of lung Plan: Suspected gm + cocci, continue Zosyn, pulmonary support, [facility] ventilation (3) Acute on chronic diastolic (congestive) heart failure Code(s): I50.33 - ACUTE ON CHRONIC DIASTOLIC (CONGESTIVE) HEART FAILURE Status : Acute Plan: Combined systolic/diast CHF with EF 40-45%, Lasix 40mg IV daily (4) Acute worsening of stage 3 chronic kidney disease Code(s): N18.3 - CHRONIC KIDNEY DISEASE, STAGE 3 (MODERATE) Status: Acute Plan: Avoid nephrotoxic meds and limit contrast, serial creatinine - Plan continue antibiotics, respiratory therapy, DVT proph w/SCDs Continue critical support Lasix 40mg IV daily continue Zosyn Wean off mech ventilation as clinically indicated AM lab: BMP, CBC, ABG PCXR in am
--- NOTE | 2020-06-03 20:32 | PRG ---
DATE OF SERVICE: 06/03/2020 SUBJECTIVE: Sarah Gomez was tried on CPAP today. Her spontaneous tidal volumes with pressure support were only about 150 cc, so she is back, mechanically ventilated. OBJECTIVE: VITAL SIGNS: Heart rate is in the 90s, respiratory rate is in the 20s, oximetry is in the high 90s, FiO2 is at 40%. INTAKE AND OUTPUT: Negative 669. LUNGS: Clear anteriorly. HEART: Regular rhythm. S1, S2 are normal. ABDOMEN: Soft and nontender. EXTREMITIES: Without edema. LABORATORY DATA AND IMAGING STUDIES: White count 14.2, hemoglobin 7.9, platelets 136. Sodium 142, potassium 3.5, chloride 104, bicarb 29, BUN 40, creatinine 2.62. Weight was recorded at 147 pounds. Chest x-ray was reviewed, showing pulmonary edema, perhaps slightly improved. IMPRESSION: 1. Respiratory failure. 2. Deconditioning and weakness. 3. Congestive heart failure, both systolic and diastolic with moderate mitral regurgitation. 4. Acute on chronic kidney disease. PLAN: Continue ventilatory support. She is currently not weanable. CRITICAL CARE TIME: 30 minutes. Job ID: [id number]
[2020-06-03] MEDS: Famotidine/PF 20 mg/2ml Vial SLOW IVP SCH (21:25)
[2020-06-04] MEDS: Propofol 1,000 MG/100 ML VIAL IV PRN ×4 (02:11→22:32)
[2020-06-04 05:06] LABS: Anion Gap 11 mmol/L (10-20); BUN (Urea Nitrogen) 42 mg/dL (9.8-20.1); Calc. Creatinine Clearance 29 mL/min (70-130); Calcium 7.5 mg/dL (7.8-10.44); Carbon Dioxide 31 mmol/L (22-29); Chloride 106 mmol/L (98-107); Estimated GFR-MDRD 26; Glucose 203 mg/dL (70-105); Potassium 3.2 mmol/L (3.5-5.1); Sodium 145 mmol/L (136-145)
[2020-06-04] MEDS: HumaLOG 300 UNITS/3 ML VIAL SC PRN ×3 (05:30→16:17)
[2020-06-04 06:10] LABS: #Basophils 0.1 thou/uL (0.0-0.2); #Eosinphils 0.7 thou/uL (0.0-0.7); #Lymphocytes 1.2 thou/uL (1.20-3.40); #Monocytes 0.7 thou/uL (0.11-0.59); #Neutrophils 9.8 thou/uL (1.40-6.50); %Basophils 0.5 % (0.0-1.0); %Eosinophils 5.9 % (0.0-10.0); %Lymphocytes 9.7 % (21.0-51.0); %Monocytes 5.5 % (0.0-10.0); %Neutrophils 78.3 % (42.0-75.0); Hemoglobin 7.7 g/dL (12.0-16.0); Mean Corpuscular HGB CONC 32.9 g/dL (32.0-36.0); Mean Corpuscular Hemoglobin 29.5 pg (27.0-31.0); Mean Corpuscular Volume 89.5 fL (78.0-98.0); Platelet Count 123 thou/uL (130-400); RBC Distribution Width 15.8 % (11.5-14.5); Red Blood Cell (RBC) Count 2.62 mill/uL (4.20-5.40); White Blood Cell (WBC) Count 12.6 thou/uL (4.8-10.8)
[2020-06-04] MEDS: Piperacillin/Tazobactam 2.25 GM in Sodium Chloride 0.9% 100 ML IVPB SCH ×3 (06:12→21:31)
[2020-06-04 07:59] LABS: Actual Bicarbonate (HCO3a) 25.7 mEq/L (22-28); Base Excess (BEa) 0.9 mEq/L (-2.0 to +3.0); CO2 Tension 42.3 mmHg (35.0-45.0); Calcium, Ionized (arterial) 1.02 mmol/L (1.12-1.30); Carboxyhemoglobin (COHb) 1.2 gm% (0.0-3.0); Hemoglobin (Hb) 7.3 g/dL (12.0-16.0); O2 Tension (PaO2), arterial 88.5 mmHg (80.0-100.0); Potassium - ABG Lab 3.19 mmol/L (3.70-5.30)
--- NOTE | 2020-06-04 08:05 | RAD ---
PORTABLE CHEST: DATE: 06/04/2020. PROVIDED CLINICAL HISTORY: Respiratory insufficiency. FINDINGS: Comparison 06/03/2020. Significant interval change with respect to the prior examination is not appare nt. IMPRESSION: As above. POS: HERNAN
[2020-06-04 08:43] LABS: ALV-art Gradient 143.825 (0-20); Puncture Site RRAD
[2020-06-04] MEDS: Furosemide 40 MG/4 ML VIAL SLOW IVP SCH ×2 (09:58→14:39)
[2020-06-04] MEDS: Aspirin Chewable 81 MG TAB PO SCH (09:58)
[2020-06-04] MEDS: Amlodipine 10 MG TAB PO SCH (09:58)
[2020-06-04] MEDS: Atorvastatin Calcium 40 MG TAB PO SCH (09:58)
[2020-06-04] MEDS: Carvedilol 3.125 MG TAB PO SCH ×2 (10:10→20:08)
[2020-06-04] MEDS: Heparin 5,000 UNITS/ML VIAL SC SCH ×2 (10:47→20:08)
--- NOTE | 2020-06-04 14:24 | PRG ---
DATE OF SERVICE: 06/04/2020 SUBJECTIVE: Sarah Gomez remains mechanically ventilated. Intake and outputs positive at 417. OBJECTIVE: VITAL SIGNS: She is afebrile. Heart rates in the 90s, respiratory rates in the low 30s to high 20s, blood pressure 156/72. LUNGS: Remarkable for coarse equal breath sounds. HEART: Regular rhythm. ABDOMEN: Soft. EXTREMITIES: Unchanged. NEURO: Nonfocal. IMAGING DATA: Chest x-ray is unchanged. LABORATORY DATA: White count 12.6, hemoglobin 7.7, and platelets 123. Sodium 145, potassium 3.2, chloride 106, bicarb 31, BUN 42, and creatinine 2.35. PH 7.4, CO2 of 42, pO2 of 88. IMPRESSION: 1. Respiratory failure, currently not weanable. 2. Congestive heart failure. 3. Acute on chronic kidney disease. 4. Deconditioning and weakness. It is probably the biggest factor in her inability to wean. She does quite well with minimal ventilatory support, but if we turned down at all, she becomes extremely tachypneic with very small tidal volumes. Job ID: [id number]
--- NOTE | 2020-06-04 14:38 | PDOC.HOSPP ---
- Subjective Encounter Date: 06/04/20 Encounter Time: 14:35 Subjective: f/u for resp failure on mech ventilation and unable to wean. Tx for CHF with IV Lasix with 15lb total weight loss since admit. - Objective Vital Signs & Weight: Vital Signs (12 hours) Temp Pulse Resp BP BP BP Pulse Ox 06/04/20 12:57 91 39 H 100 06/04/20 12:00 42 H 06/04/20 11:00 98.7 F 06/04/20 10:05 93 166/87 H 06/04/20 10:00 38 H 06/04/20 09:58 89 166/87 H 06/04/20 08:50 159/89 H 169/75 H 06/04/20 08:08 76 150/103 H 06/04/20 08:00 98.9 F 40 H 100 06/04/20 06:00 21 H 06/04/20 04:08 79 148/68 H 06/04/20 04:00 99.9 F H 17 Weight Admit Weight 159 lb Weight 144 lb 4.8 oz Most Recent Monitor Data Heart Rate from ECG 87 NIBP 146/67 NIBP BP-Mean 93 Respiration from ECG 40 SpO2 100 I&O: 06/03/20 06/04/20 06/05/20 06:59 06:59 06:59 Intake Total 1776 1817 200 Output Total 2445 1400 240 Balance -669 417 -40 Result Diagrams: 06/04/20 04:30 06/04/20 04:30 Additional Labs: Accuchecks 06/04/20 06/03/20 06/03/20 10:49 22:17 16:11 POC Glucose 157 H 131 H 123 H 06/03/20 06/03/20 10:06 03:59 POC Glucose 236 H 190 H Microbiology 05/27/20 14:43 Venous blood - Right Arm Blood Culture - Final NO GROWTH IN 5 DAYS 05/27/20 14:31 Venous blood - Right Arm Blood Culture - Final Enterococcus faecalis Coagulase Neg Staphylococcus Laboratory Tests 05/31/20 06/01/20 06/01/20 04:55 03:45 03:45 WBC 9.4 Hgb 8.3 L Creatinine 2.40 H 2.64 H Phosphorus Magnesium 06/02/20 06/02/20 06/03/20 04:05 04:05 04:09 WBC 9.8 Hgb 8.2 L Creatinine 2.75 H Phosphorus Magnesium 2.0 06/03/20 04:09 WBC Hgb Creatinine Phosphorus 4.3 Magnesium Radiology Reviewed by me: Yes (PCXR - no significant change from ) EKG Reviewed by me: Yes (Tele - SR) Hospitalist ROS - Medication Medications: Active Medications Generic Name Dose Route Start Last Admin Trade Name Freq PRN Reason Stop Dose Admin Acetaminophen 650 mg 05/27/20 17:44 06/02/20 19:59 Tylenol PO 650 mg Q4H PRN Administration Headache/Fever/Mild Pain (1-3) Albuterol/Ipratropium 3 ml 05/30/20 13:00 06/04/20 12:57 Duoneb NEB 3 ml [id number] RONALD Administration Amlodipine Besylate 10 mg 06/03/20 09:00 06/04/20 09:58 Norvasc PO 10 mg DAILY RONALD Administration Aspirin 81 mg 06/03/20 09:00 06/04/20 09:58 Aspirin Chewable PO 81 mg DAILY RONALD Administration Atorvastatin Calcium 40 mg 06/03/20 09:00 06/04/20 09:58 Lipitor PO 40 mg DAILY RONALD Administration Carvedilol 3.125 mg 05/29/20 21:00 06/04/20 10:10 Coreg PO 3.125 mg BID RONALD Administration Famotidine 20 mg 05/27/20 21:00 06/03/20 21:25 Pepcid SLOW IVP 20 mg 2100 RONALD Administration Ferrous Sulfate 300 mg 06/03/20 08:00 06/04/20 09:58 Ferrous Sulfate PO 300 mg QAM-WM RONALD Administration Heparin Sodium (Porcine) 5,000 units 06/02/20 21:00 06/04/20 10:47 Heparin SC 5,000 units BID RONALD Administration Fentanyl Citrate 2,000 mcg/ 100 mls @ 0 mls/hr 05/27/20 17:28 05/31/20 04:43 Sodium Chloride IV 06/26/20 17:28 100 mls INF RONALD Administration Protocol Per Protocol Piperacillin Sod/Tazobactam 100 mls @ 200 mls/hr 05/30/20 14:00 06/04/20 06: 12 Sod 2.25 gm/ Sodium Chloride IVPB 100 mls Q8HR RONALD Administration Insulin Human Lispro 0 units 05/27/20 18:01 06/04/20 10:50 Humalog SC 2 unit .MILD SLIDING SCALE PRN Administration Mild Correctional Scale Latanoprost 1 drop 06/02/20 21:00 06/03/20 21:26 Xalatan 0.005% Ophth Soln R EYE 1 drop HS RONALD Administration Lorazepam 2 mg 05/27/20 17:28 06/03/20 22:26 Ativan SLOW IVP 06/26/20 17:28 2 mg Q1H PRN Administration Breakthrough agitation Propofol 1,000 mg 05/27/20 17:28 06/04/20 10:50 Diprivan IV 06/26/20 17:28 1,000 mg INF PRN Administration TO ACHIEVE GOAL RASS Protocol Sodium Chloride 10 ml 05/28/20 17:09 06/04/20 10:50 Flush - Normal Saline IVF 10 ml PRN PRN Administration Saline Flush - Exam General - other findings: sedate on mech ventilation Eye: PERRL, anicteric sclera ENT: normocephalic atraumatic, no oropharyngeal lesions ENT - other findings: ETT in place Neck: supple, symmetric, no JVD, no thyromegaly, no lymphadenopathy Heart: RRR, no gallops, no rubs, normal peripheral pulses Heart - other findings: S1, S2 Respiratory: tachypneic Respiratory - other findings: coarse sounds bilat, scattered rhonchi Gastrointestinal: soft, non-tender, non-distended, normal bowel sounds, no palpable masses Extremities: no cyanosis, no clubbing Skin: normal turgor, no lesions Musculoskeletal: generalized weakness Psychiatric: somnolent, lethargic Hosp A/P (1) Acute on chronic respiratory failure with hypoxia Code(s): J96.21 - ACUTE AND CHRONIC RESPIRATORY FAILURE WITH HYPOXIA Status: Acute Plan: Continue mech ventilation, unable to wean currently (2) Pneumonia Code(s): J18.9 - PNEUMONIA, UNSPECIFIED ORGANISM Status: Acute Qualifiers: Laterality: bilateral Lung location: unspecified part of lung Plan: Continue mech ventilation, Zosyn, add Scopolamine patch (3) Acute on chronic diastolic (congestive) heart failure Code(s): I50.33 - ACUTE ON CHRONIC DIASTOLIC (CONGESTIVE) HEART FAILURE Status : Acute Plan: Continue Lasix 40mg IV BID, 15lb weight loss overall (4) Acute worsening of stage 3 chronic kidney disease Code(s): N18.3 - CHRONIC KIDNEY DISEASE, STAGE 3 (MODERATE) Status: Acute - 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
[2020-06-04] MEDS: Scopolamine 1.5 mg/72 hour Patch TD SCH (16:13)
[2020-06-04] MEDS: Lorazepam 2 MG/ML VIAL SLOW IVP PRN (19:12)
[2020-06-04] MEDS: traZODone HCl 50 MG TAB PER TUBE SCH (20:08)
[2020-06-04] MEDS: Famotidine/PF 20 mg/2ml Vial SLOW IVP SCH (20:08)
[2020-06-04] MEDS: Latanoprost 0.005% Ophth Soln 2.5 ml Bottle R EYE SCH (20:09)
[2020-06-05 04:49] LABS: #Basophils 0.1 thou/uL (0.0-0.2); #Eosinphils 0.7 thou/uL (0.0-0.7); #Lymphocytes 1.6 thou/uL (1.20-3.40); #Monocytes 0.7 thou/uL (0.11-0.59); #Neutrophils 6.1 thou/uL (1.40-6.50); %Basophils 0.7 % (0.0-1.0); %Eosinophils 8.1 % (0.0-10.0); %Lymphocytes 17.1 % (21.0-51.0); %Monocytes 7.4 % (0.0-10.0); %Neutrophils 66.7 % (42.0-75.0); Hemoglobin 7.8 g/dL (12.0-16.0); Mean Corpuscular HGB CONC 31.7 g/dL (32.0-36.0); Mean Corpuscular Hemoglobin 27.9 pg (27.0-31.0); Mean Platelet Volume 8.6 fL (7.4-10.4); Platelet Count 135 thou/uL (130-400); RBC Distribution Width 15.7 % (11.5-14.5); Red Blood Cell (RBC) Count 2.79 mill/uL (4.20-5.40); White Blood Cell (WBC) Count 9.1 thou/uL (4.8-10.8)
[2020-06-05 05:04] LABS: Anion Gap 13 mmol/L (10-20); BUN (Urea Nitrogen) 39 mg/dL (9.8-20.1); Calc. Creatinine Clearance 30 mL/min (70-130); Calcium 7.7 mg/dL (7.8-10.44); Carbon Dioxide 30 mmol/L (22-29); Chloride 106 mmol/L (98-107); Estimated GFR-MDRD 28; Glucose 209 mg/dL (70-105); Sodium 146 mmol/L (136-145)
[2020-06-05] MEDS: Furosemide 40 MG/4 ML VIAL SLOW IVP SCH ×2 (06:17→13:36)
[2020-06-05] MEDS: Piperacillin/Tazobactam 2.25 GM in Sodium Chloride 0.9% 100 ML IVPB SCH ×3 (06:17→21:22)
[2020-06-05] MEDS: Propofol 1,000 MG/100 ML VIAL IV PRN ×2 (06:19→14:43)
[2020-06-05] MEDS: HumaLOG 300 UNITS/3 ML VIAL SC PRN ×3 (06:19→22:42)
[2020-06-05] MEDS: Lorazepam 2 MG/ML VIAL SLOW IVP PRN ×2 (07:07→16:26)
[2020-06-05] MEDS ORDERED: Electrolyte Replacement Protoc 1 EACH EACH FS SCH (07:45)
[2020-06-05 08:06] LABS: Actual Bicarbonate (HCO3a) 24.9 mEq/L (22-28); Base Excess (BEa) 1.8 mEq/L (-2.0 to +3.0); CO2 Tension 33.2 mmHg (35.0-45.0); Calcium, Ionized (arterial) 1.02 mmol/L (1.12-1.30); Carboxyhemoglobin (COHb) 0.3 gm% (0.0-3.0); O2 Tension (PaO2), arterial 143.5 mmHg (80.0-100.0); Potassium - ABG Lab 3.33 mmol/L (3.70-5.30); pH, Arterial 7.49 (7.35-7.45)
[2020-06-05 08:07] LABS: Puncture Site RR
--- NOTE | 2020-06-05 08:23 | RAD ---
PORTABLE CHEST 1 VIEW: Date: 06/05/2020 Time: 0500 hours HISTORY: Respiratory failure. COMPARISON: Previous day. FINDINGS/IMPRESSION: Line and tube placements are unchanged in position. Heart size stable. There are bilateral patchy air space opacities. Small pleural effusions cannot be excluded. No pneumothoraces are seen. POS: MZA
[2020-06-05] MEDS: Heparin 5,000 UNITS/ML VIAL SC SCH ×2 (08:25→21:21)
[2020-06-05] MEDS: Aspirin Chewable 81 MG TAB PO SCH (08:26)
[2020-06-05] MEDS: Atorvastatin Calcium 40 MG TAB PO SCH (08:26)
[2020-06-05] MEDS: Carvedilol 3.125 MG TAB PO SCH (08:26)
[2020-06-05] MEDS: Amlodipine 10 MG TAB PO SCH (08:26)
--- NOTE | 2020-06-05 08:33 | PDOC.CPN ---
- Subjective Date: 06/05/20 Time: 08:37 Interval history: The pt seen and examined. No overnight events. She is still on vent with sedation - Objective Allergies/Adverse Reactions: Allergies Allergy/AdvReac Type Severity Reaction Status Date / Time No Known Drug Allergies Allergy Verified 05/15/20 03:15 Visit Medications: Current Medications Acetaminophen (Tylenol) 650 mg PO Q4H PRN PRN Reason: Headache/Fever/Mild Pain (1-3) Last Admin: 06/02/20 19:59 Dose: 650 mg Acetaminophen (Tylenol) 650 mg [place] Q4H PRN PRN Reason: Headache/Fever/Mild Pain (1-3) Albuterol/Ipratropium (Duoneb) 3 ml NEB [id number] [facility] Last Admin: 06/05/20 08:29 Dose: 3 ml Alprazolam (Xanax) 1 mg PO HSPRN PRN PRN Reason: Anxiety Amlodipine Besylate (Norvasc) 10 mg PO DAILY [facility] Last Admin: 06/05/20 08:26 Dose: 10 mg Aspirin (Aspirin Chewable) 81 mg PO DAILY [facility] Last Admin: 06/05/20 08:26 Dose: 81 mg Atorvastatin Calcium (Lipitor) 40 mg PO DAILY [facility] Last Admin: 06/05/20 08:26 Dose: 40 mg Bisacodyl (Dulcolax) 10 mg OR DAILYPRN PRN PRN Reason: Constipation Carvedilol (Coreg) 3.125 mg PO BID [facility] Last Admin: 06/05/20 08:26 Dose: 3.125 mg Dextrose/Water (Dextrose 50%) 25 gm SLOW IVP PRN PRN PRN Reason: Hypoglycemia Famotidine (Pepcid) 20 mg SLOW IVP 2100 [facility] Last Admin: 06/04/20 20:08 Dose: 20 mg Ferrous Sulfate (Ferrous Sulfate) 300 mg PO QAM-WM [facility] Last Admin: 06/05/20 07:56 Dose: 300 mg Furosemide (Lasix) 40 mg SLOW IVP 0600,1400 [facility] Last Admin: 06/05/20 06:17 Dose: 40 mg Glucagon (Glucagon) 1 mg IM PRN PRN PRN Reason: Hypoglycemia Heparin Sodium (Porcine) (Heparin) 5,000 units SC BID [facility] Last Admin: 06/05/20 08:25 Dose: 5,000 units Fentanyl Citrate (Fentanyl Bolus) 250 mls @ 0 mls/hr IVPB PRN PRN PRN Reason: Breakthrough pain/agitation Stop: 06/26/20 17:28 Dextrose/Water (D5w) 1,000 mls @ 0 mls/hr IV .Q0M PRN PRN Reason: Hypoglycemia Piperacillin Sod/Tazobactam (Sod 2.25 gm/ Sodium Chloride) 100 mls @ 200 mls/ hr IVPB Q8HR [facility] Last Admin: 06/05/20 06:17 Dose: 100 mls Dexmedetomidine HCl 200 mcg/ (Sodium Chloride) 50 mls @ 0 mls/hr IVPB INF [facility]; Protocol Potassium Chloride 40 meq/ (Device) 100 mls @ 25 mls/hr IVPB ONE [facility] Insulin Human Lispro (Humalog) 0 units SC .MILD SLIDING SCALE PRN PRN Reason: Mild Correctional Scale Last Admin: 06/05/20 06:19 Dose: 3 unit Insulin Human Lispro (Humalog) 0 units SC .BEDTIME SLIDING SC PRN PRN Reason: Bedtime Correctional Scale Latanoprost (Xalatan 0.005% [facility] Soln) 1 drop R EYE HS [facility] Last Admin: 06/04/20 20:09 Dose: 1 drop Lorazepam (Ativan) 2 mg SLOW IVP Q1H PRN PRN Reason: Breakthrough agitation Stop: 06/26/20 17:28 Last Admin: 06/05/20 07:07 Dose: 2 mg Miscellaneous Medication (Electrolyte Replacement Protocol) 1 each FS ASDIR [facility] Morphine Sulfate (Morphine) 2 mg SLOW IVP Q1H PRN PRN Reason: BREAKTHROUGH PAIN/Agitation Stop: 06/26/20 17:28 Discontinue Previous Narcotic Pain Medications And Benzodiazepines 1 each FS .ONE [facility] Stop: 06/26/20 17:28 Ondansetron HCl (Zofran Odt) 4 mg PO Q6H PRN PRN Reason: Nausea/Vomiting Ondansetron HCl (Zofran) 4 mg IVP Q6H PRN PRN Reason: Nausea/Vomiting Propofol (Diprivan) 1,000 mg IV INF PRN; Protocol PRN Reason: TO ACHIEVE GOAL RASS Stop: 06/26/20 17:28 Last Admin: 06/05/20 06:19 Dose: 1,000 mg Propofol (Diprivan Bolus) 20 mg IV Q5MIN PRN PRN Reason: BREAKTHROUGH AGITATION Stop: 06/26/20 17:28 Scopolamine (Transderm Scop) 1.5 mg TD Q3D [facility] Last Admin: 06/04/20 16:13 Dose: 1.5 mg Sodium Chloride (Flush - Normal Saline) 10 ml IVF PRN PRN PRN Reason: Saline Flush Last Admin: 06/04/20 10:50 Dose: 10 ml Trazodone HCl (Desyrel) 100 mg PER TUBE HS [facility] Last Admin: 06/04/20 20:08 Dose: 100 mg Vital Signs & Weight: Vital Signs Temp Pulse Resp BP Pulse Ox 06/05/20 08:26 83 165/73 H 06/05/20 08:00 23 H 06/05/20 07:11 100 06/05/20 07:00 98.8 F 06/05/20 06:00 24 H 06/05/20 04:00 99.2 F 25 H 06/05/20 02:00 26 H 06/05/20 00:00 98.9 F 25 H 06/04/20 23:51 90 28 H 100 06/04/20 22:00 25 H Admit Weight 159 lb Weight 146 lb 12.8 oz - Quality Measures CV meds: Beta Mukesh: Yes, ISAAC/ARB: No (CKD), ASA: Yes - Physical Exam Cardiac: regular rate and rhythm, S1/S2 Lungs: decreased breath sounds Extremities: no edema - Labs Result Diagrams: 06/05/20 04:15 06/05/20 04:15 Troponin/CKMB CK-MB (CK-2) 2.0 ng/mL (0-6.6) 05/27/20 14:31 Troponin I 0.105 ng/mL (< 0.028) H 05/27/20 14:31 - Telemetry Sinus rhythms and dysrhythmias: sinus rhythm - Assessment/Plan Assessment/Plan: 1. Type 2 NSTEMI - most likely demand ischemia from Acute issues; Consider further cardiac eval. after she has recovered from the resp. failure. However, she is likely not a candidate for intervention due to her severe CAD 2. Acute on chronic Systolic and Diastolic HF with EF 40-45% and grade I dd on 06/01/2020 - stable with Lasix 40mg IV BID and Coreg,6.25mg BID; Not on ISAAC/ARB due to hx of CKD 3. COPD/PNA - on Vent 4. Pleural effusion - improving with Lasix 40mg IV BID; 5. CAD with hx of multiple stents - on Coreg and statin; on Heparin 5000units BID; 6. HTN - will increase Coreg to 6.25mg BID from this AM 7. NITIN on CKD - unchanged 8. DM type 2 9. Anemia with s/p 1 unit of PRBC on 05/30/2020 - Hgb unchanged 10. Mod MR MAR reviewed Pt. seen and eval. by me.I agree wth the A/P by the JOB CHANGE CREW MEMBER. She remains intubated.Chest clear anteriorly. RRR. No edema. Continue aggressive support. kerim
--- NOTE | 2020-06-05 08:40 | PRG ---
DATE OF SERVICE: 06/05/2020 35 minutes of critical care time. SUBJECTIVE: This patient remains intubated on mechanical ventilation. OBJECTIVE: VITAL SIGNS: Temperature 98.8, pulse 79, blood pressure 165/73, O2 saturation 100%. 24-hour intake 1754, output 1440. NEUROLOGIC: She seems obtunded, but will not follow commands for me. She is on a propofol drip. HEENT: Unremarkable. NECK: No JVD. LUNGS: Few crackles. CARDIAC: S1 and S2. Regular. ABDOMEN: Soft. EXTREMITIES: No edema. LABORATORY DATA: White blood cell count 9.1, hematocrit 24.5, and platelet count 135. PH of 7.49, pCO2 of 33, pO2 of 143 on SIMV rate of 4, tidal volume 450, PEEP 5, pressure support 10, FiO2 of 40%. Sodium 146, potassium 3, chloride 106, CO2 of 30, BUN 39, creatinine 2.2, glucose 209. X-ray shows bilateral interstitial infiltrates. ASSESSMENT: 1. Acute respiratory failure requiring mechanical ventilation. 2. Diastolic congestive heart failure. 3. [id number] renal disease. 4. Deconditioning. PLAN: 1. We will try to convert her propofol over Precedex in hopes of waking her up and getting her extubated. Continue Lasix. 2. Potassium supplementation. Job ID: [id number]
[2020-06-05] MEDS ORDERED: Carvedilol 3.125 MG TAB PO SCH (08:45)
[2020-06-05] MEDS ORDERED: Potassium Chloride 40 MEQ in Premix Bag 1 BAG IVPB SCH ×2 (09:00→10:00)
[2020-06-05] MEDS ORDERED: Magnesium 2 GM/50 ML 2 GM in Premix Bag 1 BAG IVPB SCH (10:00)
[2020-06-05] MEDS ORDERED: Electrolyte Replacement Protocol FS PRN (10:00)
--- NOTE | 2020-06-05 14:47 | PDOC.HOSPP ---
- Subjective Encounter Date: 06/05/20 Encounter Time: 14:45 Subjective: f/u for resp failure due to CHF/PNA on current Zosyn/Lasix. Remains on [facility] ventilator and not weanable. - Objective Vital Signs & Weight: Vital Signs (12 hours) Temp Pulse Pulse Pulse Resp BP BP 06/05/20 14:39 68 141/73 H 06/05/20 14:00 21 H 06/05/20 13:23 69 166/78 H 06/05/20 12:00 98.4 F 22 H 06/05/20 10:39 101 H 94 154/75 H 06/05/20 10:00 15 06/05/20 08:26 83 165/73 H 06/05/20 08:00 23 H 06/05/20 07:11 06/05/20 07:00 98.8 F 06/05/20 06:00 24 H 06/05/20 04:00 99.2 F 25 H BP Pulse Ox Pulse Ox Pulse Ox 06/05/20 14:39 06/05/20 14:00 06/05/20 13:23 06/05/20 12:00 06/05/20 10:39 147/68 H 95 100 06/05/20 10:00 06/05/20 08:26 06/05/20 08:00 06/05/20 07:11 100 06/05/20 07:00 06/05/20 06:00 06/05/20 04:00 Weight Admit Weight 159 lb Weight 146 lb 12.8 oz Most Recent Monitor Data Heart Rate from ECG 70 NIBP 141/73 NIBP BP-Mean 95 Respiration from ECG 0 SpO2 100 I&O: 06/04/20 06/05/20 06/06/20 06:59 06:59 06:59 Intake Total 1817 1754 680 Output Total 1400 1440 1800 Balance 417 314 -1120 Result Diagrams: 06/05/20 04:15 06/05/20 04:15 Additional Labs: Accuchecks 06/04/20 16:21 POC Glucose 159 H Microbiology 05/27/20 14:43 Venous blood - Right Arm Blood Culture - Final NO GROWTH IN 5 DAYS 05/27/20 14:31 Venous blood - Right Arm Blood Culture - Final Enterococcus faecalis Coagulase Neg Staphylococcus Laboratory Tests 05/31/20 06/01/20 06/01/20 04:55 03:45 03:45 WBC 9.4 Hgb 8.3 L Creatinine 2.40 H 2.64 H Phosphorus Magnesium 06/02/20 06/02/20 06/03/20 04:05 04:05 04:09 WBC 9.8 Hgb 8.2 L Creatinine 2.75 H Phosphorus Magnesium 2.0 06/03/20 04:09 WBC Hgb Creatinine Phosphorus 4.3 Magnesium Radiology Reviewed by me: Yes (PCXR - bilat infiltrates) EKG Reviewed by me: Yes (Tele - SR) Hospitalist ROS - Medication Medications: Active Medications Generic Name Dose Route Start Last Admin Trade Name Freq PRN Reason Stop Dose Admin Acetaminophen 650 mg 05/27/20 17:44 06/02/20 19:59 Tylenol PO 650 mg Q4H PRN Administration Headache/Fever/Mild Pain (1-3) Albuterol/Ipratropium 3 ml 05/30/20 13:00 06/05/20 13:22 Duoneb NEB 3 ml [id number] [facility] Administration Amlodipine Besylate 10 mg 06/03/20 09:00 06/05/20 08:26 Norvasc PO 10 mg DAILY [facility] Administration Aspirin 81 mg 06/03/20 09:00 06/05/20 08:26 Aspirin Chewable PO 81 mg DAILY [facility] Administration Atorvastatin Calcium 40 mg 06/03/20 09:00 06/05/20 08:26 Lipitor PO 40 mg DAILY [facility] Administration Famotidine 20 mg 05/27/20 21:00 06/04/20 20:08 Pepcid SLOW IVP 20 mg 2100 [facility] Administration Ferrous Sulfate 300 mg 06/03/20 08:00 06/05/20 07:56 Ferrous Sulfate PO 300 mg QAM-WM [facility] Administration Furosemide 40 mg 06/04/20 14:00 06/05/20 13:36 Lasix SLOW IVP 40 mg 0600,1400 [facility] Administration Heparin Sodium (Porcine) 5,000 units 06/02/20 21:00 06/05/20 08:25 Heparin SC 5,000 units BID [facility] Administration Piperacillin Sod/Tazobactam 100 mls @ 200 mls/hr 05/30/20 14:00 06/05/20 13: 36 Sod 2.25 gm/ Sodium Chloride IVPB 100 mls Q8HR [facility] Administration Dexmedetomidine HCl 400 mcg/ 100 mls @ 0 mls/hr 06/05/20 09:30 06/05/20 09:45 Sodium Chloride IVPB 100 mls INF [facility] Administration Protocol Per Protocol Insulin Human Lispro 0 units 05/27/20 18:01 06/05/20 09:45 Humalog SC 3 unit .MILD SLIDING SCALE PRN Administration Mild Correctional Scale Latanoprost 1 drop 06/02/20 21:00 06/04/20 20:09 Xalatan 0.005% Ophth Soln R EYE 1 drop HS [facility] Administration Lorazepam 2 mg 05/27/20 17:28 06/05/20 07:07 Ativan SLOW IVP 06/26/20 17:28 2 mg Q1H PRN Administration Breakthrough agitation Propofol 1,000 mg 05/27/20 17:28 06/05/20 14:43 Diprivan IV 06/26/20 17:28 1,000 mg INF PRN Administration TO ACHIEVE GOAL RASS Protocol Scopolamine 1.5 mg 06/04/20 15:00 06/04/20 16:13 Transderm Scop TD 1.5 mg Q3D [facility] Administration Sodium Chloride 10 ml 05/28/20 17:09 06/04/20 10:50 Flush - Normal Saline IVF 10 ml PRN PRN Administration Saline Flush Trazodone HCl 100 mg 06/04/20 21:00 06/04/20 20:08 Desyrel PER TUBE 100 mg HS [facility] Administration - Exam General - other findings: somnolent, sedate on mech vent Eye: PERRL ENT: normocephalic atraumatic, no oropharyngeal lesions ENT - other findings: ETT in place Neck: supple, symmetric, no JVD, no thyromegaly, no lymphadenopathy Heart: RRR, no gallops, no rubs, normal peripheral pulses Heart - other findings: S1, S2 Respiratory: tachypneic Respiratory - other findings: diminished with basilar crackles Gastrointestinal: soft, non-tender, non-distended, normal bowel sounds, no palpable masses Extremities: no cyanosis, no edema Skin: normal turgor, no lesions Psychiatric: somnolent, lethargic Hosp A/P (1) Acute on chronic respiratory failure with hypoxia Code(s): J96.21 - ACUTE AND CHRONIC RESPIRATORY FAILURE WITH HYPOXIA Status: Acute Plan: continue [facility] ventilation with attempts to wean sedation, slow improvement (2) Pneumonia Code(s): J18.9 - PNEUMONIA, UNSPECIFIED ORGANISM Status: Acute Qualifiers: Laterality: bilateral Lung location: unspecified part of lung Plan: Continue Zosyn/O2/Duonebs (3) Acute on chronic diastolic (congestive) heart failure Code(s): I50.33 - ACUTE ON CHRONIC DIASTOLIC (CONGESTIVE) HEART FAILURE Status : Acute Plan: Lasix 40mg IV BID, serial I/O's, Daily weight, Coreg (4) Acute worsening of stage 3 chronic kidney disease Code(s): N18.3 - CHRONIC KIDNEY DISEASE, STAGE 3 (MODERATE) Status: Acute Plan: slow improvement, avoid nephrotoxic meds and limit contrast exposure - Plan continue antibiotics, social welfare administrator, 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
[2020-06-05] MEDS: Famotidine/PF 20 mg/2ml Vial SLOW IVP SCH (21:21)
[2020-06-05] MEDS: traZODone HCl 50 MG TAB PER TUBE SCH (21:23)
[2020-06-05] MEDS: Carvedilol 6.25 MG TAB PO SCH (21:23)
[2020-06-05] MEDS: Latanoprost 0.005% Ophth Soln 2.5 ml Bottle R EYE SCH (21:25)
[2020-06-06 03:28] LABS: #Eosinphils 0.7 thou/uL (0.0-0.7); #Lymphocytes 1.1 thou/uL (1.20-3.40); #Monocytes 0.5 thou/uL (0.11-0.59); #Neutrophils 6.1 thou/uL (1.40-6.50); %Basophils 0.5 % (0.0-1.0); %Eosinophils 8.3 % (0.0-10.0); %Monocytes 5.7 % (0.0-10.0); %Neutrophils 72.4 % (42.0-75.0); Hemoglobin 8.5 g/dL (12.0-16.0); Mean Corpuscular Hemoglobin 28.1 pg (27.0-31.0); Mean Corpuscular Volume 87.8 fL (78.0-98.0); Mean Platelet Volume 8.2 fL (7.4-10.4); Platelet Count 158 thou/uL (130-400); RBC Distribution Width 15.4 % (11.5-14.5); Red Blood Cell (RBC) Count 3.04 mill/uL (4.20-5.40); White Blood Cell (WBC) Count 8.4 thou/uL (4.8-10.8)
[2020-06-06 03:52] LABS: Anion Gap 14 mmol/L (10-20); BUN (Urea Nitrogen) 35 mg/dL (9.8-20.1); Calc. Creatinine Clearance 35 mL/min (70-130); Calcium 8.4 mg/dL (7.8-10.44); Carbon Dioxide 29 mmol/L (22-29); Chloride 107 mmol/L (98-107); Estimated GFR-MDRD 33; Glucose 173 mg/dL (70-105); Potassium 3.8 mmol/L (3.5-5.1); Sodium 146 mmol/L (136-145)
[2020-06-06] MEDS: HumaLOG 300 UNITS/3 ML VIAL SC PRN ×4 (04:37→22:42)
[2020-06-06] MEDS: Piperacillin/Tazobactam 2.25 GM in Sodium Chloride 0.9% 100 ML IVPB SCH (05:41)
[2020-06-06] MEDS: Furosemide 40 MG/4 ML VIAL SLOW IVP SCH ×2 (05:42→13:27)
[2020-06-06] MEDS: Propofol 1,000 MG/100 ML VIAL IV PRN (05:47)
[2020-06-06 07:45] LABS: Actual Bicarbonate (HCO3a) 21.7 mEq/L (22-28); Base Excess (BEa) -2.2 mEq/L (-2.0 to +3.0); CO2 Tension 33.8 mmHg (35.0-45.0); Calcium, Ionized (arterial) 1.15 mmol/L (1.12-1.30); Carboxyhemoglobin (COHb) 0.3 gm% (0.0-3.0); Hemoglobin (Hb) 9.8 g/dL (12.0-16.0); O2 Tension (PaO2), arterial 110.9 mmHg (80.0-100.0); Potassium - ABG Lab 4.36 mmol/L (3.70-5.30); pH, Arterial 7.43 (7.35-7.45)
[2020-06-06 07:46] LABS: Puncture Site RRA
--- NOTE | 2020-06-06 08:09 | PRG ---
DATE OF SERVICE: This is 35 minutes critical care time. SUBJECTIVE: The patient remains intubated on mechanical ventilation. There have been no acute changes overnight. She becomes very tachypneic off the propofol. OBJECTIVE: VITAL SIGNS: Her temperature is 98.5 with no recorded fever overnight, pulse 98, blood pressure 136/92, O2 saturation generally running 100%. Intake for 24 hours, 2293, output 2865. Weight currently at 146 pounds with admission weight recorded at 159 pounds. HEENT: Unremarkable. NECK: No JVD. CARDIAC: S1 and S2. Slightly tachycardic. LUNGS: Few crackles. ABDOMEN: Soft and nontender. EXTREMITIES: No clubbing, cyanosis, or edema. LABORATORY DATA: ABG pending. White blood cell count 8.4, hematocrit 26.7, and platelet count 158. Sodium 146, potassium 3.8, chloride 107, CO2 of 29, BUN 35, creatinine 1.9, glucose 173. Chest x-ray was not done today. ASSESSMENT: 1. Acute hypoxic respiratory failure requiring mechanical ventilation. 2. Diastolic congestive heart failure. 3. [id number] renal insufficiency. 4. Deconditioning. PLAN: Main issue here is the patient has continued tachypnea when sedation is weaned down. She is also very dyssynchronous with mechanical ventilation. I have switched her over to pressure control ventilation. I have increased her pressure support substantially. We are continuing to try to wean her off the propofol, although so far that has been unsuccessful. We will continue support with enteral tube feeds. The patient has received 7 days of antibiotics, so I will go ahead and stop the Zosyn. She is on heparin for DVT prophylaxis. Prognosis is guarded at this point. I think she may end up needing a tracheostomy. Job ID: [id number]
[2020-06-06] MEDS: Atorvastatin Calcium 40 MG TAB PO SCH (08:40)
[2020-06-06] MEDS: Amlodipine 10 MG TAB PO SCH (08:40)
[2020-06-06] MEDS: Valproate Sodium 250 mg/5 ml UD Cup PER TUBE SCH ×2 (08:40→20:55)
[2020-06-06] MEDS: Aspirin Chewable 81 MG TAB PO SCH (08:41)
[2020-06-06] MEDS: Carvedilol 6.25 MG TAB PO SCH ×2 (08:41→20:53)
[2020-06-06] MEDS: Heparin 5,000 UNITS/ML VIAL SC SCH ×2 (08:42→20:53)
[2020-06-06] MEDS: Ziprasidone 20 MG CAP PER TUBE SCH ×2 (08:42→20:53)
--- NOTE | 2020-06-06 09:26 | PDOC.CPN ---
- Subjective Date: 06/06/20 Time: 08:30 Interval history: The pt seen and examined. No overnight events. Still on Vent - Objective Allergies/Adverse Reactions: Allergies Allergy/AdvReac Type Severity Reaction Status Date / Time No Known Drug Allergies Allergy Verified 05/15/20 03:15 Visit Medications: Current Medications Acetaminophen (Tylenol) 650 mg PO Q4H PRN PRN Reason: Headache/Fever/Mild Pain (1-3) Last Admin: 06/02/20 19:59 Dose: 650 mg Acetaminophen (Tylenol) 650 mg [place] Q4H PRN PRN Reason: Headache/Fever/Mild Pain (1-3) Albuterol/Ipratropium (Duoneb) 3 ml NEB [id number] [facility] Last Admin: 06/06/20 07:36 Dose: 3 ml Alprazolam (Xanax) 1 mg PO HSPRN PRN PRN Reason: Anxiety Amlodipine Besylate (Norvasc) 10 mg PO DAILY [facility] Last Admin: 06/06/20 08:40 Dose: 10 mg Aspirin (Aspirin Chewable) 81 mg PO DAILY [facility] Last Admin: 06/06/20 08:41 Dose: 81 mg Atorvastatin Calcium (Lipitor) 40 mg PO DAILY [facility] Last Admin: 06/06/20 08:40 Dose: 40 mg Bisacodyl (Dulcolax) 10 mg [place] DAILYPRN PRN PRN Reason: Constipation Carvedilol (Coreg) 6.25 mg PO BID [facility] Last Admin: 06/06/20 08:41 Dose: 6.25 mg Dextrose/Water (Dextrose 50%) 25 gm SLOW IVP PRN PRN PRN Reason: Hypoglycemia Famotidine (Pepcid) 20 mg SLOW IVP 2100 [facility] Last Admin: 06/05/20 21:21 Dose: 20 mg Ferrous Sulfate (Ferrous Sulfate) 300 mg PO QAM-WM [facility] Last Admin: 06/06/20 08:40 Dose: 300 mg Furosemide (Lasix) 40 mg SLOW IVP 0600,1400 [facility] Last Admin: 06/06/20 05:42 Dose: 40 mg Glucagon (Glucagon) 1 mg IM PRN PRN PRN Reason: Hypoglycemia Heparin Sodium (Porcine) (Heparin) 5,000 units SC BID [facility] Last Admin: 06/06/20 08:42 Dose: 5,000 units Fentanyl Citrate (Fentanyl Bolus) 250 mls @ 0 mls/hr IVPB PRN PRN PRN Reason: Breakthrough pain/agitation Stop: 06/26/20 17:28 Dextrose/Water (D5w) 1,000 mls @ 0 mls/hr IV .Q0M PRN PRN Reason: Hypoglycemia Dexmedetomidine HCl 400 mcg/ (Sodium Chloride) 100 mls @ 0 mls/hr IVPB INF [facility] ; Protocol Last Admin: 06/05/20 20:42 Dose: 100 mls Insulin Human Lispro (Humalog) 0 units SC .MILD SLIDING SCALE PRN PRN Reason: Mild Correctional Scale Last Admin: 06/06/20 04:37 Dose: 2 unit Insulin Human Lispro (Humalog) 0 units SC .BEDTIME SLIDING SC PRN PRN Reason: Bedtime Correctional Scale Isosorbide Mononitrate (Imdur Er) 30 mg PO DAILY [facility] Latanoprost (Xalatan 0.005% Ophth Soln) 1 drop R EYE HS [facility] Last Admin: 06/05/20 21:25 Dose: 1 drop Lorazepam (Ativan) 2 mg SLOW IVP Q1H PRN PRN Reason: Breakthrough agitation Stop: 06/26/20 17:28 Last Admin: 06/05/20 16:26 Dose: 2 mg Miscellaneous Medication (Electrolyte Replacement Protocol) 0 each FS ASDIR PRN ; Protocol PRN Reason: ELECTROLYTE REPLACEMENT Morphine Sulfate (Morphine) 2 mg SLOW IVP Q1H PRN PRN Reason: BREAKTHROUGH PAIN/Agitation Stop: 06/26/20 17:28 Discontinue Previous Narcotic Pain Medications And Benzodiazepines 1 each FS .ONE [facility] Stop: 06/26/20 17:28 Ondansetron HCl (Zofran Odt) 4 mg PO Q6H PRN PRN Reason: Nausea/Vomiting Ondansetron HCl (Zofran) 4 mg IVP Q6H PRN PRN Reason: Nausea/Vomiting Propofol (Diprivan) 1,000 mg IV INF PRN; Protocol PRN Reason: TO ACHIEVE GOAL RASS Stop: 06/26/20 17:28 Last Admin: 06/06/20 05:47 Dose: 1,000 mg Propofol (Diprivan Bolus) 20 mg IV Q5MIN PRN PRN Reason: BREAKTHROUGH AGITATION Stop: 06/26/20 17:28 Scopolamine (Transderm Scop) 1.5 mg TD Q3D [facility] Last Admin: 06/04/20 16:13 Dose: 1.5 mg Sodium Chloride (Flush - Normal Saline) 10 ml IVF PRN PRN PRN Reason: Saline Flush Last Admin: 06/04/20 10:50 Dose: 10 ml Trazodone HCl (Desyrel) 100 mg PER TUBE HS [facility] Last Admin: 06/05/20 21:23 Dose: 100 mg Valproic Acid (Depakene Liquid) 500 mg PER TUBE BID [facility] Last Admin: 06/06/20 08:40 Dose: 500 mg Ziprasidone (Geodon) 20 mg PER TUBE BID [facility] Last Admin: 06/06/20 08:42 Dose: 20 mg Vital Signs & Weight: Vital Signs Temp Pulse Resp BP Pulse Ox 06/06/20 08:41 173/93 H 06/06/20 08:40 109 H 173/82 H 06/06/20 08:00 37 H 06/06/20 07:49 109 H 06/06/20 07:12 99 06/06/20 07:00 98.5 F 06/06/20 05:57 32 H 06/06/20 04:00 30 H 06/06/20 02:00 37 H 06/06/20 00:00 22 H 06/05/20 23:28 86 26 H 100 06/05/20 22:00 23 H Admit Weight 159 lb Weight 146 lb 13.246 oz - Quality Measures CV meds: Beta Mukesh: Yes, ISAAC/ARB: No (CKD), ASA: Yes - Labs Result Diagrams: 06/06/20 03:00 06/06/20 03:00 Troponin/CKMB CK-MB (CK-2) 2.0 ng/mL (0-6.6) 05/27/20 14:31 Troponin I 0.105 ng/mL (< 0.028) H 05/27/20 14:31 - Assessment/Plan Assessment/Plan: 1. Type 2 NSTEMI - most likely demand ischemia from Acute issues; Consider further cardiac eval. after she has recovered from the resp. failure. However, she is likely not a candidate for intervention due to her severe CAD 2. Acute on chronic Systolic and Diastolic HF with EF 40-45% and grade I dd on 06/01/2020 - stable with Lasix 40mg IV BID and Coreg,6.25mg BID; Not on ISAAC/ARB due to hx of CKD 3. COPD/PNA - on Vent; plan for trach placement? 4. Pleural effusion - improving with Lasix 40mg IV BID; 5. CAD with hx of multiple stents - on Coreg and statin; on Heparin 5000units BID; 6. HTN - start Imdur 30mg qd from this AM; 7. NITIN on CKD - unchanged 8. DM type 2 9. Anemia with s/p 1 unit of PRBC on 05/30/2020 - Hgb unchanged 10. Mod MR NEAL reviewed Pt. seen and eval. by me. I agree with the A/P by the ACTUARY CLERK. She remains on the vent. when the sedation is decreased the pt. becomes agitated ant he RR increases. She has 3 vessel CAD with the RCA and the circ. occluded. Despite the severe CAD the EF has been reasonable up until this admission and is now decreased. See report. correction prognosis is not good with all of her medical problems. I will continue to follow with you. ana
--- NOTE | 2020-06-06 17:13 | PDOC.HOSPP ---
- Subjective Encounter Date: 06/06/20 Encounter Time: 17:05 Subjective: f/u for resp failure on mech ventilation due to CHF, NITIN and not weanable currently. Pressure support mech vent and remains off Diprivan. - Objective Vital Signs & Weight: Vital Signs (12 hours) Temp Pulse Pulse Pulse Resp BP BP 06/06/20 16:00 98.7 F 12 06/06/20 15:06 91 134/62 06/06/20 14:00 12 06/06/20 12:57 97 06/06/20 12:00 98.5 F 12 06/06/20 11:30 102 H 100 101/62 06/06/20 10:36 105 H 06/06/20 10:00 26 H 06/06/20 08:41 173/93 H 06/06/20 08:40 109 H 173/82 H 06/06/20 08:00 37 H 06/06/20 07:49 109 H 06/06/20 07:12 06/06/20 07:00 98.5 F 06/06/20 05:57 32 H BP Pulse Ox Pulse Ox 06/06/20 16:00 06/06/20 15:06 06/06/20 14:00 06/06/20 12:57 06/06/20 12:00 06/06/20 11:30 105/63 99 06/06/20 10:36 06/06/20 10:00 06/06/20 08:41 06/06/20 08:40 06/06/20 08:00 06/06/20 07:49 06/06/20 07:12 99 06/06/20 07:00 06/06/20 05:57 Weight Admit Weight 159 lb Weight 146 lb 13.246 oz Most Recent Monitor Data Heart Rate from ECG 90 NIBP 140/65 NIBP BP-Mean 90 Respiration from ECG 12 SpO2 99 I&O: 06/05/20 06/06/20 06/07/20 06:59 06:59 06:59 Intake Total 1754 2293.5 240 Output Total 1440 2865 1490 Balance 314 571.5 -1250 Result Diagrams: 06/06/20 03:00 06/06/20 03:00 Additional Labs: Microbiology 05/27/20 14:43 Venous blood - Right Arm Blood Culture - Final NO GROWTH IN 5 DAYS 05/27/20 14:31 Venous blood - Right Arm Blood Culture - Final Enterococcus faecalis Coagulase Neg Staphylococcus Laboratory Tests 05/31/20 06/01/20 06/01/20 04:55 03:45 03:45 WBC 9.4 Hgb 8.3 L Creatinine 2.40 H 2.64 H Phosphorus Magnesium 06/02/20 06/02/20 06/03/20 04:05 04:05 04:09 WBC 9.8 Hgb 8.2 L Creatinine 2.75 H Phosphorus Magnesium 2.0 06/03/20 04:09 WBC Hgb Creatinine Phosphorus 4.3 Magnesium EKG Reviewed by me: Yes (Tele - SR) Hospitalist ROS - Medication Medications: Active Medications Generic Name Dose Route Start Last Admin Trade Name Freq PRN Reason Stop Dose Admin Acetaminophen 650 mg 05/27/20 17:44 06/02/20 19:59 Tylenol PO 650 mg Q4H PRN Administration Headache/Fever/Mild Pain (1-3) Albuterol/Ipratropium 3 ml 05/30/20 13:00 06/06/20 12:57 Duoneb NEB 3 ml [id number] RONALD Administration Amlodipine Besylate 10 mg 06/03/20 09:00 06/06/20 08:40 Norvasc PO 10 mg DAILY RONALD Administration Aspirin 81 mg 06/03/20 09:00 06/06/20 08:41 Aspirin Chewable PO 81 mg DAILY RONALD Administration Atorvastatin Calcium 40 mg 06/03/20 09:00 06/06/20 08:40 Lipitor PO 40 mg DAILY RONALD Administration Carvedilol 6.25 mg 06/05/20 21:00 06/06/20 08:41 Coreg PO 6.25 mg BID RONALD Administration Famotidine 20 mg 05/27/20 21:00 06/05/20 21:21 Pepcid SLOW IVP 20 mg 2100 RONALD Administration Ferrous Sulfate 300 mg 06/03/20 08:00 06/06/20 08:40 Ferrous Sulfate PO 300 mg QAM-WM RONALD Administration Furosemide 40 mg 06/04/20 14:00 06/06/20 13:27 Lasix SLOW IVP 40 mg 0600,1400 RONALD Administration Heparin Sodium (Porcine) 5,000 units 06/02/20 21:00 06/06/20 08:42 Heparin SC 5,000 units BID RONALD Administration Dexmedetomidine HCl 400 mcg/ 100 mls @ 0 mls/hr 06/05/20 09:30 06/06/20 10:25 Sodium Chloride IVPB 100 mls INF RONALD Administration Protocol Per Protocol Insulin Human Lispro 0 units 05/27/20 18:01 06/06/20 15:48 Humalog SC 2 unit .MILD SLIDING SCALE PRN Administration Mild Correctional Scale Latanoprost 1 drop 06/02/20 21:00 06/05/20 21:25 Xalatan 0.005% Ophth Soln R EYE 1 drop HS RONALD Administration Lorazepam 2 mg 05/27/20 17:28 06/05/20 16:26 Ativan SLOW IVP 06/26/20 17:28 2 mg Q1H PRN Administration Breakthrough agitation Propofol 1,000 mg 05/27/20 17:28 06/06/20 05:47 Diprivan IV 06/26/20 17:28 1,000 mg INF PRN Administration TO ACHIEVE GOAL RASS Protocol Scopolamine 1.5 mg 06/04/20 15:00 06/04/20 16:13 Transderm Scop TD 1.5 mg Q3D RONALD Administration Sodium Chloride 10 ml 05/28/20 17:09 06/04/20 10:50 Flush - Normal Saline IVF 10 ml PRN PRN Administration Saline Flush Trazodone HCl 100 mg 06/04/20 21:00 06/05/20 21:23 Desyrel PER TUBE 100 mg HS RONALD Administration Valproic Acid 500 mg 06/06/20 09:00 06/06/20 08:40 Depakene Liquid PER TUBE 500 mg BID RONALD Administration Ziprasidone 20 mg 06/06/20 09:00 06/06/20 08:42 Geodon PER TUBE 20 mg BID RONALD Administration - Exam General - other findings: sedate on mech vent ENT: normocephalic atraumatic, no oropharyngeal lesions ENT - other findings: ETT in place Neck: supple, symmetric, no JVD, no thyromegaly, no lymphadenopathy Heart: RRR, no gallops, no rubs, normal peripheral pulses Heart - other findings: S1, S2 Respiratory: no tachypnea Respiratory - other findings: diminished in bases Gastrointestinal: soft, non-tender, non-distended, normal bowel sounds, no palpable masses Extremities: no cyanosis, no clubbing, no edema Skin: normal turgor, no lesions Psychiatric: somnolent, lethargic Hosp A/P (1) Acute on chronic respiratory failure with hypoxia Code(s): J96.21 - ACUTE AND CHRONIC RESPIRATORY FAILURE WITH HYPOXIA Status: Acute Plan: Continue mech ventilation, slow wean, may need to consider tracheostomy/PEG (2) Pneumonia Code(s): J18.9 - PNEUMONIA, UNSPECIFIED ORGANISM Status: Acute Qualifiers: Laterality: bilateral Lung location: unspecified part of lung Plan: Continue Zosyn IV/Duonebs/mech ventilation (3) Acute on chronic diastolic (congestive) heart failure Code(s): I50.33 - ACUTE ON CHRONIC DIASTOLIC (CONGESTIVE) HEART FAILURE Status : Acute Plan: Continue Lasix IV, serial I/O's, Daily weight (4) Acute worsening of stage 3 chronic kidney disease Code(s): N18.3 - CHRONIC KIDNEY DISEASE, STAGE 3 (MODERATE) Status: Acute Plan: Improving, continue serial monitoring - Plan continue antibiotics, foster care social worker, respiratory therapy Continue critical support Lasix 40mg IV BID continue Zosyn Wean off mech ventilation as clinically indicated, not currently a candidate Trial Scopolamine patch due to secretions AM lab: BMP, CBC, ABG PCXR in am
[2020-06-06] MEDS: Famotidine/PF 20 mg/2ml Vial SLOW IVP SCH (20:53)
[2020-06-06] MEDS: traZODone HCl 50 MG TAB PER TUBE SCH (20:53)
[2020-06-06] MEDS: Latanoprost 0.005% Ophth Soln 2.5 ml Bottle R EYE SCH (20:54)
[2020-06-07 03:26] LABS: #Lymphocytes 1.3 thou/uL (1.20-3.40); #Monocytes 0.7 thou/uL (0.11-0.59); #Neutrophils 11.6 thou/uL (1.40-6.50); %Basophils 0.3 % (0.0-1.0); %Eosinophils 0.2 % (0.0-10.0); %Lymphocytes 9.4 % (21.0-51.0); %Monocytes 5.4 % (0.0-10.0); %Neutrophils 84.7 % (42.0-75.0); Hemoglobin 8.9 g/dL (12.0-16.0); Mean Corpuscular HGB CONC 32.9 g/dL (32.0-36.0); Mean Corpuscular Hemoglobin 28.7 pg (27.0-31.0); Mean Corpuscular Volume 87.2 fL (78.0-98.0); Mean Platelet Volume 8.4 fL (7.4-10.4); Platelet Count 184 thou/uL (130-400); RBC Distribution Width 15.8 % (11.5-14.5); White Blood Cell (WBC) Count 13.7 thou/uL (4.8-10.8)
[2020-06-07] MEDS: Propofol 1,000 MG/100 ML VIAL IV PRN (03:26)
[2020-06-07 03:39] LABS: Anion Gap 16 mmol/L (10-20); BUN (Urea Nitrogen) 44 mg/dL (9.8-20.1); Calc. Creatinine Clearance 27 mL/min (70-130); Calcium 8.8 mg/dL (7.8-10.44); Carbon Dioxide 27 mmol/L (22-29); Chloride 108 mmol/L (98-107); Estimated GFR-MDRD 24; Glucose 249 mg/dL (70-105); Potassium 3.6 mmol/L (3.5-5.1); Sodium 147 mmol/L (136-145)
[2020-06-07] MEDS: HumaLOG 300 UNITS/3 ML VIAL SC PRN ×4 (04:39→21:30)
[2020-06-07] MEDS: Furosemide 40 MG/4 ML VIAL SLOW IVP SCH (05:55)
[2020-06-07 07:09] LABS: Actual Bicarbonate (HCO3a) 22.3 mEq/L (22-28); Base Excess (BEa) -0.8 mEq/L (-2.0 to +3.0); CO2 Tension 30.6 mmHg (35.0-45.0); Calcium, Ionized (arterial) 1.12 mmol/L (1.12-1.30); Carboxyhemoglobin (COHb) 0.3 gm% (0.0-3.0); Hemoglobin (Hb) 8.3 g/dL (12.0-16.0); O2 Tension (PaO2), arterial 120.6 mmHg (80.0-100.0); Potassium - ABG Lab 3.05 mmol/L (3.70-5.30); pH, Arterial 7.48 (7.35-7.45)
[2020-06-07 07:10] LABS: Puncture Site RRA
--- NOTE | 2020-06-07 08:01 | PRG ---
DATE OF SERVICE: 06/07/2020 35 minutes critical care time. SUBJECTIVE: The patient remains intubated on mechanical ventilation. OBJECTIVE: VITAL SIGNS: Temperature is 100.3, pulse 99, blood pressure 100/66. 24-hour total input 1673, output 1762. Weight 142 pounds. NEUROLOGICAL: She becomes tachypneic when I speak to her. She is not following commands specifically. HEENT: Unremarkable except for the tubes in place. NECK: No JVD. LUNGS: Crackles at bases. CARDIAC: S1, S2. Slightly tachycardic. ABDOMEN: Soft and nontender. EXTREMITIES: No clubbing, cyanosis, or edema. LABORATORY DATA: White blood cell count 13.7, hematocrit 27, and platelet count 184. pH of 7.40, pCO2 of 30, pO2 of 120 on pressure control ventilation, rate 12, inspiratory pressure 23, PEEP 5, pressure support 20, and FiO2 of 40%. Sodium 147, potassium 3.6, chloride 108, CO2 of 27, BUN 44, creatinine 2.5, glucose 249. Chest x-ray shows bibasilar infiltrative changes. ASSESSMENT: 1. Acute hypoxic respiratory failure requiring mechanical ventilation. 2. 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 3. Diastolic congestive heart failure. 4. Increasing renal insufficiency, on high-dose diuretics. 5. Deconditioning. 6. Low-grade temperature. PLANS: 1. We will have to watch her temperature and x-ray closely. Antibiotics were stopped yesterday after 7 days of treatment. If she has recurrence of a fever spike, then we would need to reculture and start on vancomycin and meropenem. 2. Hold diuretics today because of increasing renal insufficiency. 3. Tracheostomy and PEG tube plan for tomorrow as I do not see any hope of her weaning in the next several days. 4. LTAC placement after trach and PEG. Job ID: [id number]
--- NOTE | 2020-06-07 08:24 | RAD ---
EXAM: CHEST ONE VIEW HISTORY: Pneumonia. Follow-up evaluation. COMPARISON: 06/05/2020 FINDINGS: Endotracheal tube, nasogastric tube, and right-sided vascular catheter remain in place and unchanged in position. Cardiac silhouette is stable in size. Coronary artery stent overlies the left cardiac border. There are bilateral interstitial opacities with greater patchy parenchymal opacity present at the lateral right lung base on today's exam. Probable mild patchy density also present at the medial left lung base in the retrocardiac region. No other interval change. IMPRESSION: Interstitial and patchy airspace opacities greater at the lung bases with interval increase in inters titial and patchy parenchymal density at the right lung base. Findings may be related to worsening bilateral infectious process. Follow-up to resolution is recommended.
[2020-06-07] MEDS: Heparin 5,000 UNITS/ML VIAL SC SCH ×2 (09:30→21:07)
[2020-06-07] MEDS: Carvedilol 6.25 MG TAB PO SCH ×2 (09:31→21:07)
[2020-06-07] MEDS: Ziprasidone 20 MG CAP PER TUBE SCH ×2 (09:31→21:07)
[2020-06-07] MEDS: Atorvastatin Calcium 40 MG TAB PO SCH (09:31)
[2020-06-07] MEDS: Amlodipine 10 MG TAB PO SCH (09:31)
[2020-06-07] MEDS: Aspirin Chewable 81 MG TAB PO SCH (09:31)
[2020-06-07] MEDS: Valproate Sodium 250 mg/5 ml UD Cup PER TUBE SCH ×2 (09:32→21:08)
[2020-06-07] MEDS: Isosorbide Mononitrate 20 MG TAB PER TUBE SCH ×2 (09:32→21:08)
[2020-06-07] MEDS: ALPRAZolam 1 MG TAB PO PRN (12:32)
--- NOTE | 2020-06-07 12:40 | PDOC.CPN ---
- Subjective Date: 06/07/20 Time: 08:30 Interval history: The pt seen and examined. No overnight events. Still on Vent with sedation. - Objective Allergies/Adverse Reactions: Allergies Allergy/AdvReac Type Severity Reaction Status Date / Time No Known Drug Allergies Allergy Verified 05/15/20 03:15 Visit Medications: Current Medications Acetaminophen (Tylenol) 650 mg PO Q4H PRN PRN Reason: Headache/Fever/Mild Pain (1-3) Last Admin: 06/02/20 19:59 Dose: 650 mg Acetaminophen (Tylenol) 650 mg [place] Q4H PRN PRN Reason: Headache/Fever/Mild Pain (1-3) Albuterol/Ipratropium (Duoneb) 3 ml NEB [id number] [facility] Last Admin: 06/07/20 07:13 Dose: 3 ml Alprazolam (Xanax) 1 mg PO HSPRN PRN PRN Reason: Anxiety Last Admin: 06/07/20 12:32 Dose: 1 mg Amlodipine Besylate (Norvasc) 10 mg PO DAILY [facility] Last Admin: 06/07/20 09:31 Dose: 10 mg Aspirin (Aspirin Chewable) 81 mg PO DAILY [facility] Last Admin: 06/07/20 09:31 Dose: 81 mg Atorvastatin Calcium (Lipitor) 40 mg PO DAILY [facility] Last Admin: 06/07/20 09:31 Dose: 40 mg Bisacodyl (Dulcolax) 10 mg [place] DAILYPRN PRN PRN Reason: Constipation Carvedilol (Coreg) 6.25 mg PO BID [facility] Last Admin: 06/07/20 09:31 Dose: 6.25 mg Dextrose/Water (Dextrose 50%) 25 gm SLOW IVP PRN PRN PRN Reason: Hypoglycemia Famotidine (Pepcid) 20 mg SLOW IVP 2100 [facility] Last Admin: 06/06/20 20:53 Dose: 20 mg Ferrous Sulfate (Ferrous Sulfate) 300 mg PO QAM-WM [facility] Last Admin: 06/07/20 09:31 Dose: 300 mg Glucagon (Glucagon) 1 mg IM PRN PRN PRN Reason: Hypoglycemia Heparin Sodium (Porcine) (Heparin) 5,000 units SC BID [facility] Last Admin: 06/07/20 09:30 Dose: 5,000 units Dextrose/Water (D5w) 1,000 mls @ 0 mls/hr IV .Q0M PRN PRN Reason: Hypoglycemia Dexmedetomidine HCl 400 mcg/ (Sodium Chloride) 100 mls @ 0 mls/hr IVPB INF RONALD ; Protocol Last Admin: 06/07/20 07:31 Dose: 100 mls Insulin Human Lispro (Humalog) 0 units SC .MILD SLIDING SCALE PRN PRN Reason: Mild Correctional Scale Last Admin: 06/07/20 10:41 Dose: 2 unit Insulin Human Lispro (Humalog) 0 units SC .BEDTIME SLIDING SC PRN PRN Reason: Bedtime Correctional Scale Isosorbide Mononitrate (Ismo) 20 mg PER TUBE BID [facility] Last Admin: 06/07/20 09:32 Dose: 20 mg Latanoprost (Xalatan 0.005% Oph Soln) 1 drop R EYE HS [facility] Last Admin: 06/06/20 20:54 Dose: 1 drop Miscellaneous Medication (Electrolyte Replacement Protocol) 0 each FS ASDIR PRN ; Protocol PRN Reason: ELECTROLYTE REPLACEMENT Discontinue Previous Narcotic Pain Medications And Benzodiazepines 1 each FS .ONE [facility] Stop: 06/26/20 17:28 Ondansetron HCl (Zofran Odt) 4 mg PO Q6H PRN PRN Reason: Nausea/Vomiting Ondansetron HCl (Zofran) 4 mg IVP Q6H PRN PRN Reason: Nausea/Vomiting Propofol (Diprivan) 1,000 mg IV INF PRN; Protocol PRN Reason: TO ACHIEVE GOAL RASS Stop: 06/26/20 17:28 Last Admin: 06/07/20 03:26 Dose: 1,000 mg Propofol (Diprivan Bolus) 20 mg IV Q5MIN PRN PRN Reason: BREAKTHROUGH AGITATION Stop: 06/26/20 17:28 Scopolamine (Transderm Scop) 1.5 mg TD Q3D [facility] Last Admin: 06/04/20 16:13 Dose: 1.5 mg Sodium Chloride (Flush - Normal Saline) 10 ml IVF PRN PRN PRN Reason: Saline Flush Last Admin: 06/04/20 10:50 Dose: 10 ml Trazodone HCl (Desyrel) 100 mg PER TUBE HS [facility] Last Admin: 06/06/20 20:53 Dose: 100 mg Valproic Acid (Depakene Liquid) 500 mg PER TUBE BID [facility] Last Admin: 06/07/20 09:32 Dose: 500 mg Ziprasidone (Geodon) 20 mg PER TUBE BID RONALD Last Admin: 06/07/20 09:31 Dose: 20 mg Vital Signs & Weight: Vital Signs Temp Pulse Resp BP Pulse Ox 06/07/20 10:50 101 H 06/07/20 10:00 30 H 06/07/20 09:31 99 134/62 06/07/20 08:00 26 H 97 06/07/20 07:13 99 06/07/20 07:00 100.3 F H 06/07/20 06:00 16 06/07/20 04:00 18 06/07/20 02:00 12 Admit Weight 159 lb Weight 142 lb 13.753 oz - Quality Measures CV meds: Beta Mukesh: Yes, ISAAC/ARB: No (CKD), ASA: Yes - Physical Exam Cardiac: regular rhythm, S1/S2 Lungs: decreased breath sounds Extremities: no edema - Labs Result Diagrams: 06/07/20 03:00 06/07/20 03:00 Troponin/CKMB CK-MB (CK-2) 2.0 ng/mL (0-6.6) 05/27/20 14:31 Troponin I 0.105 ng/mL (< 0.028) H 05/27/20 14:31 - Telemetry Sinus rhythms and dysrhythmias: sinus rhythm - Assessment/Plan Assessment/Plan: 1. Type 2 NSTEMI - most likely demand ischemia from Acute issues; Consider further cardiac eval. after she has recovered from the resp. failure. However, she is likely not a candidate for intervention due to hx of severe CAD with occluded RCA and Lt Cx. 2. Acute on chronic Systolic and Diastolic HF with EF 40-45% and grade I dd on 06/01/2020 - stable with Coreg,6.25mg BID; Lasix is on hold for now due to worsening of renal function and elevated Na level; Not on ISAAC/ARB due to hx of CKD 3. COPD/PNA - on Vent; plan for trach placement tomorrow 4. Pleural effusion - improving; lasix is on hold due to worsening of Renal function and elevated Na level 5. CAD with hx of multiple stents - on Coreg and statin; on Heparin 5000units BID; 6. HTN - stable 7. NITIN on CKD - unchanged 8. DM type 2 9. Anemia with s/p 1 unit of PRBC on 05/30/2020 - Hgb unchanged 10. Mod MR ÁNGEL reviewed Pt. seen and butch;l. by me. I agree with the A/P by the COMPUTER INFORMATION SYSTEMS PROFESSOR. The temp. is up.? etiology.WBC increased. Chest: scattered rhonchi. RRR.No edema. Pt. not able to be extubated. ? tracheostomy today. [facility] prognosis is poor. ana
[2020-06-07] MEDS: Scopolamine 1.5 mg/72 hour Patch TD SCH (15:34)
--- NOTE | 2020-06-07 15:38 | PDOC.HOSPP ---
- Subjective Encounter Date: 06/07/20 Encounter Time: 15:30 Subjective: f/u resp failure due to CHF/PNA on previous Lasix now d/c'd. Receiving Zosyn/ Duonebs and mech ventilation and unable to wean. Plan for trach/PEG in am. - Objective Vital Signs & Weight: Vital Signs (12 hours) Temp Pulse Pulse Pulse Resp BP BP 06/07/20 15:00 98.1 F 06/07/20 14:00 22 H 06/07/20 13:33 105 H 06/07/20 12:00 100.5 F H 33 H 06/07/20 11:36 99 98 140/65 06/07/20 10:50 101 H 06/07/20 10:00 30 H 06/07/20 09:31 99 134/62 06/07/20 08:00 26 H 06/07/20 07:13 99 06/07/20 07:00 100.3 F H 06/07/20 06:00 16 06/07/20 04:00 18 BP Pulse Ox Pulse Ox Pulse Ox 06/07/20 15:00 06/07/20 14:00 06/07/20 13:33 06/07/20 12:00 06/07/20 11:36 129/70 100 100 06/07/20 10:50 06/07/20 10:00 06/07/20 09:31 06/07/20 08:00 97 06/07/20 07:13 06/07/20 07:00 06/07/20 06:00 06/07/20 04:00 Weight Admit Weight 159 lb Weight 142 lb 13.753 oz Most Recent Monitor Data Heart Rate from ECG 98 NIBP 139/65 NIBP BP-Mean 89 Respiration from ECG 19 SpO2 100 I&O: 06/06/20 06/07/20 06/08/20 06:59 06:59 06:59 Intake Total 2293.5 1673 140 Output Total 2865 1762 40 Balance -571.5 -89 100 Result Diagrams: 06/07/20 03:00 06/07/20 03:00 Additional Labs: Accuchecks 06/06/20 06/06/20 06/06/20 22:08 15:50 10:03 POC Glucose 179 H 172 H 167 H 06/05/20 06/05/20 06/05/20 22:09 15:46 09:47 POC Glucose 169 H 117 H 228 H Microbiology 05/27/20 14:43 Venous blood - Right Arm Blood Culture - Final NO GROWTH IN 5 DAYS 05/27/20 14:31 Venous blood - Right Arm Blood Culture - Final Enterococcus faecalis Coagulase Neg Staphylococcus Laboratory Tests 05/31/20 06/01/20 06/01/20 04:55 03:45 03:45 WBC 9.4 Hgb 8.3 L Creatinine 2.40 H 2.64 H Phosphorus Magnesium 06/02/20 06/02/20 06/03/20 04:05 04:05 04:09 WBC 9.8 Hgb 8.2 L Creatinine 2.75 H Phosphorus Magnesium 2.0 06/03/20 04:09 WBC Hgb Creatinine Phosphorus 4.3 Magnesium Radiology Reviewed by me: Yes (PCXR - bilat patchy infiltrates worsening) EKG Reviewed by me: Yes (Tele - SR) Hospitalist ROS - Medication Medications: Active Medications Generic Name Dose Route Start Last Admin Trade Name Freq PRN Reason Stop Dose Admin Acetaminophen 650 mg 05/27/20 17:44 06/02/20 19:59 Tylenol PO 650 mg Q4H PRN Administration Headache/Fever/Mild Pain (1-3) Albuterol/Ipratropium 3 ml 05/30/20 13:00 06/07/20 13:33 Duoneb NEB 3 ml [id number] RONALD Administration Alprazolam 1 mg 06/02/20 20:07 06/07/20 12:32 Xanax PO 1 mg HSPRN PRN Administration Anxiety Amlodipine Besylate 10 mg 06/03/20 09:00 06/07/20 09:31 Norvasc PO 10 mg DAILY RONALD Administration Aspirin 81 mg 06/03/20 09:00 06/07/20 09:31 Aspirin Chewable PO 81 mg DAILY RONALD Administration Atorvastatin Calcium 40 mg 06/03/20 09:00 06/07/20 09:31 Lipitor PO 40 mg DAILY RONALD Administration Carvedilol 6.25 mg 06/05/20 21:00 06/07/20 09:31 Coreg PO 6.25 mg BID RONALD Administration Famotidine 20 mg 05/27/20 21:00 06/06/20 20:53 Pepcid SLOW IVP 20 mg 2100 RONALD Administration Ferrous Sulfate 300 mg 06/03/20 08:00 06/07/20 09:31 Ferrous Sulfate PO 300 mg QAM-WM RONALD Administration Heparin Sodium (Porcine) 5,000 units 06/02/20 21:00 06/07/20 09:30 Heparin SC 5,000 units BID RONALD Administration Dexmedetomidine HCl 400 mcg/ 100 mls @ 0 mls/hr 06/05/20 09:30 06/07/20 07:31 Sodium Chloride IVPB 100 mls INF RONALD Administration Protocol Per Protocol Insulin Human Lispro 0 units 05/27/20 18:01 06/07/20 10:41 Humalog SC 2 unit .MILD SLIDING SCALE PRN Administration Mild Correctional Scale Isosorbide Mononitrate 20 mg 06/07/20 09:00 06/07/20 09:32 Ismo PER TUBE 20 mg BID RONALD Administration Latanoprost 1 drop 06/02/20 21:00 06/06/20 20:54 Xalatan 0.005% Ophth Soln R EYE 1 drop HS RONALD Administration Propofol 1,000 mg 05/27/20 17:28 06/07/20 03:26 Diprivan IV 06/26/20 17:28 1,000 mg INF PRN Administration TO ACHIEVE GOAL RASS Protocol Scopolamine 1.5 mg 06/04/20 15:00 06/04/20 16:13 Transderm Scop TD 1.5 mg Q3D RONALD Administration Sodium Chloride 10 ml 05/28/20 17:09 06/04/20 10:50 Flush - Normal Saline IVF 10 ml PRN PRN Administration Saline Flush Trazodone HCl 100 mg 06/04/20 21:00 06/06/20 20:53 Desyrel PER TUBE 100 mg HS RONALD Administration Valproic Acid 500 mg 06/06/20 09:00 06/07/20 09:32 Depakene Liquid PER TUBE 500 mg BID RONALD Administration Ziprasidone 20 mg 06/06/20 09:00 06/07/20 09:31 Geodon PER TUBE 20 mg BID RONALD Administration - Exam General Appearance: ill appearing General - other findings: sedate on mech vent ENT: normocephalic atraumatic, no oropharyngeal lesions Neck: supple, symmetric, no JVD, no thyromegaly, no lymphadenopathy Heart: RRR, no gallops, no rubs, normal peripheral pulses Heart - other findings: S1, S2 Respiratory - other findings: coarse, + rhonchi/rales bilat, diminished bilat Gastrointestinal: soft, non-tender, non-distended, normal bowel sounds Extremities: no cyanosis, no clubbing, no edema Skin: normal turgor, no lesions Psychiatric: flat affect, somnolent, lethargic Hosp A/P (1) Acute on chronic respiratory failure with hypoxia Code(s): J96.21 - ACUTE AND CHRONIC RESPIRATORY FAILURE WITH HYPOXIA Status: Acute Plan: Unable to wean off mech ventilation, plan for Trach placement and manager terminal mech ventilation (2) Pneumonia Code(s): J18.9 - PNEUMONIA, UNSPECIFIED ORGANISM Status: Acute Qualifiers: Laterality: bilateral Lung location: unspecified part of lung Plan: Continue Duonebs, Zosyn d/c'd, may need additional abx coverage given fever spikes (3) Acute on chronic diastolic (congestive) heart failure Code(s): I50.33 - ACUTE ON CHRONIC DIASTOLIC (CONGESTIVE) HEART FAILURE Status : Acute Plan: Lasix held due to NITIN, monitor clinically (4) Acute worsening of stage 3 chronic kidney disease Code(s): N18.3 - CHRONIC KIDNEY DISEASE, STAGE 3 (MODERATE) Status: Acute Plan: Avoid nephrotoxins, limit contrast exposure, low-volume IVF's, Lasix d/c'd - Plan continue antibiotics, social scientist, respiratory therapy, DVT proph w/SCDs Continue critical support Lasix d/'cd continue Zosyn Wean off mech ventilation as clinically indicated, not currently a candidate, plan for trach/PEG 06/08/20 Trial Scopolamine patch due to secretions AM lab: BMP, CBC, ABG PCXR in am Updated pt's sister of current clinical condition
[2020-06-07] MEDS: traZODone HCl 50 MG TAB PER TUBE SCH (21:07)
[2020-06-07] MEDS: Famotidine/PF 20 mg/2ml Vial SLOW IVP SCH (21:07)
[2020-06-07] MEDS: Latanoprost 0.005% Ophth Soln 2.5 ml Bottle R EYE SCH (21:08)
--- NOTE | 2020-06-07 21:38 | CON ---
DATE OF CONSULTATION: HISTORY: A 54-year-old female, I have been asked to see regarding placement of tracheostomy tube and PEG tube, possible central line. The patient admitted to the hospital through the emergency room by the Hospitalist Service, subsequently seen by Pulmonary and Cardiology. PAST MEDICAL HISTORY: Includes diastolic congestive heart failure, ejection fraction 55% to 60%; coronary artery disease; hypertension; diabetes mellitus; pulmonary edema; chronic kidney disease; chronic anemia. PAST SURGICAL HISTORY: Cholecystectomy, , cardiac stents, bilateral eye surgery. ALLERGIES: NONE. MEDICATIONS: Plavix, alprazolam, aspirin, amlodipine, atorvastatin, carvedilol, dorzolamide, furosemide, ferrous sulfate, Humulin insulin, and tramadol. The patient admitted with acute respiratory failure, hypoxia requiring ventilator, complicated by above measures. PHYSICAL EXAMINATION: VITAL SIGNS: 5 feet 4 inches, 142 pounds. The patient is sedated on the ventilator. Blood pressure 133/70. HEAD, EARS, EYES, NOSE, AND THROAT: Unremarkable. LUNGS: Clear to auscultation. CARDIAC: Regular rate and rhythm without murmur or gallop. ABDOMEN: Soft. EXTREMITIES: Unremarkable. ASSESSMENT: Respiratory failure. PLAN: Tracheostomy, PEG tube, possible central line. Family has consented. Job ID: [id number]
[2020-06-08] MEDS: ALPRAZolam 1 MG TAB PO PRN (02:50)
[2020-06-08] MEDS: HumaLOG 300 UNITS/3 ML VIAL SC PRN ×3 (04:32→18:21)
[2020-06-08 05:18] LABS: Anion Gap 15 mmol/L (10-20); BUN (Urea Nitrogen) 61 mg/dL (9.8-20.1); Calc. Creatinine Clearance 23 mL/min (70-130); Calcium 8.3 mg/dL (7.8-10.44); Carbon Dioxide 25 mmol/L (22-29); Chloride 106 mmol/L (98-107); Estimated GFR-MDRD 22; Glucose 358 mg/dL (70-105); Sodium 143 mmol/L (136-145)
[2020-06-08 06:30] LABS: Hemoglobin 6.6 g/dL (12.0-16.0); Mean Corpuscular HGB CONC 30.9 g/dL (32.0-36.0); Mean Corpuscular Hemoglobin 27.4 pg (27.0-31.0); Mean Corpuscular Volume 88.7 fL (78.0-98.0); Mean Platelet Volume 9.1 fL (7.4-10.4); Platelet Count 183 thou/uL (130-400); RBC Distribution Width 15.9 % (11.5-14.5); Red Blood Cell (RBC) Count 2.41 mill/uL (4.20-5.40); White Blood Cell (WBC) Count 9.7 thou/uL (4.8-10.8)
[2020-06-08] MEDS ORDERED: Potassium Chloride 20 MEQ TAB PO SCH (07:15)
[2020-06-08 07:29] LABS: Actual Bicarbonate (HCO3a) 24.5 mEq/L (22-28); Base Excess (BEa) -0.1 mEq/L (-2.0 to +3.0); CO2 Tension 39.3 mmHg (35.0-45.0); Calcium, Ionized (arterial) 1.16 mmol/L (1.12-1.30); Carboxyhemoglobin (COHb) 0.3 gm% (0.0-3.0); Hemoglobin (Hb) 8.1 g/dL (12.0-16.0); O2 Tension (PaO2), arterial 89.8 mmHg (80.0-100.0); pH, Arterial 7.41 (7.35-7.45)
[2020-06-08 07:49] LABS: Band 45 % (5-11); Bite Cells SLIGHT = 2-5 cells (100X) (0-1/hpf); Lymphocytes 13 % (21-51); MDiff Complete? YES; Metamyelocyte 4 % (0-0); Monocytes 11 % (0-10); Myelocyte 1 % (0-0); Neutrophil 26 % (42-75); Platelet Morphology Comment Appears Adequate; Polychromasia SLIGHT = 2-3 cells (100X) (0-2/hpf)
--- NOTE | 2020-06-08 07:54 | RAD ---
Portable frontal chest radiograph: 06/08/2020 COMPARISON: 06/07/2020 HISTORY: Reevaluate pneumonia FINDINGS: There is perihilar groundglass opacity, left greater than right with hazy areas of groundgl ass opacity noted within the mid left lung zone, worsened, and hazy areas of groundglass opacity within the right lung base, improved. Left basilar opacity has slightly worsened as well with worseni ng blunting of left costophrenic angle and complete obscuration of left hemidiaphragm suggesting interval development of left lower lobe consolidation/collapse. Endotracheal tube, nasogastric tube, and right-sided vascular catheter are stable. IMPRESSION: Findings suggesting multi lobar pneumonia, worsened on the left and improved on the right when compared to the prior exam.
[2020-06-08 08:10] LABS: Peep/CPAP 8.3 cmH2O; Puncture Site RR
[2020-06-08 08:11] LABS: ALV-art Gradient 146.275 (0-20)
[2020-06-08] MEDS: Valproate Sodium 250 mg/5 ml UD Cup PER TUBE SCH ×2 (09:24→20:23)
[2020-06-08] MEDS: Atorvastatin Calcium 40 MG TAB PO SCH (09:28)
[2020-06-08] MEDS: Carvedilol 6.25 MG TAB PO SCH ×2 (09:28→20:21)
[2020-06-08] MEDS: Amlodipine 10 MG TAB PO SCH (09:28)
--- NOTE | 2020-06-08 09:29 | PRG ---
DATE OF SERVICE: 06/08/2020 CRITICAL CARE TIME: 35 minutes. SUBJECTIVE: The patient remains intubated on mechanical ventilation. I believe she is scheduled for trach and PEG tube tomorrow. OBJECTIVE: VITAL SIGNS: Temperature 99.2, pulse 94, blood pressure 160/77, 24-hour intake 1860 and output 810. HEENT: Unremarkable. NECK: No JVD. LUNGS: Coarse breath sounds. CARDIAC: S1 and S2. Regular. ABDOMEN: Soft. EXTREMITIES: No edema. LABORATORY DATA: White blood cell count 9.7, hematocrit 21.3, and platelet count 183. A pH of 7.41, pCO2 of 39, and pO2 of 89 on pressure control ventilation, rate 12, inspiratory pressure 23, FiO2 of 40%. Sodium 143, potassium 3, chloride 106, CO2 of 25, BUN 61, creatinine 2.7, and glucose 358. ASSESSMENT: 1. Respiratory failure, requiring mechanical ventilation. 2. Azotemia. 3. Diastolic heart failure. 4. Improved respiratory status with Depakote, Geodon, and Precedex. PLAN: 1. Tracheostomy and percutaneous endoscopic gastrostomy tomorrow to facilitate weaning from mechanical ventilation. 2. Likely LTAC placement. 3. Potassium was replaced this morning. 4. Probably needs to have insulin adjusted by primary team. Job ID: [id number]
[2020-06-08] MEDS: Aspirin Chewable 81 MG TAB PO SCH (09:30)
[2020-06-08] MEDS: Isosorbide Mononitrate 20 MG TAB PER TUBE SCH ×2 (09:31→20:23)
[2020-06-08] MEDS: Ziprasidone 20 MG CAP PER TUBE SCH ×2 (09:36→20:22)
[2020-06-08 09:42] LABS: Hemoglobin 7.6 g/dL (12.0-16.0); Mean Corpuscular HGB CONC 32.3 g/dL (32.0-36.0); Mean Corpuscular Hemoglobin 28.4 pg (27.0-31.0); Mean Corpuscular Volume 87.8 fL (78.0-98.0); Mean Platelet Volume 9.1 fL (7.4-10.4); Platelet Count 186 thou/uL (130-400); RBC Distribution Width 15.8 % (11.5-14.5); Red Blood Cell (RBC) Count 2.68 mill/uL (4.20-5.40); White Blood Cell (WBC) Count 10.2 thou/uL (4.8-10.8)
[2020-06-08] MEDS: Heparin 5,000 UNITS/ML VIAL SC SCH ×2 (09:51→20:25)
[2020-06-08 10:23] LABS: Band 54 % (5-11); Lymphocytes 10 % (21-51); MDiff Complete? YES; Metamyelocyte 3 % (0-0); Monocytes 7 % (0-10); Myelocyte 1 % (0-0); Neutrophil 25 % (42-75); Platelet Morphology Comment Appears Adequate; Polychromasia SLIGHT = 2-3 cells (100X) (0-2/hpf); Toxic Granulation SLIGHT; Vacuoles SLIGHT
--- NOTE | 2020-06-08 13:05 | PDOC.CPN ---
- Subjective Date: 06/08/20 Time: 08:30 Interval history: The pt seen and examined. No overnight events. Still on Vent with sedation - Objective Allergies/Adverse Reactions: Allergies Allergy/AdvReac Type Severity Reaction Status Date / Time No Known Drug Allergies Allergy Verified 05/15/20 03:15 Visit Medications: Current Medications Acetaminophen (Tylenol) 650 mg PO Q4H PRN PRN Reason: Headache/Fever/Mild Pain (1-3) Last Admin: 06/02/20 19:59 Dose: 650 mg Acetaminophen (Tylenol) 650 mg OR Q4H PRN PRN Reason: Headache/Fever/Mild Pain (1-3) Albuterol/Ipratropium (Duoneb) 3 ml NEB [id number] [facility] Last Admin: 06/08/20 07:31 Dose: 3 ml Alprazolam (Xanax) 1 mg PO HSPRN PRN PRN Reason: Anxiety Last Admin: 06/08/20 02:50 Dose: 1 mg Amlodipine Besylate (Norvasc) 10 mg PO DAILY [facility] Last Admin: 06/08/20 09:28 Dose: 10 mg Aspirin (Aspirin Chewable) 81 mg PO DAILY [facility] Last Admin: 06/08/20 09:30 Dose: 81 mg Atorvastatin Calcium (Lipitor) 40 mg PO DAILY [facility] Last Admin: 06/08/20 09:28 Dose: 40 mg Bisacodyl (Dulcolax) 10 mg OR DAILYPRN PRN PRN Reason: Constipation Carvedilol (Coreg) 6.25 mg PO BID [facility] Last Admin: 06/08/20 09:28 Dose: 6.25 mg Dextrose/Water (Dextrose 50%) 25 gm SLOW IVP PRN PRN PRN Reason: Hypoglycemia Famotidine (Pepcid) 20 mg SLOW IVP 2100 [facility] Last Admin: 06/07/20 21:07 Dose: 20 mg Ferrous Sulfate (Ferrous Sulfate) 300 mg PO QAM-WM [facility] Last Admin: 06/08/20 09:24 Dose: 300 mg Glucagon (Glucagon) 1 mg IM PRN PRN PRN Reason: Hypoglycemia Heparin Sodium (Porcine) (Heparin) 5,000 units SC BID [facility] Last Admin: 06/08/20 09:51 Dose: 5,000 units Dextrose/Water (D5w) 1,000 mls @ 0 mls/hr IV .Q0M PRN PRN Reason: Hypoglycemia Dexmedetomidine HCl 400 mcg/ (Sodium Chloride) 100 mls @ 0 mls/hr IVPB INF [facility] ; Protocol Last Admin: 06/08/20 09:54 Dose: 100 mls Insulin Human Lispro (Humalog) 0 units SC .MILD SLIDING SCALE PRN PRN Reason: Mild Correctional Scale Last Admin: 06/08/20 11:17 Dose: 5 unit Insulin Human Lispro (Humalog) 0 units SC .BEDTIME SLIDING SC PRN PRN Reason: Bedtime Correctional Scale Isosorbide Mononitrate (Ismo) 20 mg PER TUBE BID [facility] Last Admin: 06/08/20 09:31 Dose: 20 mg Latanoprost (Xalatan 0.005% Oph Soln) 1 drop R [facility]YE [facility] Last Admin: 06/07/20 21:08 Dose: 1 drop Miscellaneous Medication (Electrolyte Replacement Protocol) 0 each FS ASDIR PRN ; Protocol PRN Reason: ELECTROLYTE REPLACEMENT Discontinue Previous Narcotic Pain Medications And Benzodiazepines 1 each FS .ONE [facility] Stop: 06/26/20 17:28 Ondansetron HCl (Zofran Odt) 4 mg PO Q6H PRN PRN Reason: Nausea/Vomiting Ondansetron HCl (Zofran) 4 mg IVP Q6H PRN PRN Reason: Nausea/Vomiting Scopolamine (Transderm Scop) 1.5 mg TD Q3D [facility] Last Admin: 06/07/20 15:34 Dose: 1.5 mg Sodium Chloride (Flush - Normal Saline) 10 ml IVF PRN PRN PRN Reason: Saline Flush Last Admin: 06/04/20 10:50 Dose: 10 ml Trazodone HCl (Desyrel) 100 mg PER TUBE [facility] Last Admin: 06/07/20 21:07 Dose: 100 mg Valproic Acid (Depakene Liquid) 500 mg PER TUBE BID [facility] Last Admin: 06/08/20 09:24 Dose: 500 mg Ziprasidone (Geodon) 20 mg PER TUBE BID [facility] Last Admin: 06/08/20 09:36 Dose: 20 mg Vital Signs & Weight: Vital Signs Temp Pulse Resp BP Pulse Ox 06/08/20 10:53 95 144/74 H 06/08/20 10:00 22 H 06/08/20 09:48 93 199/76 H 06/08/20 09:28 97 162/76 H 06/08/20 08:00 99.8 F H 35 H 06/08/20 07:31 93 33 H 99 06/08/20 06:00 14 06/08/20 04:00 99.2 F 17 06/08/20 02:00 32 H Admit Weight 159 lb Weight 137 lb 5.568 oz - Quality Measures CV meds: Beta Mukesh: Yes, ISAAC/ARB: No (CKD), ASA: Yes - Physical Exam Cardiac: regular rate and rhythm, S1/S2 Lungs: decreased breath sounds Extremities: no edema - Labs Result Diagrams: 06/09/20 02:52 06/09/20 02:52 Troponin/CKMB CK-MB (CK-2) 2.0 ng/mL (0-6.6) 05/27/20 14:31 Troponin I 0.105 ng/mL (< 0.028) H 05/27/20 14:31 - Telemetry Sinus rhythms and dysrhythmias: sinus tachycardia - Assessment/Plan Assessment/Plan: 1. Type 2 NSTEMI - most likely demand ischemia from Acute issues; Consider further cardiac eval. after she has recovered from the resp. failure. However, she is likely not a candidate for intervention due to hx of severe CAD with occluded RCA and Lt Cx. 2. Acute on chronic Systolic and Diastolic HF with EF 40-45% and grade I dd on 06/01/2020 - stable with Coreg,6.25mg BID; Lasix is on hold for now due to worsening of renal function and elevated Na level; Not on ISAAC/ARB due to hx of CKD 3. COPD/PNA - on Vent; plan for trach and PEG tube placement tomorrow 4. Pleural effusion - improving; lasix is on hold due to worsening of Renal function 5. CAD with hx of multiple stents - on Coreg and statin; on Heparin 5000units BID; 6. HTN - stable 7. NITIN on CKD - unchanged 8. DM type 2 9. Anemia with s/p 1 unit of PRBC on 05/30/2020 - Hgb unchanged 10. Mod MR MAR reviewed Pt. seen and eval. by me. I agree with the A/P by the SUPERVISOR MOLD YARD. Chest: diffuse rales/ rhonchi. RRR, no edema. Poor prognosis. For tracheostomy,PEG and dialysis catheter placement.
[2020-06-08] MEDS ORDERED: Insulin Regular 300 UNITS/3 ML VIAL SC PRN (18:28)
[2020-06-08] MEDS ORDERED: Dextrose 50% Abboject 50 ML SYRINGE SLOW IVP PRN (18:28)
[2020-06-08] MEDS ORDERED: Dextrose 5% in Water 1,000 ML IV PRN (18:28)
--- NOTE | 2020-06-08 18:33 | PDOC.HOSPP ---
- Subjective Encounter Date: 06/08/20 Encounter Time: 18:15 Subjective: f/u for resp failure/multi-lobar PNA/NITIN on current - Objective Vital Signs & Weight: Vital Signs (12 hours) Temp Pulse Pulse Pulse Resp BP BP 06/08/20 18:00 23 H 06/08/20 16:00 100.9 F H 20 06/08/20 14:13 96 146/72 H 06/08/20 14:00 20 06/08/20 13:20 89 125/62 06/08/20 13:18 106 H 23 H 06/08/20 12:00 21 H 06/08/20 11:00 100.1 F H 06/08/20 10:53 95 144/74 H 06/08/20 10:30 96 98 144/74 H 06/08/20 10:00 22 H 06/08/20 09:48 93 199/76 H 06/08/20 09:28 97 162/76 H 06/08/20 08:00 99.8 F H 35 H 06/08/20 07:31 93 33 H Pulse Ox Pulse Ox Pulse Ox 06/08/20 18:00 06/08/20 16:00 06/08/20 14:13 06/08/20 14:00 06/08/20 13:20 06/08/20 13:18 98 06/08/20 12:00 06/08/20 11:00 06/08/20 10:53 06/08/20 10:30 98 100 06/08/20 10:00 06/08/20 09:48 06/08/20 09:28 06/08/20 08:00 06/08/20 07:31 99 Weight Admit Weight 159 lb Weight 137 lb 5.568 oz Most Recent Monitor Data Heart Rate from ECG 93 NIBP 121/55 NIBP BP-Mean 77 Respiration from ECG 23 SpO2 100 I&O: 06/07/20 06/08/20 06/09/20 06:59 06:59 06:59 Intake Total 1673 1860 1155 Output Total 1762 810 485 Balance -89 1050 670 Result Diagrams: 06/08/20 09:09 06/08/20 03:30 Additional Labs: Microbiology 05/27/20 14:43 Venous blood - Right Arm Blood Culture - Final NO GROWTH IN 5 DAYS 05/27/20 14:31 Venous blood - Right Arm Blood Culture - Final Enterococcus faecalis Coagulase Neg Staphylococcus Laboratory Tests 05/31/20 06/01/20 06/01/20 04:55 03:45 03:45 WBC 9.4 Hgb 8.3 L Creatinine 2.40 H 2.64 H Phosphorus Magnesium 06/02/20 06/02/20 06/03/20 04:05 04:05 04:09 WBC 9.8 Hgb 8.2 L Creatinine 2.75 H Phosphorus Magnesium 2.0 06/03/20 04:09 WBC Hgb Creatinine Phosphorus 4.3 Magnesium Radiology Reviewed by me: Yes (PCXR - multi-lobar PNA) EKG Reviewed by me: Yes (Tele - SR) Hospitalist ROS - Medication Medications: Active Medications Generic Name Dose Route Start Last Admin Trade Name Freq PRN Reason Stop Dose Admin Acetaminophen 650 mg 05/27/20 17:44 06/02/20 19:59 Tylenol PO 650 mg Q4H PRN Administration Headache/Fever/Mild Pain (1-3) Albuterol/Ipratropium 3 ml 05/30/20 13:00 06/08/20 13:18 Duoneb NEB 3 ml [id number] [facility] Administration Alprazolam 1 mg 06/02/20 20:07 06/08/20 02:50 Xanax PO 1 mg HSPRN PRN Administration Anxiety Amlodipine Besylate 10 mg 06/03/20 09:00 06/08/20 09:28 Norvasc PO 10 mg DAILY [facility] Administration Aspirin 81 mg 06/03/20 09:00 06/08/20 09:30 Aspirin Chewable PO 81 mg DAILY [facility] Administration Atorvastatin Calcium 40 mg 06/03/20 09:00 06/08/20 09:28 Lipitor PO 40 mg DAILY [facility] Administration Carvedilol 6.25 mg 06/05/20 21:00 06/08/20 09:28 Coreg PO 6.25 mg BID [facility] Administration Famotidine 20 mg 05/27/20 21:00 06/07/20 21:07 Pepcid SLOW IVP 20 mg 2100 [facility] Administration Ferrous Sulfate 300 mg 06/03/20 08:00 06/08/20 09:24 Ferrous Sulfate PO 300 mg QAM-WM [facility] Administration Heparin Sodium (Porcine) 5,000 units 06/02/20 21:00 06/08/20 09:51 Heparin SC 5,000 units BID [facility] Administration Dexmedetomidine HCl 400 mcg/ 100 mls @ 0 mls/hr 06/05/20 09:30 06/08/20 09:54 Sodium Chloride IVPB 100 mls INF [facility] Administration Protocol Per Protocol Isosorbide Mononitrate 20 mg 06/07/20 09:00 06/08/20 09:31 Ismo PER TUBE 20 mg BID [facility] Administration Latanoprost 1 drop 06/02/20 21:00 06/07/20 21:08 Xalatan 0.005% Ophth Soln R EYE 1 drop HS [facility] Administration Scopolamine 1.5 mg 06/04/20 15:00 06/07/20 15:34 Transderm Scop TD 1.5 mg Q3D [facility] Administration Sodium Chloride 10 ml 05/28/20 17:09 06/04/20 10:50 Flush - Normal Saline IVF 10 ml PRN PRN Administration Saline Flush Trazodone HCl 100 mg 06/04/20 21:00 06/07/20 21:07 Desyrel PER TUBE 100 mg HS [facility] Administration Valproic Acid 500 mg 06/06/20 09:00 06/08/20 09:24 Depakene Liquid PER TUBE 500 mg BID [facility] Administration Ziprasidone 20 mg 06/06/20 09:00 06/08/20 09:36 Geodon PER TUBE 20 mg BID [facility] Administration - Exam General - other findings: sedate on mech vent Eye: PERRL, anicteric sclera ENT: normocephalic atraumatic, no oropharyngeal lesions Neck: supple, symmetric, no JVD, no thyromegaly, no lymphadenopathy Heart: RRR, no gallops, no rubs, normal peripheral pulses Heart - other findings: S1, S2 Respiratory: rhonchi Respiratory - other findings: diminished in bilat alvarenga Gastrointestinal: soft, non-tender, non-distended, normal bowel sounds, no palpable masses, no hepatomegaly Extremities: no cyanosis, no clubbing, no edema Skin: normal turgor, no lesions Psychiatric: somnolent, lethargic Hosp A/P (1) Acute on chronic respiratory failure with hypoxia Code(s): J96.21 - ACUTE AND CHRONIC RESPIRATORY FAILURE WITH HYPOXIA Status: Acute Plan: Continues on [facility] ventilation and unable to wean, plan for trach placement in am (2) Pneumonia Code(s): J18.9 - PNEUMONIA, UNSPECIFIED ORGANISM Status: Acute Qualifiers: Laterality: bilateral Lung location: unspecified part of lung Plan: Start Cefepime/Vancomycin/Duonebs (3) Acute on chronic diastolic (congestive) heart failure Code(s): I50.33 - ACUTE ON CHRONIC DIASTOLIC (CONGESTIVE) HEART FAILURE Status : Chronic (4) Acute worsening of stage 3 chronic kidney disease Code(s): N18.3 - CHRONIC KIDNEY DISEASE, STAGE 3 (MODERATE) Status: Acute Plan: Avoid nephrotoxic meds, limit contrast - Plan plan discussed w/ family, continue antibiotics, public health social worker, respiratory therapy, DVT proph w/SCDs Continue critical support Lasix d/'cd due to NITIN Start Cefepime/Vancomycin due to increasing infiltrates/fever/bandemia Wean off mech ventilation as clinically indicated, not currently a candidate, plan for trach/PEG 06/08/20 Trial Scopolamine patch due to secretions AM lab: BMP, CBC, ABG PCXR in am Updated pt's sister of current clinical condition
[2020-06-08] MEDS ORDERED: Vancomycin 1 GM in Premix Bag 1 BAG IVPB SCH (18:45)
[2020-06-08] MEDS: traZODone HCl 50 MG TAB PER TUBE SCH (20:22)
[2020-06-08] MEDS: Insulin Glargine 10 UNITS in Pre-Filled Syringe 1 EACH SC SCH (20:24)
[2020-06-08] MEDS: Famotidine/PF 20 mg/2ml Vial SLOW IVP SCH (20:26)
[2020-06-08] MEDS: Latanoprost 0.005% Ophth Soln 2.5 ml Bottle R EYE SCH (20:28)
[2020-06-08] MEDS: Insulin Regular 300 UNITS/3 ML VIAL SC PRN (20:33)
[2020-06-09] MEDS: Acetaminophen 325 MG TAB PO PRN (01:16)
[2020-06-09] MEDS: Sodium Chloride 0.9% 1,000 ML IV SCH ×2 (01:17→20:52)
[2020-06-09] MEDS ORDERED: Cefepime 1 GM in Sodium Chloride 0.9% 100 ML IVPB SCH (03:00)
[2020-06-09 03:13] LABS: Band 20 % (5-11); Hemoglobin 6.8 g/dL (12.0-16.0); Hypochromia SLIGHT = 6-15 cells (100X) (0-5/hpf); Lymphocytes 10 % (21-51); MDiff Complete? YES; Mean Corpuscular HGB CONC 32.2 g/dL (32.0-36.0); Mean Corpuscular Hemoglobin 28.2 pg (27.0-31.0); Mean Corpuscular Volume 87.6 fL (78.0-98.0); Mean Platelet Volume 9.1 fL (7.4-10.4); Monocytes 10 % (0-10); Neutrophil 60 % (42-75); Platelet Count 205 thou/uL (130-400); Platelet Morphology Comment Appears Adequate; RBC Distribution Width 15.7 % (11.5-14.5); Red Blood Cell (RBC) Count 2.39 mill/uL (4.20-5.40); White Blood Cell (WBC) Count 9.9 thou/uL (4.8-10.8)
[2020-06-09 03:14] LABS: Anion Gap 14 mmol/L (10-20); BUN (Urea Nitrogen) 75 mg/dL (9.8-20.1); Calc. Creatinine Clearance 18 mL/min (70-130); Calcium 8.3 mg/dL (7.8-10.44); Carbon Dioxide 26 mmol/L (22-29); Chloride 108 mmol/L (98-107); Estimated GFR-MDRD 16; Glucose 207 mg/dL (70-105); Potassium 3.2 mmol/L (3.5-5.1); Sodium 145 mmol/L (136-145)
[2020-06-09] MEDS: Insulin Regular 300 UNITS/3 ML VIAL SC PRN (03:52)
[2020-06-09] MEDS ORDERED: Lidocaine 1% w/Epinephrine 1:100K 20 ML VIAL ONE (06:53)
[2020-06-09] MEDS ORDERED: Bupivacaine PF 0.5% 30 ML VIAL ONE (06:53)
[2020-06-09 07:02] LABS: Actual Bicarbonate (HCO3a) 23.1 mEq/L (22-28); Base Excess (BEa) -0.8 mEq/L (-2.0 to +3.0); CO2 Tension 34.4 mmHg (35.0-45.0); Calcium, Ionized (arterial) 1.17 mmol/L (1.12-1.30); Carboxyhemoglobin (COHb) 0.3 gm% (0.0-3.0); Hemoglobin (Hb) 7.6 g/dL (12.0-16.0); O2 Tension (PaO2), arterial 92.6 mmHg (80.0-100.0); Potassium - ABG Lab 3.26 mmol/L (3.70-5.30); pH, Arterial 7.44 (7.35-7.45)
[2020-06-09 07:22] LABS: Puncture Site RRAD
[2020-06-09] MEDS ORDERED: Potassium Chloride 20 MEQ in Premix Bag 1 BAG IVPB SCH (08:15)
--- NOTE | 2020-06-09 08:16 | PRG ---
DATE OF SERVICE: 06/09/2020 35 minutes of critical care time. SUBJECTIVE: The patient is resting on mechanical ventilation. Her sedation was stopped last night and she can follow some commands currently. OBJECTIVE: VITAL SIGNS: Temperature is 100.4 with T-max of 101.4, pulse 82, and blood pressure 128/66. Intake 2320, output 785. HEENT: Unremarkable. NECK: No adenopathy or JVD. LUNGS: Coarse rhonchi. CARDIOVASCULAR: S1 and S2. Regular. ABDOMEN: Soft. EXTREMITIES: No edema. LABORATORY DATA: White blood cell count 9.9, hematocrit 21.0, platelet count 205. A pH 7.44, pCO2 of 34, pO2 of 92 on SIMV rate 12, high pressure 23, PEEP 5, FiO2 of 40%. Sodium 145, potassium 3.2, chloride 108, CO2 of 26, BUN 75, creatinine 3.5, and glucose 207. Chest x-ray shows no acute change compared to yesterday. ASSESSMENT: 1. Sepsis syndrome with fever. 2. Acute respiratory failure, requiring mechanical ventilation. 3. Acute renal dysfunction, probably secondary to over-diuresis. 4. Anemia. PLAN: 1. Trach and PEG, plan for today. 2. I will go ahead and give her a unit of blood. 3. Replace potassium. 4. Agree with antibiotics. 5. Follow up culture results. Job ID: [id number]
--- NOTE | 2020-06-09 08:18 | RAD ---
EXAM: CHEST ONE VIEW HISTORY: Pneumonia COMPARISON: 06/08/2020 FINDINGS: Right-sided vascular catheter, endotracheal tube, and nasogastric tubes remain in place. Cardiac silh ouette is magnified by projection. Interstitial and patchy parenchymal densities are again seen in the left midlung zone. Suggestion mild improvement in the patchy parenchymal densities at each lung b ase. No obvious pleural effusion is appreciated. No other interval change from prior exam. IMPRESSION: Findings suggesting improvement in bibasilar pneumonia with overall stable interstitial and parenchym al opacities left midlung zone.
[2020-06-09] MEDS: Heparin 5,000 UNITS/ML VIAL SC SCH ×2 (09:03→20:51)
[2020-06-09] MEDS: Ziprasidone 20 MG CAP PER TUBE SCH ×2 (09:30→20:50)
[2020-06-09] MEDS: Isosorbide Mononitrate 20 MG TAB PER TUBE SCH ×2 (09:30→22:02)
[2020-06-09] MEDS ORDERED: Heparin 10,000 UNITS/1 ML VIAL ONE (10:22)
[2020-06-09] MEDS ORDERED: Sodium Chloride 0.9% 10 ML ONE (10:22)
[2020-06-09] MEDS ORDERED: Midazolam HCl 2 mg/2 ml Vial ONE (10:33)
[2020-06-09] MEDS ORDERED: Fentanyl 100 MCG/2 ML VIAL ONE (10:41)
[2020-06-09] MEDS ORDERED: PROPOFOL 200 MG/20 ML VIAL ONE (12:25)
[2020-06-09] MEDS ORDERED: Rocuronium Bromide 10 MG/ML (10ML VIAL) ONE (12:25)
--- NOTE | 2020-06-09 13:04 | RAD ---
EXAM: CHEST ONE VIEW HISTORY: Central line placement. COMPARISON: 06/09/2020 at 0504 hours. FINDINGS: Endotracheal and nasogastric tubes have been removed. Right sided vascular catheter is stable in posi tion. Tracheostomy device has been placed in the interim. There has also been interval placement of a tunneled hemodialysis catheter via a left internal jugular vein approach with tip overlying the rig ht atrium near the IVC atrial junction. Cardiac silhouette is magnified by projection. Increased interstitial and alveolar opacities are seen in the left lung with minimal interstitial densities at the right lung base as well as at the left lung base. No other interval change IMPRESSION: 1. Interval removal of endotracheal tube and nasogastric tubes with interval placement of a tracheost milena device and tunneled hemodialysis catheter. 2. Persistent airspace opacities left lung with interstitial opacities at the right lung base again w orrisome for infectious process and possibly atypical infectious process.
--- NOTE | 2020-06-09 13:14 | PDOC.CPN ---
- Subjective Date: 06/09/20 Time: 13:15 Interval history: The pt seen and examined. No overnight events. S/p Trach, PEG tube, and tunneled cath placement today. She is still out due to the procedure - Objective Allergies/Adverse Reactions: Allergies Allergy/AdvReac Type Severity Reaction Status Date / Time No Known Drug Allergies Allergy Verified 05/15/20 03:15 Visit Medications: Current Medications Acetaminophen (Tylenol) 650 mg PO Q4H PRN PRN Reason: Headache/Fever/Mild Pain (1-3) Last Admin: 06/09/20 01:16 Dose: 650 mg Acetaminophen (Tylenol) 650 mg UT Q4H PRN PRN Reason: Headache/Fever/Mild Pain (1-3) Albuterol/Ipratropium (Duoneb) 3 ml NEB [id number] [facility] Last Admin: 06/09/20 07:24 Dose: 3 ml Alprazolam (Xanax) 1 mg PO HSPRN PRN PRN Reason: Anxiety Last Admin: 06/08/20 02:50 Dose: 1 mg Amlodipine Besylate (Norvasc) 10 mg PO DAILY [facility] Last Admin: 06/08/20 09:28 Dose: 10 mg Aspirin (Aspirin Chewable) 81 mg PO DAILY [facility] Last Admin: 06/08/20 09:30 Dose: 81 mg Atorvastatin Calcium (Lipitor) 40 mg PO DAILY [facility] Last Admin: 06/08/20 09:28 Dose: 40 mg Bisacodyl (Dulcolax) 10 mg UT DAILYPRN PRN PRN Reason: Constipation Carvedilol (Coreg) 6.25 mg PO BID [facility] Last Admin: 06/08/20 20:21 Dose: 6.25 mg Dextrose/Water (Dextrose 50%) 25 gm SLOW IVP PRN PRN PRN Reason: Hypoglycemia Famotidine (Pepcid) 20 mg SLOW IVP 2100 [facility] Last Admin: 06/08/20 20:26 Dose: 20 mg Ferrous Sulfate (Ferrous Sulfate) 300 mg PO QAM-WM [facility] Last Admin: 06/09/20 08:46 Dose: Not Given Glucagon (Glucagon) 1 mg IM PRN PRN PRN Reason: Hypoglycemia Heparin Sodium (Porcine) (Heparin) 5,000 units SC BID [facility] Last Admin: 06/09/20 09:03 Dose: Not Given Dexmedetomidine HCl 400 mcg/ (Sodium Chloride) 100 mls @ 0 mls/hr IVPB INF [facility] ; Protocol Last Admin: 06/08/20 09:54 Dose: 100 mls Dextrose/Water (D5w) 1,000 mls @ 0 mls/hr IV .Q0M PRN PRN Reason: Hypoglycemia Insulin Glargine 10 units/ (Miscellaneous Medication) 0.1 mls @ 0 mls/hr SC [facility] Last Admin: 06/08/20 20:24 Dose: 0.1 mls Sodium Chloride (Normal Saline 0.9%) 1,000 mls @ 50 mls/hr IV .Q20H [facility] Last Admin: 06/09/20 01:17 Dose: 1,000 mls Piperacillin Sod/Tazobactam (Sod 2.25 gm/ Sodium Chloride) 100 mls @ 200 mls/ hr IVPB Q6HR [facility] Insulin Human Regular (Humulin R) 0 units SC .AGGRESSIVE SLIDING PRN PRN Reason: Aggressive Correctional Scale Last Admin: 06/09/20 03:52 Dose: 6 unit Insulin Human Regular (Humulin R) 0 units SC .BEDTIME SLIDING SC PRN PRN Reason: Bedtime Correctional Scale Isosorbide Mononitrate (Ismo) 20 mg PER TUBE BID [facility] Last Admin: 06/08/20 20:23 Dose: 20 mg Latanoprost (Xalatan 0.005% Oph Soln) 1 drop R EYE [facility] Last Admin: 06/08/20 20:28 Dose: 1 drop Discontinue Previous Narcotic Pain Medications And Benzodiazepines 1 each FS .ONE [facility] Stop: 06/26/20 17:28 Ondansetron HCl (Zofran Odt) 4 mg PO Q6H PRN PRN Reason: Nausea/Vomiting Ondansetron HCl (Zofran) 4 mg IVP Q6H PRN PRN Reason: Nausea/Vomiting Scopolamine (Transderm Scop) 1.5 mg TD Q3D [facility] Last Admin: 06/07/20 15:34 Dose: 1.5 mg Sodium Chloride (Flush - Normal Saline) 10 ml IVF PRN PRN PRN Reason: Saline Flush Last Admin: 06/04/20 10:50 Dose: 10 ml Trazodone HCl (Desyrel) 100 mg PER TUBE [facility] Last Admin: 06/08/20 20:22 Dose: 100 mg Valproic Acid (Depakene Liquid) 500 mg PER TUBE BID [facility] Last Admin: 06/08/20 20:23 Dose: 500 mg Ziprasidone (Geodon) 20 mg PER TUBE BID [facility] Last Admin: 06/08/20 20:22 Dose: 20 mg Vital Signs & Weight: Vital Signs Temp Pulse Pulse Resp BP BP Pulse Ox 06/09/20 10:45 100.2 F H 93 20 143/61 H 99 06/09/20 10:30 100.2 F H 91 30 H 144/75 H 98 06/09/20 10:02 91 06/09/20 10:00 100.2 F H 28 H 06/09/20 08:00 99.0 F 19 06/09/20 07:53 99 06/09/20 07:25 85 06/09/20 07:24 87 27 H 100 06/09/20 06:00 17 06/09/20 03:40 19 06/09/20 02:12 87 108/57 L 06/09/20 02:00 100.4 F H 17 Admit Weight 159 lb Weight 142 lb 10.225 oz - Quality Measures CV meds: Beta Mukesh: Yes, ISAAC/ARB: No (CKD), ASA: Yes - Physical Exam Cardiac: regular rate and rhythm, S1/S2 Lungs: decreased breath sounds, bibasilar rales Extremities: no edema - Labs Result Diagrams: 06/09/20 02:52 06/09/20 02:52 Troponin/CKMB CK-MB (CK-2) 2.0 ng/mL (0-6.6) 05/27/20 14:31 Troponin I 0.105 ng/mL (< 0.028) H 05/27/20 14:31 - Telemetry Sinus rhythms and dysrhythmias: sinus rhythm - Assessment/Plan Assessment/Plan: 1. Type 2 NSTEMI - most likely demand ischemia from Acute issues; Consider further cardiac eval. after she has recovered from the resp. failure. However, she is likely not a candidate for intervention due to hx of severe CAD with occluded RCA and Lt Cx. 2. Acute on chronic Systolic and Diastolic HF with EF 40-45% and grade I dd on 06/01/2020 - stable with Coreg,6.25mg BID; Lasix is on hold for now due to worsening of renal function and elevated Na level; Not on ISAAC/ARB due to hx of CKD 3. COPD/PNA - on Vent; s/p trach and PEG tube placement on 06/09/2020 4. Pleural effusion - improving; lasix is on hold due to worsening of Renal function 5. CAD with hx of multiple stents - on Coreg and statin; on Heparin 5000units BID; 6. HTN - stable 7. NITIN on CKD - s/p Tunneled cath placement on 06/09/2020 for possible HD 8. DM type 2 9. Anemia with s/p 1 unit of PRBC on 05/30/2020 - another PRBC tx for Hgb today was 6.8 10. Mod MR NEAL reviewed Pt. seen and eval. by me. I agree with the A/P by the SPINNING FRAME TENDER. Chest: diffuse rales/ rhonchi. RRR, no edema. Poor prognosis. Tracheostomy,PEG and dialysis catheter placement done today.. I spoke with her sister today. If able she wants to transfer the pt. to [place] for remote computer terminal operator care if that is nec. ana
[2020-06-09] MEDS: Piperacillin/Tazobactam 2.25 GM in Sodium Chloride 0.9% 100 ML IVPB SCH ×3 (13:28→23:38)
[2020-06-09] MEDS: Valproate Sodium 250 mg/5 ml UD Cup PER TUBE SCH ×2 (13:28→20:50)
[2020-06-09] MEDS: Aspirin Chewable 81 MG TAB PO SCH (13:29)
[2020-06-09] MEDS: Carvedilol 6.25 MG TAB PO SCH ×2 (13:29→22:02)
[2020-06-09] MEDS: Atorvastatin Calcium 40 MG TAB PO SCH (13:30)
[2020-06-09] MEDS: Amlodipine 10 MG TAB PO SCH (13:30)
--- NOTE | 2020-06-09 13:54 | CON ---
DATE OF CONSULTATION: 06/09/2020 CONSULTING PHYSICIAN: Roni Shahid MD REASON FOR CONSULTATION: Acute kidney injury on chronic kidney disease. REASON FOR ADMISSION: Shortness of breath. HISTORY OF PRESENT ILLNESS: This is a 54-year-old female with history of CHF, coronary artery disease, pneumonia, and CHF. She was admitted with shortness of breath and is being evaluated. She was on diuresis and she is having good diuresis. Lately her urine output is dropping with elevation in creatinine. Her baseline creatinine stays around 2.3 to 2.5 and this morning, it was 3.5 and I was consulted. The patient remains intubated. PAST MEDICAL HISTORY: Positive for CHF, coronary artery disease, hypertension, type 2 diabetes, CKD, and anemia. PAST SURGICAL HISTORY: Cholecystectomy, , cardiac stents, and eye surgery. HOME MEDICATIONS: Reviewed. ALLERGIES: NO KNOWN DRUG ALLERGIES. SOCIAL HISTORY: Smokes cigarettes. No alcohol or illicit drug abuse. FAMILY HISTORY: Positive for kidney disease. REVIEW OF SYSTEMS: Could not be obtained. She is intubated. PHYSICAL EXAMINATION: GENERAL: This is a thin-built female, intubated. VITAL SIGNS: Temperature 100.2, pulse 98, respiratory rate 25, and blood pressure 145/66. HEENT: Intubated. CV: S1 and S2 heard. RESPIRATORY: Clear. GASTROINTESTINAL: Abdomen is soft. MUSCULOSKELETAL: No edema. DERMATOLOGIC: No skin rash. NEUROLOGICAL: Intubated. LABORATORY DATA: Hemoglobin is 6.8. Potassium 3.2, BUN is 75, and creatinine is 3.5. ASSESSMENT AND PLAN: 1. Acute kidney injury on chronic kidney disease, stage 5 with worsening labs. Plan is to have a dialysis catheter today. If she does not have improvement, most likely acute kidney injury is from volume depletion, I would recommend holding all the diuretics and give IV fluids if tolerated. She is on antibiotics and also NS at 50 mL/h started today. Monitor renal function. 2. Hypokalemia. 3. Anemia of chronic disease. 4. History of hypertension. 5. Acute hypoxic respiratory failure, intubated. Plan to monitor renal function off diuretics, if not better, might need dialysis. Since she is going for surgery today, she is going to have a tunneled dialysis catheter too. I agree with it, I did talk with Dr. Shahid. We will continue to monitor. Thank you for the consult. Job ID: [id number]
--- NOTE | 2020-06-09 14:27 | OP ---
DATE OF PROCEDURE: 06/09/2020 PREOPERATIVE DIAGNOSES: Respiratory failure, acute on chronic; dysphagia; malnutrition; renal failure. POSTOPERATIVE DIAGNOSES: Respiratory failure, acute on chronic; dysphagia; malnutrition; renal failure. PROCEDURES PERFORMED: #8 Shiley tracheostomy tube, left IJ hemodialysis catheter, ultrasound and fluoroscopy used. Percutaneous endoscopic gastrostomy tube. ANESTHESIA: General, local 0.5% Marcaine 30 mL mixed with 1% Xylocaine with epinephrine 20 mL. DESCRIPTION OF PROCEDURE: The patient was taken to the operating room, where under general anesthesia, neck and chest and abdomen were prepared with ChloraPrep and draped in routine fashion. Local anesthetic was infiltrated in the skin and subcutaneous tissue about the operative sites. Ultrasound guidance was used to cannulate the left internal jugular vein. Stab was incision made after J-wire inserted. Stab incision was made over the left chest and using the pre-curved AngioDynamics cuffed tunneled hemodialysis catheter, placed the fabric cuff beneath the skin exit site, catheter secured with 2 interrupted sutures of 3-0 nylon and sterile dressings applied. Small and medium size dilators placed over the J-wire into the internal jugular vein and removed. Dilator and Peel-Away sheath placed over the J-wire into the superior vena cava under fluoroscopic visualization. Dilator and J-wire removed. Catheter placed with the Peel-Away sheath. Peel-Away sheath removed. Fluoroscopy revealed good line placement. Each port aspirated of blood and flushed with saline solution and heparinized saline solution, 1000 units of heparin per mL, indicating volume on the port. Incision was made in the anterior neck, just above the manubrium, carried down through skin and platysma, gaining hemostasis with cautery, ligated veins between 3-0 silk ties, dividing the isthmus of the thyroid, identifying the inferior cricoid, trachea, placing strap sutures on either side with 3-0 Prolene, secured to the anterior chest with Mastisol and OpSite. Anterior window of the trachea over 2 cartilaginous rings was excised sharply. Endotracheal tube withdrawn, and under direct visualization, #8 Shiley low-pressure cuffed tracheostomy tube placed into the trachea, balloon inflated and connected to the ventilator. Wound approximated by approximating skin on either side with 3-0 Prolene and sterile dressings applied. Endoscope was placed per os under direct visualization. Using air insufflation, passed about the esophagus, into the stomach, inflating it, noting a good indentation in left subxiphoid. Incision was made after local anesthetic and trocar catheter introduced, visualizing the trocar catheter within the gastric lumen, placing a snare around it and introducing the wire, removing the wire, endoscope out of the stomach and esophagus, noting no abnormalities of the stomach or esophagus. Feeding device was lubricated, connected to the wire and pulled back down the esophagus, into the stomach, fixating against the gastric mucosa with abdominal wall fixation device after applying antibiotic ointment. Tube tailored to length and the feeding tube apparatus secured. The patient tolerated the procedure well. Job ID: [id number]
--- NOTE | 2020-06-09 17:10 | PDOC.HOSPP ---
- Subjective Encounter Date: 06/09/20 Encounter Time: 16:45 Subjective: f/u for resp failure s/p tracheostomy/PEG placement. Remains on [facility] ventilation. - Objective Vital Signs & Weight: Vital Signs (12 hours) Temp Pulse Pulse Resp BP BP Pulse Ox 06/09/20 16:00 99.4 F 21 H 06/09/20 14:14 87 06/09/20 14:00 29 H 06/09/20 13:30 89 163/82 H 06/09/20 13:29 163/82 H 06/09/20 13:17 88 19 97 06/09/20 12:05 12 06/09/20 12:00 99.0 F 06/09/20 10:45 100.2 F H 93 20 143/61 H 99 06/09/20 10:30 100.2 F H 91 30 H 144/75 H 98 06/09/20 10:02 91 06/09/20 10:00 100.2 F H 28 H 06/09/20 08:00 99.0 F 19 06/09/20 07:53 99 06/09/20 07:25 85 06/09/20 07:24 87 27 H 100 06/09/20 06:00 17 Weight Admit Weight 159 lb Weight 142 lb 10.225 oz Most Recent Monitor Data Heart Rate from ECG 79 NIBP 129/62 NIBP BP-Mean 84 Respiration from ECG 22 SpO2 99 I&O: 06/08/20 06/09/20 06/10/20 06:59 06:59 06:59 Intake Total 1860 2320 320 Output Total 810 785 365 Balance 1050 1535 -45 Result Diagrams: 06/09/20 02:52 06/09/20 02:52 Additional Labs: Accuchecks 06/09/20 06/08/20 06/08/20 02:50 20:34 18:19 POC Glucose 228 H 263 H 280 H 06/08/20 06/08/20 06/07/20 11:19 04:22 21:26 POC Glucose 311 H 324 H 320 H 06/07/20 06/07/20 16:08 10:44 POC Glucose 292 H 190 H Microbiology 05/27/20 14:43 Venous blood - Right Arm Blood Culture - Final NO GROWTH IN 5 DAYS 05/27/20 14:31 Venous blood - Right Arm Blood Culture - Final Enterococcus faecalis Coagulase Neg Staphylococcus Laboratory Tests 05/31/20 06/01/20 06/01/20 04:55 03:45 03:45 WBC 9.4 Hgb 8.3 L Band Neuts % (Manual) Creatinine 2.40 H 2.64 H Phosphorus Magnesium Valproic Acid 06/02/20 06/02/20 06/03/20 04:05 04:05 04:09 WBC 9.8 Hgb 8.2 L Band Neuts % (Manual) Creatinine 2.75 H Phosphorus Magnesium 2.0 Valproic Acid 06/03/20 06/08/20 06/08/20 04:09 03:30 09:09 WBC Hgb 6.6 L 7.6 L Band Neuts % (Manual) 45 H 54 H Creatinine Phosphorus 4.3 Magnesium Valproic Acid 06/09/20 06/09/20 02:52 13:05 WBC Hgb Band Neuts % (Manual) 20 H Creatinine Phosphorus Magnesium Valproic Acid 31.6 L Radiology Reviewed by me: Yes (PCXR - bilat infiltrates, trach in place) EKG Reviewed by me: Yes (Tele - SR) Hospitalist ROS - Medication Medications: Active Medications Generic Name Dose Route Start Last Admin Trade Name Freq PRN Reason Stop Dose Admin Acetaminophen 650 mg 05/27/20 17:44 06/09/20 01:16 Tylenol PO 650 mg Q4H PRN Administration Headache/Fever/Mild Pain (1-3) Albuterol/Ipratropium 3 ml 05/30/20 13:00 06/09/20 13:17 Duoneb NEB 3 ml [id number] RONALD Administration Alprazolam 1 mg 06/02/20 20:07 06/08/20 02:50 Xanax PO 1 mg HSPRN PRN Administration Anxiety Amlodipine Besylate 10 mg 06/03/20 09:00 06/09/20 13:30 Norvasc PO 10 mg DAILY RONALD Administration Aspirin 81 mg 06/03/20 09:00 06/09/20 13:29 Aspirin Chewable PO 81 mg DAILY RONALD Administration Atorvastatin Calcium 40 mg 06/03/20 09:00 06/09/20 13:30 Lipitor PO 40 mg DAILY ORNALD Administration Carvedilol 6.25 mg 06/05/20 21:00 06/09/20 13:29 Coreg PO 6.25 mg BID RONALD Administration Famotidine 20 mg 05/27/20 21:00 06/08/20 20:26 Pepcid SLOW IVP 20 mg 2100 RONALD Administration Ferrous Sulfate 300 mg 06/03/20 08:00 06/09/20 08:46 Ferrous Sulfate PO Not Given QAM-WM RONALD Heparin Sodium (Porcine) 5,000 units 06/02/20 21:00 06/09/20 09:03 Heparin SC Not Given BID RONALD Dexmedetomidine HCl 400 mcg/ 100 mls @ 0 mls/hr 06/05/20 09:30 06/08/20 09:54 Sodium Chloride IVPB 100 mls INF RONALD Administration Protocol Per Protocol Insulin Glargine 10 units/ 0.1 mls @ 0 mls/hr 06/08/20 21:00 06/08/20 20:24 Miscellaneous Medication SC 0.1 mls HS RONALD Administration Sodium Chloride 1,000 mls @ 50 mls/hr 06/09/20 01:00 06/09/20 01:17 Normal Saline 0.9% IV 1,000 mls .Q20H RONALD Administration Piperacillin Sod/Tazobactam 100 mls @ 200 mls/hr 06/09/20 12:00 06/09/20 13: 28 Sod 2.25 gm/ Sodium Chloride IVPB 100 mls Q6HR RONALD Administration Insulin Human Regular 0 units 06/08/20 18:28 06/09/20 03:52 Humulin R SC 6 unit .AGGRESSIVE SLIDING PRN Administration Aggressive Correctional Scale Isosorbide Mononitrate 20 mg 06/07/20 09:00 06/09/20 09:30 Ismo PER TUBE Not Given BID RONALD Latanoprost 1 drop 06/02/20 21:00 06/08/20 20:28 Xalatan 0.005% Ophth Soln R EYE 1 drop HS RONALD Administration Scopolamine 1.5 mg 06/04/20 15:00 06/07/20 15:34 Transderm Scop TD 1.5 mg Q3D RONALD Administration Sodium Chloride 10 ml 05/28/20 17:09 06/04/20 10:50 Flush - Normal Saline IVF 10 ml PRN PRN Administration Saline Flush Trazodone HCl 100 mg 06/04/20 21:00 06/08/20 20:22 Desyrel PER TUBE 100 mg HS RONALD Administration Valproic Acid 500 mg 06/06/20 09:00 06/09/20 13:28 Depakene Liquid PER TUBE 500 mg BID RONALD Administration Ziprasidone 20 mg 06/06/20 09:00 06/09/20 09:30 Geodon PER TUBE Not Given BID RONALD - Exam General Appearance: ill appearing General - other findings: sedate on mech vent ENT: normocephalic atraumatic, no oropharyngeal lesions Neck: supple, symmetric, no JVD, no thyromegaly Neck - other findings: trach in place Heart: RRR, no gallops, no rubs, normal peripheral pulses Heart - other findings: S1, S2 Respiratory: no ronchi, no tachypnea Respiratory - other findings: diminished in bilat alvarenga Gastrointestinal: soft, non-tender, non-distended, normal bowel sounds, no palpable masses Extremities: no cyanosis, no clubbing, 1+ LE edema Skin: normal turgor Neurological - other findings: sedate on mech vent Psychiatric: somnolent, lethargic Hosp A/P (1) Acute on chronic respiratory failure with hypoxia Code(s): J96.21 - ACUTE AND CHRONIC RESPIRATORY FAILURE WITH HYPOXIA Status: Acute (2) Pneumonia Code(s): J18.9 - PNEUMONIA, UNSPECIFIED ORGANISM Status: Acute Qualifiers: Laterality: bilateral Lung location: unspecified part of lung Plan: Continue Zosyn, pulmonary support, mech ventilation (3) Acute on chronic diastolic (congestive) heart failure Code(s): I50.33 - ACUTE ON CHRONIC DIASTOLIC (CONGESTIVE) HEART FAILURE Status : Chronic (4) Acute worsening of stage 3 chronic kidney disease Code(s): N18.3 - CHRONIC KIDNEY DISEASE, STAGE 3 (MODERATE) Status: Acute - Plan 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 need for HD AM lab: BMP, CBC, ABG PCXR in am LTAC options
[2020-06-09] MEDS: traZODone HCl 50 MG TAB PER TUBE SCH (20:50)
[2020-06-09] MEDS: Famotidine/PF 20 mg/2ml Vial SLOW IVP SCH (20:50)
[2020-06-09] MEDS: Insulin Glargine 10 UNITS in Pre-Filled Syringe 1 EACH SC SCH (20:51)
[2020-06-09] MEDS: Latanoprost 0.005% Ophth Soln 2.5 ml Bottle R EYE SCH (20:51)
[2020-06-10 04:05] LABS: Band 32 % (5-11); Eosinophils 1 % (0-10); Hemoglobin 7.8 g/dL (12.0-16.0); Lymphocytes 5 % (21-51); MDiff Complete? YES; Mean Corpuscular HGB CONC 32.8 g/dL (32.0-36.0); Mean Corpuscular Hemoglobin 28.9 pg (27.0-31.0); Mean Corpuscular Volume 88.1 fL (78.0-98.0); Mean Platelet Volume 9.2 fL (7.4-10.4); Monocytes 12 % (0-10); Neutrophil 50 % (42-75); Platelet Count 229 thou/uL (130-400); Platelet Morphology Comment Appears Adequate; RBC Distribution Width 15.4 % (11.5-14.5); Red Blood Cell (RBC) Count 2.71 mill/uL (4.20-5.40); White Blood Cell (WBC) Count 10.1 thou/uL (4.8-10.8)
[2020-06-10 04:07] LABS: Anion Gap 15 mmol/L (10-20); BUN (Urea Nitrogen) 79 mg/dL (9.8-20.1); Calc. Creatinine Clearance 18 mL/min (70-130); Calcium 7.9 mg/dL (7.8-10.44); Carbon Dioxide 24 mmol/L (22-29); Chloride 113 mmol/L (98-107); Estimated GFR-MDRD 15; Glucose 161 mg/dL (70-105); Potassium 3.7 mmol/L (3.5-5.1); Sodium 148 mmol/L (136-145)
[2020-06-10] MEDS: Piperacillin/Tazobactam 2.25 GM in Sodium Chloride 0.9% 100 ML IVPB SCH ×4 (05:51→23:55)
[2020-06-10 07:08] LABS: Actual Bicarbonate (HCO3a) 19.5 mEq/L (22-28); Base Excess (BEa) -3.5 mEq/L (-2.0 to +3.0); CO2 Tension 27.2 mmHg (35.0-45.0); Calcium, Ionized (arterial) 1.02 mmol/L (1.12-1.30); Carboxyhemoglobin (COHb) 1.1 gm% (0.0-3.0); Hemoglobin (Hb) 7.7 g/dL (12.0-16.0); O2 Tension (PaO2), arterial 157.5 mmHg (80.0-100.0); Potassium - ABG Lab 3.69 mmol/L (3.70-5.30); pH, Arterial 7.47 (7.35-7.45)
[2020-06-10 07:27] LABS: Puncture Site RRAD
[2020-06-10] MEDS: Heparin 5,000 UNITS/ML VIAL SC SCH ×2 (08:24→20:33)
[2020-06-10] MEDS: Valproate Sodium 250 mg/5 ml UD Cup PER TUBE SCH ×2 (08:24→20:34)
[2020-06-10] MEDS: Carvedilol 6.25 MG TAB PO SCH ×2 (08:25→20:32)
[2020-06-10] MEDS: Aspirin Chewable 81 MG TAB PO SCH (08:25)
[2020-06-10] MEDS: Ziprasidone 20 MG CAP PER TUBE SCH ×2 (08:25→20:34)
[2020-06-10] MEDS: Amlodipine 10 MG TAB PO SCH (08:25)
[2020-06-10] MEDS: Atorvastatin Calcium 40 MG TAB PO SCH (08:26)
[2020-06-10] MEDS ORDERED: Furosemide 40 MG/4 ML VIAL SLOW IVP SCH (08:30)
[2020-06-10] MEDS ORDERED: Furosemide 100 MG/10 ML VIAL SLOW IVP SCH (08:30)
[2020-06-10] MEDS: Isosorbide Mononitrate 20 MG TAB PER TUBE SCH ×2 (08:31→20:34)
[2020-06-10] MEDS ORDERED: Cefepime 1 GM in Sodium Chloride 0.9% 100 ML IVPB SCH (09:00)
--- NOTE | 2020-06-10 09:04 | RAD ---
RADIOGRAPH CHEST 1 VIEW: DATE: 06/10/2020 TIME: 4:50 AM HISTORY: 54-year-old female with pneumonia COMPARISON: 06/09/2020 12:48 PM FINDINGS: Right IJ central line and left-sided double-lumen hemodialysis catheter remain. The alveolar infiltra pedro in the left lung have become more confluent, and more dense, with worsening consolidation, involving left mid, upper, and lower lung zones, with relative sparing of the left apex. Nonspecific mild central and central basilar right streaky densities. Right upper lung zone remains clear. No pneumothorax. IMPRESSION: Interval worsening of left-sided pneumonia
--- NOTE | 2020-06-10 09:06 | PRG ---
DATE OF SERVICE: 06/10/2020 TIME: 35 minutes of critical care time. SUBJECTIVE: The patient underwent tracheostomy yesterday. She is awake. She follows commands very easily. OBJECTIVE: VITAL SIGNS: Pulse 79, blood pressure 135/72, O2 saturations 99%, respiratory rate 28, and her temperature is 99.1. HEENT: Unremarkable. NECK: No JVD. LUNGS: Coarse rhonchi bilaterally. CARDIAC: S1 and S2 regular. ABDOMEN: Soft. EXTREMITIES: Edematous. LABORATORY DATA: Sodium 148, potassium 3.7, chloride 113, CO2 of 24, BUN 79, creatinine 3.7, and glucose 161. White blood cell count 10, hematocrit 23.9, and platelet count 229. PH of 7.47, pCO2 of 27, PO2 of 157 on SIMV rate 9, inspiratory pressure 23, PEEP 5, pressure support 18, and FiO2 of 40%. X-ray shows worsening of a left-sided infiltrate, also more edema on the right side. Cultures show no growth to date from cultures taken yesterday. ASSESSMENT: 1. Acute respiratory failure requiring mechanical ventilation. 2. Sepsis syndrome with fever. 3. Acute renal dysfunction, cardiorenal syndrome. 4. Anemia. PLAN: 1. This patient is likely going to need dialysis. 2. Continue broad-spectrum IV antibiotics and adjust antibiotics based on culture results. 3. Initiate LTAC referral. 4. Adjust mechanical ventilation settings. 5. Give her a dose of Lasix. In my opinion, she is probably going to need dialysis. Job ID: [id number]
[2020-06-10] MEDS: Insulin Regular 300 UNITS/3 ML VIAL SC PRN ×2 (09:37→16:06)
[2020-06-10] MEDS ORDERED: Dextrose 5% w/ 20 mEq KCl 1,000 ML IV SCH (09:45)
--- NOTE | 2020-06-10 10:53 | PDOC.CPN ---
- Subjective Date: 06/10/20 Time: 10:45 - Review of Systems ROS unobtainable: due to endotracheal tube - Objective Allergies/Adverse Reactions: Allergies Allergy/AdvReac Type Severity Reaction Status Date / Time No Known Drug Allergies Allergy Verified 05/15/20 03:15 Visit Medications: Current Medications Acetaminophen (Tylenol) 650 mg PO Q4H PRN PRN Reason: Headache/Fever/Mild Pain (1-3) Last Admin: 06/09/20 01:16 Dose: 650 mg Acetaminophen (Tylenol) 650 mg [place] Q4H PRN PRN Reason: Headache/Fever/Mild Pain (1-3) Albuterol/Ipratropium (Duoneb) 3 ml NEB [id number] [facility] Last Admin: 06/10/20 07:25 Dose: 3 ml Alprazolam (Xanax) 1 mg PO HSPRN PRN PRN Reason: Anxiety Last Admin: 06/08/20 02:50 Dose: 1 mg Amlodipine Besylate (Norvasc) 10 mg PO DAILY [facility] Last Admin: 06/10/20 08:25 Dose: 10 mg Aspirin (Aspirin Chewable) 81 mg PO DAILY [facility] Last Admin: 06/10/20 08:25 Dose: 81 mg Atorvastatin Calcium (Lipitor) 40 mg PO DAILY [facility] Last Admin: 06/10/20 08:26 Dose: 40 mg Bisacodyl (Dulcolax) 10 mg [place] DAILYPRN PRN PRN Reason: Constipation Carvedilol (Coreg) 6.25 mg PO BID [facility] Last Admin: 06/10/20 08:25 Dose: 6.25 mg Dextrose/Water (Dextrose 50%) 25 gm SLOW IVP PRN PRN PRN Reason: Hypoglycemia Famotidine (Pepcid) 20 mg SLOW IVP 2100 [facility] Last Admin: 06/09/20 20:50 Dose: 20 mg Ferrous Sulfate (Ferrous Sulfate) 300 mg PO QAM-WM [facility] Last Admin: 06/10/20 08:24 Dose: 300 mg Furosemide (Lasix) 80 mg SLOW IVP NOW [facility] Stop: 06/10/20 12:00 Last Admin: 06/10/20 08:59 Dose: 80 mg Glucagon (Glucagon) 1 mg IM PRN PRN PRN Reason: Hypoglycemia Heparin Sodium (Porcine) (Heparin) 5,000 units SC BID [facility] Last Admin: 06/10/20 08:24 Dose: 5,000 units Dexmedetomidine HCl 400 mcg/ (Sodium Chloride) 100 mls @ 0 mls/hr IVPB INF [facility] ; Protocol Last Admin: 06/08/20 09:54 Dose: 100 mls Dextrose/Water (D5w) 1,000 mls @ 0 mls/hr IV .Q0M PRN PRN Reason: Hypoglycemia Insulin Glargine 10 units/ (Miscellaneous Medication) 0.1 mls @ 0 mls/hr SC [facility] Last Admin: 06/09/20 20:51 Dose: 0.1 mls Sodium Chloride (Normal Saline 0.9%) 1,000 mls @ 50 mls/hr IV .Q20H [facility] Last Admin: 06/09/20 20:52 Dose: 1,000 mls Piperacillin Sod/Tazobactam (Sod 2.25 gm/ Sodium Chloride) 100 mls @ 200 mls/ hr IVPB Q6HR [facility] Last Admin: 06/10/20 05:51 Dose: 100 mls Potassium Chloride/Dextrose (D5w W/ 20 Meq Kcl) 1,000 mls @ 50 mls/hr IV .Q20H [facility] Stop: 06/11/20 05:44 Insulin Human Regular (Humulin R) 0 units SC .AGGRESSIVE SLIDING PRN PRN Reason: Aggressive Correctional Scale Last Admin: 06/10/20 09:37 Dose: 6 unit Insulin Human Regular (Humulin R) 0 units SC .BEDTIME SLIDING SC PRN PRN Reason: Bedtime Correctional Scale Isosorbide Mononitrate (Ismo) 20 mg PER TUBE BID [facility] Last Admin: 06/10/20 08:31 Dose: 20 mg Latanoprost (Xalatan 0.005% Oph Soln) 1 drop R EYE [facility] Last Admin: 06/09/20 20:51 Dose: 1 drop Discontinue Previous Narcotic Pain Medications And Benzodiazepines 1 each FS .ONE [facility] Stop: 06/26/20 17:28 Ondansetron HCl (Zofran Odt) 4 mg PO Q6H PRN PRN Reason: Nausea/Vomiting Ondansetron HCl (Zofran) 4 mg IVP Q6H PRN PRN Reason: Nausea/Vomiting Scopolamine (Transderm Scop) 1.5 mg TD Q3D [facility] Last Admin: 07/08/20 15:34 Dose: 1.5 mg Sodium Chloride (Flush - Normal Saline) 10 ml IVF PRN PRN PRN Reason: Saline Flush Last Admin: 06/04/20 10:50 Dose: 10 ml Trazodone HCl (Desyrel) 100 mg PER TUBE HS [facility] Last Admin: 06/09/20 20:50 Dose: 100 mg Valproic Acid (Depakene Liquid) 500 mg PER TUBE BID [facility] Last Admin: 06/10/20 08:24 Dose: 500 mg Ziprasidone (Geodon) 20 mg PER TUBE BID [facility] Last Admin: 06/10/20 08:25 Dose: 20 mg Vital Signs & Weight: Vital Signs Temp Pulse Resp BP Pulse Ox 06/10/20 10:24 74 06/10/20 10:00 24 H 06/10/20 08:25 80 135/72 06/10/20 08:00 99.1 F 14 06/10/20 07:28 77 06/10/20 07:25 77 20 99 06/10/20 07:08 99 06/10/20 06:00 15 06/10/20 04:00 99.0 F 18 06/10/20 02:00 14 06/10/20 00:32 73 18 99 06/10/20 00:31 78 06/10/20 00:00 99.0 F 16 Admit Weight 159 lb Weight 147 lb 0.773 oz - Quality Measures Condition: Coronary Artery Disease CV meds: Beta Mukesh: Yes, ISAAC/ARB: No (CKD), ASA: Yes - Physical Exam General: other (on ventilator, mild sedation. Responds to verbal stimuli) Neck: no JVD/HJR Cardiac: regular rate and rhythm Lungs: scattered rhonchi (coarse breath sounds) - Labs Result Diagrams: 06/10/20 03:40 06/10/20 03:40 Troponin/CKMB CK-MB (CK-2) 2.0 ng/mL (0-6.6) 05/27/20 14:31 Troponin I 0.105 ng/mL (< 0.028) H 05/27/20 14:31 - Telemetry Sinus rhythms and dysrhythmias: sinus rhythm - Assessment/Plan Assessment/Plan: 1. Type 2 NSTEMI - most likely demand ischemia from Acute issues; Consider further cardiac eval. after she has recovered from the resp. failure. However, she is likely not a candidate for intervention due to hx of severe CAD with occluded RCA and Lt Cx. 2. Acute on chronic Systolic and Diastolic HF with EF 40-45% and grade I dd on 06/01/2020 - stable with Coreg,6.25mg BID; Lasix is on hold for now due to worsening of renal function and elevated Na level; Not on ISAAC/ARB due to hx of CKD 3. COPD/PNA - on Vent; s/p trach and PEG tube placement on 06/09/2020 4. Pleural effusion - improving; lasix is on hold due to worsening of Renal function 5. CAD with hx of multiple stents - on Coreg and statin; on Heparin 5000units BID; 6. HTN - stable 7. NITIN on CKD - s/p Tunneled cath placement on 06/09/2020 for possible HD 8. DM type 2 9. Anemia with s/p 1 unit of PRBC on 05/30/2020 - another PRBC tx for Hgb 6.8 10. Mod MR ÁNGEL reviewed
--- NOTE | 2020-06-10 12:51 | PDOC.HOSPP ---
- Subjective Encounter Date: 06/10/20 Encounter Time: 11:10 Subjective: pt had trach placed y'day, on vent, awake, following commands. hgb stable at 7.8 , Na at 148. HD. - Objective Vital Signs & Weight: Vital Signs (12 hours) Temp Pulse Resp BP Pulse Ox 06/10/20 12:36 76 17 100 06/10/20 12:00 98.9 F 22 H 06/10/20 10:24 74 06/10/20 10:00 24 H 06/10/20 08:25 80 135/72 06/10/20 08:00 99.1 F 14 06/10/20 07:28 77 06/10/20 07:25 77 20 99 06/10/20 07:08 99 06/10/20 06:00 15 06/10/20 04:00 99.0 F 18 06/10/20 02:00 14 Weight Admit Weight 159 lb Weight 147 lb 0.773 oz Most Recent Monitor Data Heart Rate from ECG 70 NIBP 98/51 NIBP BP-Mean 66 Respiration from ECG 21 SpO2 99 I&O: 06/09/20 06/10/20 06/11/20 06:59 06:59 06:59 Intake Total 2320 2564 880 Output Total 785 770 425 Balance 1535 4113 384 Result Diagrams: 06/10/20 03:40 06/10/20 03:40 Hospitalist ROS - Medication Medications: Active Medications Generic Name Dose Route Start Last Admin Trade Name Freq PRN Reason Stop Dose Admin Acetaminophen 650 mg 05/27/20 17:44 06/09/20 01:16 Tylenol PO 650 mg Q4H PRN Administration Headache/Fever/Mild Pain (1-3) Albuterol/Ipratropium 3 ml 05/30/20 13:00 06/10/20 12:36 Duoneb NEB 3 ml [id number] RONALD Administration Alprazolam 1 mg 06/02/20 20:07 06/08/20 02:50 Xanax PO 1 mg HSPRN PRN Administration Anxiety Amlodipine Besylate 10 mg 06/03/20 09:00 06/10/20 08:25 Norvasc PO 10 mg DAILY RONALD Administration Aspirin 81 mg 06/03/20 09:00 06/10/20 08:25 Aspirin Chewable PO 81 mg DAILY RONALD Administration Atorvastatin Calcium 40 mg 06/03/20 09:00 06/10/20 08:26 Lipitor PO 40 mg DAILY RONALD Administration Carvedilol 6.25 mg 06/05/20 21:00 06/10/20 08:25 Coreg PO 6.25 mg BID RONALD Administration Famotidine 20 mg 05/27/20 21:00 06/09/20 20:50 Pepcid SLOW IVP 20 mg 2100 RONALD Administration Ferrous Sulfate 300 mg 06/03/20 08:00 06/10/20 08:24 Ferrous Sulfate PO 300 mg QAM-WM RONALD Administration Heparin Sodium (Porcine) 5,000 units 06/02/20 21:00 06/10/20 08:24 Heparin SC 5,000 units BID RONALD Administration Dexmedetomidine HCl 400 mcg/ 100 mls @ 0 mls/hr 06/05/20 09:30 06/08/20 09:54 Sodium Chloride IVPB 100 mls INF RONALD Administration Protocol Per Protocol Insulin Glargine 10 units/ 0.1 mls @ 0 mls/hr 06/08/20 21:00 06/09/20 20:51 Miscellaneous Medication SC 0.1 mls HS RONALD Administration Sodium Chloride 1,000 mls @ 50 mls/hr 06/09/20 01:00 06/09/20 20:52 Normal Saline 0.9% IV 1,000 mls .Q20H RONALD Administration Piperacillin Sod/Tazobactam 100 mls @ 200 mls/hr 06/09/20 12:00 06/10/20 11: 40 Sod 2.25 gm/ Sodium Chloride IVPB 100 mls Q6HR RONALD Administration Insulin Human Regular 0 units 06/08/20 18:28 06/10/20 09:37 Humulin R SC 6 unit .AGGRESSIVE SLIDING PRN Administration Aggressive Correctional Scale Isosorbide Mononitrate 20 mg 06/07/20 09:00 06/10/20 08:31 Ismo PER TUBE 20 mg BID RONALD Administration Latanoprost 1 drop 06/02/20 21:00 06/09/20 20:51 Xalatan 0.005% Ophth Soln R EYE 1 drop HS RONALD Administration Scopolamine 1.5 mg 06/04/20 15:00 06/07/20 15:34 Transderm Scop TD 1.5 mg Q3D RONALD Administration Sodium Chloride 10 ml 05/28/20 17:09 07/05/20 10:50 Flush - Normal Saline IVF 10 ml PRN PRN Administration Saline Flush Trazodone HCl 100 mg 06/04/20 21:00 06/09/20 20:50 Desyrel PER TUBE 100 mg HS RONALD Administration Valproic Acid 500 mg 06/06/20 09:00 06/10/20 08:24 Depakene Liquid PER TUBE 500 mg BID RONALD Administration Ziprasidone 20 mg 06/06/20 09:00 06/10/20 08:25 Geodon PER TUBE 20 mg BID RONALD Administration - Exam General Appearance: ill appearing Eye: PERRL ENT: normocephalic atraumatic Neck: supple Heart: RRR Respiratory: CTAB, normal chest expansion Neurological: no focal deficits Psychiatric: oriented to person Hosp A/P - Plan (1) Acute on chronic respiratory failure with hypoxia Code(s): J96.21 - ACUTE AND CHRONIC RESPIRATORY FAILURE WITH HYPOXIA Status: Acute (2) Pneumonia Code(s): J18.9 - PNEUMONIA, UNSPECIFIED ORGANISM Status: Acute Qualifiers: Laterality: bilateral Lung location: unspecified part of lung Plan: Continue Zosyn, pulmonary support, s/p trach and peg on (3) Acute on chronic diastolic (congestive) heart failure combined acue on chronic chf last EF of 45% per echo of 06/01 CAd w.. multiple stents in mary past, RAC and L Cx. Mo..MR - on asa, coreg and stain - no aCEI d/t ckd - no aggressive cardiac intervention -med mgmt only. (4) Acute worsening of stage 3 chronic kidney disease Code(s): N18.3 - CHRONIC KIDNEY DISEASE, STAGE 3 (MODERATE) Status: Acute s/p tunnel cath on - on transient HD. - Lasix d/'cd due to NITIN Continue Zosyn due to PNA/sepsis Trial Scopolamine patch due to secretions PCXR in am LTAC options CM c/s and PT c/s in place.
--- NOTE | 2020-06-10 13:17 | PRG ---
DATE OF SERVICE: 06/10/2020 SUBJECTIVE: The patient was seen and examined in ICU, intubated. OBJECTIVE: GENERAL: This is an elderly female, intubated. VITAL SIGNS: Temperature 98.9, pulse 70, respiratory rate 20, blood pressure 98/51. HEENT: Intubated. CV: S1 and S2 heard. RESPIRATORY: Clear. MUSCULOSKELETAL: No edema. NEUROLOGIC: Intubated. LABORATORY DATA: Potassium is 3.7, BUN is 79, creatinine is 3.7. ASSESSMENT AND PLAN: 1. Acute kidney injury on chronic kidney disease, stage 4, with stable labs. No acute indication for dialysis. 2. Hypernatremia. 3. Hyperchloremia. 4. Hypokalemia. . 5. Hypertension. 6. Acute hypoxic respiratory failure. No acute indication for dialysis. The patient had dialysis catheter yesterday. We will have dialysis if indicated. We will continue to follow. Continue medical management. Job ID: [id number]
[2020-06-10] MEDS: Scopolamine 1.5 mg/72 hour Patch TD SCH (14:30)
[2020-06-10] MEDS: Sodium Chloride 0.9% 1,000 ML IV SCH (16:28)
[2020-06-10] MEDS: Famotidine/PF 20 mg/2ml Vial SLOW IVP SCH (20:33)
[2020-06-10] MEDS: traZODone HCl 50 MG TAB PER TUBE SCH (20:34)
[2020-06-10] MEDS: Latanoprost 0.005% Ophth Soln 2.5 ml Bottle R EYE SCH (20:34)
[2020-06-10] MEDS: Insulin Glargine 10 UNITS in Pre-Filled Syringe 1 EACH SC SCH (22:03)
[2020-06-11] MEDS: Insulin Regular 300 UNITS/3 ML VIAL SC PRN ×3 (04:36→16:11)
[2020-06-11 05:13] LABS: Anion Gap 16 mmol/L (10-20); BUN (Urea Nitrogen) 85 mg/dL (9.8-20.1); Calc. Creatinine Clearance 18 mL/min (70-130); Carbon Dioxide 23 mmol/L (22-29); Chloride 115 mmol/L (98-107); Estimated GFR-MDRD 15; Glucose 178 mg/dL (70-105); Potassium 3.4 mmol/L (3.5-5.1); Sodium 151 mmol/L (136-145)
[2020-06-11 05:14] LABS: Band 10 % (5-11); Hemoglobin 7.5 g/dL (12.0-16.0); Lymphocytes 7 % (21-51); MDiff Complete? YES; Mean Corpuscular HGB CONC 33.4 g/dL (32.0-36.0); Mean Corpuscular Hemoglobin 29.4 pg (27.0-31.0); Mean Corpuscular Volume 87.9 fL (78.0-98.0); Mean Platelet Volume 9.2 fL (7.4-10.4); Metamyelocyte 1 % (0-0); Monocytes 14 % (0-10); Neutrophil 68 % (42-75); Platelet Count 228 thou/uL (130-400); Platelet Morphology Comment Appears Adequate; RBC Distribution Width 15.8 % (11.5-14.5); RBC Morphology Normal; Red Blood Cell (RBC) Count 2.54 mill/uL (4.20-5.40)
[2020-06-11] MEDS: Piperacillin/Tazobactam 2.25 GM in Sodium Chloride 0.9% 100 ML IVPB SCH ×3 (05:44→18:13)
[2020-06-11] MEDS ORDERED: Furosemide 40 MG/4 ML VIAL SLOW IVP SCH (09:15)
[2020-06-11] MEDS: Amlodipine 10 MG TAB PO SCH (09:23)
[2020-06-11] MEDS: Aspirin Chewable 81 MG TAB PO SCH (09:24)
[2020-06-11] MEDS: Atorvastatin Calcium 40 MG TAB PO SCH (09:24)
[2020-06-11] MEDS: Isosorbide Mononitrate 20 MG TAB PER TUBE SCH ×2 (09:24→21:12)
[2020-06-11] MEDS: Heparin 5,000 UNITS/ML VIAL SC SCH ×2 (09:24→21:12)
[2020-06-11] MEDS: Carvedilol 6.25 MG TAB PO SCH ×2 (09:24→21:12)
[2020-06-11] MEDS: Ziprasidone 20 MG CAP PER TUBE SCH ×2 (09:25→21:13)
[2020-06-11] MEDS: Valproate Sodium 250 mg/5 ml UD Cup PER TUBE SCH ×2 (09:25→21:12)
--- NOTE | 2020-06-11 09:25 | PRG ---
DATE OF SERVICE: 06/11/2020 TIME SPENT: 35 minutes of critical care time. SUBJECTIVE: The patient remains intubated on mechanical ventilation. She has tracheostomy in place. OBJECTIVE: VITAL SIGNS: On exam, her temperature is 97.2, pulse 97, and blood pressure 151/70. She is on Precedex drip. HEENT: Unremarkable. NECK: Trach site clean. LUNGS: Coarse breath sounds. CARDIAC: S1 and S2. Regular. ABDOMEN: Soft. EXTREMITIES: Edematous. LABORATORY DATA: PH of 7.47, pCO2 of 27, pO2 of 157 on a SIMV rate 9, high pressure 23, PEEP 5, pressure support 18. Sodium 151, potassium 3.4, chloride 115, CO2 of 23, BUN 85, creatinine 3.6, and glucose 178. Urine culture has Kaila albicans. ASSESSMENT: 1. Acute respiratory failure, requiring mechanical ventilation and tracheostomy. 2. Acute renal dysfunction. 3. Developing hypernatremia after diuretics. 4. Sepsis syndrome - urinary tract infection. 5. Cardiorenal syndrome. 6. Anemia. PLAN: 1. Hold diuresis today and give some free water. 2. Add Diflucan. 3. Try some Ativan to see if we can get her to keep her from hyperventilating. 4. LTAC referral. Job ID: [id number]
[2020-06-11] MEDS: Fluconazole 100 MG TAB PER TUBE SCH (09:29)
[2020-06-11] MEDS: Dextrose 5% in Water 1,000 ML IV SCH (09:30)
[2020-06-11] MEDS: Lorazepam 2 MG/ML VIAL SLOW IVP PRN ×2 (09:38→15:33)
--- NOTE | 2020-06-11 09:40 | RAD ---
RADIOGRAPH CHEST 1 VIEW: DATE: 06/11/2020 TIME: 6:49 AM HISTORY: Follow-up pneumonia in 54-year-old female COMPARISON: 06/10/2020 FINDINGS: No change in life support lines. No change in extensive alveolar infiltrates throughout most of the l eft lung. Milder nonspecific pulmonary densities at right central mid and lower lung zones are unchanged. No pneumothorax. No interval change overall. IMPRESSION: No interval change overall, including extensive left-sided airspace disease: Stable left sided pneumo brian
--- NOTE | 2020-06-11 12:47 | PRG ---
DATE OF SERVICE: 06/11/2020 SUBJECTIVE: The patient was examined in ICU and intubated. OBJECTIVE: VITAL SIGNS: Temperature 97.2, pulse 90, respiratory rate , blood pressure 147/83. HEENT: Intubated. CV: S1, S2 heard. RESPIRATORY: Clear. NEUROLOGICAL: Intubated and sedated. LABORATORY DATA: BUN 85, creatinine is 3.69, potassium 3.4, sodium 151, bicarb 23. ASSESSMENT AND PLAN: 1. Acute kidney injury on chronic kidney disease stage 4, stable labs. No acute indication for dialysis. The patient had a tunneled dialysis catheter on Friday not any improvement, might have to start on renal replacement therapy tomorrow. 2. Hypernatremia. 3. Hyperchloremia. 4. Hypokalemia. 5. Hypertension. 6. Acute hypoxic respiratory failure. 7. Continue close monitoring urine output and renal labs. No acute indication for dialysis today and had a tunneled dialysis catheter on Friday. Job ID: [id number]
[2020-06-11 15:01] LABS: Sodium 148 mmol/L (136-145)
[2020-06-11] MEDS: Acetaminophen 325 MG TAB PO PRN (16:19)
[2020-06-11] MEDS: Latanoprost 0.005% Ophth Soln 2.5 ml Bottle R EYE SCH (21:00)
[2020-06-11] MEDS: Insulin Glargine 10 UNITS in Pre-Filled Syringe 1 EACH SC SCH (21:11)
[2020-06-11] MEDS: Famotidine/PF 20 mg/2ml Vial SLOW IVP SCH (21:12)
[2020-06-11] MEDS: traZODone HCl 50 MG TAB PER TUBE SCH (21:13)
[2020-06-12] MEDS: Dextrose 5% in Water 1,000 ML IV SCH (00:07)
[2020-06-12] MEDS: Piperacillin/Tazobactam 2.25 GM in Sodium Chloride 0.9% 100 ML IVPB SCH ×5 (00:07→23:32)
[2020-06-12] MEDS: Lorazepam 2 MG/ML VIAL SLOW IVP PRN (00:08)
[2020-06-12 05:02] LABS: Anion Gap 17 mmol/L (10-20); BUN (Urea Nitrogen) 91 mg/dL (9.8-20.1); Calc. Creatinine Clearance 19 mL/min (70-130); Calcium 7.9 mg/dL (7.8-10.44); Carbon Dioxide 22 mmol/L (22-29); Chloride 112 mmol/L (98-107); Estimated GFR-MDRD 16; Glucose 187 mg/dL (70-105); Sodium 148 mmol/L (136-145)
[2020-06-12 05:09] LABS: Potassium 2.7 mmol/L (3.5-5.1)
[2020-06-12 05:31] LABS: Band 32 % (5-11); Hemoglobin 7.3 g/dL (12.0-16.0); Lymphocytes 12 % (21-51); MDiff Complete? YES; Mean Corpuscular HGB CONC 32.4 g/dL (32.0-36.0); Mean Corpuscular Hemoglobin 28.4 pg (27.0-31.0); Mean Corpuscular Volume 87.7 fL (78.0-98.0); Metamyelocyte 1 % (0-0); Monocytes 16 % (0-10); Neutrophil 39 % (42-75); Platelet Count 218 thou/uL (130-400); Platelet Morphology Comment Appears Adequate; Red Blood Cell (RBC) Count 2.58 mill/uL (4.20-5.40); White Blood Cell (WBC) Count 15.2 thou/uL (4.8-10.8)
[2020-06-12] MEDS ORDERED: Potassium Chloride 40 MEQ in Premix Bag 1 BAG IVPB SCH (06:00)
[2020-06-12] MEDS ORDERED: Potassium Chloride 20 MEQ in Premix Bag 1 BAG IVPB SCH (08:00)
--- NOTE | 2020-06-12 08:05 | RAD ---
EXAM: Single view of the chest HISTORY: Pneumonia COMPARISON: 06/11/2020 FINDINGS: Single view of the chest shows a normal sized cardiomediastinal silhouette. The dialysis c atheter is unchanged in position. A central venous catheter is unchanged in position. Stable multifocal hilar infiltrates are seen. There may be small bilateral pleural effusions. The bones are unremarkable. IMPRESSION: Stable exam
--- NOTE | 2020-06-12 08:59 | PRG ---
DATE OF SERVICE: 06/12/2020 35 minutes of critical care time. SUBJECTIVE: The patient remains on mechanical ventilation through a tracheostomy. She is very somnolent, is only sedated, on Precedex. OBJECTIVE: VITAL SIGNS: Temperature 100.1, pulse 74, and blood pressure 140/69. 24-hour intake 4603, output 1140. HEENT: Unremarkable. NECK: No JVD. LUNGS: Coarse rhonchi. CARDIOVASCULAR: S1, S2. Regular. ABDOMEN: Soft. EXTREMITIES: Edematous. LABORATORY DATA: Sodium 148, potassium 2.7, chloride 112, CO2 of 22, BUN 91, creatinine 3.6, and glucose 187. White blood cell count 15.2, hematocrit 22.7, and platelet count 218, with 39% neutrophils, 32% bands. ASSESSMENT: 1. Acute respiratory failure, requiring mechanical ventilation and tracheostomy placement. 2. Sepsis syndrome. 3. Fluid overload. 4. Acute on chronic renal failure. 5. Diastolic heart function and dysfunction. 6. Cardiorenal syndrome. 7. Anemia. PLAN: 1. The patient is not weanable at this time. 2. We will add pulse dose vancomycin to her antibiotic regimen since her bandemia has worsened. She is already on antifungal treatment as well as gram-negative coverage. 3. I will hold the Geodon, Depakote, and trazodone. 4. Continue Precedex as needed. Job ID: [id number]
[2020-06-12] MEDS ORDERED: Vancomycin 1.5 GRAM/300 ML BAG 1.5 GM in Premix Bag 1 BAG IVPB SCH (09:00)
[2020-06-12] MEDS: Insulin Regular 300 UNITS/3 ML VIAL SC PRN ×2 (10:01→15:44)
[2020-06-12] MEDS: Isosorbide Mononitrate 20 MG TAB PER TUBE SCH ×2 (10:11→20:59)
[2020-06-12] MEDS: Atorvastatin Calcium 40 MG TAB PO SCH (10:12)
[2020-06-12] MEDS: Amlodipine 10 MG TAB PO SCH (10:12)
[2020-06-12] MEDS: Fluconazole 100 MG TAB PER TUBE SCH (10:12)
[2020-06-12] MEDS: Aspirin Chewable 81 MG TAB PO SCH (10:12)
[2020-06-12] MEDS: Carvedilol 6.25 MG TAB PO SCH ×2 (10:12→20:58)
[2020-06-12] MEDS: Heparin 5,000 UNITS/ML VIAL SC SCH ×2 (10:13→20:58)
--- NOTE | 2020-06-12 11:48 | PRG ---
DATE OF SERVICE: 06/12/2020 SUBJECTIVE: A 54-year-old female being seen for acute kidney injury. The patient is resting. OBJECTIVE: GENERAL: On examination, the patient is resting. VITAL SIGNS: Afebrile, pulse 75, breathing at 16, and blood pressure was 142/72. HEENT: Head normocephalic and atraumatic. Eyes intact, no ulcers. Nose intact, no ulcers. Ears intact, no ulcers. NECK: Supple. No JVD. CHEST: Symmetrical and clear. CARDIOVASCULAR: Shows S1 and S2, no rub, no murmur. GASTROINTESTINAL: Abdomen is soft, bowel sounds positive. EXTREMITIES: Show no edema or ulcers. SKIN: Shows no rash or petechiae. MUSCULOSKELETAL: Shows no joint swelling or stiffness. GENITOURINARY: Shows no Pacheco or CVA tenderness. NEUROLOGIC: The patient is resting. LABORATORY DATA: Hemoglobin 7.3. Potassium 2.7, creatinine 3.6. ASSESSMENT AND PLAN: 1. Acute kidney injury with chronic kidney disease, multifactorial. No urgent indication for dialysis. Continue hydration. 2. Hypernatremia. Increase free water. 3. Hypokalemia. Recheck potassium and magnesium, replace. We will plan dialysis if indicated. Job ID: [id number]
--- NOTE | 2020-06-12 12:06 | PDOC.FMACP ---
Advance Care Planning - Problem (1) Palliative care encounter Status: Acute Code(s): Z51.5 - ENCOUNTER FOR PALLIATIVE CARE (2) Acute on chronic diastolic (congestive) heart failure Status: Chronic Code(s): I50.33 - ACUTE ON CHRONIC DIASTOLIC (CONGESTIVE) HEART FAILURE (3) Acute worsening of stage 3 chronic kidney disease Status: Acute Code(s): N18.3 - CHRONIC KIDNEY DISEASE, STAGE 3 (MODERATE) (4) Sepsis Status: Acute Code(s): A41.9 - SEPSIS, UNSPECIFIED ORGANISM (5) Diabetes mellitus with insulin therapy Status: Chronic Code(s): E11.9 - TYPE 2 DIABETES MELLITUS WITHOUT COMPLICATIONS; Z79.4 - PEDIATRIC PHYSICIAN (CURRENT) USE OF INSULIN - Note Participants: family, surrogate decision-maker, palliative care Summary: Advanced Care Planning was discussed multiple times with patient sister Scarlet Atkins, she is designated MPOA. Sister has paper work designating , has stated she will attempt to locate and bring to hospital. Son Rj has deferred to his aunt also. The diagnosis, prognosis and goals of care have been addressed, have discussed "Hope for the best and plan for the worst". All questions were answered. Scarlet confirms that Ms Irene states that she always wanted "everything done" and family is hopeful for recovery. Continue with Full resuscitaiton, as well as aggressive therapies to sustain life and promote recovery. Please also refer to Palliative Care RN notes in Note section. Time Spent (mins): 30
--- NOTE | 2020-06-12 12:09 | PDOC.PALPN ---
Palliative Progress Note - Subjective mechanical ventilation via Trach, nutritional support via peg. Mild sedation - Objective Vital Signs: Vital Signs - Most Recent Temp Pulse Resp BP Pulse Ox 98.8 F 81 43 H 142/72 H 97 06/12/20 08:00 06/12/20 11:05 06/12/20 10:00 06/12/20 11:05 06/12/20 00:44 - Physical Exam Constitutional: encephalitic, ill appearing HEENT: moist MMs Deviation from normal: adventicious lung sounds, secretions Cardiovascular: RRR Gastrointestinal: incontinent Deviation from normal: PEG Genitourinary: haney catheter Musculoskeletal: edema present, diffuse muscle atrophy Skin: cap refill <2 seconds, no lesions, no rash Deviation from normal: encephalopathic - Assessment (1) Palliative care encounter Code(s): Z51.5 - ENCOUNTER FOR PALLIATIVE CARE Current Visit: Yes Status: Acute (2) Acute on chronic diastolic (congestive) heart failure Code(s): I50.33 - ACUTE ON CHRONIC DIASTOLIC (CONGESTIVE) HEART FAILURE Current Visit: Yes Status: Chronic (3) Acute worsening of stage 3 chronic kidney disease Code(s): N18.3 - CHRONIC KIDNEY DISEASE, STAGE 3 (MODERATE) Current Visit: No Status: Acute (4) Sepsis Code(s): A41.9 - SEPSIS, UNSPECIFIED ORGANISM Current Visit: No Status: Acute (5) Diabetes mellitus with insulin therapy Code(s): E11.9 - TYPE 2 DIABETES MELLITUS WITHOUT COMPLICATIONS; Z79.4 - VEGETABLE HANDLER (CURRENT) USE OF INSULIN Current Visit: No Status: Chronic - Plan Plan: Palliative Care has had multiple conversations with family for support and assistance with education in relation to multiple morbidities. Family hopeful for improvement, transition to retirement care when able. Continue with full resuscitation and aggressive measures. Sister Scarlet is surrogate decision maker. May suggest addition of additional scopolamine patch for mitigating secretions or Atropine eye gtts in buccal mucosa PRN as prevention of aspiration. Please also refer to Palliative Care RN notes in note section. Palliative Care will sign off as Goal of care is identified, surrogate decision maker determined. If we can further assist in symptom management, coping for family, assistance with disease trajectory or complex decision please reconsult our team. [25] minutes spent on this encounter with >50% of the time in counseling and coordination of care. - ROS Non Response: due to endotracheal tube, due to mental status
--- NOTE | 2020-06-12 13:05 | PDOC.CPN ---
- Subjective Date: 06/12/20 Time: 13:07 Interval history: The pt seen and examined. No overnight events. She is still on vent with sedation. - Objective Allergies/Adverse Reactions: Allergies Allergy/AdvReac Type Severity Reaction Status Date / Time No Known Drug Allergies Allergy Verified 05/15/20 03:15 Visit Medications: Current Medications Acetaminophen (Tylenol) 650 mg PO Q4H PRN PRN Reason: Headache/Fever/Mild Pain (1-3) Last Admin: 06/11/20 16:19 Dose: 650 mg Acetaminophen (Tylenol) 650 mg DE Q4H PRN PRN Reason: Headache/Fever/Mild Pain (1-3) Albuterol/Ipratropium (Duoneb) 3 ml NEB [id number] [facility] Last Admin: 06/12/20 07:53 Dose: 3 ml Alprazolam (Xanax) 1 mg PO HSPRN PRN PRN Reason: Anxiety Last Admin: 06/08/20 02:50 Dose: 1 mg Amlodipine Besylate (Norvasc) 10 mg PO DAILY [facility] Last Admin: 06/12/20 10:12 Dose: 10 mg Aspirin (Aspirin Chewable) 81 mg PO DAILY [facility] Last Admin: 06/12/20 10:12 Dose: 81 mg Atorvastatin Calcium (Lipitor) 40 mg PO DAILY [facility] Last Admin: 06/12/20 10:12 Dose: 40 mg Bisacodyl (Dulcolax) 10 mg DE DAILYPRN PRN PRN Reason: Constipation Carvedilol (Coreg) 6.25 mg PO BID [facility] Last Admin: 06/12/20 10:12 Dose: 6.25 mg Dextrose/Water (Dextrose 50%) 25 gm SLOW IVP PRN PRN PRN Reason: Hypoglycemia Famotidine (Pepcid) 20 mg SLOW IVP 2100 [facility] Last Admin: 06/11/20 21:12 Dose: 20 mg Ferrous Sulfate (Ferrous Sulfate) 300 mg PO QAM-WM [facility] Last Admin: 06/12/20 10:11 Dose: 300 mg Fluconazole (Diflucan) 200 mg PER TUBE DAILY [facility] Stop: 06/16/20 09:01 Last Admin: 06/12/20 10:12 Dose: 200 mg Glucagon (Glucagon) 1 mg IM PRN PRN PRN Reason: Hypoglycemia Heparin Sodium (Porcine) (Heparin) 5,000 units SC BID [facility] Last Admin: 06/12/20 10:13 Dose: 5,000 units Dexmedetomidine HCl 400 mcg/ (Sodium Chloride) 100 mls @ 0 mls/hr IVPB INF [facility] ; Protocol Last Admin: 06/12/20 03:00 Dose: 100 mls Dextrose/Water (D5w) 1,000 mls @ 0 mls/hr IV .Q0M PRN PRN Reason: Hypoglycemia Insulin Glargine 10 units/ (Miscellaneous Medication) 0.1 mls @ 0 mls/hr SC [facility] Last Admin: 06/11/20 21:11 Dose: 0.1 mls Piperacillin Sod/Tazobactam (Sod 2.25 gm/ Sodium Chloride) 100 mls @ 200 mls/ hr IVPB Q6HR [facility] Last Admin: 06/12/20 12:37 Dose: 100 mls Vancomycin HCl 1.5 gm/ Device 300 mls @ 150 mls/hr IVPB .PENDING LEVELS [facility] Insulin Human Regular (Humulin R) 0 units SC .AGGRESSIVE SLIDING PRN PRN Reason: Aggressive Correctional Scale Last Admin: 06/12/20 10:01 Dose: 6 unit Insulin Human Regular (Humulin R) 0 units SC .BEDTIME SLIDING SC PRN PRN Reason: Bedtime Correctional Scale Last Admin: 06/11/20 21:16 Dose: 3 unit Isosorbide Mononitrate (Ismo) 20 mg PER TUBE BID [facility] Last Admin: 06/12/20 10:11 Dose: 20 mg Latanoprost (Xalatan 0.005% Ophth Soln) 1 drop R EYE [facility] Last Admin: 06/11/20 21:00 Dose: Not Given Lorazepam (Ativan) 2 mg SLOW IVP Q6H PRN PRN Reason: Anxiety/Agitation Last Admin: 06/12/20 00:08 Dose: 2 mg Miscellaneous Medication (Pharmacy To Dose) 1 each IVPB PRN PRN PRN Reason: Pharmacy to dose Discontinue Previous Narcotic Pain Medications And Benzodiazepines 1 each FS .ONE [facility] Stop: 06/26/20 17:28 Ondansetron HCl (Zofran Odt) 4 mg PO Q6H PRN PRN Reason: Nausea/Vomiting Ondansetron HCl (Zofran) 4 mg IVP Q6H PRN PRN Reason: Nausea/Vomiting Scopolamine (Transderm Scop) 1.5 mg TD Q3D [facility] Last Admin: 06/10/20 14:30 Dose: 1.5 mg Sodium Chloride (Flush - Normal Saline) 10 ml IVF PRN PRN PRN Reason: Saline Flush Last Admin: 06/04/20 10:50 Dose: 10 ml Vital Signs & Weight: Vital Signs Temp Pulse Resp BP 06/12/20 12:00 98.6 F 50 H 06/12/20 11:05 81 142/72 H 06/12/20 10:12 75 141/74 H 06/12/20 10:00 43 H 06/12/20 08:00 98.8 F 48 H 06/12/20 07:54 75 06/12/20 06:00 38 H 06/12/20 04:00 100.1 F H 34 H 06/12/20 03:09 82 06/12/20 02:00 36 H Admit Weight 159 lb Weight 147 lb 1.6 oz - Quality Measures Condition: Coronary Artery Disease CV meds: Beta Mukesh: Yes, ISAAC/ARB: No (CKD), ASA: Yes - Physical Exam Cardiac: regular rate and rhythm, S1/S2 Lungs: decreased breath sounds Extremities: other: (generalized edema) - Labs Result Diagrams: 06/12/20 03:55 06/12/20 15:45 Troponin/CKMB CK-MB (CK-2) 2.0 ng/mL (0-6.6) 05/27/20 14:31 Troponin I 0.105 ng/mL (< 0.028) H 05/27/20 14:31 - Telemetry Sinus rhythms and dysrhythmias: sinus rhythm - Assessment/Plan Assessment/Plan: 1. Type 2 NSTEMI - most likely demand ischemia from Acute issues; Consider further cardiac eval. after she has recovered from the resp. failure. However, she is likely not a candidate for intervention due to hx of severe CAD with occluded RCA and Lt Cx. 2. Acute on chronic Systolic and Diastolic HF with EF 40-45% and grade I dd on 06/01/2020 - stable with Coreg,6.25mg BID; Lasix is on hold for now due to worsening of renal function and elevated Na level; Not on ISAAC/ARB due to hx of CKD 3. COPD/PNA - still on Vent; s/p trach and PEG tube placement on 06/09/2020 4. Pleural effusion - lasix is on hold due to worsening of Renal function 5. CAD with hx of multiple stents - on Coreg and statin; on Heparin 5000units BID; 6. HTN - stable 7. NITIN on CKD - s/p Tunneled cath placement on 06/09/2020 for possible HD; managed by Dr Houser 8. DM type 2 9. Anemia with s/p 1 unit of PRBC on 05/30/2020 10. Mod MR ÁNGEL reviewed Pt. seen and eval. by me. I agree with the A/P by the [employer]. There has been no significant change from yesterday. Chest: coarse scattered rhonchi. RRR Continue supportive care.
--- NOTE | 2020-06-12 15:06 | PDOC.HOSPP ---
- Subjective Encounter Date: 06/12/20 Encounter Time: 11:40 Subjective: She remained no vent, trach and peg. lytes abnormality, dialysis catheter to be removed. increased free water, Na at 148. urine output -haney 1140ml. - Objective Vital Signs & Weight: Vital Signs (12 hours) Temp Pulse Resp BP Pulse Ox 06/12/20 14:00 52 H 06/12/20 13:19 78 134/73 06/12/20 13:17 73 45 H 95 06/12/20 12:00 98.6 F 50 H 06/12/20 11:05 81 142/72 H 06/12/20 10:12 75 141/74 H 06/12/20 10:00 43 H 06/12/20 08:00 98.8 F 48 H 06/12/20 07:54 75 06/12/20 06:00 38 H 06/12/20 04:00 100.1 F H 34 H 06/12/20 03:09 82 Weight Admit Weight 159 lb Weight 147 lb 1.6 oz Most Recent Monitor Data Heart Rate from ECG 76 NIBP 134/73 NIBP BP-Mean 93 Respiration from ECG 48 SpO2 95 I&O: 06/11/20 06/12/20 06/13/20 06:59 06:59 06:59 Intake Total 3171.9 4601.3 1191 Output Total 1715 1140 275 Balance 1456.9 3461.3 916 Result Diagrams: 06/12/20 03:55 06/12/20 03:55 Additional Labs: Accuchecks 06/12/20 06/11/20 06/11/20 09:53 21:14 16:14 POC Glucose 224 H 274 H 249 H 06/11/20 06/11/20 10:55 04:37 POC Glucose 259 H 179 H Hospitalist ROS - Medication Medications: Active Medications Generic Name Dose Route Start Last Admin Trade Name Freq PRN Reason Stop Dose Admin Acetaminophen 650 mg 05/27/20 17:44 06/11/20 16:19 Tylenol PO 650 mg Q4H PRN Administration Headache/Fever/Mild Pain (1-3) Albuterol/Ipratropium 3 ml 05/30/20 13:00 06/12/20 13:17 Duoneb NEB 3 ml [id number] [facility]ONALD Administration Alprazolam 1 mg 06/02/20 20:07 06/08/20 02:50 Xanax PO 1 mg HSPRN PRN Administration Anxiety Amlodipine Besylate 10 mg 06/03/20 09:00 06/12/20 10:12 Norvasc PO 10 mg DAILY [facility] Administration Aspirin 81 mg 06/03/20 09:00 06/12/20 10:12 Aspirin Chewable PO 81 mg DAILY [facility] Administration Atorvastatin Calcium 40 mg 06/03/20 09:00 06/12/20 10:12 Lipitor PO 40 mg DAILY [facility]D Administration Carvedilol 6.25 mg 06/05/20 21:00 06/12/20 10:12 Coreg PO 6.25 mg BID [facility]ONALD Administration Famotidine 20 mg 05/27/20 21:00 06/11/20 21:12 Pepcid SLOW IVP 20 mg 2100 [facility]D Administration Ferrous Sulfate 300 mg 06/03/20 08:00 06/12/20 10:11 Ferrous Sulfate PO 300 mg QAM-WM [facility] Administration Fluconazole 200 mg 06/11/20 09:00 06/12/20 10:12 Diflucan PER TUBE 06/16/20 09:01 200 mg DAILY [facility] Administration Heparin Sodium (Porcine) 5,000 units 06/02/20 21:00 06/12/20 10:13 Heparin SC 5,000 units BID [facility] Administration Dexmedetomidine HCl 400 mcg/ 100 mls @ 0 mls/hr 06/05/20 09:30 06/12/20 03:00 Sodium Chloride IVPB 100 mls INF [facility] Administration Protocol Per Protocol Insulin Glargine 10 units/ 0.1 mls @ 0 mls/hr 06/08/20 21:00 06/11/20 21:11 Miscellaneous Medication SC 0.1 mls HS [facility] Administration Piperacillin Sod/Tazobactam 100 mls @ 200 mls/hr 06/09/20 12:00 06/12/20 12: 37 Sod 2.25 gm/ Sodium Chloride IVPB 100 mls Q6HR [facility] Administration Insulin Human Regular 0 units 06/08/20 18:28 06/12/20 10:01 Humulin R SC 6 unit .AGGRESSIVE SLIDING PRN Administration Aggressive Correctional Scale Insulin Human Regular 0 units 06/08/20 18:28 06/11/20 21:16 Humulin R SC 3 unit .BEDTIME SLIDING SC PRN Administration Bedtime Correctional Scale Isosorbide Mononitrate 20 mg 06/07/20 09:00 06/12/20 10:11 Ismo PER TUBE 20 mg BID [facility] Administration Latanoprost 1 drop 06/02/20 21:00 06/11/20 21:00 Xalatan 0.005% Ophth Soln R EYE Not Given HS [facility] Lorazepam 2 mg 06/11/20 08:59 06/12/20 00:08 Ativan SLOW IVP 2 mg Q6H PRN Administration Anxiety/Agitation Scopolamine 1.5 mg 06/04/20 15:00 06/10/20 14:30 Transderm Scop TD 1.5 mg Q3D [facility] Administration Sodium Chloride 10 ml 05/28/20 17:09 06/04/20 10:50 Flush - Normal Saline IVF 10 ml PRN PRN Administration Saline Flush - Exam General - other findings: trach--on vent, clear urine in haney bag. ENT: normocephalic atraumatic Neck: supple Heart: RRR Respiratory: normal chest expansion, rales Gastrointestinal: normal bowel sounds Psychiatric: somnolent, lethargic Hosp A/P - Plan (1) Acute on chronic respiratory failure with hypoxia Code(s): J96.21 - ACUTE AND CHRONIC RESPIRATORY FAILURE WITH HYPOXIA Status: Acute (2) Pneumonia Code(s): J18.9 - PNEUMONIA, UNSPECIFIED ORGANISM Status: Acute Qualifiers: Laterality: bilateral Lung location: unspecified part of lung Plan: Continue Zosyn, pulmonary support, s/p trach and peg on (3) Acute on chronic diastolic (congestive) heart failure combined acue on chronic chf last EF of 45% per echo of 06/01 CAd w.. multiple stents in mary past, RAC and L Cx. Mo..MR - on asa, coreg and stain - no aCEI d/t ckd - no aggressive cardiac intervention -med mgmt only. (4) Acute worsening of stage 3 chronic kidney disease Code(s): N18.3 - CHRONIC KIDNEY DISEASE, STAGE 3 (MODERATE) Status: Acute s/p tunnel cath on --------------------> planned to be removed / - on transient HD. Lasix d/'cd due to NITIN Continue Zosyn for PNA/sepsis -bl john of 27th -enteroca faecalis and coag neg staph. - urine john - marlene---on diflucan Trial Scopolamine patch due to secretions PCXR in am LTAC options CM c/s and PT c/s in place.
[2020-06-12] MEDS: Acetaminophen 325 MG TAB PO PRN (15:30)
[2020-06-12 16:03] LABS: Sodium 144 mmol/L (136-145)
[2020-06-12 16:04] LABS: Magnesium 2.6 mg/dL (1.6-2.6); Potassium 3.7 mmol/L (3.5-5.1)
[2020-06-12] MEDS: Famotidine/PF 20 mg/2ml Vial SLOW IVP SCH (20:58)
[2020-06-12] MEDS: Latanoprost 0.005% Ophth Soln 2.5 ml Bottle R EYE SCH (21:02)
[2020-06-12] MEDS: Insulin Glargine 10 UNITS in Pre-Filled Syringe 1 EACH SC SCH (21:10)
[2020-06-13] MEDS: Insulin Regular 300 UNITS/3 ML VIAL SC PRN ×3 (03:08→16:30)
[2020-06-13 04:13] LABS: Band 21 % (5-11); Hemoglobin 7.3 g/dL (12.0-16.0); Hypochromia SLIGHT = 6-15 cells (100X) (0-5/hpf); Lymphocytes 8 % (21-51); MDiff Complete? YES; Mean Corpuscular Volume 87.5 fL (78.0-98.0); Metamyelocyte 1 % (0-0); Monocytes 6 % (0-10); Neutrophil 64 % (42-75); Platelet Count 223 thou/uL (130-400); Platelet Morphology Comment Appears Adequate; RBC Distribution Width 16.4 % (11.5-14.5); Red Blood Cell (RBC) Count 2.62 mill/uL (4.20-5.40); White Blood Cell (WBC) Count 22.4 thou/uL (4.8-10.8)
[2020-06-13 04:18] LABS: Anion Gap 18 mmol/L (10-20); BUN (Urea Nitrogen) 88 mg/dL (9.8-20.1); Calc. Creatinine Clearance 21 mL/min (70-130); Carbon Dioxide 18 mmol/L (22-29); Chloride 109 mmol/L (98-107); Estimated GFR-MDRD 18; Glucose 167 mg/dL (70-105); Sodium 142 mmol/L (136-145)
[2020-06-13] MEDS: Piperacillin/Tazobactam 2.25 GM in Sodium Chloride 0.9% 100 ML IVPB SCH ×4 (05:28→23:38)
--- NOTE | 2020-06-13 07:52 | RAD ---
XR Chest 1 View Portable History: Pneumonia Comparison: Radiograph prior day Findings: Size decreased pleural effusions. Improved aeration of the lung bases. The central venous catheters are similar. No pneumothorax. Tracheostomy is similar. Impression: Slight decreased pleural effusions and improved lung aeration.
[2020-06-13] MEDS ORDERED: Potassium Citrate 10 MEQ TAB PO SCH (08:30)
--- NOTE | 2020-06-13 08:58 | PDOC.CPN ---
- Subjective Date: 06/13/20 Time: 08:58 Interval history: The pt seen and examined. No overnight events. On Vent without any sedation; she opened her Lt eye but could not follow commands - Objective Allergies/Adverse Reactions: Allergies Allergy/AdvReac Type Severity Reaction Status Date / Time No Known Drug Allergies Allergy Verified 05/15/20 03:15 Visit Medications: Current Medications Acetaminophen (Tylenol) 650 mg PO Q4H PRN PRN Reason: Headache/Fever/Mild Pain (1-3) Last Admin: 06/12/20 15:30 Dose: 650 mg Acetaminophen (Tylenol) 650 mg KS Q4H PRN PRN Reason: Headache/Fever/Mild Pain (1-3) Albuterol/Ipratropium (Duoneb) 3 ml NEB [id number] [facility] Last Admin: 06/13/20 07:50 Dose: 3 ml Amlodipine Besylate (Norvasc) 10 mg PO DAILY [facility] Last Admin: 06/12/20 10:12 Dose: 10 mg Aspirin (Aspirin Chewable) 81 mg PO DAILY [facility] Last Admin: 06/12/20 10:12 Dose: 81 mg Atorvastatin Calcium (Lipitor) 40 mg PO DAILY [facility] Last Admin: 06/12/20 10:12 Dose: 40 mg Bisacodyl (Dulcolax) 10 mg KS DAILYPRN PRN PRN Reason: Constipation Carvedilol (Coreg) 6.25 mg PO BID [facility] Last Admin: 06/12/20 20:58 Dose: 6.25 mg Dextrose/Water (Dextrose 50%) 25 gm SLOW IVP PRN PRN PRN Reason: Hypoglycemia Famotidine (Pepcid) 20 mg SLOW IVP 2100 [facility] Last Admin: 06/12/20 20:58 Dose: 20 mg Ferrous Sulfate (Ferrous Sulfate) 300 mg PO QAM-WM [facility] Last Admin: 06/12/20 10:11 Dose: 300 mg Fluconazole (Diflucan) 200 mg PER TUBE DAILY [facility] Stop: 06/16/20 09:01 Last Admin: 06/12/20 10:12 Dose: 200 mg Glucagon (Glucagon) 1 mg IM PRN PRN PRN Reason: Hypoglycemia Heparin Sodium (Porcine) (Heparin) 5,000 units SC BID [facility] Last Admin: 06/12/20 20:58 Dose: 5,000 units Dextrose/Water (D5w) 1,000 mls @ 0 mls/hr IV .Q0M PRN PRN Reason: Hypoglycemia Insulin Glargine 10 units/ (Miscellaneous Medication) 0.1 mls @ 0 mls/hr SC HS [facility] Last Admin: 06/12/20 21:10 Dose: 0.1 mls Piperacillin Sod/Tazobactam (Sod 2.25 gm/ Sodium Chloride) 100 mls @ 200 mls/ hr IVPB Q6HR [facility] Last Admin: 06/13/20 05:28 Dose: 100 mls Vancomycin HCl 1.5 gm/ Device 300 mls @ 150 mls/hr IVPB .PENDING LEVELS [facility] Insulin Human Regular (Humulin R) 0 units SC .AGGRESSIVE SLIDING PRN PRN Reason: Aggressive Correctional Scale Last Admin: 06/13/20 03:08 Dose: 3 unit Insulin Human Regular (Humulin R) 0 units SC .BEDTIME SLIDING SC PRN PRN Reason: Bedtime Correctional Scale Last Admin: 06/11/20 21:16 Dose: 3 unit Isosorbide Mononitrate (Ismo) 20 mg PER TUBE BID [facility] Last Admin: 06/12/20 20:59 Dose: 20 mg Latanoprost (Xalatan 0.005% Ophth Soln) 1 drop R EYE [facility] Last Admin: 06/12/20 21:02 Dose: 1 drop Lorazepam (Ativan) 2 mg SLOW IVP Q6H PRN PRN Reason: Anxiety/Agitation Last Admin: 06/12/20 00:08 Dose: 2 mg Miscellaneous Medication (Pharmacy To Dose) 1 each IVPB PRN PRN PRN Reason: Pharmacy to dose Discontinue Previous Narcotic Pain Medications And Benzodiazepines 1 each FS .ONE [facility] Stop: 06/26/20 17:28 Ondansetron HCl (Zofran Odt) 4 mg PO Q6H PRN PRN Reason: Nausea/Vomiting Ondansetron HCl (Zofran) 4 mg IVP Q6H PRN PRN Reason: Nausea/Vomiting Potassium Chloride (Klor-Con 10) 20 meq PO DAILY [facility] Potassium Citrate (Urocit K) 40 meq PO NOW [facility] Stop: 06/13/20 10:30 Scopolamine (Transderm Scop) 1.5 mg TD Q3D [facility] Last Admin: 06/10/20 14:30 Dose: 1.5 mg Sodium Chloride (Flush - Normal Saline) 10 ml IVF PRN PRN PRN Reason: Saline Flush Last Admin: 06/04/20 10:50 Dose: 10 ml Vital Signs & Weight: Vital Signs Temp Pulse Resp BP Pulse Ox 06/13/20 07:53 97 06/13/20 07:51 86 06/13/20 06:00 36 H 06/13/20 04:00 99.4 F 49 H 06/13/20 02:32 92 144/64 H 06/13/20 02:00 48 H 06/13/20 00:00 99.9 F H 45 H 06/12/20 22:05 85 131/65 06/12/20 22:00 40 H Admit Weight 159 lb Weight 148 lb 2.41 oz - Quality Measures Condition: Coronary Artery Disease CV meds: Beta Mukesh: Yes, ISAAC/ARB: No (CKD), ASA: Yes - Physical Exam General: other Cardiac: regular rate and rhythm Lungs: decreased breath sounds, bibasilar rales Extremities: other: (generalized edema) - Labs Result Diagrams: 06/13/20 03:03 06/13/20 03:03 Troponin/CKMB CK-MB (CK-2) 2.0 ng/mL (0-6.6) 05/27/20 14:31 Troponin I 0.105 ng/mL (< 0.028) H 05/27/20 14:31 - Telemetry Sinus rhythms and dysrhythmias: sinus rhythm - Assessment/Plan Assessment/Plan: 1. Type 2 NSTEMI - most likely demand ischemia from Acute issues; Consider further cardiac eval. after she has recovered from the resp. failure. However, she is likely not a candidate for intervention due to hx of severe CAD with occluded RCA and Lt Cx. 2. Acute on chronic Systolic and Diastolic HF with EF 40-45% and grade I dd on 06/01/2020 - stable with Coreg,6.25mg BID; Lasix is on hold for now due to worsening of renal function and elevated Na level; Not on ISAAC/ARB due to hx of CKD 3. COPD/PNA - still on Vent; s/p trach and PEG tube placement on 06/09/2020 4. Pleural effusion - lasix is on hold due to worsening of Renal function 5. CAD with hx of multiple stents - on Coreg and statin; on Heparin 5000units BID; 6. HTN - stable 7. NITIN on CKD - s/p Tunneled cath placement on 06/09/2020 for possible HD; managed by Dr Houser 8. DM type 2 9. Anemia with s/p 1 unit of PRBC on 05/30/2020 10. Mod MR ÁNGEL reviewed Pt. seen and eval. by me. I agree with the A/P by the [employer]SP[employer] SUPERVISOR. But she has coarse rhonci bilat. worse on the right in the mid and lowe rlobes, anterorly upper chest softer rhonchi. Pt. with multiple medical problems. Poor prognosis. ana
--- NOTE | 2020-06-13 09:02 | PRG ---
DATE OF SERVICE: 06/13/2020 SUBJECTIVE: The patient is doing about the same. Continues to be tachypneic on mechanical ventilation. OBJECTIVE: VITAL SIGNS: Temperature 99.4, pulse 94, blood pressure 146/89, currently off all sedation. 24-hour intake is 3857, output 1085. HEENT: Unremarkable. NECK: No adenopathy or JVD. LUNGS: Crackles. CARDIAC: S1 and S2 regular. ABDOMEN: Soft. EXTREMITIES: Trace edema throughout. LABORATORY DATA: White blood cell count 22.4, hematocrit 23, platelet count 223, 64% neutrophils, 21% bands. Sodium 142, potassium 3, chloride 109, CO2 of 18, BUN 88, creatinine 3.3, glucose 167. Chest x-ray looks a little better than yesterday. ASSESSMENT: 1. Acute respiratory failure, requiring mechanical ventilation and tracheostomy placement. 2. Bilateral pneumonia and pulmonary edema. 3. Buord-ak-kyracgq renal failure. 4. Diastolic heart dysfunction. 5. Cardiorenal syndrome. 6. Anemia. PLAN: 1. LTAC placement for prolonged weaning. 2. Continue Zosyn, vancomycin, Diflucan. 3. Continue to hold sedation as much as possible. We will follow. Job ID: [id number]
[2020-06-13] MEDS ORDERED: Heparin 10,000 UNITS/ 10 ML VIAL ONE (09:18)
[2020-06-13 09:36] LABS: Vancomycin, Random 34.1 ug/mL (See Comment)
[2020-06-13] MEDS: Aspirin Chewable 81 MG TAB PO SCH (09:40)
[2020-06-13] MEDS: Atorvastatin Calcium 40 MG TAB PO SCH (09:41)
[2020-06-13] MEDS: Amlodipine 10 MG TAB PO SCH (09:41)
[2020-06-13] MEDS: Fluconazole 100 MG TAB PER TUBE SCH (09:41)
[2020-06-13] MEDS: Carvedilol 6.25 MG TAB PO SCH ×2 (09:41→21:07)
[2020-06-13] MEDS: Isosorbide Mononitrate 20 MG TAB PER TUBE SCH ×2 (09:42→21:08)
[2020-06-13] MEDS: Heparin 5,000 UNITS/ML VIAL SC SCH ×2 (09:42→21:08)
[2020-06-13] MEDS ORDERED: Vancomycin 1.5 GRAM/300 ML BAG 1.5 GM in Premix Bag 1 BAG IVPB SCH ×2 (10:00→10:15)
--- NOTE | 2020-06-13 11:51 | PRG ---
DATE OF SERVICE: 06/13/2020 SUBJECTIVE: A 54-year-old female being seen for acute kidney injury. The patient remains somnolent. OBJECTIVE: GENERAL: On examination, the patient is resting. VITAL SIGNS: Afebrile, pulse 99, breathing at 16, and blood pressure 149/94. HEENT: Head normocephalic and atraumatic. Eyes intact, no ulcers. Nose intact, no ulcers. Ears intact, no ulcers. NECK: Supple. No JVD. CHEST: Symmetrical and clear. CARDIOVASCULAR: Shows S1 and S2, no rub, no murmur. GASTROINTESTINAL: Abdomen is soft, bowel sounds positive. EXTREMITIES: Show no edema or ulcers. SKIN: Shows no rash or petechiae. MUSCULOSKELETAL: Shows no joint swelling or stiffness. GENITOURINARY: Shows no Pacheco or CVA tenderness. NEUROLOGIC: Motor intact. Cranial nerves intact. LABORATORY DATA: Labs show hemoglobin is 7.3. Potassium is 3, creatinine . ASSESSMENT AND PLAN: 1. Chronic kidney disease, stage 5 with uremia. Plan dialysis. 2. Anemia. We would recommend transfusion. 3. Hypertension, stable. 4. Hypokalemia. We will use a 4K bath. 5. Metabolic acidosis. Plan dialysis. Overall, prognosis is poor. I would recommend transfusion. Job ID: [id number]
[2020-06-13 12:40] LABS: HBSAg Index 0.14 S/CO (0-0.99); Hep B Surf Ag Non-Reactive S/CO (NonReactive)
--- NOTE | 2020-06-13 15:04 | PDOC.HOSPP ---
- Subjective Encounter Date: 06/13/20 Encounter Time: 11:50 Subjective: vent dept, trach. pulse on the low side. wbc count high, cxr today showed decreased pl.effusion, no infilterate. - Objective Vital Signs & Weight: Vital Signs (12 hours) Temp Pulse Pulse Pulse Resp BP BP 06/13/20 14:00 52 H 06/13/20 12:49 108 H 06/13/20 12:00 98.8 F 42 H 06/13/20 11:30 99 99 153/83 H 06/13/20 11:10 99 06/13/20 10:00 48 H 06/13/20 09:41 94 153/69 H 06/13/20 08:00 99.4 F 47 H 06/13/20 07:53 06/13/20 07:51 86 06/13/20 06:00 36 H 06/13/20 04:00 99.4 F 49 H BP Pulse Ox Pulse Ox Pulse Ox 06/13/20 14:00 06/13/20 12:49 06/13/20 12:00 06/13/20 11:30 153/70 H 98 95 06/13/20 11:10 06/13/20 10:00 06/13/20 09:41 06/13/20 08:00 06/13/20 07:53 97 06/13/20 07:51 06/13/20 06:00 06/13/20 04:00 Weight Admit Weight 159 lb Weight 148 lb 2.41 oz Most Recent Monitor Data Heart Rate from ECG 101 NIBP 138/73 NIBP BP-Mean 94 Respiration from ECG 42 SpO2 93 I&O: 06/12/20 06/13/20 06/14/20 06:59 06:59 06:59 Intake Total 4601.3 3857 691 Output Total 1140 1085 400 Balance 3461.3 2772 291 Result Diagrams: 06/13/20 03:03 06/13/20 03:03 Additional Labs: Accuchecks 06/13/20 06/13/20 06/12/20 09:43 03:09 21:19 POC Glucose 187 H 177 H 147 H 06/12/20 15:45 POC Glucose 204 H Hospitalist ROS - Medication Medications: Active Medications Generic Name Dose Route Start Last Admin Trade Name Freq PRN Reason Stop Dose Admin Acetaminophen 650 mg 05/27/20 17:44 06/12/20 15:30 Tylenol PO 650 mg Q4H PRN Administration Headache/Fever/Mild Pain (1-3) Albuterol/Ipratropium 3 ml 05/30/20 13:00 06/13/20 12:48 Duoneb NEB 3 ml [id number] [facility] Administration Amlodipine Besylate 10 mg 06/03/20 09:00 06/13/20 09:41 Norvasc PO 10 mg DAILY [facility] Administration Aspirin 81 mg 06/03/20 09:00 06/13/20 09:40 Aspirin Chewable PO 81 mg DAILY [facility] Administration Atorvastatin Calcium 40 mg 06/03/20 09:00 06/13/20 09:41 Lipitor PO 40 mg DAILY [facility] Administration Carvedilol 6.25 mg 06/05/20 21:00 06/13/20 09:41 Coreg PO 6.25 mg BID [facility] Administration Famotidine 20 mg 05/27/20 21:00 06/12/20 20:58 Pepcid SLOW IVP 20 mg 2100 [facility] Administration Ferrous Sulfate 300 mg 06/03/20 08:00 06/13/20 09:42 Ferrous Sulfate PO 300 mg QAM-WM [facility] Administration Fluconazole 200 mg 06/11/20 09:00 06/13/20 09:41 Diflucan PER TUBE 06/16/20 09:01 200 mg DAILY [facility] Administration Heparin Sodium (Porcine) 5,000 units 06/02/20 21:00 06/13/20 09:42 Heparin SC 5,000 units BID [facility] Administration Insulin Glargine 10 units/ 0.1 mls @ 0 mls/hr 06/08/20 21:00 06/12/20 21:10 Miscellaneous Medication SC 0.1 mls HS [facility] Administration Piperacillin Sod/Tazobactam 100 mls @ 200 mls/hr 06/09/20 12:00 06/13/20 11: 43 Sod 2.25 gm/ Sodium Chloride IVPB 100 mls Q6HR [facility] Administration Insulin Human Regular 0 units 06/08/20 18:28 06/13/20 09:43 Humulin R SC 3 unit .AGGRESSIVE SLIDING PRN Administration Aggressive Correctional Scale Insulin Human Regular 0 units 06/08/20 18:28 06/11/20 21:16 Humulin R SC 3 unit .BEDTIME SLIDING SC PRN Administration Bedtime Correctional Scale Isosorbide Mononitrate 20 mg 06/07/20 09:00 06/13/20 09:42 Ismo PER TUBE 20 mg BID [facility] Administration Latanoprost 1 drop 06/02/20 21:00 06/12/20 21:02 Xalatan 0.005% Ophth Soln R EYE 1 drop HS [facility] Administration Lorazepam 2 mg 06/11/20 08:59 06/12/20 00:08 Ativan SLOW IVP 2 mg Q6H PRN Administration Anxiety/Agitation Scopolamine 1.5 mg 06/04/20 15:00 06/10/20 14:30 Transderm Scop TD 1.5 mg Q3D [facility] Administration Sodium Chloride 10 ml 05/28/20 17:09 06/04/20 10:50 Flush - Normal Saline IVF 10 ml PRN PRN Administration Saline Flush - Exam General - other findings: trach-vent dept ENT: normocephalic atraumatic Neck: supple Heart: RRR Respiratory: normal chest expansion Gastrointestinal: normal bowel sounds, no palpable masses Neurological: no focal deficits Hosp A/P - Plan (1) Acute on chronic respiratory failure with hypoxia Code(s): J96.21 - ACUTE AND CHRONIC RESPIRATORY FAILURE WITH HYPOXIA Status: Acute (2) Pneumonia Code(s): J18.9 - PNEUMONIA, UNSPECIFIED ORGANISM Status: Acute Qualifiers: Laterality: bilateral Lung location: unspecified part of lung Plan: Continue Zosyn, pulmonary support, s/p trach and peg on (3) Acute on chronic diastolic (congestive) heart failure combined acue on chronic chf Diastoci dysnf CArdiorenal syndr, last EF of 45% per echo of 06/01 CAd w.. multiple stents in mary past, RAC and L Cx. Mo..MR - on asa, coreg and stain - no aCEI d/t ckd - no aggressive cardiac intervention -med mgmt only. (4) Acute worsening of stage 3 chronic kidney disease Code(s): N18.3 - CHRONIC KIDNEY DISEASE, STAGE 3 (MODERATE) Status: Acute s/p tunnel cath on --------------------> planned to be removed - on transient HD. Lasix d/'cd due to NITIN Continue Zosyn for PNA/sepsis -bl john of 27th -enteroca faecalis and coag neg staph. - urine john - marlene---on diflucan Trial Scopolamine patch due to secretions PCXR in am LTAC options CM c/s and PT c/s in place. Pending LTAC evaluation.
[2020-06-13] MEDS: Scopolamine 1.5 mg/72 hour Patch TD SCH (15:22)
[2020-06-13] MEDS: Famotidine/PF 20 mg/2ml Vial SLOW IVP SCH (21:08)
[2020-06-13] MEDS: Latanoprost 0.005% Ophth Soln 2.5 ml Bottle R EYE SCH (21:08)
[2020-06-13] MEDS: Insulin Glargine 10 UNITS in Pre-Filled Syringe 1 EACH SC SCH (21:08)
[2020-06-14] MEDS: Insulin Regular 300 UNITS/3 ML VIAL SC PRN (03:31)
[2020-06-14 04:27] LABS: Anion Gap 15 mmol/L (10-20); BUN (Urea Nitrogen) 59 mg/dL (9.8-20.1); Calc. Creatinine Clearance 28 mL/min (70-130); Calcium 7.9 mg/dL (7.8-10.44); Carbon Dioxide 22 mmol/L (22-29); Chloride 103 mmol/L (98-107); Estimated GFR-MDRD 25; Glucose 187 mg/dL (70-105); Potassium 3.3 mmol/L (3.5-5.1); Sodium 137 mmol/L (136-145)
[2020-06-14 04:31] LABS: Band 24 % (5-11); Eosinophils 2 % (0-10); Hemoglobin 7.1 g/dL (12.0-16.0); Lymphocytes 4 % (21-51); MDiff Complete? YES; Mean Corpuscular HGB CONC 33.1 g/dL (32.0-36.0); Mean Corpuscular Hemoglobin 28.2 pg (27.0-31.0); Mean Corpuscular Volume 85.2 fL (78.0-98.0); Mean Platelet Volume 9.7 fL (7.4-10.4); Metamyelocyte 4 % (0-0); Monocytes 10 % (0-10); Neutrophil 56 % (42-75); Platelet Count 213 thou/uL (130-400); Platelet Morphology Comment Appears Adequate; RBC Distribution Width 16.4 % (11.5-14.5); Red Blood Cell (RBC) Count 2.53 mill/uL (4.20-5.40); White Blood Cell (WBC) Count 29.8 thou/uL (4.8-10.8)
[2020-06-14] MEDS: Piperacillin/Tazobactam 2.25 GM in Sodium Chloride 0.9% 100 ML IVPB SCH (05:38)
[2020-06-14] MEDS: Aspirin Chewable 81 MG TAB PO SCH (08:23)
[2020-06-14] MEDS: Atorvastatin Calcium 40 MG TAB PO SCH (08:23)
[2020-06-14] MEDS: Heparin 5,000 UNITS/ML VIAL SC SCH ×2 (08:23→21:37)
[2020-06-14] MEDS: Carvedilol 6.25 MG TAB PO SCH ×2 (08:23→21:37)
[2020-06-14] MEDS: Amlodipine 10 MG TAB PO SCH (08:23)
[2020-06-14] MEDS: Isosorbide Mononitrate 20 MG TAB PER TUBE SCH ×2 (08:24→21:37)
--- NOTE | 2020-06-14 08:41 | PRG ---
DATE OF SERVICE: 06/14/2020 35-minute critical care time. SUBJECTIVE: The patient remains intubated, on mechanical ventilation. She did get her first session of dialysis yesterday. OBJECTIVE: VITAL SIGNS: Temperature 100.1, pulse 99, blood pressure 152/80, O2 saturation 94%. Total intake 2673, output 1510 plus whatever was removed by dialysis. HEENT: Unremarkable. NECK: No adenopathy or JVD. CHEST: Coarse breath sounds. CARDIOVASCULAR: S1 and S2. Slightly tachycardic. ABDOMEN: Soft. EXTREMITIES: Trace edema throughout. LABORATORY DATA: White blood cell count up to 29.8, hemoglobin 7.1, hematocrit 21.6, and platelet count 213. Sodium 137, potassium 3.3, chloride 103, CO2 of 22, BUN 59, creatinine 2.4, glucose 187. Chest x-ray might look a slight bit better compared to yesterday. ASSESSMENT: 1. Acute respiratory failure, requiring mechanical ventilation. 2. Status post tracheostomy and feeding tube placement. 3. Bilateral pneumonia versus pulmonary edema. 4. Cardiorenal syndrome. 5. Acute renal failure. 6. Anemia. 7. Persistently elevated white blood cell count. PLAN: She is on broad-spectrum IV antibiotics, but it has not responded appropriately. I am going to switch the Zosyn over to meropenem, and I am going to put her on Mycamine. I do not think she is a candidate for weaning at this time. LTAC evaluation continues to be pending. Job ID: [id number]
[2020-06-14] MEDS ORDERED: Potassium Chloride 10 MEQ TAB PO SCH (09:00)
[2020-06-14] MEDS ORDERED: Heparin 10,000 UNITS/ 10 ML VIAL ONE (09:16)
[2020-06-14] MEDS: Micafungin 100 MG in Sodium Chloride 0.9% 100 ML IVPB SCH (09:19)
--- NOTE | 2020-06-14 09:43 | RAD ---
CHEST 1 VIEW: HISTORY: Pneumonia. COMPARISON: Radiograph from prior day. FINDINGS: The right IJ central venous catheter is similar in location as well as the left IJ dialysis catheter. Heart size is enlarged. Pleural effusions and lung aeration are relatively similar. Tracheostomy tube is similar. IMPRESSION: Similar examination of the chest. POS: HOME
[2020-06-14] MEDS ORDERED: MEROPENEM 1 GM/50 ML 1 GM in Premix Bag 1 BAG IVPB SCH (10:00)
[2020-06-14] MEDS: Lorazepam 2 MG/ML VIAL SLOW IVP PRN (12:39)
--- NOTE | 2020-06-14 12:55 | PDOC.CPN ---
- Subjective Date: 06/14/20 Time: 12:57 Interval history: The pt seen and examined. No overnight events. On Vent still. - Objective Allergies/Adverse Reactions: Allergies Allergy/AdvReac Type Severity Reaction Status Date / Time No Known Drug Allergies Allergy Verified 05/15/20 03:15 Visit Medications: Current Medications Acetaminophen (Tylenol) 650 mg PO Q4H PRN PRN Reason: Headache/Fever/Mild Pain (1-3) Last Admin: 06/12/20 15:30 Dose: 650 mg Acetaminophen (Tylenol) 650 mg SD Q4H PRN PRN Reason: Headache/Fever/Mild Pain (1-3) Albuterol/Ipratropium (Duoneb) 3 ml NEB [id number] [facility] Last Admin: 06/14/20 12:29 Dose: 3 ml Amlodipine Besylate (Norvasc) 10 mg PO DAILY [facility] Last Admin: 06/14/20 08:23 Dose: 10 mg Aspirin (Aspirin Chewable) 81 mg PO DAILY [facility] Last Admin: 06/14/20 08:23 Dose: 81 mg Atorvastatin Calcium (Lipitor) 40 mg PO DAILY [facility] Last Admin: 06/14/20 08:23 Dose: 40 mg Bisacodyl (Dulcolax) 10 mg SD DAILYPRN PRN PRN Reason: Constipation Carvedilol (Coreg) 6.25 mg PO BID [facility] Last Admin: 06/14/20 08:23 Dose: 6.25 mg Dextrose/Water (Dextrose 50%) 25 gm SLOW IVP PRN PRN PRN Reason: Hypoglycemia Famotidine (Pepcid) 20 mg SLOW IVP 2100 [facility] Last Admin: 06/13/20 21:08 Dose: 20 mg Ferrous Sulfate (Ferrous Sulfate) 300 mg PO QAM-WM [facility] Last Admin: 06/14/20 08:22 Dose: 300 mg Glucagon (Glucagon) 1 mg IM PRN PRN PRN Reason: Hypoglycemia Heparin Sodium (Porcine) (Heparin) 5,000 units SC BID [facility] Last Admin: 06/14/20 08:23 Dose: 5,000 units Dextrose/Water (D5w) 1,000 mls @ 0 mls/hr IV .Q0M PRN PRN Reason: Hypoglycemia Insulin Glargine 10 units/ (Miscellaneous Medication) 0.1 mls @ 0 mls/hr SC HS [facility] Last Admin: 06/13/20 21:08 Dose: 0.1 mls Meropenem 1 gm/ Device 50 mls @ 100 mls/hr IVPB 0200,1000,1800 [facility] Last Admin: 06/14/20 10:42 Dose: 50 mls Micafungin Sodium 100 mg/ (Sodium Chloride) 100 mls @ 100 mls/hr IVPB DAILY [facility] Last Admin: 06/14/20 09:19 Dose: 100 mls Vancomycin HCl 750 mg/ Sodium (Chloride) 250 mls @ 250 mls/hr IVPB 1500 [facility] Stop: 06/14/20 18:00 Insulin Human Regular (Humulin R) 0 units SC .AGGRESSIVE SLIDING PRN PRN Reason: Aggressive Correctional Scale Last Admin: 06/14/20 03:31 Dose: 3 unit Insulin Human Regular (Humulin R) 0 units SC .BEDTIME SLIDING SC PRN PRN Reason: Bedtime Correctional Scale Last Admin: 06/11/20 21:16 Dose: 3 unit Isosorbide Mononitrate (Ismo) 20 mg PER TUBE BID [facility] Last Admin: 06/14/20 08:24 Dose: 20 mg Latanoprost (Xalatan 0.005% Ophth Soln) 1 drop R EYE HS [facility] Last Admin: 06/13/20 21:08 Dose: 1 drop Lorazepam (Ativan) 2 mg SLOW IVP Q6H PRN PRN Reason: Anxiety/Agitation Last Admin: 06/14/20 12:39 Dose: 2 mg Miscellaneous Medication (Pharmacy To Dose) 1 each IVPB PRN PRN PRN Reason: Pharmacy to dose Discontinue Previous Narcotic Pain Medications And Benzodiazepines 1 each FS .ONE [facility] Stop: 06/26/20 17:28 Ondansetron HCl (Zofran Odt) 4 mg PO Q6H PRN PRN Reason: Nausea/Vomiting Ondansetron HCl (Zofran) 4 mg IVP Q6H PRN PRN Reason: Nausea/Vomiting Last Admin: 06/14/20 05:52 Dose: 4 mg Potassium Chloride (Klor-Con) 20 meq PO DAILY [facility] Last Admin: 06/14/20 09:20 Dose: 20 meq Scopolamine (Transderm Scop) 1.5 mg TD Q3D [facility] Last Admin: 06/13/20 15:22 Dose: 1.5 mg Sodium Chloride (Flush - Normal Saline) 10 ml IVF PRN PRN PRN Reason: Saline Flush Last Admin: 06/04/20 10:50 Dose: 10 ml Vital Signs & Weight: Vital Signs Temp Pulse Resp BP 06/14/20 12:30 98 06/14/20 12:00 99.4 F 34 H 06/14/20 10:38 95 143/71 H 06/14/20 10:00 28 H 06/14/20 08:00 100.3 F H 43 H 06/14/20 07:44 96 145/75 H 06/14/20 06:00 49 H 06/14/20 04:24 109 H 06/14/20 04:00 100.1 F H 41 H 06/14/20 02:00 49 H Admit Weight 159 lb Weight 150 lb 9.211 oz - Quality Measures Condition: Coronary Artery Disease CV meds: Beta Mukesh: Yes, ISAAC/ARB: No (CKD), ASA: Yes - Physical Exam General: other (opens her eyes) HEENT: mucus membranes moist Neck: supple neck Cardiac: regular rate and rhythm, S1/S2 Lungs: other (rhonchi) Extremities: other: (generalized edema) - Labs Result Diagrams: 06/14/20 03:33 06/14/20 03:33 Troponin/CKMB CK-MB (CK-2) 2.0 ng/mL (0-6.6) 05/27/20 14:31 Troponin I 0.105 ng/mL (< 0.028) H 05/27/20 14:31 - Telemetry Sinus rhythms and dysrhythmias: sinus rhythm - Assessment/Plan Assessment/Plan: 1. Type 2 NSTEMI - most likely demand ischemia from Acute issues; Consider further cardiac eval. after she has recovered from the resp. failure. However, she is likely not a candidate for intervention due to hx of severe CAD with occluded RCA and Lt Cx. 2. Acute on chronic Systolic and Diastolic HF with EF 40-45% and grade I dd on 06/01/2020 - stable with Coreg,6.25mg BID; Lasix is on hold for now due to worsening of renal function and elevated Na level; Not on ISAAC/ARB due to hx of CKD 3. COPD/PNA - still on Vent; s/p trach and PEG tube placement on 06/09/2020 4. Pleural effusion - lasix is on hold due to worsening of Renal function 5. CAD with hx of multiple stents - on Coreg and statin; on Heparin 5000units BID; 6. HTN - stable 7. NITIN on CKD - s/p Tunneled cath placement on 06/09/2020 for possible HD; but not on HD yet this moment; managed by Dr Houser 8. DM type 2 9. Anemia with s/p 1 unit of PRBC on 05/30/2020 10. Mod MR ÁNGEL reviewed pt. seen and eval. by me. I agree with the A/P by the [employer]IT[employer] APPRENTICE. Little change from yesterday, perhaps a little more responsive and RR slightly decreased. continue present Tx. Chest : coarse rhochi, RRR. gjmays.
--- NOTE | 2020-06-14 13:43 | PRG ---
DATE OF SERVICE: 06/14/2020 SUBJECTIVE: A 54-year-old female, being seen for end-stage kidney disease. The patient is resting. PHYSICAL EXAMINATION: General: The patient is awake and alert. Vital Signs: Afebrile, pulse 75, breathing at 16, blood pressure was 133/62. HEENT: Head normocephalic and atraumatic. Eyes intact, no ulcers. Nose intact, no ulcers. Ears intact, no ulcers. Neck: Supple. No JVD. Chest: Symmetrical and clear. Cardiovascular: Shows S1 and S2, no rub, no murmur. Gastrointestinal: Abdomen is soft, bowel sounds positive. Extremities: Show no edema or ulcers. Skin: Shows no rash or petechiae. Musculoskeletal: Shows no joint swelling or stiffness. Genitourinary: Shows no Pacheco or CVA tenderness. Neurologic: Motor intact. Cranial nerves intact. LABORATORY DATA: Showed hemoglobin 7.1. Creatinine 2.45. ASSESSMENT AND PLAN: 1. Stage 6 chronic kidney disease, plan dialysis. 2. Uremia, plan dialysis. 3. Hypokalemia, use 4K bath. 4. Anemia, we would recommend transfusion with dialysis. The patient has had no response after dialysis. Overall, her condition is poor. I would recommend Palliative Care consultation. Job ID: [id number]
[2020-06-14] MEDS ORDERED: Vancomycin HCl 750 MG in Sodium Chloride 0.9% 250 ML 250 ML IVPB SCH (15:00)
--- NOTE | 2020-06-14 15:48 | PDOC.HOSPP ---
- Subjective Encounter Date: 06/14/20 Encounter Time: 12:50 Subjective: temp of 100.3 -- abx changed to merum and micafungin started. vent dept, s/p trach, and tolerating the TF. 12th - cdiff screen negative 10th urine john -- marlene albicans. - Objective Vital Signs & Weight: Vital Signs (12 hours) Temp Pulse Resp BP 06/14/20 15:20 96 145/123 H 06/14/20 14:00 40 H 06/14/20 12:30 98 06/14/20 12:00 99.4 F 34 H 06/14/20 10:38 95 143/71 H 06/14/20 10:00 28 H 06/14/20 08:00 100.3 F H 43 H 06/14/20 07:44 96 145/75 H 06/14/20 06:00 49 H 06/14/20 04:24 109 H 06/14/20 04:00 100.1 F H 41 H Weight Admit Weight 159 lb Weight 150 lb 9.211 oz Most Recent Monitor Data Heart Rate from ECG 98 NIBP 145/69 NIBP BP-Mean 94 Respiration from ECG 49 SpO2 93 I&O: 06/13/20 06/14/20 06/15/20 06:59 06:59 06:59 Intake Total 3857 2673 300 Output Total 1085 1510 195 Balance 2772 1163 105 Result Diagrams: 06/14/20 03:33 06/14/20 03:33 Additional Labs: Accuchecks 06/14/20 06/13/20 06/13/20 03:33 21:11 16:25 POC Glucose 192 H 123 H 160 H Hospitalist ROS - Medication Medications: Active Medications Generic Name Dose Route Start Last Admin Trade Name Freq PRN Reason Stop Dose Admin Acetaminophen 650 mg 05/27/20 17:44 06/12/20 15:30 Tylenol PO 650 mg Q4H PRN Administration Headache/Fever/Mild Pain (1-3) Albuterol/Ipratropium 3 ml 05/30/20 13:00 06/14/20 12:29 Duoneb NEB 3 ml [id number] RONALD Administration Amlodipine Besylate 10 mg 06/03/20 09:00 06/14/20 08:23 Norvasc PO 10 mg DAILY RONALD Administration Aspirin 81 mg 06/03/20 09:00 06/14/20 08:23 Aspirin Chewable PO 81 mg DAILY RONALD Administration Atorvastatin Calcium 40 mg 06/03/20 09:00 06/14/20 08:23 Lipitor PO 40 mg DAILY RONALD Administration Carvedilol 6.25 mg 06/05/20 21:00 06/14/20 08:23 Coreg PO 6.25 mg BID RONALD Administration Famotidine 20 mg 05/27/20 21:00 06/13/20 21:08 Pepcid SLOW IVP 20 mg 2100 RONALD Administration Ferrous Sulfate 300 mg 06/03/20 08:00 06/14/20 08:22 Ferrous Sulfate PO 300 mg QAM-WM RONALD Administration Heparin Sodium (Porcine) 5,000 units 06/02/20 21:00 06/14/20 08:23 Heparin SC 5,000 units BID RONALD Administration Insulin Glargine 10 units/ 0.1 mls @ 0 mls/hr 06/08/20 21:00 06/13/20 21:08 Miscellaneous Medication SC 0.1 mls HS RONALD Administration Micafungin Sodium 100 mg/ 100 mls @ 100 mls/hr 06/14/20 09:00 06/14/20 09:19 Sodium Chloride IVPB 100 mls DAILY RONALD Administration Insulin Human Regular 0 units 06/08/20 18:28 06/14/20 03:31 Humulin R SC 3 unit .AGGRESSIVE SLIDING PRN Administration Aggressive Correctional Scale Insulin Human Regular 0 units 06/08/20 18:28 06/11/20 21:16 Humulin R SC 3 unit .BEDTIME SLIDING SC PRN Administration Bedtime Correctional Scale Isosorbide Mononitrate 20 mg 06/07/20 09:00 06/14/20 08:24 Ismo PER TUBE 20 mg BID RONALD Administration Latanoprost 1 drop 06/02/20 21:00 06/13/20 21:08 Xalatan 0.005% Ophth Soln R EYE 1 drop HS RONALD Administration Lorazepam 2 mg 06/11/20 08:59 06/14/20 12:39 Ativan SLOW IVP 2 mg Q6H PRN Administration Anxiety/Agitation Ondansetron HCl 4 mg 05/27/20 17:44 06/14/20 05:52 Zofran IVP 4 mg Q6H PRN Administration Nausea/Vomiting Potassium Chloride 20 meq 06/14/20 09:00 06/14/20 09:20 Klor-Con PO 20 meq DAILY RONALD Administration Scopolamine 1.5 mg 06/04/20 15:00 06/13/20 15:22 Transderm Scop TD 1.5 mg Q3D RONALD Administration Sodium Chloride 10 ml 05/28/20 17:09 06/04/20 10:50 Flush - Normal Saline IVF 10 ml PRN PRN Administration Saline Flush - Exam General Appearance: ill appearing General - other findings: trach- on vent ENT: normocephalic atraumatic Neck: supple Heart: RRR Respiratory: normal chest expansion Gastrointestinal: soft, normal bowel sounds Neurological: no focal deficits Psychiatric: not oriented Hosp A/P - Plan (1) Acute on chronic respiratory failure with hypoxia Code(s): J96.21 - ACUTE AND CHRONIC RESPIRATORY FAILURE WITH HYPOXIA Status: Acute (2) Pneumonia Code(s): J18.9 - PNEUMONIA, UNSPECIFIED ORGANISM Status: Acute Qualifiers: Laterality: bilateral Lung location: unspecified part of lung Plan: Continue Zosyn, pulmonary support, s/p trach and peg on (3) Acute on chronic diastolic (congestive) heart failure combined acue on chronic chf Diastoci dysnf CArdiorenal syndr, last EF of 45% per echo of 06/01 CAd w.. multiple stents in mary past, RAC and L Cx. Mo..MR - on asa, coreg and stain - no aCEI d/t ckd - no aggressive cardiac intervention -med mgmt only. (4) Acute worsening of stage 3 chronic kidney disease Code(s): N18.3 - CHRONIC KIDNEY DISEASE, STAGE 3 (MODERATE) Status: Acute s/p tunnel cath on --------------------> planned to be removed today/ - on transient HD. Lasix d/'cd due to NITIN Continue Zosyn for PNA/sepsis------------------> changed to merum on -bl john of -enteroca faecalis and coag neg staph. - urine john - marlene---on diflucan-----------------> changed to micafungin on -cdiff negative Trial Scopolamine patch due to secretions CM c/s and PT c/s in place. Pending LTAC evaluation.
[2020-06-14] MEDS: Insulin Glargine 10 UNITS in Pre-Filled Syringe 1 EACH SC SCH (21:37)
[2020-06-14] MEDS: Famotidine/PF 20 mg/2ml Vial SLOW IVP SCH (21:37)
[2020-06-14] MEDS: Latanoprost 0.005% Ophth Soln 2.5 ml Bottle R EYE SCH (21:38)
[2020-06-14] MEDS: Acetaminophen 650 MG/20.3 ML UDCUP PO PRN (22:17)
[2020-06-14] MEDS: MEROPENEM 1 GM/50 ML 1 GM in Premix Bag 1 BAG IVPB SCH (22:44)
[2020-06-15] MEDS: Lorazepam 2 MG/ML VIAL SLOW IVP PRN ×2 (03:31→14:48)
[2020-06-15 04:09] LABS: Anion Gap 14 mmol/L (10-20); BUN (Urea Nitrogen) 36 mg/dL (9.8-20.1); Calc. Creatinine Clearance 33 mL/min (70-130); Calcium 8.2 mg/dL (7.8-10.44); Carbon Dioxide 23 mmol/L (22-29); Chloride 101 mmol/L (98-107); Estimated GFR-MDRD 30; Glucose 212 mg/dL (70-105); Potassium 3.4 mmol/L (3.5-5.1); Sodium 135 mmol/L (136-145)
[2020-06-15] MEDS: Insulin Regular 300 UNITS/3 ML VIAL SC PRN ×3 (04:14→16:42)
[2020-06-15 05:00] LABS: Band 8 % (5-11); Hemoglobin 9.6 g/dL (12.0-16.0); Hypochromia SLIGHT = 6-15 cells (100X) (0-5/hpf); Lymphocytes 9 % (21-51); MDiff Complete? YES; Mean Corpuscular HGB CONC 32.9 g/dL (32.0-36.0); Mean Corpuscular Volume 85.3 fL (78.0-98.0); Mean Platelet Volume 9.4 fL (7.4-10.4); Monocytes 8 % (0-10); Neutrophil 75 % (42-75); Platelet Count 191 thou/uL (130-400); Platelet Morphology Comment Appears Adequate; RBC Distribution Width 15.3 % (11.5-14.5); Red Blood Cell (RBC) Count 3.44 mill/uL (4.20-5.40); White Blood Cell (WBC) Count 28.9 thou/uL (4.8-10.8)
[2020-06-15] MEDS: Acetaminophen 650 MG/20.3 ML UDCUP PO PRN (07:15)
[2020-06-15] MEDS: Carvedilol 6.25 MG TAB PO SCH ×2 (07:15→21:02)
[2020-06-15] MEDS: Aspirin Chewable 81 MG TAB PO SCH (07:15)
[2020-06-15] MEDS: Amlodipine 10 MG TAB PO SCH (07:16)
[2020-06-15] MEDS: Micafungin 100 MG in Sodium Chloride 0.9% 100 ML IVPB SCH (07:16)
[2020-06-15] MEDS: Atorvastatin Calcium 40 MG TAB PO SCH (07:16)
[2020-06-15] MEDS: Isosorbide Mononitrate 20 MG TAB PER TUBE SCH ×2 (07:16→21:02)
--- NOTE | 2020-06-15 07:55 | RAD ---
EXAM: Single view of the chest HISTORY: Pneumonia COMPARISON: 06/14/2020 FINDINGS: Single view of the chest shows a normal sized cardiomediastinal silhouette. The lines and tubes are unchanged in position. There is slight worsening of the multifocal infiltrates. The bones are unremarkable. IMPRESSION: Slight worsening of multifocal infiltrates
--- NOTE | 2020-06-15 08:12 | PRG ---
DATE OF SERVICE: 35 minutes of critical care time. SUBJECTIVE: The patient has had a worsening of her overall status overnight. She has developed fever and hypoxemia. OBJECTIVE: VITAL SIGNS: Temperature 99.3, pulse 107, blood pressure 154/76. HEENT: Unremarkable. NECK: No JVD. She has a right IJ catheter that has been there since 05/27. LUNGS: Coarse breath sounds. CARDIOVASCULAR: S1 and S2. Tachycardic. ABDOMEN: Soft, nontender. EXTREMITIES: No clubbing, cyanosis, or edema. LABORATORY DATA: White blood cell count 28.9-stable, hematocrit 29.3-increased after 2 units PRBC, platelet count 191, 8% bands-down. Sodium 135, potassium 3.4, chloride 101, CO2 of 23, BUN 34, creatinine 2.1, glucose 212. ASSESSMENT: 1. Sepsis syndrome. 2. Likely, has some component of hospital-acquired pneumonia. 3. Cannot rule out possible central line contamination at this point. 4. Acute renal failure. 5. History of diastolic cardiac dysfunction. 6. Cardiorenal syndrome. 7. Anemia. PLAN: 1. We need to postpone LTAC placement until she is more stable. 2. I have gone up on her PEEP. 3. We will add some Precedex back for sedation. 4. Culture the central line. 5. The patient is already on meropenem, micafungin, and vancomycin. There would really not be much more to add to that regimen at this point unless the cultures grew out something differently. Her prognosis remains stable and she is not weanable at this time. Job ID: [id number]
[2020-06-15] MEDS: Heparin 5,000 UNITS/ML VIAL SC SCH ×2 (08:13→21:03)
--- NOTE | 2020-06-15 08:47 | PDOC.CPN ---
- Subjective Date: 06/15/20 Time: 08:48 Interval history: The pt seen and examined. No overnight events. open her eyes with verbal and pain stimulation - Objective Allergies/Adverse Reactions: Allergies Allergy/AdvReac Type Severity Reaction Status Date / Time No Known Drug Allergies Allergy Verified 05/15/20 03:15 Visit Medications: Current Medications Acetaminophen (Tylenol) 650 mg WA Q4H PRN PRN Reason: Headache/Fever/Mild Pain (1-3) Acetaminophen (Tylenol Elixir) 650 mg PO Q4H PRN PRN Reason: Headache/Fever/Mild Pain (1-3) Last Admin: 06/15/20 07:15 Dose: 650 mg Albuterol/Ipratropium (Duoneb) 3 ml NEB [id number] [facility] Last Admin: 06/15/20 07:48 Dose: 3 ml Amlodipine Besylate (Norvasc) 10 mg PO DAILY [facility] Last Admin: 06/15/20 07:16 Dose: 10 mg Aspirin (Aspirin Chewable) 81 mg PO DAILY [facility] Last Admin: 06/15/20 07:15 Dose: 81 mg Atorvastatin Calcium (Lipitor) 40 mg PO DAILY [facility] Last Admin: 06/15/20 07:16 Dose: 40 mg Bisacodyl (Dulcolax) 10 mg WA DAILYPRN PRN PRN Reason: Constipation Carvedilol (Coreg) 6.25 mg PO BID [facility] Last Admin: 06/15/20 07:15 Dose: 6.25 mg Dextrose/Water (Dextrose 50%) 25 gm SLOW IVP PRN PRN PRN Reason: Hypoglycemia Famotidine (Pepcid) 20 mg SLOW IVP 2100 [facility] Last Admin: 06/14/20 21:37 Dose: 20 mg Ferrous Sulfate (Ferrous Sulfate) 300 mg PO QAM-WM [facility] Last Admin: 06/15/20 07:16 Dose: 300 mg Glucagon (Glucagon) 1 mg IM PRN PRN PRN Reason: Hypoglycemia Heparin Sodium (Porcine) (Heparin) 5,000 units SC BID [facility] Last Admin: 06/15/20 08:13 Dose: 5,000 units Dextrose/Water (D5w) 1,000 mls @ 0 mls/hr IV .Q0M PRN PRN Reason: Hypoglycemia Insulin Glargine 10 units/ (Miscellaneous Medication) 0.1 mls @ 0 mls/hr SC HS [facility] Last Admin: 06/14/20 21:37 Dose: 0.1 mls Micafungin Sodium 100 mg/ (Sodium Chloride) 100 mls @ 100 mls/hr IVPB DAILY [facility] Last Admin: 06/15/20 07:16 Dose: 100 mls Meropenem 1 gm/ Device 50 mls @ 100 mls/hr IVPB 1000,2200 [facility] Last Admin: 06/14/20 22:44 Dose: 50 mls Vancomycin HCl 750 mg/ Sodium (Chloride) 250 mls @ 250 mls/hr IVPB .DOSE BY LEVEL [facility] Dexmedetomidine HCl 400 mcg/ (Sodium Chloride) 100 mls @ 0 mls/hr IVPB INF [facility] ; Protocol Last Admin: 06/15/20 08:09 Dose: 100 mls Insulin Human Regular (Humulin R) 0 units SC .AGGRESSIVE SLIDING PRN PRN Reason: Aggressive Correctional Scale Last Admin: 06/15/20 04:14 Dose: 6 unit Insulin Human Regular (Humulin R) 0 units SC .BEDTIME SLIDING SC PRN PRN Reason: Bedtime Correctional Scale Last Admin: 06/11/20 21:16 Dose: 3 unit Isosorbide Mononitrate (Ismo) 20 mg PER TUBE BID [facility] Last Admin: 06/15/20 07:16 Dose: 20 mg Latanoprost (Xalatan [facility]) 1 drop R EYE [facility] Last Admin: 06/14/20 21:38 Dose: 1 drop Lorazepam (Ativan) 2 mg SLOW IVP Q6H PRN PRN Reason: Anxiety/Agitation Last Admin: 06/15/20 03:31 Dose: 2 mg Miscellaneous Medication (Pharmacy To Dose) 1 each IVPB PRN PRN PRN Reason: Pharmacy to dose Discontinue Previous Narcotic Pain Medications And Benzodiazepines 1 each FS .ONE [facility] Stop: 06/26/20 17:28 Ondansetron HCl (Zofran Odt) 4 mg PO Q6H PRN PRN Reason: Nausea/Vomiting Ondansetron HCl (Zofran) 4 mg IVP Q6H PRN PRN Reason: Nausea/Vomiting Last Admin: 06/14/20 05:52 Dose: 4 mg Potassium Chloride (Klor-Con) 20 meq PO DAILY [facility] Last Admin: 06/15/20 07:16 Dose: 20 meq Scopolamine (Transderm Scop) 1.5 mg TD Q3D RONALD Last Admin: 06/13/20 15:22 Dose: 1.5 mg Sodium Chloride (Flush - Normal Saline) 10 ml IVF PRN PRN PRN Reason: Saline Flush Vital Signs & Weight: Vital Signs Temp Pulse Resp BP Pulse Ox 06/15/20 08:00 38 H 06/15/20 07:49 113 H 151/79 H 06/15/20 07:00 100.4 F H 06/15/20 06:00 57 H 06/15/20 04:00 99.3 F 55 H 06/15/20 03:19 96 06/15/20 02:00 41 H 06/15/20 01:23 98 06/15/20 01:21 96 53 H 96 06/15/20 00:00 99.7 F H 53 H 06/14/20 22:00 100.9 F H 52 H 06/14/20 21:38 114 H 06/14/20 21:37 156/78 H 06/14/20 21:25 100.6 F H 06/14/20 21:00 100.6 F H Admit Weight 159 lb Weight 151 lb 10.848 oz - Quality Measures Condition: Coronary Artery Disease CV meds: Beta Mukesh: Yes, ISAAC/ARB: No (CKD), ASA: Yes - Physical Exam Cardiac: regular rate and rhythm, S1/S2 Lungs: decreased breath sounds Extremities: other: (generalized edema) - Labs Result Diagrams: 06/15/20 03:21 06/15/20 03:21 Troponin/CKMB CK-MB (CK-2) 2.0 ng/mL (0-6.6) 05/27/20 14:31 Troponin I 0.105 ng/mL (< 0.028) H 05/27/20 14:31 - Telemetry Sinus rhythms and dysrhythmias: sinus tachycardia - Assessment/Plan Assessment/Plan: 1. Type 2 NSTEMI - most likely demand ischemia from Acute issues; Consider further cardiac eval. after she has recovered from the resp. failure. However, she is likely not a candidate for intervention due to hx of severe CAD with occluded RCA and Lt Cx. 2. Acute on chronic Systolic and Diastolic HF with EF 40-45% and grade I dd on 06/01/2020 - stable with Coreg,6.25mg BID; Lasix is on hold for now due to worsening of renal function and elevated Na level; Not on ISAAC/ARB due to hx of CKD 3. COPD/PNA - still on Vent; s/p trach and PEG tube placement on 06/09/2020 4. Pleural effusion - lasix is on hold due to worsening of Renal function 5. CAD with hx of multiple stents - on Coreg and statin; on Heparin 5000units BID; 6. HTN - stable 7. NITIN on CKD - s/p Tunneled cath placement on 06/09/2020 for possible HD; but not on HD yet this moment; managed by Dr Houser 8. DM type 2 9. Anemia with s/p 1 unit of PRBC on 05/30/2020 10. Mod MR ÁNGEL reviewed Pt. seen and eval. by me. I agree with the A/P by the [employer]IST[employer]ATOR. Little change from yesterday, RR still increased, continue present Tx. Chest : coarse rhochi, RRR. Poor prognosis. gjmays.
[2020-06-15] MEDS: MEROPENEM 1 GM/50 ML 1 GM in Premix Bag 1 BAG IVPB SCH ×2 (10:50→21:03)
--- NOTE | 2020-06-15 11:40 | PRG ---
DATE OF SERVICE: 06/15/2020 SUBJECTIVE: A 54-year-old female being seen for end-stage kidney disease. The patient remains nonverbal. SUBJECTIVE: GENERAL: The patient is resting. VITAL SIGNS: Afebrile, pulse 70, breathing 16, and blood pressure 130/70. HEENT: Head normocephalic and atraumatic. Eyes intact, no ulcers. Nose intact, no ulcers. Ears intact, no ulcers. NECK: Supple. No JVD. CHEST: Symmetrical and clear. CARDIOVASCULAR: Shows S1 and S2, no rub, no murmur. GASTROINTESTINAL: Abdomen is soft, bowel sounds positive. EXTREMITIES: Show no edema or ulcers. SKIN: Shows no rash or petechiae. MUSCULOSKELETAL: Shows no joint swelling or stiffness. GENITOURINARY: Shows no Pacheco or CVA tenderness. NEUROLOGIC: The patient is resting. LABORATORY DATA: Creatinine 2.0. ASSESSMENT AND PLAN: 1. Stage 6 chronic kidney disease. No indication for dialysis. 2. Hypertension, stable. 3. Anemia, stable. 4. Hypokalemia, recommend high potassium diet. The patient has a poor prognosis and is not a suitable candidate for outpatient. I would recommend palliative care consultation. Job ID: [id number]
[2020-06-15] MEDS ORDERED: Vancomycin HCl 750 MG in Sodium Chloride 0.9% 250 ML 250 ML IVPB SCH (15:00)
[2020-06-15] MEDS ORDERED: Vancomycin HCl 500 MG in Sodium Chloride 0.9% 100 ML IVPB SCH ×2 (15:45)
--- NOTE | 2020-06-15 16:39 | PDOC.HOSPP ---
- Subjective Encounter Date: 06/15/20 Encounter Time: 12:30 Subjective: febrile episode, RiJ and peripheral access being cultured along w.. blood john; both abx and antifungal on baord. - Objective Vital Signs & Weight: Vital Signs (12 hours) Temp Pulse Resp BP 06/15/20 16:00 99.6 F 06/15/20 15:13 82 125/79 06/15/20 14:00 43 H 06/15/20 13:46 80 06/15/20 12:00 98.5 F 54 H 06/15/20 10:37 85 120/70 06/15/20 10:00 54 H 06/15/20 08:00 38 H 06/15/20 07:49 113 H 151/79 H 06/15/20 07:00 100.4 F H 06/15/20 06:00 57 H Weight Admit Weight 159 lb Weight 151 lb 10.848 oz Most Recent Monitor Data Heart Rate from ECG 82 NIBP 125/79 NIBP BP-Mean 94 Respiration from ECG 48 SpO2 95 I&O: 06/14/20 06/15/20 06/16/20 06:59 06:59 06:59 Intake Total 2673 2201 120 Output Total 1510 945 100 Balance 1163 1256 20 Result Diagrams: 06/15/20 03:21 06/15/20 03:21 Additional Labs: Accuchecks 06/15/20 06/15/20 06/15/20 14:28 10:58 03:46 POC Glucose 260 H 273 H 231 H 06/14/20 06/14/20 06/14/20 21:47 17:57 10:11 POC Glucose 147 H 134 H 193 H Hospitalist ROS - Medication Medications: Active Medications Generic Name Dose Route Start Last Admin Trade Name Freq PRN Reason Stop Dose Admin Acetaminophen 650 mg 06/14/20 19:51 06/15/20 07:15 Tylenol Elixir PO 650 mg Q4H PRN Administration Headache/Fever/Mild Pain (1-3) Albuterol/Ipratropium 3 ml 05/30/20 13:00 06/15/20 13:46 Duoneb NEB 3 ml [id number] RONALD Administration Amlodipine Besylate 10 mg 06/03/20 09:00 06/15/20 07:16 Norvasc PO 10 mg DAILY RONALD Administration Aspirin 81 mg 06/03/20 09:00 06/15/20 07:15 Aspirin Chewable PO 81 mg DAILY RONALD Administration Atorvastatin Calcium 40 mg 06/03/20 09:00 06/15/20 07:16 Lipitor PO 40 mg DAILY RONALD Administration Carvedilol 6.25 mg 06/05/20 21:00 06/15/20 07:15 Coreg PO 6.25 mg BID RONALD Administration Famotidine 20 mg 05/27/20 21:00 06/14/20 21:37 Pepcid SLOW IVP 20 mg 2100 RONALD Administration Ferrous Sulfate 300 mg 06/03/20 08:00 06/15/20 07:16 Ferrous Sulfate PO 300 mg QAM-WM RONALD Administration Heparin Sodium (Porcine) 5,000 units 06/02/20 21:00 06/15/20 08:13 Heparin SC 5,000 units BID RONALD Administration Insulin Glargine 10 units/ 0.1 mls @ 0 mls/hr 06/08/20 21:00 06/14/20 21:37 Miscellaneous Medication SC 0.1 mls HS RONALD Administration Micafungin Sodium 100 mg/ 100 mls @ 100 mls/hr 06/14/20 09:00 06/15/20 07:16 Sodium Chloride IVPB 100 mls DAILY RONALD Administration Meropenem 1 gm/ Device 50 mls @ 100 mls/hr 06/14/20 22:00 06/15/20 10:50 IVPB 50 mls 1000,2200 RONALD Administration Dexmedetomidine HCl 400 mcg/ 100 mls @ 0 mls/hr 06/15/20 07:45 06/15/20 14:45 Sodium Chloride IVPB 100 mls INF RONALD Administration Protocol Per Protocol Insulin Human Regular 0 units 06/08/20 18:28 06/15/20 10:54 Humulin R SC 9 unit .AGGRESSIVE SLIDING PRN Administration Aggressive Correctional Scale Insulin Human Regular 0 units 06/08/20 18:28 06/11/20 21:16 Humulin R SC 3 unit .BEDTIME SLIDING SC PRN Administration Bedtime Correctional Scale Isosorbide Mononitrate 20 mg 06/07/20 09:00 06/15/20 07:16 Ismo PER TUBE 20 mg BID RONALD Administration Latanoprost 1 drop 06/02/20 21:00 06/14/20 21:38 Xalatan 0.005% Ophth Soln R EYE 1 drop HS RONALD Administration Lorazepam 2 mg 06/11/20 08:59 06/15/20 14:48 Ativan SLOW IVP 2 mg Q6H PRN Administration Anxiety/Agitation Ondansetron HCl 4 mg 05/27/20 17:44 06/14/20 05:52 Zofran IVP 4 mg Q6H PRN Administration Nausea/Vomiting Potassium Chloride 20 meq 06/14/20 09:00 06/15/20 07:16 Klor-Con PO 20 meq DAILY RONALD Administration Scopolamine 1.5 mg 06/04/20 15:00 06/13/20 15:22 Transderm Scop TD 1.5 mg Q3D RONALD Administration - Exam General Appearance: ill appearing General - other findings: trach ENT: normocephalic atraumatic Neck: supple Heart: RRR Respiratory: normal chest expansion, rales, rhonchi Psychiatric: not oriented Hosp A/P - Plan (1) Acute on chronic respiratory failure with hypoxia Code(s): J96.21 - ACUTE AND CHRONIC RESPIRATORY FAILURE WITH HYPOXIA Status: Acute (2) Pneumonia Code(s): J18.9 - PNEUMONIA, UNSPECIFIED ORGANISM Status: Acute Qualifiers: Laterality: bilateral Lung location: unspecified part of lung Plan: Continue Zosyn, pulmonary support, s/p trach and peg on (3) Acute on chronic diastolic (congestive) heart failure combined acue on chronic chf Diastoci dysnf CArdiorenal syndr, last EF of 45% per echo of 06/01 CAd w.. multiple stents in mary past, RAC and L Cx. Mo..MR - on asa, coreg and stain - no aCEI d/t ckd - no aggressive cardiac intervention -med mgmt only. (4) Acute worsening of stage 3 chronic kidney disease Code(s): N18.3 - CHRONIC KIDNEY DISEASE, STAGE 3 (MODERATE) Status: Acute s/p tunnel cath on --------------------> planned to be removed today/ - on transient HD. Lasix d/'cd due to NITIN Continue Zosyn for PNA/sepsis------------------> changed to merum on -bl john of -enteroca faecalis and coag neg staph. - urine john - marlene---on diflucan-----------------> changed to micafungin on -cdiff negative Trial Scopolamine patch due to secretions Sepsis syndrome HCAP Multifocal PNA -follow up on the culture- RIJ and peripheral access culture and blood john -on vanc, merum and micafungin -pharm c/s to dose vanc. CM c/s and PT c/s in place. Palliative consulted. Pending LTAC provided clinical stability.
[2020-06-15] MEDS: Famotidine/PF 20 mg/2ml Vial SLOW IVP SCH (21:02)
[2020-06-15] MEDS: Insulin Glargine 10 UNITS in Pre-Filled Syringe 1 EACH SC SCH (21:03)
[2020-06-15] MEDS: Latanoprost 0.005% Ophth Soln 2.5 ml Bottle R EYE SCH (21:03)
[2020-06-16 04:47] LABS: Anion Gap 14 mmol/L (10-20); BUN (Urea Nitrogen) 52 mg/dL (9.8-20.1); Calc. Creatinine Clearance 25 mL/min (70-130); Calcium 8.3 mg/dL (7.8-10.44); Carbon Dioxide 24 mmol/L (22-29); Chloride 106 mmol/L (98-107); Estimated GFR-MDRD 21; Glucose 72 mg/dL (70-105); Potassium 3.5 mmol/L (3.5-5.1); Sodium 140 mmol/L (136-145)
[2020-06-16 05:12] LABS: Band 9 % (5-11); Lymphocytes 12 % (21-51); MDiff Complete? YES; Mean Corpuscular HGB CONC 32.3 g/dL (32.0-36.0); Mean Corpuscular Hemoglobin 27.9 pg (27.0-31.0); Mean Corpuscular Volume 86.6 fL (78.0-98.0); Mean Platelet Volume 9.2 fL (7.4-10.4); Monocytes 10 % (0-10); Myelocyte 1 % (0-0); Neutrophil 68 % (42-75); Platelet Count 171 thou/uL (130-400); RBC Distribution Width 15.5 % (11.5-14.5); Red Blood Cell (RBC) Count 3.22 mill/uL (4.20-5.40); White Blood Cell (WBC) Count 28.7 thou/uL (4.8-10.8)
--- NOTE | 2020-06-16 07:57 | PRG ---
DATE OF SERVICE: 06/16/2020 TIME SPENT: 35 minutes of critical care time. SUBJECTIVE: The patient remains intubated, on mechanical ventilation. There have been no acute changes. OBJECTIVE: VITAL SIGNS: Temperature 98.8, pulse 72, blood pressure 125/67, O2 saturation 92%. 24-hour intake 1063, output 275. HEENT: Unremarkable. NECK: No adenopathy or JVD. NECK: Trach in good position. LUNGS: Coarse. CARDIOVASCULAR: S1 and S2, regular. ABDOMEN: Soft. EXTREMITIES: Edematous. LABORATORY DATA: Sodium 140, potassium 3.5, chloride 106, CO2 of 24, BUN 52, creatinine 2.7, glucose 72. White blood cell count 28.7, hematocrit 27.9, and platelet count 171. Chest x-ray shows no change in the bilateral infiltrates. ASSESSMENT: 1. Continued sepsis syndrome - the patient has bilateral infiltrates, but is currently being covered for Staph, gram negatives, gram positives, and antifungals. Her white count has remained consistently around 28 despite the antibiotics. 2. Acute renal failure. 3. Diastolic cardiac dysfunction. 4. Cardiorenal syndrome. PLAN: 1. Her central line was removed yesterday, but she still has her dialysis catheter. 2. I will place her on assist-control mode to see if that will keep her from hyperventilating so much. 3. On a Precedex drip. 4. We will perform bronchoscopy and send specimen for culture. Job ID: [id number]
[2020-06-16] MEDS ORDERED: Pancrelipase DR 12,000 1 CAP FS PRN (07:58)
[2020-06-16] MEDS ORDERED: Sodium Bicarbonate Tab 325 MG TAB PER TUBE PRN (07:58)
--- NOTE | 2020-06-16 08:04 | OP ---
DATE OF PROCEDURE: 06/16/2020 PROCEDURE PERFORMED: Bronchoscopy. PREOPERATIVE DIAGNOSIS: Respiratory failure with retained secretions. POSTOPERATIVE DIAGNOSIS: Respiratory failure with retained secretions. ANESTHESIA: None. DESCRIPTION OF PROCEDURE: An adaptor was placed in the patient's tracheostomy tube. A 2.8 Ambu bronchoscope was inserted through the adapter into her airway. The adria was sharp. There were thick mucoid secretions present in both the left and right mainstem bronchi. These were lavaged and removed. The scope was wedged in the right middle lobe and a bronchoalveolar lavage was performed with approximately 80 mL of normal saline and sent for routine studies. The remainder of the airways were lavaged until mucus was removed. The patient tolerated the procedure well. Job ID: [id number]
--- NOTE | 2020-06-16 08:50 | RAD ---
PORTABLE CHEST 1 VIEW: Date: 06/16/2020 Time: 0526 hours HISTORY: Pneumonia, respiratory failure. COMPARISON: Previous day. FINDINGS/IMPRESSION: There has been interval removal of right-sided central venous catheter. The left-sided dialysis jose ter and tracheostomy tubes remain in place. The heart size is stable. Diffuse bilateral infiltrates a re again seen. No pneumothoraces or large effusions are identified. POS: [facility]
[2020-06-16] MEDS: Amlodipine 10 MG TAB PO SCH (09:49)
[2020-06-16] MEDS: Atorvastatin Calcium 40 MG TAB PO SCH (09:50)
[2020-06-16] MEDS: Heparin 5,000 UNITS/ML VIAL SC SCH ×2 (09:50→20:47)
[2020-06-16] MEDS: Aspirin Chewable 81 MG TAB PO SCH (09:50)
[2020-06-16] MEDS: Carvedilol 6.25 MG TAB PO SCH ×2 (09:50→20:46)
[2020-06-16] MEDS: Isosorbide Mononitrate 20 MG TAB PER TUBE SCH ×2 (09:51→20:47)
[2020-06-16] MEDS: Micafungin 100 MG in Sodium Chloride 0.9% 100 ML IVPB SCH ×2 (09:51→13:02)
[2020-06-16] MEDS: MEROPENEM 1 GM/50 ML 1 GM in Premix Bag 1 BAG IVPB SCH ×3 (10:00→21:50)
--- NOTE | 2020-06-16 10:24 | PDOC.CPN ---
- Subjective Date: 06/16/20 Time: 08:00 Interval history: The pt seen and examined. No overnight events. S/p broncoscopy with Lavage today. - Objective Allergies/Adverse Reactions: Allergies Allergy/AdvReac Type Severity Reaction Status Date / Time No Known Drug Allergies Allergy Verified 05/15/20 03:15 Visit Medications: Current Medications Acetaminophen (Tylenol) 650 mg NC Q4H PRN PRN Reason: Headache/Fever/Mild Pain (1-3) Acetaminophen (Tylenol Elixir) 650 mg PO Q4H PRN PRN Reason: Headache/Fever/Mild Pain (1-3) Last Admin: 06/15/20 07:15 Dose: 650 mg Albuterol/Ipratropium (Duoneb) 3 ml NEB [id number] [facility] Last Admin: 06/16/20 07:27 Dose: 3 ml Amlodipine Besylate (Norvasc) 10 mg PO DAILY [facility] Last Admin: 06/16/20 09:49 Dose: Not Given Lipase/Protease/Amylase (Ankita Lieberman [id number]) 1 cap FS .PER PROTOCOL PRN PRN Reason: TUBE OCCLUSION PROTOCOL Aspirin (Aspirin Chewable) 81 mg PO DAILY [facility] Last Admin: 06/16/20 09:50 Dose: Not Given Atorvastatin Calcium (Lipitor) 40 mg PO DAILY [facility] Last Admin: 06/16/20 09:50 Dose: Not Given Bisacodyl (Dulcolax) 10 mg NC DAILYPRN PRN PRN Reason: Constipation Carvedilol (Coreg) 6.25 mg PO BID [facility] Last Admin: 06/16/20 09:50 Dose: Not Given Dextrose/Water (Dextrose 50%) 25 gm SLOW IVP PRN PRN PRN Reason: Hypoglycemia Famotidine (Pepcid) 20 mg SLOW IVP 2100 [facility] Last Admin: 06/15/20 21:02 Dose: 20 mg Ferrous Sulfate (Ferrous Sulfate) 300 mg PO QAM-WM [facility] Last Admin: 06/16/20 09:00 Dose: Not Given Glucagon (Glucagon) 1 mg IM PRN PRN PRN Reason: Hypoglycemia Heparin Sodium (Porcine) (Heparin) 5,000 units SC BID [facility] Last Admin: 06/16/20 09:50 Dose: Not Given Dextrose/Water (D5w) 1,000 mls @ 0 mls/hr IV .Q0M PRN PRN Reason: Hypoglycemia Insulin Glargine 10 units/ (Miscellaneous Medication) 0.1 mls @ 0 mls/hr SC HS [facility] Last Admin: 06/15/20 21:03 Dose: 0.1 mls Micafungin Sodium 100 mg/ (Sodium Chloride) 100 mls @ 100 mls/hr IVPB DAILY [facility] Last Admin: 06/16/20 09:51 Dose: Not Given Meropenem 1 gm/ Device 50 mls @ 100 mls/hr IVPB 1000,2200 [facility] Last Admin: 06/15/20 21:03 Dose: 50 mls Dexmedetomidine HCl 400 mcg/ (Sodium Chloride) 100 mls @ 0 mls/hr IVPB INF [facility] ; Protocol Last Admin: 06/16/20 05:11 Dose: 100 mls Vancomycin HCl 500 mg/ Sodium (Chloride) 100 mls @ 100 mls/hr IVPB .DOSE BY LEVEL [facility] Insulin Human Regular (Humulin R) 0 units SC .AGGRESSIVE SLIDING PRN PRN Reason: Aggressive Correctional Scale Last Admin: 06/15/20 16:42 Dose: 9 unit Insulin Human Regular (Humulin R) 0 units SC .BEDTIME SLIDING SC PRN PRN Reason: Bedtime Correctional Scale Last Admin: 06/11/20 21:16 Dose: 3 unit Isosorbide Mononitrate (Ismo) 20 mg PER TUBE BID [facility] Last Admin: 06/16/20 09:51 Dose: Not Given Latanoprost (Xalatan 0.005% Oph Soln) 1 drop R EYE [facility] Last Admin: 06/15/20 21:03 Dose: 1 drop Lorazepam (Ativan) 2 mg SLOW IVP Q6H PRN PRN Reason: Anxiety/Agitation Last Admin: 06/15/20 14:48 Dose: 2 mg Metoclopramide HCl (Reglan) 10 mg IVP Q6HR [facility] Miscellaneous Medication (Pharmacy To Dose) 1 each IVPB PRN PRN PRN Reason: Pharmacy to dose Discontinue Previous Narcotic Pain Medications And Benzodiazepines 1 each FS .ONE [facility] Stop: 06/26/20 17:28 Ondansetron HCl (Zofran Odt) 4 mg PO Q6H PRN PRN Reason: Nausea/Vomiting Ondansetron HCl (Zofran) 4 mg IVP Q6H PRN PRN Reason: Nausea/Vomiting Last Admin: 06/14/20 05:52 Dose: 4 mg Potassium Chloride (Klor-Con) 20 meq PO DAILY [facility] Last Admin: 06/15/20 07:16 Dose: 20 meq Scopolamine (Transderm Scop) 1.5 mg TD Q3D [facility] Last Admin: 06/13/20 15:22 Dose: 1.5 mg Sodium Bicarbonate (Bicarbonate, Sodium) 650 mg PER TUBE .PER PROTOCOL PRN PRN Reason: ENTERAL TUBE OCCLUSION Sodium Chloride (Flush - Normal Saline) 10 ml IVF PRN PRN PRN Reason: Saline Flush Last Admin: 06/15/20 21:02 Dose: 10 ml Vital Signs & Weight: Vital Signs Temp Pulse Resp BP Pulse Ox 06/16/20 09:50 134/82 06/16/20 09:49 71 06/16/20 07:27 71 38 H 95 06/16/20 06:00 47 H 06/16/20 04:00 98.8 F 44 H 06/16/20 02:00 38 H 06/16/20 00:00 99.7 F H 47 H 06/15/20 23:24 75 48 H 96 Admit Weight 159 lb Weight 151 lb 3.794 oz - Quality Measures Condition: Coronary Artery Disease CV meds: Beta Mukesh: Yes, ISAAC/ARB: No (CKD), ASA: Yes - Physical Exam General: other (confused) Cardiac: regular rate and rhythm, S1/S2 Lungs: decreased breath sounds Extremities: other: (generalized edema) - Labs Result Diagrams: 06/16/20 04:08 06/16/20 04:08 Troponin/CKMB CK-MB (CK-2) 2.0 ng/mL (0-6.6) 05/27/20 14:31 Troponin I 0.105 ng/mL (< 0.028) H 05/27/20 14:31 - Telemetry Sinus rhythms and dysrhythmias: sinus rhythm - Assessment/Plan Assessment/Plan: 1. Type 2 NSTEMI - most likely demand ischemia from Acute issues; Consider further cardiac eval. after she has recovered from the resp. failure. However, she is likely not a candidate for intervention due to hx of severe CAD with occluded RCA and Lt Cx. 2. Acute on chronic Systolic and Diastolic HF with EF 40-45% and grade I dd on 06/01/2020 - stable with Coreg,6.25mg BID; Lasix is on hold for now due to worsening of renal function and elevated Na level; Not on ISAAC/ARB due to hx of CKD 3. COPD/PNA - still on Vent; s/p trach and PEG tube placement on 06/09/2020; S /p broncoscopy with Lavage on 06/16/2020 4. Pleural effusion - On HD today 5. CAD with hx of multiple stents - on Coreg and statin; on Heparin 5000units BID; 6. HTN - stable 7. NITIN on CKD - s/p Tunneled cath placement on 06/09/2020; On HD today; managed by Dr Houser 8. DM type 2 9. Anemia with s/p 1 unit of PRBC on 05/30/2020 10. Mod MR ÁNGEL reviewed Pt. seen and eval. by me.I agree with the A/P by the [employer]. Multiple medical problems, poor prognosis. ana
[2020-06-16] MEDS ORDERED: Vancomycin HCl 750 MG in Sodium Chloride 0.9% 250 ML 250 ML IVPB SCH (10:45)
[2020-06-16] MEDS ORDERED: Vancomycin HCl 250 MG in Sodium Chloride 0.9% 100 ML IVPB SCH (10:45)
[2020-06-16] MEDS ORDERED: HOLD VANCOMYCIN FOR LEVEL >20 FS SCH (10:45)
[2020-06-16] MEDS ORDERED: Vancomycin 1 GM in Premix Bag 1 BAG IVPB SCH (10:45)
[2020-06-16] MEDS ORDERED: Vancomycin HCl 500 MG in Sodium Chloride 0.9% 100 ML IVPB SCH (10:45)
--- NOTE | 2020-06-16 11:15 | PRG ---
DATE OF SERVICE: 06/16/2020 SUBJECTIVE: A 54-year-old female being seen for end-stage renal disease. Patient remains nonverbal. PHYSICAL EXAMINATION: GENERAL: The patient is resting. VITAL SIGNS: Afebrile, pulse 70, breathing 16, blood pressure 135/67. HEENT: Head normocephalic and atraumatic. Eyes intact, no ulcers. Nose intact, no ulcers. Ears intact, no ulcers. Neck: Supple. No JVD. Chest: Symmetrical and clear. Cardiovascular: Shows S1 and S2, no rub, no murmur. Gastrointestinal: Abdomen is soft, bowel sounds positive. Extremities: Show no edema or ulcers. Skin: Shows no rash or petechiae. Musculoskeletal: Shows no joint swelling or stiffness. Genitourinary: Shows Pacheco present. Neurologic: The patient is resting. LABORATORY DATA: Labs show hemoglobin 9.0 today. Creatinine 2.79. ASSESSMENT/PLAN: 1. Stage 6 chronic kidney disease. We will evaluate for dialysis. 2. Hypertensive, stable. 3. Anemia, stable. 4. Medication based on GFR appropriate. Job ID: [id number]
[2020-06-16] MEDS ORDERED: Heparin 10,000 UNITS/ 10 ML VIAL ONE (11:57)
[2020-06-16 12:04] LABS: Vancomycin, Random 19.3 ug/mL (See Comment)
[2020-06-16] MEDS: Metoclopramide HCl 10 MG/2 ML VIAL IVP SCH ×2 (13:04→17:41)
[2020-06-16] MEDS: Scopolamine 1.5 mg/72 hour Patch TD SCH (14:43)
--- NOTE | 2020-06-16 15:30 | PDOC.HOSPP ---
- Subjective Encounter Date: 06/16/20 Encounter Time: 11:00 Subjective: pt is getting HD. pallaitive working with the family and plan for family meeting next wk. - Objective Vital Signs & Weight: Vital Signs (12 hours) Temp Pulse Pulse Pulse Resp BP BP 06/16/20 12:07 70 76 144/77 H 06/16/20 10:33 73 06/16/20 09:50 134/82 06/16/20 09:49 71 06/16/20 07:27 71 38 H 06/16/20 06:00 47 H 06/16/20 04:00 98.8 F 44 H BP Pulse Ox Pulse Ox Pulse Ox 06/16/20 12:07 142/84 H 97 96 06/16/20 10:33 06/16/20 09:50 06/16/20 09:49 06/16/20 07:27 95 06/16/20 06:00 06/16/20 04:00 Weight Admit Weight 159 lb Weight 151 lb 3.794 oz Most Recent Monitor Data Heart Rate from ECG 74 NIBP 144/77 NIBP BP-Mean 99 Respiration from ECG 38 SpO2 99 I&O: 06/15/20 06/16/20 06/17/20 06:59 06:59 06:59 Intake Total 2201 1063 120 Output Total 845 275 Balance 1356 788 120 Result Diagrams: 06/16/20 04:08 06/16/20 04:08 Additional Labs: Accuchecks 06/16/20 06/16/20 06/15/20 10:40 04:11 21:05 POC Glucose 72 75 167 H Hospitalist ROS - Medication Medications: Active Medications Generic Name Dose Route Start Last Admin Trade Name Freq PRN Reason Stop Dose Admin Acetaminophen 650 mg 06/14/20 19:51 06/15/20 07:15 Tylenol Elixir PO 650 mg Q4H PRN Administration Headache/Fever/Mild Pain (1-3) Albuterol/Ipratropium 3 ml 05/30/20 13:00 06/16/20 07:27 Duoneb NEB 3 ml [id number] [facility] Administration Amlodipine Besylate 10 mg 06/03/20 09:00 06/16/20 09:49 Norvasc PO Not Given DAILY [facility] Aspirin 81 mg 06/03/20 09:00 06/16/20 09:50 Aspirin Chewable PO Not Given DAILY [facility] Atorvastatin Calcium 40 mg 06/03/20 09:00 06/16/20 09:50 Lipitor PO Not Given DAILY [facility] Carvedilol 6.25 mg 06/05/20 21:00 06/16/20 09:50 Coreg PO Not Given BID [facility] Famotidine 20 mg 05/27/20 21:00 06/15/20 21:02 Pepcid SLOW IVP 20 mg 2100 [facility] Administration Ferrous Sulfate 300 mg 06/03/20 08:00 06/16/20 09:00 Ferrous Sulfate PO Not Given QAM-WM [facility] Heparin Sodium (Porcine) 5,000 units 06/02/20 21:00 06/16/20 09:50 Heparin SC Not Given BID [facility] Insulin Glargine 10 units/ 0.1 mls @ 0 mls/hr 06/08/20 21:00 06/15/20 21:03 Miscellaneous Medication SC 0.1 mls HS [facility] Administration Micafungin Sodium 100 mg/ 100 mls @ 100 mls/hr 06/14/20 09:00 06/16/20 13:02 Sodium Chloride IVPB 100 mls DAILY [facility] Administration Meropenem 1 gm/ Device 50 mls @ 100 mls/hr 06/14/20 22:00 06/16/20 13:01 IVPB 50 mls 1000,2200 [facility] Administration Dexmedetomidine HCl 400 mcg/ 100 mls @ 0 mls/hr 06/15/20 07:45 06/16/20 05:11 Sodium Chloride IVPB 100 mls INF [facility] Administration Protocol Per Protocol Insulin Human Regular 0 units 06/08/20 18:28 06/15/20 16:42 Humulin R SC 9 unit .AGGRESSIVE SLIDING PRN Administration Aggressive Correctional Scale Insulin Human Regular 0 units 06/08/20 18:28 06/11/20 21:16 Humulin R SC 3 unit .BEDTIME SLIDING SC PRN Administration Bedtime Correctional Scale Isosorbide Mononitrate 20 mg 06/07/20 09:00 06/16/20 09:51 Ismo PER TUBE Not Given BID [facility] Latanoprost 1 drop 06/02/20 21:00 06/15/20 21:03 Xalatan 0.005% Ophth Soln R EYE 1 drop HS [facility] Administration Lorazepam 2 mg 06/11/20 08:59 06/15/20 14:48 Ativan SLOW IVP 2 mg Q6H PRN Administration Anxiety/Agitation Metoclopramide HCl 10 mg 06/16/20 12:00 06/16/20 13:04 Reglan IVP 10 mg Q6HR [facility] Administration Ondansetron HCl 4 mg 05/27/20 17:44 06/14/20 05:52 Zofran IVP 4 mg Q6H PRN Administration Nausea/Vomiting Potassium Chloride 20 meq 06/14/20 09:00 06/16/20 09:00 Klor-Con PO Not Given DAILY [facility] Scopolamine 1.5 mg 06/04/20 15:00 06/16/20 14:43 Transderm Scop TD 1.5 mg Q3D [facility] Administration Sodium Chloride 10 ml 06/14/20 17:45 06/15/20 21:02 Flush - Normal Saline IVF 10 ml PRN PRN Administration Saline Flush - Exam General Appearance: NAD, awake alert Eye: PERRL ENT: normocephalic atraumatic Neck: supple Heart: RRR Respiratory: CTAB, normal chest expansion Gastrointestinal: soft, normal bowel sounds Hosp A/P - Plan (1) Acute on chronic respiratory failure with hypoxia Code(s): J96.21 - ACUTE AND CHRONIC RESPIRATORY FAILURE WITH HYPOXIA Status: Acute (2) Pneumonia Code(s): J18.9 - PNEUMONIA, UNSPECIFIED ORGANISM Status: Acute Qualifiers: Laterality: bilateral Lung location: unspecified part of lung Plan: Continue Zosyn, pulmonary support, s/p trach and peg on (3) Acute on chronic diastolic (congestive) heart failure combined acue on chronic chf Diastoci dysnf CArdiorenal syndr, last EF of 45% per echo of 06/01 CAd w.. multiple stents in mary past, RAC and L Cx. Mo..MR - on asa, coreg and stain - no aCEI d/t ckd - no aggressive cardiac intervention -med mgmt only. (4) Acute worsening of stage 3 chronic kidney disease Code(s): N18.3 - CHRONIC KIDNEY DISEASE, STAGE 3 (MODERATE) Status: Acute s/p tunnel cath on --------------------> planned to be removed - on transient HD. Lasix d/'cd due to NITIN Continue Zosyn for PNA/sepsis------------------> changed to merum on -bl john of -enteroca faecalis and coag neg staph. - urine john - marlene---on diflucan-----------------> changed to micafungin on -cdiff negative Trial Scopolamine patch due to secretions Sepsis syndrome HCAP Multifocal PNA -follow up on the culture- RIJ and peripheral access culture and blood john -on vanc, merum and micafungin -pharm c/s to dose vanc. CM c/s and PT c/s in place. Palliative consulted. Pending LTAC provided clinical stability. Palliative di/w sister, Scarlet. plan for family meeting next week.
[2020-06-16] MEDS: Insulin Regular 300 UNITS/3 ML VIAL SC PRN ×2 (16:13→21:51)
[2020-06-16] MEDS: Famotidine/PF 20 mg/2ml Vial SLOW IVP SCH (20:46)
[2020-06-16] MEDS: Acetaminophen 650 MG/20.3 ML UDCUP PO PRN (20:48)
[2020-06-16] MEDS: Latanoprost 0.005% Ophth Soln 2.5 ml Bottle R EYE SCH (20:48)
[2020-06-16] MEDS: Insulin Glargine 10 UNITS in Pre-Filled Syringe 1 EACH SC SCH (21:50)
[2020-06-16] MEDS: Lorazepam 2 MG/ML VIAL SLOW IVP PRN (22:28)
[2020-06-17] MEDS: Metoclopramide HCl 10 MG/2 ML VIAL IVP SCH ×4 (00:12→15:54)
[2020-06-17] MEDS: Insulin Regular 300 UNITS/3 ML VIAL SC PRN ×4 (04:33→22:07)
[2020-06-17 04:54] LABS: #Eosinphils 0.3 thou/uL (0.0-0.7); #Lymphocytes 2.7 thou/uL (1.20-3.40); #Monocytes 4.2 thou/uL (0.11-0.59); #Neutrophils 23.5 thou/uL (1.40-6.50); %Basophils 0.1 % (0.0-1.0); %Lymphocytes 8.9 % (21.0-51.0); %Monocytes 13.7 % (0.0-10.0); %Neutrophils 76.4 % (42.0-75.0); Hemoglobin 8.5 g/dL (12.0-16.0); Mean Corpuscular Hemoglobin 27.5 pg (27.0-31.0); Mean Corpuscular Volume 86.1 fL (78.0-98.0); Mean Platelet Volume 9.2 fL (7.4-10.4); Platelet Count 185 thou/uL (130-400); RBC Distribution Width 15.7 % (11.5-14.5); Red Blood Cell (RBC) Count 3.07 mill/uL (4.20-5.40); White Blood Cell (WBC) Count 30.7 thou/uL (4.8-10.8)
[2020-06-17 05:07] LABS: Anion Gap 12 mmol/L (10-20); BUN (Urea Nitrogen) 42 mg/dL (9.8-20.1); Calc. Creatinine Clearance 29 mL/min (70-130); Calcium 8.1 mg/dL (7.8-10.44); Carbon Dioxide 25 mmol/L (22-29); Chloride 100 mmol/L (98-107); Estimated GFR-MDRD 25; Glucose 164 mg/dL (70-105); Potassium 3.2 mmol/L (3.5-5.1); Sodium 134 mmol/L (136-145)
--- NOTE | 2020-06-17 07:23 | RAD ---
SINGLE VIEW CHEST: Date: 06/17/2020 COMPARISON: 06/16/2020. HISTORY: Pneumonia. FINDINGS: Single view of the chest shows an enlarged but stable cardiomediastinal silhouette. Lines and tubes a re unchanged in position. There are diffuse multifocal infiltrates, unchanged. IMPRESSION: Stable multifocal pneumonia. POS: EAA
[2020-06-17] MEDS: Isosorbide Mononitrate 20 MG TAB PER TUBE SCH ×2 (07:56→20:09)
[2020-06-17] MEDS: Atorvastatin Calcium 40 MG TAB PO SCH (08:02)
[2020-06-17] MEDS: Amlodipine 10 MG TAB PO SCH (08:02)
[2020-06-17] MEDS: Heparin 5,000 UNITS/ML VIAL SC SCH ×2 (08:02→20:07)
[2020-06-17] MEDS: Micafungin 100 MG in Sodium Chloride 0.9% 100 ML IVPB SCH (08:02)
[2020-06-17] MEDS: Carvedilol 6.25 MG TAB PO SCH ×2 (08:02→20:07)
[2020-06-17] MEDS: Aspirin Chewable 81 MG TAB PO SCH (08:02)
--- NOTE | 2020-06-17 09:48 | PRG ---
DATE OF SERVICE: 06/17/2020 SUBJECTIVE: A 54-year-old female remains intubated in the vent, trach, PEG in place. OBJECTIVE: VITAL SIGNS: Pulse 81, blood pressure 127/75, respiratory rate is 36, sats 99% on 50% and a PEEP. CHEST: Extensive rhonchi, crackles. CARDIAC: Sinus tach. ABDOMEN: Soft. NEUROLOGIC: She is sedated. LABORATORY DATA: White count 30,000, H and H 8 and 26, platelet count is 185. Creatinine is 2.4. X-ray shows diffuse pulmonary infiltrates. ASSESSMENT: Multiorgan failure, respiratory failure, renal failure, pneumonia, congestive heart failure, encephalopathy. PLAN: She is clearly not weanable at this stage. Bronchoscopy was performed. Culture pending. She is on multiple antibiotics, we will continue. Prognosis remains guarded. TIME SPENT: One-half hour of critical time. Job ID: [id number]
[2020-06-17] MEDS: MEROPENEM 1 GM/50 ML 1 GM in Premix Bag 1 BAG IVPB SCH ×2 (10:00→22:06)
[2020-06-17] MEDS: Lorazepam 2 MG/ML VIAL SLOW IVP PRN ×3 (11:29→22:06)
--- NOTE | 2020-06-17 14:11 | PDOC.HOSPP ---
- Subjective Encounter Date: 06/17/20 Encounter Time: 10:50 Subjective: seen this am, no change in the condition. BP ok; bronch done y'day - no organisms, few wbcs and epi cells. - Objective Vital Signs & Weight: Vital Signs (12 hours) Temp Pulse Resp BP Pulse Ox 06/17/20 10:54 88 134/75 06/17/20 08:02 81 127/75 06/17/20 07:34 81 127/75 06/17/20 07:33 79 36 H 98 06/17/20 06:00 27 H 06/17/20 04:00 99.1 F 29 H Weight Admit Weight 159 lb Weight 152 lb 11.725 oz Most Recent Monitor Data Heart Rate from ECG 84 NIBP 135/74 NIBP BP-Mean 94 Respiration from ECG 45 SpO2 97 I&O: 06/16/20 06/17/20 06/18/20 06:59 06:59 06:59 Intake Total 1063 1630 120 Output Total 275 162 Balance 788 1468 120 Result Diagrams: 06/17/20 04:20 06/17/20 04:20 Additional Labs: Accuchecks 06/17/20 06/17/20 06/16/20 13:39 04:32 21:54 POC Glucose 283 H 161 H 218 H 06/16/20 06/16/20 16:14 13:21 POC Glucose 154 H 131 H Hospitalist ROS - Medication Medications: Active Medications Generic Name Dose Route Start Last Admin Trade Name Freq PRN Reason Stop Dose Admin Acetaminophen 650 mg 06/14/20 19:51 06/16/20 20:48 Tylenol Elixir PO 650 mg Q4H PRN Administration Headache/Fever/Mild Pain (1-3) Albuterol/Ipratropium 3 ml 05/30/20 13:00 06/17/20 07:33 Duoneb NEB 3 ml [id number] [facility] Administration Amlodipine Besylate 10 mg 06/03/20 09:00 06/17/20 08:02 Norvasc PO 10 mg DAILY [facility] Administration Aspirin 81 mg 06/03/20 09:00 06/17/20 08:02 Aspirin Chewable PO 81 mg DAILY [facility] Administration Atorvastatin Calcium 40 mg 06/03/20 09:00 06/17/20 08:02 Lipitor PO 40 mg DAILY [facility] Administration Carvedilol 6.25 mg 06/05/20 21:00 06/17/20 08:02 Coreg PO 6.25 mg BID [facility] Administration Famotidine 20 mg 05/27/20 21:00 06/16/20 20:46 Pepcid SLOW IVP 20 mg 2100 [facility] Administration Ferrous Sulfate 300 mg 06/03/20 08:00 06/17/20 07:55 Ferrous Sulfate PO 300 mg QAM-WM [facility] Administration Heparin Sodium (Porcine) 5,000 units 06/02/20 21:00 06/17/20 08:02 Heparin SC 5,000 units BID [facility] Administration Insulin Glargine 10 units/ 0.1 mls @ 0 mls/hr 06/08/20 21:00 06/16/20 21:50 Miscellaneous Medication SC 0.1 mls HS [facility] Administration Micafungin Sodium 100 mg/ 100 mls @ 100 mls/hr 06/14/20 09:00 06/17/20 08:02 Sodium Chloride IVPB 100 mls DAILY [facility] Administration Meropenem 1 gm/ Device 50 mls @ 100 mls/hr 06/14/20 22:00 06/17/20 10:00 IVPB 50 mls 1000,2200 [facility] Administration Dexmedetomidine HCl 400 mcg/ 100 mls @ 0 mls/hr 06/15/20 07:45 06/17/20 11:28 Sodium Chloride IVPB 100 mls INF [facility] Administration Protocol Per Protocol Insulin Human Regular 0 units 06/08/20 18:28 06/17/20 13:36 Humulin R SC 9 unit .AGGRESSIVE SLIDING PRN Administration Aggressive Correctional Scale Insulin Human Regular 0 units 06/08/20 18:28 06/11/20 21:16 Humulin R SC 3 unit .BEDTIME SLIDING SC PRN Administration Bedtime Correctional Scale Isosorbide Mononitrate 20 mg 06/07/20 09:00 06/17/20 07:56 Ismo PER TUBE 20 mg BID [facility] Administration Latanoprost 1 drop 06/02/20 21:00 06/16/20 20:48 Xalatan 0.005% Ophth Soln R EYE 1 drop HS [facility] Administration Lorazepam 2 mg 06/11/20 08:59 06/17/20 11:29 Ativan SLOW IVP 2 mg Q6H PRN Administration Anxiety/Agitation Metoclopramide HCl 10 mg 06/16/20 12:00 07/18/20 11:28 Reglan IVP 10 mg Q6HR [facility] Administration Ondansetron HCl 4 mg 05/27/20 17:44 06/14/20 05:52 Zofran IVP 4 mg Q6H PRN Administration Nausea/Vomiting Potassium Chloride 20 meq 06/14/20 09:00 06/17/20 08:01 Klor-Con PO 20 meq DAILY [facility] Administration Scopolamine 1.5 mg 06/04/20 15:00 06/16/20 14:43 Transderm Scop TD 1.5 mg Q3D [facility] Administration Sodium Chloride 10 ml 06/14/20 17:45 06/15/20 21:02 Flush - Normal Saline IVF 10 ml PRN PRN Administration Saline Flush - Exam General Appearance: ill appearing General - other findings: vent ENT: normocephalic atraumatic Neck: supple Respiratory: CTAB, normal chest expansion Gastrointestinal: normal bowel sounds Hosp A/P - Plan (1) Acute on chronic respiratory failure with hypoxia Code(s): J96.21 - ACUTE AND CHRONIC RESPIRATORY FAILURE WITH HYPOXIA Status: Acute (2) Pneumonia Code(s): J18.9 - PNEUMONIA, UNSPECIFIED ORGANISM Status: Acute Qualifiers: Laterality: bilateral Lung location: unspecified part of lung Plan: Continue Zosyn, pulmonary support, s/p trach and peg on (3) Acute on chronic diastolic (congestive) heart failure combined acue on chronic chf Diastoci dysnf CArdiorenal syndr, last EF of 45% per echo of 06/01 CAd w.. multiple stents in mary past, RAC and L Cx. Mo..MR - on asa, coreg and stain - no aCEI d/t ckd - no aggressive cardiac intervention -med mgmt only. (4) Acute worsening of stage 3 chronic kidney disease Code(s): N18.3 - CHRONIC KIDNEY DISEASE, STAGE 3 (MODERATE) Status: Acute s/p tunnel cath on --------------------> planned to be removed today/ - on transient HD. Lasix d/'cd due to NITIN Continue Zosyn for PNA/sepsis------------------> changed to merum on -bl john of -enteroca faecalis and coag neg staph. - urine john - marlene---on diflucan-----------------> changed to micafungin on -cdiff negative Trial Scopolamine patch due to secretions Sepsis syndrome HCAP Multifocal PNA -follow up on the culture- RIJ and peripheral access culture and blood john of -- no growth -on vanc, merum and micafungin -pharm c/s to dose vanc. CM c/s and PT c/s in place. bronch done on - no organisms, few wbcs and epi cells. Palliative di/w sister, Scarlet. plan for family meeting next week.
[2020-06-17] MEDS ORDERED: Morphine 2 MG/ML VIAL SLOW IVP SCH (20:00)
[2020-06-17] MEDS: Acetaminophen 650 MG/20.3 ML UDCUP PO PRN (20:06)
[2020-06-17] MEDS: Famotidine/PF 20 mg/2ml Vial SLOW IVP SCH (20:06)
[2020-06-17] MEDS: Latanoprost 0.005% Ophth Soln 2.5 ml Bottle R EYE SCH (20:10)
[2020-06-17] MEDS: Insulin Glargine 10 UNITS in Pre-Filled Syringe 1 EACH SC SCH (22:06)
[2020-06-18] MEDS: Metoclopramide HCl 10 MG/2 ML VIAL IVP SCH ×5 (00:06→23:39)
[2020-06-18] MEDS: Morphine 2 MG/ML VIAL SLOW IVP PRN ×2 (02:36→08:08)
[2020-06-18] MEDS: Lorazepam 2 MG/ML VIAL SLOW IVP PRN ×5 (03:43→22:22)
[2020-06-18] MEDS: Insulin Regular 300 UNITS/3 ML VIAL SC PRN ×4 (03:52→22:31)
[2020-06-18 05:19] LABS: #Eosinphils 0.1 thou/uL (0.0-0.7); #Lymphocytes 2.1 thou/uL (1.20-3.40); #Monocytes 3.2 thou/uL (0.11-0.59); #Neutrophils 19.6 thou/uL (1.40-6.50); %Basophils 0.2 % (0.0-1.0); %Eosinophils 0.4 % (0.0-10.0); %Lymphocytes 8.5 % (21.0-51.0); %Monocytes 12.8 % (0.0-10.0); %Neutrophils 78.2 % (42.0-75.0); Hemoglobin 7.9 g/dL (12.0-16.0); Mean Corpuscular HGB CONC 32.1 g/dL (32.0-36.0); Mean Corpuscular Hemoglobin 27.8 pg (27.0-31.0); Mean Corpuscular Volume 86.7 fL (78.0-98.0); Platelet Count 182 thou/uL (130-400); RBC Distribution Width 15.8 % (11.5-14.5); Red Blood Cell (RBC) Count 2.86 mill/uL (4.20-5.40)
[2020-06-18 05:20] LABS: Anion Gap 16 mmol/L (10-20); BUN (Urea Nitrogen) 60 mg/dL (9.8-20.1); Calc. Creatinine Clearance 23 mL/min (70-130); Calcium 7.4 mg/dL (7.8-10.44); Carbon Dioxide 21 mmol/L (22-29); Chloride 101 mmol/L (98-107); Estimated GFR-MDRD 20; Glucose 162 mg/dL (70-105); Potassium 4.1 mmol/L (3.5-5.1); Sodium 134 mmol/L (136-145)
[2020-06-18] MEDS: Acetaminophen 650 MG/20.3 ML UDCUP PO PRN (08:06)
[2020-06-18] MEDS: Isosorbide Mononitrate 20 MG TAB PER TUBE SCH ×2 (08:07→20:15)
[2020-06-18] MEDS: Atorvastatin Calcium 40 MG TAB PO SCH (08:07)
[2020-06-18] MEDS: Amlodipine 10 MG TAB PO SCH (08:07)
[2020-06-18] MEDS: Heparin 5,000 UNITS/ML VIAL SC SCH ×2 (08:08→20:14)
[2020-06-18] MEDS: Carvedilol 6.25 MG TAB PO SCH ×2 (08:08→20:14)
[2020-06-18] MEDS: Aspirin Chewable 81 MG TAB PO SCH (08:08)
--- NOTE | 2020-06-18 08:09 | PRG ---
DATE OF SERVICE: 06/17/2020 Subjective: Seen and examined in ICU. Patient continues to be sedated on Precedex. She is currently getting supplemental oxygen via tracheostomy. Patient had bronchoscopy yesterday. Review of systems Gen.: No fever, no chills All the 14 systems reviewed except for the ones mentioned above are negative Vitals Blood pressure-126/82 Pulse rate-87/minute Respiratory rate- 30-40/mt Oxygen saturation -98% Urine output 275 mL in the last 24 hours Physical examination Constitutional: patient is not in pain or discomfort HEENT: Mucous membranes moist, no icterus; left IJ dialysis catheter noted Neck: tracheostomy noted, patient is getting supplemental oxygen Heart: Regular rate and rhythm; no murmurs Lungs: Air entry equal bilateral; no wheezes Abdomen: Soft; nontender; no guarding/tenderness/rebound Extremities: no ulcers, no bruises Neurological: Patient is sedated with Precedex Skin: No rash, no ulcers Psychological: Not agitated Labs and Imaging reviewed. WBC 30.7, hemoglobin 8.5, hematocrit 26.4, platelet count 185 Sodium 134, potassium 3.2, the BUN 42, creatinine 2.42 Assessment and plan William on CKD stage IV/V Hypertension Anemia Hypokalemia Patient is oliguric, monitor input and output. Patient is currently on Glucerna. Continue to monitor electrolytes, expect potassium to normalize with oliguria. Patient's blood pressure is stable, patient is on Coreg and amlodipine. Continue to monitor hemoglobin and hematocrit, transfuse PRBCs p.r.n. with target hemoglobin greater than 8. Patient is on iron tablets. Medications reviewed, patient is on vancomycin. Monitor vancomycin trough levels and dose accordingly. Will evaluate daily for renal replacement therapy. No indication for dialysis today. Patient has poor prognosis due to multiorgan failure Discussed with ICU nurse at the bedside. Job ID: [id number] MTDD
[2020-06-18] MEDS: Micafungin 100 MG in Sodium Chloride 0.9% 100 ML IVPB SCH (08:45)
--- NOTE | 2020-06-18 08:50 | RAD ---
SINGLE VIEW CHEST: HISTORY: Pneumonia. COMPARISON: 06/17/20 FINDINGS: A single view of chest shows a normal sized cardiomediastinal silhouette. Lines and tubes are unchang ed in position. Multifocal infiltrates are seen in the lungs. The infiltrate in the left lower lobe a ppears to be worsening. IMPRESSION: Worsening multifocal infiltrates. POS: EAA
[2020-06-18] MEDS: MEROPENEM 1 GM/50 ML 1 GM in Premix Bag 1 BAG IVPB SCH ×2 (09:29→21:47)
[2020-06-18] MEDS: Morphine 4 MG/ML VIAL SLOW IVP PRN ×4 (10:25→20:15)
--- NOTE | 2020-06-18 10:33 | PRG ---
DATE OF SERVICE: 06/18/2020 SUBJECTIVE: A 54-year-old female remains in the vent, intubated, trach, and a PEG. OBJECTIVE: VITAL SIGNS: Pulse 94, blood pressure 98/76, temperature 100.5, saturations are 97%. I's and O's positive. CHEST: Extensive rhonchi and crackles. CARDIAC: Sinus tach. ABDOMEN: Soft. LABORATORY DATA: Creatinine is 3, BUN is 65. White count 25,000, platelet count is normal. X-ray diffuse infiltrates. ASSESSMENT: Respiratory failure, congestive heart failure, renal failure, multiorgan failure. PLAN: Family is to arrive tomorrow regarding withdrawal and comfort care. Increase the morphine every 4 hours. She is still agitated. She is still on multiple antibiotics as outlined. Prognosis is grave. She is day 21 in the hospital. TIME SPENT: One-half hour of critical care time. Job ID: [id number]
--- NOTE | 2020-06-18 12:47 | PRG ---
DATE OF SERVICE: 06/18/2020 Subjective: Patient is seen in ICU during rounds. Patient continues to be on Precedex drip. She is requiring increasing doses of morphine and Ativan for sedation. Review of systems Gen.: No fever, no chills All the 14 systems reviewed except for the ones mentioned above are negative Vital signs Blood pressure-0017/62 Pulse rate-81/mt Respiratory rate-25/minute Oxygen saturation-96% on room air Physical examination Constitutional: Not in pain or discomfort HEENT: Mucous membranes left IJ dialysis catheter noted Neck: tracheostomy + Heart: Regular rate and rhythm; no murmurs Lungs: Air entry equal bilateral; decreased at bases, no wheezing Abdomen: Soft; nontender; no guarding/tenderness/rebound Extremities: No calf tenderness; no ulcers, no bruises Neurological: Patient is sedated Skin: No rash, no ulcers Psychological: Not agitated Labs and Imaging reviewed. WBC 25, hemoglobin 7.9, protein 4.8, platelet count 182 Sodium 134, potassium 4.1, bicarbonate 21, BUN 60, creatinine 3.02 Assessment and plan WILLIAM on CKD stage 4/5 Hypertension Anemia Respiratory failure secondary to pneumonia Patient has oliguric William. Her last hemodialysis was on 06/16. Will evaluate daily for renal replacement therapy. No need of PRODUCT ADVISOR today. Patient's blood pressure is stable, she is on Coreg and amlodipine. Will continue to monitor hemoglobin and hematocrit. Patient is on vancomycin, monitor vancomycin trough levels. Patient has poor prognosis due to multi and failure including respiratory failure, renal failure. Discussed with ICU nurse at the bedside. Job ID: [id number] MTDD
--- NOTE | 2020-06-18 13:38 | PDOC.HOSPP ---
- Subjective Encounter Date: 06/18/20 Encounter Time: 10:20 Subjective: pt seen this am, she remains the same, on vent, had temp, increased the sedation, off the reglan, loose stool. tach and normotensive. talk to RN. - Objective Vital Signs & Weight: Vital Signs (12 hours) Temp Pulse Resp BP Pulse Ox 06/18/20 12:00 99 F 35 H 06/18/20 10:03 102 H 126/71 06/18/20 10:00 36 H 06/18/20 08:08 138/76 06/18/20 08:07 94 138/76 06/18/20 08:00 100.4 F H 16 98 06/18/20 07:40 94 138/76 06/18/20 07:39 86 45 H 96 06/18/20 06:00 38 H 06/18/20 04:00 99.2 F 42 H 06/18/20 02:46 87 131/71 06/18/20 02:00 39 H Weight Admit Weight 159 lb Weight 163 lb 5.8 oz Most Recent Monitor Data Heart Rate from ECG 85 NIBP 121/77 NIBP BP-Mean 91 Respiration from ECG 42 SpO2 96 I&O: 06/17/20 06/18/20 06/19/20 06:59 06:59 06:59 Intake Total 1630 2408 120 Output Total 162 13 Balance 1468 2395 120 Result Diagrams: 06/18/20 04:00 06/18/20 04:00 Additional Labs: Accuchecks 06/18/20 06/18/20 06/17/20 09:26 03:55 22:10 POC Glucose 201 H 191 H 261 H 06/17/20 06/17/20 06/17/20 18:25 13:39 04:32 POC Glucose 257 H 283 H 161 H Hospitalist ROS - Medication Medications: Active Medications Generic Name Dose Route Start Last Admin Trade Name Freq PRN Reason Stop Dose Admin Acetaminophen 650 mg 06/14/20 19:51 06/18/20 08:06 Tylenol Elixir PO 650 mg Q4H PRN Administration Headache/Fever/Mild Pain (1-3) Albuterol/Ipratropium 3 ml 05/30/20 13:00 06/18/20 07:39 Duoneb NEB 3 ml [id number] RONALD Administration Amlodipine Besylate 10 mg 06/03/20 09:00 06/18/20 08:07 Norvasc PO 10 mg DAILY RONALD Administration Aspirin 81 mg 06/03/20 09:00 06/18/20 08:08 Aspirin Chewable PO 81 mg DAILY RONALD Administration Atorvastatin Calcium 40 mg 06/03/20 09:00 06/18/20 08:07 Lipitor PO 40 mg DAILY RONALD Administration Carvedilol 6.25 mg 06/05/20 21:00 06/18/20 08:08 Coreg PO 6.25 mg BID RONALD Administration Famotidine 20 mg 05/27/20 21:00 06/17/20 20:06 Pepcid SLOW IVP 20 mg 2100 RONALD Administration Ferrous Sulfate 300 mg 06/03/20 08:00 06/18/20 08:07 Ferrous Sulfate PO 300 mg QAM-WM RONALD Administration Heparin Sodium (Porcine) 5,000 units 06/02/20 21:00 06/18/20 08:08 Heparin SC 5,000 units BID RONALD Administration Insulin Glargine 10 units/ 0.1 mls @ 0 mls/hr 06/08/20 21:00 06/17/20 22:06 Miscellaneous Medication SC 0.1 mls HS RONALD Administration Micafungin Sodium 100 mg/ 100 mls @ 100 mls/hr 06/14/20 09:00 06/18/20 08:45 Sodium Chloride IVPB 100 mls DAILY RONALD Administration Meropenem 1 gm/ Device 50 mls @ 100 mls/hr 06/14/20 22:00 06/18/20 09:29 IVPB 50 mls 1000,2200 RONALD Administration Dexmedetomidine HCl 400 mcg/ 100 mls @ 0 mls/hr 06/15/20 07:45 06/18/20 12:48 Sodium Chloride IVPB 100 mls INF RONALD Administration Protocol Per Protocol Insulin Human Regular 0 units 06/08/20 18:28 06/18/20 09:30 Humulin R SC 6 unit .AGGRESSIVE SLIDING PRN Administration Aggressive Correctional Scale Insulin Human Regular 0 units 06/08/20 18:28 06/11/20 21:16 Humulin R SC 3 unit .BEDTIME SLIDING SC PRN Administration Bedtime Correctional Scale Isosorbide Mononitrate 20 mg 06/07/20 09:00 06/18/20 08:07 Ismo PER TUBE 20 mg BID RONALD Administration Latanoprost 1 drop 06/02/20 21:00 06/17/20 20:10 Xalatan 0.005% Ophth Soln R EYE 1 drop HS RONALD Administration Lorazepam 2 mg 06/18/20 09:53 06/18/20 12:30 Ativan SLOW IVP 2 mg Q4H PRN Administration Anxiety/Agitation Metoclopramide HCl 10 mg 06/16/20 12:00 06/18/20 11:16 Reglan IVP Not Given Q6HR RONALD Morphine Sulfate 2 mg 06/18/20 02:27 06/18/20 08:08 Morphine SLOW IVP 2 mg Q4H PRN Administration Moderate Pain (4-6) Morphine Sulfate 4 mg 06/18/20 09:35 06/18/20 12:30 Morphine SLOW IVP 4 mg Q2H PRN Administration Moderate Pain (4-6) Ondansetron HCl 4 mg 05/27/20 17:44 06/14/20 05:52 Zofran IVP 4 mg Q6H PRN Administration Nausea/Vomiting Potassium Chloride 20 meq 06/14/20 09:00 06/18/20 08:07 Klor-Con PO 20 meq DAILY RONALD Administration Scopolamine 1.5 mg 06/04/20 15:00 06/16/20 14:43 Transderm Scop TD 1.5 mg Q3D RONALD Administration Sodium Chloride 10 ml 06/14/20 17:45 06/15/20 21:02 Flush - Normal Saline IVF 10 ml PRN PRN Administration Saline Flush - Exam General Appearance: ill appearing General - other findings: vent and inreased sedation; trach Eye: PERRL ENT: normocephalic atraumatic Neck: supple Heart: RRR Respiratory: CTAB, normal chest expansion Gastrointestinal: normal bowel sounds Extremities: 1+ LE edema Hosp A/P - Plan (1) Acute on chronic respiratory failure with hypoxia Code(s): J96.21 - ACUTE AND CHRONIC RESPIRATORY FAILURE WITH HYPOXIA Status: Acute (2) Pneumonia Code(s): J18.9 - PNEUMONIA, UNSPECIFIED ORGANISM Status: Acute Qualifiers: Laterality: bilateral Lung location: unspecified part of lung Plan: Continue Zosyn, pulmonary support, s/p trach and peg on (3) Acute on chronic diastolic (congestive) heart failure combined acue on chronic chf Diastoci dysnf CArdiorenal syndr, last EF of 45% per echo of 06/01 CAd w.. multiple stents in mary past, RAC and L Cx. Mo..MR - on asa, coreg and stain - no aCEI d/t ckd - no aggressive cardiac intervention -med mgmt only. (4) Acute worsening of stage 3 chronic kidney disease Code(s): N18.3 - CHRONIC KIDNEY DISEASE, STAGE 3 (MODERATE) Status: Acute s/p tunnel cath on --------------------> planned to be removed - on transient HD. Lasix d/'cd due to NITIN Continue Zosyn for PNA/sepsis------------------> changed to merum on -bl john of -enteroca faecalis and coag neg staph. - urine john - marlene---on diflucan-----------------> changed to micafungin on -cdiff negative Trial Scopolamine patch due to secretions Sepsis syndrome HCAP Multifocal PNA -follow up on the culture- RIJ and peripheral access culture and blood john of -- no growth -on vanc, merum and micafungin -pharm c/s to dose vanc. CM c/s and PT c/s in place. bronch done on - no organisms, few wbcs and epi cells. Palliative di/w sister, Scarlet. plan for family meeting friday.
[2020-06-18] MEDS: Insulin Glargine 10 UNITS in Pre-Filled Syringe 1 EACH SC SCH (20:14)
[2020-06-18] MEDS: Famotidine/PF 20 mg/2ml Vial SLOW IVP SCH (20:14)
[2020-06-18] MEDS: Latanoprost 0.005% Ophth Soln 2.5 ml Bottle R EYE SCH (20:15)
[2020-06-19] MEDS: Morphine 4 MG/ML VIAL SLOW IVP PRN (02:19)
[2020-06-19] MEDS: Acetaminophen 650 MG/20.3 ML UDCUP PO PRN ×2 (02:34→11:27)
[2020-06-19 04:19] LABS: #Eosinphils 0.3 thou/uL (0.0-0.7); #Lymphocytes 1.3 thou/uL (1.20-3.40); #Monocytes 3.2 thou/uL (0.11-0.59); #Neutrophils 17.3 thou/uL (1.40-6.50); %Basophils 0.2 % (0.0-1.0); %Eosinophils 1.2 % (0.0-10.0); %Monocytes 14.4 % (0.0-10.0); %Neutrophils 78.2 % (42.0-75.0); Hemoglobin 7.9 g/dL (12.0-16.0); Mean Corpuscular HGB CONC 32.3 g/dL (32.0-36.0); Mean Corpuscular Hemoglobin 28.3 pg (27.0-31.0); Mean Corpuscular Volume 87.8 fL (78.0-98.0); Platelet Count 232 thou/uL (130-400); RBC Distribution Width 15.9 % (11.5-14.5); White Blood Cell (WBC) Count 22.1 thou/uL (4.8-10.8)
[2020-06-19] MEDS: Insulin Regular 300 UNITS/3 ML VIAL SC PRN ×2 (04:27→11:21)
[2020-06-19] MEDS: Lorazepam 2 MG/ML VIAL SLOW IVP PRN (04:50)
[2020-06-19 05:27] LABS: Anion Gap 15 mmol/L (10-20); BUN (Urea Nitrogen) 79 mg/dL (9.8-20.1); Calc. Creatinine Clearance 0 mL/min (70-130); Calcium 7.6 mg/dL (7.8-10.44); Carbon Dioxide 20 mmol/L (22-29); Chloride 103 mmol/L (98-107); Estimated GFR-MDRD 17; Glucose 225 mg/dL (70-105); Potassium 4.3 mmol/L (3.5-5.1); Sodium 134 mmol/L (136-145)
[2020-06-19] MEDS: Metoclopramide HCl 10 MG/2 ML VIAL IVP SCH ×2 (05:47→11:44)
--- NOTE | 2020-06-19 07:58 | RAD ---
PORTABLE CHEST: HISTORY: Followup of pneumonia. COMPARISON: Prior day's study. FINDINGS: Heart size appears slightly enlarged. Tracheostomy tube and left-sided HemoSplit catheter all are un changed in position. Bilateral infiltrates are fairly similar to the prior exam. No improvement. IMPRESSION: Extensive bilateral infiltrates. Overall essentially stable exam give differences in technique. POS: TARA
--- NOTE | 2020-06-19 08:33 | PRG ---
DATE OF SERVICE: 06/19/2020 TIME SPENT: 35 minutes critical care time. SUBJECTIVE: Ms. Gomez remains on a mechanical ventilation through a tracheostomy. I cannot get her to wake up and nod to questions. OBJECTIVE: VITAL SIGNS: Her temperature is 101.6, pulse 93, blood pressure 118/65. 24-hour intake 2305, output 378. HEENT: Unremarkable. NECK: No adenopathy or JVD. Trach in good position. LUNGS: Coarse rhonchi. CARDIOVASCULAR: S1, S2. Regular. ABDOMEN: Soft and nontender to palpation. EXTREMITIES: No clubbing or cyanosis, but she has trace generalized edema throughout. LABORATORY DATA: White blood cell count is 22.1, hematocrit 24.9, and platelet count 232. Sodium 134, potassium 4.3, chloride 103, CO2 of 20, BUN 79, creatinine 3.4, glucose 225. Cultures, she grew out presumptive Pseudomonas from a respiratory culture. Moderate sensitivities were not performed. She had Kaila albicans grew out from urinary source. Did not have any positive blood cultures. ASSESSMENT: 1. Acute respiratory failure requiring mechanical ventilation. Continue bilateral pulmonary infiltrates despite diuresis, dialysis, and antibiotic therapy. 2. Acute renal failure. 3. Diastolic cardiac dysfunction. PLAN: Given persistent fever despite antibiotics and antifungals, I will go ahead and start a workup for vasculitis. I am also going to put her on steroids to see if that makes any difference. I do not think she is stable enough to go to LTAC at this time. There is a rumor that family will be present this afternoon for discussion. Job ID: [id number]
[2020-06-19 08:40] LABS: Vancomycin, Random 14.7 ug/mL (See Comment)
[2020-06-19] MEDS: Atorvastatin Calcium 40 MG TAB PO SCH (09:59)
[2020-06-19] MEDS: Amlodipine 10 MG TAB PO SCH (09:59)
[2020-06-19] MEDS: Carvedilol 6.25 MG TAB PO SCH (10:00)
[2020-06-19] MEDS: Aspirin Chewable 81 MG TAB PO SCH (10:00)
[2020-06-19] MEDS: Isosorbide Mononitrate 20 MG TAB PER TUBE SCH (10:01)
[2020-06-19] MEDS: Micafungin 100 MG in Sodium Chloride 0.9% 100 ML IVPB SCH (10:01)
[2020-06-19] MEDS: Heparin 5,000 UNITS/ML VIAL SC SCH (10:02)
[2020-06-19] MEDS: MEROPENEM 1 GM/50 ML 1 GM in Premix Bag 1 BAG IVPB SCH (10:02)
[2020-06-19 10:45] VITALS: BP 133/73
--- NOTE | 2020-06-19 11:35 | PDOC.CPN ---
- Subjective Date: 06/19/20 Time: 08:30 Interval history: The pt seen and examined. Open her eyes with verbal stimulation. - Objective Allergies/Adverse Reactions: Allergies Allergy/AdvReac Type Severity Reaction Status Date / Time No Known Drug Allergies Allergy Verified 05/15/20 03:15 Visit Medications: Current Medications Acetaminophen (Tylenol) 650 mg DC Q4H PRN PRN Reason: Headache/Fever/Mild Pain (1-3) Acetaminophen (Tylenol Elixir) 650 mg PO Q4H PRN PRN Reason: Headache/Fever/Mild Pain (1-3) Last Admin: 06/19/20 11:27 Dose: 650 mg Albuterol/Ipratropium (Duoneb) 3 ml NEB [id number] [facility] Last Admin: 06/19/20 07:19 Dose: 3 ml Amlodipine Besylate (Norvasc) 10 mg PO DAILY [facility] Last Admin: 06/19/20 09:59 Dose: 10 mg Lipase/Protease/Amylase ([place] [id number]) 1 cap FS .PER PROTOCOL PRN PRN Reason: TUBE OCCLUSION PROTOCOL Aspirin (Aspirin Chewable) 81 mg PO DAILY [facility] Last Admin: 06/19/20 10:00 Dose: 81 mg Atorvastatin Calcium (Lipitor) 40 mg PO DAILY [facility] Last Admin: 06/19/20 09:59 Dose: 40 mg Bisacodyl (Dulcolax) 10 mg DC DAILYPRN PRN PRN Reason: Constipation Carvedilol (Coreg) 6.25 mg PO BID [facility] Last Admin: 06/19/20 10:00 Dose: 6.25 mg Dextrose/Water (Dextrose 50%) 25 gm SLOW IVP PRN PRN PRN Reason: Hypoglycemia Famotidine (Pepcid) 20 mg SLOW IVP 2100 [facility] Last Admin: 06/18/20 20:14 Dose: 20 mg Ferrous Sulfate (Ferrous Sulfate) 300 mg PO QAM-WM [facility] Last Admin: 06/19/20 10:00 Dose: 300 mg Glucagon (Glucagon) 1 mg IM PRN PRN PRN Reason: Hypoglycemia Heparin Sodium (Porcine) (Heparin) 5,000 units SC BID [facility] Last Admin: 06/19/20 10:02 Dose: 5,000 units Dextrose/Water (D5w) 1,000 mls @ 0 mls/hr IV .Q0M PRN PRN Reason: Hypoglycemia Insulin Glargine 10 units/ (Miscellaneous Medication) 0.1 mls @ 0 mls/hr SC HS [facility] Last Admin: 06/18/20 20:14 Dose: 0.1 mls Micafungin Sodium 100 mg/ (Sodium Chloride) 100 mls @ 100 mls/hr IVPB DAILY [facility] Last Admin: 06/19/20 10:01 Dose: 100 mls Meropenem 1 gm/ Device 50 mls @ 100 mls/hr IVPB 1000,2200 [facility] Last Admin: 06/19/20 10:02 Dose: 50 mls Dexmedetomidine HCl 400 mcg/ (Sodium Chloride) 100 mls @ 0 mls/hr IVPB INF [facility] ; Protocol Last Admin: 06/19/20 05:03 Dose: 100 mls Vancomycin HCl 1 gm/ Device 200 mls @ 200 mls/hr IVPB WILLCALL [facility] Vancomycin HCl 750 mg/ Sodium (Chloride) 250 mls @ 250 mls/hr IVPB WILLCALL RONALD Vancomycin HCl 500 mg/ Sodium (Chloride) 100 mls @ 100 mls/hr IVPB WILLCALL RONALD Vancomycin HCl 250 mg/ Sodium (Chloride) 100 mls @ 100 mls/hr IVPB WILLCALL RONALD Levofloxacin 500 mg/ Device 100 mls @ 100 mls/hr IVPB Q48H [facility] Last Admin: 06/19/20 10:01 Dose: 100 mls Insulin Human Regular (Humulin R) 0 units SC .AGGRESSIVE SLIDING PRN PRN Reason: Aggressive Correctional Scale Last Admin: 06/19/20 11:21 Dose: 3 unit Insulin Human Regular (Humulin R) 0 units SC .BEDTIME SLIDING SC PRN PRN Reason: Bedtime Correctional Scale Last Admin: 06/11/20 21:16 Dose: 3 unit Isosorbide Mononitrate (Ismo) 20 mg PER TUBE BID [facility] Last Admin: 06/19/20 10:01 Dose: 20 mg Latanoprost (Xalatan 0.005% Ophth Soln) 1 drop R EYE [facility] Last Admin: 06/18/20 20:15 Dose: 1 drop Lorazepam (Ativan) 2 mg SLOW IVP Q4H PRN PRN Reason: Anxiety/Agitation Last Admin: 06/19/20 04:50 Dose: 2 mg Methylprednisolone Sodium Succinate (Solu-Medrol) 40 mg IVP Q6HR [facility] Metoclopramide HCl (Reglan) 10 mg IVP Q6HR [facility] Last Admin: 06/19/20 05:47 Dose: Not Given Miscellaneous Medication (Pharmacy To Dose) 1 each IVPB PRN PRN PRN Reason: Pharmacy to dose Morphine Sulfate (Morphine) 2 mg SLOW IVP Q4H PRN PRN Reason: Moderate Pain (4-6) Last Admin: 06/18/20 08:08 Dose: 2 mg Morphine Sulfate (Morphine) 4 mg SLOW IVP Q2H PRN PRN Reason: Moderate Pain (4-6) Last Admin: 06/19/20 02:19 Dose: 4 mg Discontinue Previous Narcotic Pain Medications And Benzodiazepines 1 each FS .ONE [facility] Stop: 06/26/20 17:28 Hold Vancomycin For (Level >20) 0 each FS .AT DIALYSIS [facility] Potassium Chloride (Klor-Con) 20 meq PO DAILY [facility] Last Admin: 06/19/20 10:00 Dose: 20 meq Scopolamine (Transderm Scop) 1.5 mg TD Q3D [facility] Last Admin: 06/16/20 14:43 Dose: 1.5 mg Sodium Bicarbonate (Bicarbonate, Sodium) 650 mg PER TUBE .PER PROTOCOL PRN PRN Reason: ENTERAL TUBE OCCLUSION Sodium Chloride (Flush - Normal Saline) 10 ml IVF PRN PRN PRN Reason: Saline Flush Last Admin: 06/15/20 21:02 Dose: 10 ml Vital Signs & Weight: Vital Signs Temp Pulse Resp BP Pulse Ox 06/19/20 10:42 98 133/73 06/19/20 10:00 32 H 124/66 06/19/20 09:59 96 127/69 06/19/20 08:08 91 17 99 06/19/20 08:00 33 H 06/19/20 07:20 90 124/66 06/19/20 07:19 90 34 H 93 L 06/19/20 06:00 28 H 06/19/20 04:00 32 H 06/19/20 03:00 101.6 F H 06/19/20 02:33 115 H 137/80 06/19/20 02:00 36 H 06/19/20 00:19 93 130/74 06/19/20 00:00 34 H Admit Weight 159 lb Weight 2.607 oz - Quality Measures Condition: Coronary Artery Disease CV meds: Beta Mukesh: Yes, ISAAC/ARB: No (CKD), ASA: Yes - Physical Exam General: other Cardiac: regular rate and rhythm, S1/S2 (ronchi) Lungs: other (Rhonchi) Extremities: other: (generalized edema) - Labs Result Diagrams: 06/19/20 03:15 06/19/20 03:15 Troponin/CKMB CK-MB (CK-2) 2.0 ng/mL (0-6.6) 05/27/20 14:31 Troponin I 0.105 ng/mL (< 0.028) H 05/27/20 14:31 - Telemetry Sinus rhythms and dysrhythmias: sinus rhythm - Assessment/Plan Assessment/Plan: 1. Type 2 NSTEMI - most likely demand ischemia from Acute issues; Consider further cardiac eval. after she has recovered from the resp. failure. However, she is likely not a candidate for intervention due to hx of severe CAD with occluded RCA and Lt Cx. 2. Acute on chronic Systolic and Diastolic HF with EF 40-45% and grade I dd on 06/01/2020 - stable with Coreg,6.25mg BID; Lasix is on hold for now due to worsening of renal function and elevated Na level; Not on ISAAC/ARB due to hx of CKD 3. COPD/PNA - still on Vent; s/p trach and PEG tube placement on 06/09/2020; S /p broncoscopy with Lavage on 06/16/2020 4. Pleural effusion - On HD today 5. CAD with hx of multiple stents - on Coreg and statin; on Heparin 5000units BID; 6. HTN - stable 7. NITIN on CKD - s/p Tunneled cath placement on 06/09/2020; On HD today; managed by Dr Houser 8. DM type 2 9. Anemia with s/p 1 unit of PRBC on 05/30/2020 10. Mod MR NEAL reviewed * family meeting possible today? Pt. seen and eval. by me today.I agree with the A/P by the PROJECT ADMINISTRATOR. She has multiple problems and the prognosis is poor. Cest: bilateral rales/rhonchi. RRR, tachypnea. gjfahad
[2020-06-19] MEDS ORDERED: methylPREDNISolone Sod Succ 40 MG VIAL IVP SCH ×2 (12:00)
--- NOTE | 2020-06-19 12:15 | PDOC.HOSPP ---
- Subjective Encounter Date: 06/19/20 Encounter Time: 10:30 non-verbal Subjective: Patient seen and examined bedside today, patient is on ventilator, patient has trach and PEG, - Objective Vital Signs & Weight: Vital Signs (12 hours) Temp Pulse Resp BP Pulse Ox 06/19/20 10:42 98 133/73 06/19/20 10:00 32 H 124/66 06/19/20 09:59 96 127/69 06/19/20 08:08 91 17 99 06/19/20 08:00 33 H 06/19/20 07:20 90 124/66 06/19/20 07:19 90 34 H 93 L 06/19/20 06:00 28 H 06/19/20 04:00 32 H 06/19/20 03:00 101.6 F H 06/19/20 02:33 115 H 137/80 06/19/20 02:00 36 H 06/19/20 00:19 93 130/74 Weight Admit Weight 159 lb Weight 2.607 oz Most Recent Monitor Data Heart Rate from ECG 99 NIBP 134/71 NIBP BP-Mean 92 Respiration from ECG 38 SpO2 91 I&O: 06/18/20 06/19/20 06/20/20 06:59 06:59 06:59 Intake Total 2408 2305 120 Output Total 13 378 Balance 2395 1927 120 Result Diagrams: 06/19/20 03:15 06/19/20 03:15 Additional Labs: Accuchecks 06/18/20 06/18/20 21:54 16:16 POC Glucose 238 H 179 H Radiology Reviewed by me: Yes (All radiological investigations reviewed) EKG Reviewed by me: Yes Hospitalist ROS - Review of Systems ROS unobtainable: due to mental status - Medication Medications: Active Medications Generic Name Dose Route Start Last Admin Trade Name Freq PRN Reason Stop Dose Admin Acetaminophen 650 mg 06/14/20 19:51 06/19/20 11:27 Tylenol Elixir PO 650 mg Q4H PRN Administration Headache/Fever/Mild Pain (1-3) Albuterol/Ipratropium 3 ml 05/30/20 13:00 06/19/20 07:19 Duoneb NEB 3 ml Q4IV-WD RONALD Administration Amlodipine Besylate 10 mg 06/03/20 09:00 06/19/20 09:59 Norvasc PO 10 mg DAILY RONALD Administration Aspirin 81 mg 06/03/20 09:00 06/19/20 10:00 Aspirin Chewable PO 81 mg DAILY RONALD Administration Atorvastatin Calcium 40 mg 06/03/20 09:00 06/19/20 09:59 Lipitor PO 40 mg DAILY RONALD Administration Carvedilol 6.25 mg 06/05/20 21:00 06/19/20 10:00 Coreg PO 6.25 mg BID RONALD Administration Famotidine 20 mg 05/27/20 21:00 06/18/20 20:14 Pepcid SLOW IVP 20 mg 2100 RONALD Administration Ferrous Sulfate 300 mg 06/03/20 08:00 06/19/20 10:00 Ferrous Sulfate PO 300 mg QAM-WM RONALD Administration Heparin Sodium (Porcine) 5,000 units 06/02/20 21:00 06/19/20 10:02 Heparin SC 5,000 units BID RONALD Administration Insulin Glargine 10 units/ 0.1 mls @ 0 mls/hr 06/08/20 21:00 06/18/20 20:14 Miscellaneous Medication SC 0.1 mls HS RONALD Administration Micafungin Sodium 100 mg/ 100 mls @ 100 mls/hr 06/14/20 09:00 06/19/20 10:01 Sodium Chloride IVPB 100 mls DAILY RONALD Administration Meropenem 1 gm/ Device 50 mls @ 100 mls/hr 06/14/20 22:00 06/19/20 10:02 IVPB 50 mls 1000,2200 RONALD Administration Dexmedetomidine HCl 400 mcg/ 100 mls @ 0 mls/hr 06/15/20 07:45 06/19/20 05:03 Sodium Chloride IVPB 100 mls INF RONALD Administration Protocol Per Protocol Levofloxacin 500 mg/ Device 100 mls @ 100 mls/hr 06/19/20 09:00 06/19/20 10: 01 IVPB 100 mls Q48H RONALD Administration Insulin Human Regular 0 units 06/08/20 18:28 06/19/20 11:21 Humulin R SC 3 unit .AGGRESSIVE SLIDING PRN Administration Aggressive Correctional Scale Insulin Human Regular 0 units 06/08/20 18:28 06/11/20 21:16 Humulin R SC 3 unit .BEDTIME SLIDING SC PRN Administration Bedtime Correctional Scale Isosorbide Mononitrate 20 mg 06/07/20 09:00 06/19/20 10:01 Ismo PER TUBE 20 mg BID RONALD Administration Latanoprost 1 drop 06/02/20 21:00 06/18/20 20:15 Xalatan 0.005% Ophth Soln R EYE 1 drop HS RONALD Administration Lorazepam 2 mg 06/18/20 09:53 06/19/20 04:50 Ativan SLOW IVP 2 mg Q4H PRN Administration Anxiety/Agitation Methylprednisolone Sodium Succinate 40 mg 06/19/20 12:00 06/19/20 11:44 Solu-Medrol IVP 40 mg Q6HR RONALD Administration Metoclopramide HCl 10 mg 06/16/20 12:00 06/19/20 11:44 Reglan IVP Not Given Q6HR [facility] Morphine Sulfate 2 mg 06/18/20 02:27 06/18/20 08:08 Morphine SLOW IVP 2 mg Q4H PRN Administration Moderate Pain (4-6) Morphine Sulfate 4 mg 06/18/20 09:35 06/19/20 02:19 Morphine SLOW IVP 4 mg Q2H PRN Administration Moderate Pain (4-6) Potassium Chloride 20 meq 06/14/20 09:00 06/19/20 10:00 Klor-Con PO 20 meq DAILY RONALD Administration Scopolamine 1.5 mg 06/04/20 15:00 06/16/20 14:43 Transderm Scop TD 1.5 mg Q3D RONALD Administration Sodium Chloride 10 ml 06/14/20 17:45 06/15/20 21:02 Flush - Normal Saline IVF 10 ml PRN PRN Administration Saline Flush - Exam General Appearance: NAD, ill appearing General - other findings: Tracheostomy on ventilator Eye: PERRL ENT: normocephalic atraumatic ENT - other findings: Tracheostomy Heart: RRR, no murmur, no gallops Respiratory - other findings: Coarse breath sound bilaterally Gastrointestinal: soft Gastrointestinal - other findings: PEG tube in place Extremities: no edema Extremities - other findings: Haney catheter in place Skin: normal turgor Neurological - other findings: Unable to assess Musculoskeletal: normal tone Hosp A/P - Plan old records reviewed/req, haney catheter, continue antibiotics, respiratory therapy Consults: Palliative Care Assessment Acute respiratory failure, status post trach and PEG Acute on chronic systolic and diastolic heart failure with EF 40 to 45% Type II myocardial infarction due to demand ischemia Encephalopathy due to multifactorial etiology ARDS/bilateral pneumonia Acute kidney failure now ESRD on hemodialysis Anemia of chronic disease, status post 4 unit transfusion Hypertension Coronary artery disease with a stent Moderate mitral regurgitation Plan Reviewed the hospital chart, patient is on ventilator with a trach and PEG Her prognosis is extremely poor Palliative care team is following and possible family meeting today to discuss about goals of care and possible transition to hospice if family agrees Currently patient is on meropenem and levofloxacin and vancomycin as well as micafungin Today Solu-Medrol started by pulmonology Medication reviewed and continue provide symptomatic and supportive care
--- NOTE | 2020-06-19 12:16 | PRG ---
DATE OF SERVICE: 06/19/2020 SUBJECTIVE: The patient is seen in ICU and remains ventilated. OBJECTIVE: GENERAL: This is a well-built female, seen in ICU. VITAL SIGNS: Temperature 98.9, pulse 90, respiratory rate 40, blood pressure 133/72. NECK: Trach present. HEENT: Atraumatic, normocephalic. CV: S1 and S2 heard. RESPIRATORY: Clear. EXTREMITIES: Trace edema. NEUROLOGIC: Sedated. LABORATORY DATA: Potassium 4.3, BUN is 79, creatinine is 3.4. ASSESSMENT AND PLAN: 1. Acute kidney injury on chronic kidney disease, stage 4, dialysis dependent. Might benefit from dialysis, but I heard that family might be considering comfort measures. If that is the case, we will sign off. Otherwise, we will have dialysis. 2. History of hypertension. 3. Acute hypoxic respiratory failure. 4. Hypernatremia. 5. Anemia. 6. Altered mentation. 7. Prognosis is guarded. We will have dialysis if family agrees. Job ID: [id number]
[2020-06-19 13:17] VITALS: TEMP 101.1
[2020-06-19] MEDS ORDERED: Lorazepam 2 MG/ML VIAL SLOW IVP PRN (14:57)
[2020-06-19] MEDS ORDERED: Morphine 4 MG/ML VIAL SLOW IVP PRN (14:57)
[2020-06-19 15:05] VITALS: BMI 28.3
[2020-06-19] MEDS: Scopolamine 1.5 mg/72 hour Patch TD SCH (15:19)
[2020-06-19] MEDS ORDERED: Meropenem 500 MG in Sodium Chloride 0.9% 100 ML IVPB SCH (22:00)
--- NOTE | 2020-06-20 07:11 | DIS ---
DATE OF ADMISSION: 05/27/2020 DATE OF DISCHARGE: 06/19/2020 DATE OF : June 19, 2020. TIME OF : 1554 hours. PRIMARY CAUSES OF : 1. ARDS. 2. Acute on chronic systolic and diastolic heart failure. 3. Type 2 myocardial infarction due to demand ischemia. 4. Encephalopathy. 5. Acute kidney failure. CONTRIBUTING DIAGNOSES: 1. Hypertension. 2. Coronary artery disease. 3. Mitral regurgitation. PRIMARY PROCEDURE/OPERATION: Intubation, tracheostomy, PEG tube. HOSPITAL COURSE: A 54-year-old female, who was admitted on May 27, 2020. The patient was having increasing shortness of breath. The patient was initially kept on BiPAP and subsequently, the patient did not tolerate and required intubation. The patient remained on ventilator for a long period of time. She required trach and PEG. The patient's condition did not improve. She was also treated with broad-spectrum antibiotic therapy while in hospital. She was also treated for congestive heart failure while in the hospital. Cardiology and Pulmonology were following while in the hospital. The patient also had tracheostomy and PEG tube placement and subsequently family member decided withdrawal of care. Today, the patient had compassionate extubation for comfort care and subsequently, the patient at 1554 hours. Body was released for . Please see my progress note from today for more details. Job ID: [id number]
[2020-06-21 15:02] LABS: Cytoplasmic (C-ANCA) <1:20 titer (Neg:<1:20); Myeloperoxidase AutoAbs <9.0 U/mL (0.0-9.0); Perinuclear (P-ANCA) <1:20 titer (Neg:<1:20); Proteinase-3 AutoAbs Less than 3.5 U/mL (0.0-3.5)
[2020-06-22 11:53] LABS: ANA Symphony (Qualitative) Negative (Negative); ANA Symphony (Quantitative) 0.3 Ratio (< 0.7 Negative); CCP IgG Antibody 1.4 EliAU/mL (<7 Negative); EliA RAS New Method **** NEW METHOD ****; EliA Vaculitis New Method **** NEW METHOD ****; Glomerular Basemt Membrane Ab Less than 1.9 EliAU/mL (<7 Negative); Rheumatoid Factor IgM Antibody 0.6 IU/mL (<3.5 Negative); dsDNA IgG Antibody 1.7 IU/mL (<10 Negative)
== END 2020-06-19 15:54 | disposition expired | DRG 4 ==
LOC: ERS 13:54 → CCU 18:10
PROVIDERS: ADMIT Emergency Medicine; ATTEND Emergency Medicine
PROC: 5A1955Z Respiratory Ventilation, Greater than 96 Consecutive Hours (ICD-10-PCS; principal; 2020-05-27)
PROC: 0BH17EZ Insertion of Endotracheal Airway into Trachea, Via Natural or Artificial Opening (ICD-10-PCS; 2020-05-27)
PROC: 02H633Z Insertion of Infusion Device into Right Atrium, Percutaneous Approach (ICD-10-PCS; 2020-05-27)
PROC: 5A09357 Assistance with Respiratory Ventilation, Less than 24 Consecutive Hours, Continuous Positive Airway Pressure (ICD-10-PCS; 2020-05-27)
PROC: 30233N1 Transfusion of Nonautologous Red Blood Cells into Peripheral Vein, Percutaneous Approach (ICD-10-PCS; 2020-05-30)
PROC: 0B110F4 Bypass Trachea to Cutaneous with Tracheostomy Device, Open Approach (ICD-10-PCS; 2020-06-09)
PROC: 02HV33Z Insertion of Infusion Device into Superior Vena Cava, Percutaneous Approach (ICD-10-PCS; 2020-06-09)
PROC: B518YZA Fluoroscopy of Superior Vena Cava using Other Contrast, Guidance (ICD-10-PCS; 2020-06-09)
PROC: B548ZZA Ultrasonography of Superior Vena Cava, Guidance (ICD-10-PCS; 2020-06-09)
PROC: 0DH63UZ Insertion of Feeding Device into Stomach, Percutaneous Approach (ICD-10-PCS; 2020-06-09)
PROC: 0JH63XZ Insertion of Tunneled Vascular Access Device into Chest Subcutaneous Tissue and Fascia, Percutaneous Approach (ICD-10-PCS; 2020-06-09)
PROC: 0B938ZZ Drainage of Right Main Bronchus, Via Natural or Artificial Opening Endoscopic (ICD-10-PCS; 2020-06-16)
PROC: 0B9D8ZX Drainage of Right Middle Lung Lobe, Via Natural or Artificial Opening Endoscopic, Diagnostic (ICD-10-PCS; 2020-06-16)
PROC: 0B978ZZ Drainage of Left Main Bronchus, Via Natural or Artificial Opening Endoscopic (ICD-10-PCS; 2020-06-16)
PROC: 3E0G76Z Introduction of Nutritional Substance into Upper GI, Via Natural or Artificial Opening (ICD-10-PCS; 2020-06-16)
DX: J80 Acute respiratory distress syndrome (principal); J18.9 Pneumonia, unspecified organism; I21.A1 Myocardial infarction type 2; N18.6 End stage renal disease; I50.43 Acute on chronic combined systolic (congestive) and diastolic (congestive) heart failure; A41.1 Sepsis due to other specified staphylococcus; N17.9 Acute kidney failure, unspecified; J44.1 Chronic obstructive pulmonary disease with (acute) exacerbation; J44.0 Chronic obstructive pulmonary disease with (acute) lower respiratory infection; I13.2 Hypertensive heart and chronic kidney disease with heart failure and with stage 5 chronic kidney disease, or end stage renal disease; E46 Unspecified protein-calorie malnutrition; G93.49 Other encephalopathy; E87.0 Hyperosmolality and hypernatremia; B37.49 Other urogenital candidiasis; E87.2 Acidosis; Z51.5 Encounter for palliative care; Z20.828 Contact with and (suspected) exposure to other viral communicable diseases; I25.10 Atherosclerotic heart disease of native coronary artery without angina pectoris; E11.22 Type 2 diabetes mellitus with diabetic chronic kidney disease; F32.9 Major depressive disorder, single episode, unspecified; F41.9 Anxiety disorder, unspecified; H54.3 Unqualified visual loss, both eyes; F17.210 Nicotine dependence, cigarettes, uncomplicated; R53.81 Other malaise; D63.1 Anemia in chronic kidney disease; E11.40 Type 2 diabetes mellitus with diabetic neuropathy, unspecified; I27.20 Pulmonary hypertension, unspecified; R13.10 Dysphagia, unspecified; R53.1 Weakness; I34.0 Nonrheumatic mitral (valve) insufficiency; E87.8 Other disorders of electrolyte and fluid balance, not elsewhere classified; E87.6 Hypokalemia; Z90.49 Acquired absence of other specified parts of digestive tract; Z95.5 Presence of coronary angioplasty implant and graft; Z79.82 Long term (current) use of aspirin; Z79.02 Long term (current) use of antithrombotics/antiplatelets; Z79.4 Long term (current) use of insulin; Z71.6 Tobacco abuse counseling; Z68.28 Body mass index [BMI] 28.0-28.9, adult
CPT/HCPCS: 31500; 36415; 36416; 36430; 36556; 36600; 51702; 71045; 76000; 76770; 80048; 80053; 80164; 80202; 81003; 81015; 82553; 82805; 83516; 83520; 83605; 83735; 83880; 84100; 84484; 85025; 86038; 86200; 86225; 86256; 86850; 86900; 86901; 87040; 87070; 87077; 87086; 87149; 87186; 87205; 87324; 87340; 87449; 87635; 90935; 93005; 93306; 94002; 94003; 94640; 94660; 96365; 96367; 96368; 96375; 96376; 99292; C1752; G0257; J0692; J1642; J1644; J1650; J1815; J1940; J1956; J2001; J2060; J2185; J2248; J2250; J2270; J2405; J2543; J2704; J2765; J2920; J3010; J3370; J3475; J3480; J3490; J7050; J7620; P9016; S0020; S0028; U0003